=== PATIENT | female | born 1935 | race Caucasian/White ===

== ENCOUNTER 2020-06-26 04:25 | Inpatient (IN) | payer MEDICARE, SELFPAY ==
[2020-06-26] VITALS (30 sets, daily range): BP systolic 122–206; BP diastolic 59–100; PULSE 60–85; RESP 14–20; TEMP 36.6–36.8; O2SAT 90–98; BMI 28.3; BMI 31.7
--- NOTE | 2020-06-26 | IR_ITS ---
APPROVED REPORT Patient Location[facility] Librarian: ROSALIE Alfonso RT (R) PROCEDURES Left heart catheterization Left ventriculogram Selective coronary angiogram Drug-eluting stent deployment to the ostial proximal and mid LAD in a noncontiguous manner using 2 drug-eluting stents INDICATION Acute ST elevation anterior myocardial infarction, Coronary artery disease Informed consent was obtained prior to the procedure. COMPLICATIONS None TECHNIQUE One percent lidocaine used to anesthetize the right anterior aspect of the wrist. The right radial artery was accessed via the Seldinger technique. A 6 Arabic sheath was placed in the right radial artery. 2.5 mg of verapamil, 800 mcg of nitroglycerin, 1mg Lidocaine were given through the arterial sheath. An ACT was measured greater than 190 therefore an additional 4000 units of heparin was administered intravenously. A Papa catheter was used to intubate the left main artery and a Choice PT wire was placed through the LAD stenosis into the distal LAD. A 3 mm x 12 mm resolute pieter stent was deployed at 16 mickey reducing the critical stenosis to 0%. An additional 2.75 x 15 mm resolute pieter stent was then deployed in the mid LAD at 16 mickey reducing the severe stenosis to 0%. DEWEY II flow was present before the procedure with DEWEY-3 flow being present at the end of the procedure. At the end of the procedure the apparatus was removed the sheath was removed good hemostasis was achieved using TR banding patient was transferred to the postop holding her in stable condition. ANGIOGRAPHIC RESULTS The left main artery Has mid vessel and distal 30% tandem stenoses The left anterior descending artery Is an ostial and proximal critical focal 90% stenosis followed by an additional mid vessel 80% concentric stenosis. There is additional 20% diffuse eccentric stenoses throughout the LAD The circumflex artery Is nondominant yet still a large caliber vessel with a mid vessel 40% stenosis The right coronary artery Is a large dominant vessel and has multiple proximal to mid vessel 30% stenoses. The posterior descending artery has proximal and mid vessel 30% stenoses The COLE ventriculogram reveals Reduced at 35 to 40% with anterior wall hypokinesis The left ventricular end-diastolic pressure 20 mmHg IMPRESSION Critical proximal and mid LAD disease as described above with successful stenting of the ostial proximal LAD and mid LAD in a noncontiguous manner using 2 drug-eluting stents Persistent mild to moderate atheromatous plaque as described above Reduced ejection fraction with a likely stunned anterior wall which should recover over time Elevated LVEDP consistent with stunned myocardium PLAN 1. Brilinta 90 twice daily plus aspirin 81 mg daily for 1 year 2. LDL goal of 55 to be achieved with high intensity statin 3. HARPER inhibitor and beta-zeeshan once hemodynamically stable 4. Medical management for the remaining disease 5. Echocardiogram to better evaluate ejection fraction. If ejection fraction remains 35% or less prior to discharge patient should go home with a LifeVest 6. Cardiac rehabilitation 7. Supportive care 8. Avoidance of all tobacco products Electronically signed by : Odilon Kapoor, 06/26/2020 06:16:52
--- NOTE | 2020-06-26 04:25 | ECG_ITS ---
APPROVED REPORT Exam: Resting ECG HR:86 bpm ECG Measurements Heart Rate 86 AXES NE 150 P 61 QRSd 86 QRS 46 QT 352 T 7 QTc 421 <Conclusion> Sinus rhythm with premature atrial complexes Possible Old [place] Marked ST abnormality, inferior/lateral subendocardial ischemia/injury Abnormal ECG Electronically signed by : Lukas Owen, 06/28/2020 16:11:55
--- NOTE | 2020-06-26 04:28 | PC.NURSE ---
STEMI CALLED AT THIS TIME
--- NOTE | 2020-06-26 04:29 | PC.NURSE ---
QUIN NOTIFIED AND RETURNED CALL. DISCUSSES CASE WITH DR MARSH AND IT IS DECIDED TO CONTINUE WITH CALLING THE TEAM IN AT THIS TIME. REIMBURSEMENT LIAISON NOTIFIED. DR TSAI FURTHER STATES HE MAY CANCEL THE ALERT IF THE PAIN THE PATIENT IS EXPERIENCING GETS UNDER CONTROL AND TAKE HER TO THE ER TECH LATER THIS MORNING.
--- NOTE | 2020-06-26 04:33 | XR_ITS ---
PROCEDURE: XR CHEST PORTABLE CLINICAL HISTORY: back pain/STEMI alert Pain COMPARISON: CR CXR1 CHEST-PORTABLE from 08/25/[address] CHEST W/O CONTRAST from 09/05/2015 FINDINGS: The cardiomediastinal silhouette and pulmonary vascularity are within normal limits. No lobar consolidation or collapse. There is some hyperinflation with attenuation of the peripheral pulmonary vessels suggesting small airway disease/COPD. Left lung base is obscured by overlying monitoring device. No acute bony abnormalities. IMPRESSION: No acute findings. Dictated b Dong Ge MD 06/26/2020 07:45 Dong Ge MD in [facility] 06/26/2020 07:45
--- NOTE | 2020-06-26 04:39 | HMH.EDGENADL ---
ED Disposition Clinical Impression: ST elevation NV (STEMI) Qualifiers: Involved coronary artery: unspecified coronary artery Qualified Code(s): I21.3 - ST elevation (STEMI) myocardial infarction of unspecified site Disposition: Admitted As Inpatient Condition on Discharge: Serious - Critical Care Critical Care Time: Yes Attestation: On , the high probability of a clinically significant, sudden or life threatening deterioration of the following system(s) required my full and direct attention, intervention and personal management. The time I documented below is in addition to time spent performing reported procedures but includes the following listed in this critical care notation. Total Critical Care Time: 35 Vital system(s) involved:: Circulatory Failure My critical care processes included: Assessment & monitoring of V/S, Initial and Re-exams, Data Review/Interpretation, Coordinating Care, Medication Orders and management, Documentation Medical Decision Making - Miles Inquiry Pt receiving controlled substance: No Vital Signs: 06/26/20 04:30 06/26/20 04:48 06/26/20 04:55 Pulse Rate [Right Brachial] 80 85 79 Respiratory Rate 20 17 Blood Pressure [Right Arm] 206/100 H 133/85 153/83 H Blood Pressure Mean [Right Arm] 135 101 106 Blood Pressure Source [Right Arm] Automatic Cuff Automatic Cuff Automatic Cuff Blood Pressure Position [Right Arm] Sitting Sitting Sitting 02 Sat by Pulse Oximetry 94 L 92 L 91 L Oxygen Delivery Method Room Air Room Air Room Air Oxygen Flow Rate (LPM) 06/26/20 04:57 06/26/20 05:02 06/26/20 05:07 Pulse Rate [Right Brachial] 74 73 68 Respiratory Rate 17 15 16 Blood Pressure [Right Arm] 144/86 H 154/78 H 167/78 H Blood Pressure Mean [Right Arm] 105 103 107 Blood Pressure Source [Right Arm] Automatic Cuff Automatic Cuff Blood Pressure Position [Right Arm] Sitting Sitting 02 Sat by Pulse Oximetry 94 L 93 L 92 L Oxygen Delivery Method Nasal Cannula Nasal Cannula Nasal Cannula Oxygen Flow Rate (LPM) 2 2 2 06/26/20 05:13 06/26/20 05:17 Pulse Rate [Right Brachial] 68 68 Respiratory Rate 14 16 Blood Pressure [Right Arm] 157/75 H 164/80 H Blood Pressure Mean [Right Arm] 102 108 Blood Pressure Source [Right Arm] Automatic Cuff Automatic Cuff Blood Pressure Position [Right Arm] Sitting Sitting 02 Sat by Pulse Oximetry 94 L 94 L Oxygen Delivery Method Nasal Cannula Nasal Cannula Oxygen Flow Rate (LPM) 2 2 - Lab Data Lab Results 06/26/20 04:42: WBC 7.8, RBC 5.34, Hgb 15.6, Hct 46.1, MCV 86.3, MCH 29.2, MCHC 33.8, RDW 13.8, Plt Count 217, MPV 7.3 L, Neut % (Auto) 63.8, Lymph % (Auto) 27.1, Floyd % (Auto) 6.3, Eos % (Auto) 2.2, Baso % (Auto) 0.6, Neut # (Auto) 5.0, Lymph # (Auto) 2.1, Floyd # (Auto) 0.5, Eos # (Auto) 0.2, Baso # (Auto) 0.1 06/26/20 04:42: Sodium 142, Potassium 4.4, Chloride 106, Carbon Dioxide 25, Anion Gap 15.4 H, BUN 23 H, Creatinine 1.00, Estimated Creat Clear 49, Estimated GFR 53 L, Est GFR ( Amer) 64, Glucose 135 H, Calcium 10.1, Troponin I 1.90 H Result diagrams: 06/26/20 04:42 06/26/20 04:42 Orders (Tests/Meds): ED MEDICATIONS Generic Name Dose Route Start Last Admin Trade Name Freq PRN Reason Stop Dose Admin Diphenhydramine HCl 50 mg 06/26/20 05:19 Benadryl 50mg/1ml Vial IV 06/26/20 05:20 ONCE ONE Fentanyl Citrate 25 mcg 06/26/20 05:30 Fentanyl 100mcg/2ml Vial IV 06/27/20 05:20 Q3MINP PRN Moderate to Severe Pain Fentanyl Citrate 50 mcg 06/26/20 05:30 Fentanyl 100mcg/2ml Vial IV 06/27/20 05:20 Q3MINP PRN Moderate to Severe Pain Fentanyl Citrate 25 mcg 06/26/20 05:30 Fentanyl 250mcg/5ml Vial IV 06/27/20 05:19 Q3MINP PRN Moderate to Severe Pain Fentanyl Citrate 50 mcg 06/26/20 05:30 Fentanyl 250mcg/5ml Vial IV 06/27/20 05:19 Q3MINP PRN Moderate to Severe Pain Flumazenil 0.2 mg 06/26/20 05:30 Romazicon 0.1mg/Ml 5ml Vial IV 06/26/20 23:00 NEEDED PRN Sedat
[2020-06-26 04:49] LABS: Basophils # 0.1 K/mm3 (0-0.2); Basophils % 0.6 % (0.1-2.0); Eosinophils # 0.2 K/mm3 (0.0-0.4); Eosinophils % 2.2 % (0.1-12.0); Hematocrit 46.1 % (37.0-47.0); Hemoglobin 15.6 g/dL (12.2-16.2); Lymphocytes # 2.1 K/mm3 (0.7-4.5); Lymphocytes % 27.1 % (10-50); Mean Corpuscular HGB Conc 33.8 g/dL (31.8-35.4); Mean Corpuscular Hemoglobin 29.2 pg (27.0-31.2); Mean Corpuscular Volume 86.3 fl (81-99); Mean Platelet Volume 7.3 fl (7.4-10.4); Monocytes # 0.5 K/mm3 (0.1-1.0); Monocytes % 6.3 % (1.7-9.3); Neutrophils % 63.8 % (37.0-80.0); Platelet Count 217 K/mm3 (142-424); Red Blood Count 5.34 M/mm3 (4.20-5.40); Red Cell Distribution Width 13.8 % (11.5-17.5); White Blood Count 7.8 K/mm3 (4.8-10.8)
--- NOTE | 2020-06-26 04:49 | PC.NURSE ---
0438 instructed fabric separator operator to get warehouse general laborer team. YAJAIRA BLANCA,PIERO RESENDIZ,NOREEN JARRELL NOTIFIED
--- NOTE | 2020-06-26 04:50 | ECG_ITS ---
APPROVED REPORT Exam: Resting ECG HR:67 bpm ECG Measurements Heart Rate [address] 138 P 36 QRSd 86 QRS 45 QT 388 T 70 QTc 409 <Conclusion> Normal sinus rhythm with sinus arrhythmia Inferolateral Ischemia Possible old [place] Abnormal ECG Electronically signed by : Lukas Owen, 06/28/2020 16:07:35
--- NOTE | 2020-06-26 04:50 | PC.NURSE ---
Nitro drip stopped at this time
[2020-06-26 04:54] LABS: Chloride 106 mmol/L (98-107); Potassium 4.4 mmoL/L (3.5-5.1); Sodium 142 mmol/L (136-145)
--- NOTE | 2020-06-26 04:56 | PC.NURSE ---
Stemi alert canceled at this time
[2020-06-26 04:57] LABS: Blood Urea Nitrogen 23 mg/dl (7-17); Creatinine Clearance Estimated 49 mL/min (50-200); Estimated Glomerular Filt Rate 53 ml/min (>60); GFR (African American) 64 ML/MIN (>60)
[2020-06-26 04:58] LABS: Anion Gap 15.4 mEq/L (5-15); Calcium 10.1 mg/dl (8.4-10.2); Carbon Dioxide 25 mmol/L (22.0-30.0); Glucose 135 mg/dl (74-100)
--- NOTE | 2020-06-26 04:59 | PC.NURSE ---
Nitro drip started back at this time - 5mcg
--- NOTE | 2020-06-26 05:03 | PC.NURSE ---
0456 STEMI CANCELED .STAPLING MACHINE OPERATOR NOTIFIED TO GET THE LOAN DOCUMENTATION SPECIALIST TEAM. 0458 YAJAIRA WORKS RETURNED CALL AND WAS NOTIFIED. 0503 PIERO RESENDIZ NOTIFIED 0507 NOREEN JARRELL NOTIFIED
--- NOTE | 2020-06-26 05:10 | PC.NURSE ---
CRITICAL TROP TO .
--- NOTE | 2020-06-26 05:12 | PC.NURSE ---
ORDER RECEIVED TO CALL TREATING ENGINEER AND RE-ACTIVATE DUE TO PAIN/PRESSURE COMING BACK. ADDITIONAL NITRO GIVEN SL. NITRO IV UPPED TO 10 MCG/HOUR
--- NOTE | 2020-06-26 05:15 | PC.NURSE ---
9956 WAS NOTIFIED TO GET DIESEL LOCOMOTIVE CRANE OPERATOR TEAM .DID CALL DIESEL LOCOMOTIVE CRANE OPERATOR WHERE NOREEN AND YAJAIRA WERE ALREADY HERE AND YAJAIRA WAS GOING TO LET PIERO KNOW SHE WAS ON PHONE WITH HIM
--- NOTE | 2020-06-26 05:20 | PC.NURSE ---
CALLED [facility] FOR [facility] FOR COVID PER REQUEST OF YOLIE GATES WITH MANAGING DIRECTOR ATLAS. ENVIRONMENTAL HEALTH PHYSICIAN WITH PATIENT. TRANSPORTED VIA 2 RN'S AND CONCRETE BUCKET LOADER. PT ON ZOLL MONITOR
--- NOTE | 2020-06-26 05:24 | PC.NURSE ---
CALLED [employer] FOR PATIENT REPORT, THEY STATED THEY JUST WANTED TO CONFIRM PREVIOUS CABG HISTORY AND ALLERGIES. NOTIFIED THEM THAT THERE HASN'T BEEN A CABG PRIOR TO THIS DATE, AND SHE TOLD US ONLY ZITHROMAX BUT SULFA IS ALSO LISTED IN CHART.
[2020-06-26 05:28] LABS: Adenovirus,PCR Not Detected (NotDetected); Bordetella Pertussis Not Detected (NotDetected); Chlamydophila Pneumoniae, PCR Not Detected (NotDetected); Coronavirus 19, PCR Not Detected (NotDetected); Coronavirus 229E Not Detected (NotDetected); Coronavirus NL63 Not Detected (NotDetected); Coronavirus OC43 Not Detected (NotDetected); Coronovirus HKU1,PCR Not Detected (NotDetected); Human Metapneumovirus Not Detected (NotDetected); Influenza A, PCR Not Detected (NotDetected); Influenza AH1, 2009 Not Detected (NotDetected); Influenza AH1, PCR Not Detected (NotDetected); Influenza AH3,PCR Not Detected (NotDetected); Influenza B, PCR Not Detected (NotDetected); Mycoplasma Pneumoniae, PCR Not Detected (NotDetected); Parainfluenza 1, PCR Not Detected (NotDetected); Parainfluenza 2, PCR Not Detected (NotDetected); Parainfluenza 3, PCR Not Detected (NotDetected); Parainfluenza 4, PCR Not Detected (NotDetected); Respiratory Syncytial Virus Not Detected (NotDetected); Rhinovirus/Enterovirus Not Detected (NotDetected)
--- NOTE | 2020-06-26 07:34 | P.CONPHA_ITS ---
[facility] Pharmacy VTE Monitoring - Patient Demographics Admission date: 06/26/20 Report Date: 06/26/20 Time: 07:34 Allergies/Adverse Reactions: Patient Allergies From ZITHROMAX Allergy (Intermediate, Uncoded 11/09/17 15:00) I-ITCHING SULFA (SULFONAMIDE) Allergy (Unknown, Uncoded 11/09/17 15:00) QIVER INSIDE Height: 1.6 m Weight: 81.221 kg Patient Problems: Current Active Problems ST elevation UT (STEMI) (Acute) - VTE Risk Labs: VTE Related Lab Results Hgb 15.6 g/dL (12.2-16.2) 06/26/20 04:42 Hct 46.1 % (37.0-47.0) 06/26/20 04:42 Plt Count 217 K/mm3 (142-424) 06/26/20 04:42 BUN 23 mg/dl (7-17) H 06/26/20 04:42 Creatinine 1.00 mg/dl (0.52-1.04) 06/26/20 04:42 Estimated Creat Clear 49 mL/min (50-200) 06/26/20 04:42 - Prophylaxis VTE Prophylaxis Ordered?: Yes Types of VTE Prophylaxis: TEDS Knee High, Pharmacological Location of Applied Device: Bilateral Lower Extremeties Pharmacologic Type: Other (BRILINTA) - VTE Diagnosis Confirmed Treatment or plan recommended: Continue Current Treatment
[2020-06-26 07:49] LABS: CATHL Activated Clotting Time 294 SEC (74-125)
[2020-06-26 07:50] LABS: CATHL Activated Clotting Time 191 SEC (74-125)
[2020-06-26 07:51] LABS: CATHL Activated Clotting Time 157 SEC (74-125)
--- NOTE | 2020-06-26 08:08 | PC.NURSE ---
per alex jackson in laborer drying department, stated the heparin drip and nitro drip are to be d/c'd.
--- NOTE | 2020-06-26 08:13 | HMH.HP ---
*Admission Date: 06/26/20 *Chief complaint: Pain between shoulder blades *History of present illness: 84-year-old female presented to the emergency department early this morning with a near 3-day history of discomfort and tightness in between her shoulder blades that was worse when supine. Work-up revealed a STEMI and cardiology was consulted. Patient was started on a heparin drip and nitroglycerin drip with improvement in discomfort but not resolution. She was taken to the Registered Nurse Nursery early this morning. Patient was found to have a proximal LAD lesion that was treated with 2 drug-eluting stents. Patient is now admitted to the room and chest pain-free. [facility] History I have reviewed the patient's past medical history: Yes Medical History: Reports:: Hyperlipidemia, Hypertension *Have you ever received a pneumonia vaccine?: No *Have you received a flu vaccine this season?: Yes Other Medical History: Reports: Arthritis - *Social History Alcohol Intake: never *Occupational Status:: retired *Travel in the last 8 weeks: None Family Hx:: Unable to obtain Review of Systems - Review of Systems Review of systems:: pertinent systems reviewed and negative unless documented below Meds Home Medications Medication Instructions Recorded Confirmed Type Amlodipine Besylate [Amlodipine 5 mg PO DAILY 06/26/20 06/26/20 History 5mg tab] Metoprolol Succinate [Metoprolol 50 mg PO BID 06/26/20 06/26/20 History Succinate 50mg Tablet*] Naproxen [Naproxen 500mg tab] 500 mg PO BID 06/26/20 06/26/20 History Omeprazole 20 mg PO DAILY 06/26/20 06/26/20 History Pravastatin Sodium [Pravachol 20mg 20 mg PO DAILY 06/26/20 06/26/20 History Tablet] Allergies Allergy/AdvReac Type Severity Reaction Status Date / Time azithromycin Allergy Intermediate Hives Verified 06/26/20 08:35 Sulfa (Sulfonamide Allergy Unknown Shakiness Verified 06/26/20 08:35 Antibiotics) Exam Vital signs and Labs for Last 24 Hours: Temp Pulse Resp BP Pulse Ox 97.8 F 71 16 142/66 H 95 06/26/20 07:00 06/26/20 06:45 06/26/20 06:45 06/26/20 07:00 06/26/20 07:00 Laboratory Results - last 24 hr 06/26/20 04:42: WBC 7.8, RBC 5.34, Hgb 15.6, Hct 46.1, MCV 86.3, MCH 29.2, MCHC 33.8, RDW 13.8, Plt Count 217, MPV 7.3 L, Neut % (Auto) 63.8, Lymph % (Auto) 27.1, Barron % (Auto) 6.3, Eos % (Auto) 2.2, Baso % (Auto) 0.6, Neut # (Auto) 5.0, Lymph # (Auto) 2.1, Barron # (Auto) 0.5, Eos # (Auto) 0.2, Baso # (Auto) 0.1 06/26/20 04:42: Sodium 142, Potassium 4.4, Chloride 106, Carbon Dioxide 25, Anion Gap 15.4 H, BUN 23 H, Creatinine 1.00, Estimated Creat Clear 49, Estimated GFR 53 L, Est GFR ( Amer) 64, Glucose 135 H, Calcium 10.1, Troponin I 1.90 H 06/26/20 04:42: Activated Clotting Time 157 H* 06/26/20 04:55: Activated Clotting Time 191 H* D 06/26/20 05:05: Activated Clotting Time 294 H* D 06/26/20 05:27: Chlamy pneumoniae PCR Not detected, Adenovirus (PCR) Not detected, B. pertussis DNA (PCR) Not detected, Coronavirus OC43 (PCR) Not detected, Coronavirus HKU1 (PCR) Not detected, Coronavirus 229E (PCR) Not detected, COVID-19 PCR Not detected, Coronavirus NL63 (PCR) Not detected, Human Metapneumovir PCR Not detected, Influenza A (H1) PCR Not detected, Influ A (H1N1/09) PCR Not detected, Influenza A (H3) PCR Not detected, Influenza Type A (PCR) Not detected, Influenza Type B (PCR) Not detected, M. pneumoniae (PCR) Not detected, Parainfluenza 1 (PCR) Not detected, Parainfluenza 2 (PCR) Not detected, Parainfluenza 3 (PCR) Not detected, Parainfluenza 4 (PCR) Not detected, RSV (PCR) Not detected, Entero/Rhino (PCR) Not detected I & O for Last 24 hours: Intake & Output 06/23/20 06/24/20 06/25/20 06/26/20 11:59 11:59 11:59 11:59 Output Total 600 / 600 Balance -600 / -600 Weight 179 lb 1 oz - *Routine HEENT Exam Head: Present: normocephalic Eye: Present: EOMI, PERRL ENT: Present: mucous membranes moist - *Routine Neck Exam Present: supple. Abs
[2020-06-26 08:35] LABS: Chol/HDL Ratio 3.2 (1-3.5); Cholesterol 165 mg/dl (140-200); HDL Cholesterol 51 mg/dl (40-60); Triglycerides 125 mg/dl (30-150); VLDL Cholesterol 25 mg/dL (0-40)
[2020-06-26 08:46] LABS: Direct LDL Cholesterol 97.84 mg/dL (100-129)
--- NOTE | 2020-06-26 10:56 | HMH.CNCARD ---
History of Present Illness Consult date: 06/26/20 Requesting physician: Jair aWlters Chief complaint: pain between shoulder blades Additional Medical History:: 1. htn 2. hld 3. arthritis History of present illness: This is an 84-year-old white female who presented to the emergency department this morning with a 3-day history of pain between her shoulder blades. She states that it felt like someone was stabbing her with a knife between her shoulder blades when she would lie down at night. She states that when she would get up in the morning the pain would go away. She states that last night the pain between her shoulder blades was more severe and since this has been going on for 3 days she decided to come to the emergency department. She denies any radiation of this pain between her shoulder blades. She states that she did get short of breath when it was severe and she had a little bit of nausea. She denies any diaphoresis. The patient states that she never had any pain in her chest it was all between her shoulder blades. She denies any fever, chills, vomiting, diarrhea, PND or orthopnea. The patient was found to have an ST elevation myocardial infarction was taken directly to the cardiac forestry farm laborer. [facility] History I have reviewed the patient's past medical history: Yes Medical History: Reports:: Hyperlipidemia, Hypertension Denies:: Cancer, Diabetes Mellitus Type 1, Diabetes Mellitus Type 2, MRSA *Have you ever received a pneumonia vaccine?: Yes *Have you received a flu vaccine this season?: Yes Other Medical History: Reports: Arthritis, Cataracts Other Surgeries: Yes: Appendectomy, Tubal Ligation Amputation: No - *Social History Alcohol Intake: never *Occupational Status:: retired Housing: house *Travel in the last 8 weeks: None Family Hx:: Coronary Artery Disease, Heart Attack Meds Home Medications Medication Instructions Recorded Confirmed Type Amlodipine Besylate [Amlodipine 5 mg PO DAILY 06/26/20 06/26/20 History 5mg tab] Metoprolol Succinate [Metoprolol 50 mg PO BID 06/26/20 06/26/20 History Succinate 50mg Tablet*] Naproxen [Naproxen 500mg tab] 500 mg PO BID 06/26/20 06/26/20 History Omeprazole 20 mg PO DAILY 06/26/20 06/26/20 History Pravastatin Sodium [Pravachol 20mg 20 mg PO DAILY 06/26/20 06/26/20 History Tablet] Allergies Allergy/AdvReac Type Severity Reaction Status Date / Time azithromycin Allergy Intermediate Hives Verified 06/26/20 08:35 Sulfa (Sulfonamide Allergy Unknown Shakiness Verified 06/26/20 08:35 Antibiotics) Review of Systems - Review of Systems Review of systems:: pertinent systems reviewed and negative unless documented below - *Respiratory Reports shortness of breath, Reports shortness of breath with activity - *Gastrointestinal Reports nausea - *Musculoskeletal Reports back pain (Pain between the shoulder blades) Exam Vital signs and Labs for Last 24 Hours: Temp Pulse Resp BP Pulse Ox 97.8 F 61 17 154/89 H 95 06/26/20 07:00 06/26/20 09:30 06/26/20 09:30 06/26/20 09:30 06/26/20 09:30 Laboratory Results - last 24 hr 06/26/20 04:42: WBC 7.8, RBC 5.34, Hgb 15.6, Hct 46.1, MCV 86.3, MCH 29.2, MCHC 33.8, RDW 13.8, Plt Count 217, MPV 7.3 L, Neut % (Auto) 63.8, Lymph % (Auto) 27.1, Stearns % (Auto) 6.3, Eos % (Auto) 2.2, Baso % (Auto) 0.6, Neut # (Auto) 5.0, Lymph # (Auto) 2.1, Stearns # (Auto) 0.5, Eos # (Auto) 0.2, Baso # (Auto) 0.1 06/26/20 04:42: Sodium 142, Potassium 4.4, Chloride 106, Carbon Dioxide 25, Anion Gap 15.4 H, BUN 23 H, Creatinine 1.00, Estimated Creat Clear 49, Estimated GFR 53 L, Est GFR ( Amer) 64, Glucose 135 H, Calcium 10.1, Troponin I 1.90 H 06/26/20 04:42: Activated Clotting Time 157 H* 06/26/20 04:42: Triglycerides 125, Cholesterol 165, LDL Cholesterol Direct 97.84 L, VLDL Cholesterol 25, HDL Cholesterol 51, Cholesterol/HDL Ratio 3.2 06/26/20 04:55: Activated Clotting Time 191 H* D 06/26/20 05:05: Activated Clottin
--- NOTE | 2020-06-26 11:05 | CA_ITS ---
APPROVED REPORT EXAM: Comprehensive 2D, Doppler, and color-flow Echocardiogram Residential Builder: Violeta Soto RDCS Ht: 5 ft 3 in Wt: 179lbs BSA: 1.84 BP: 154/89 mmHg Indications: STEMI,CAD,HTN,HLP 2D Dimensions LVOT 1.63 cm (M/F) 1.5-2.5 M-Mode Dimensions RVDd 3.05 cm (0.9-2.6) LVDd 4.96 cm (3.5-5.7) LVDs 3.77 cm (3.5-5.7) IVSd 1.31 cm (0.6-1.1) PWd 0.89 cm (0.6-1.1) EF (Teich) 47.60% FS 24.00% EDV (Teich) 116.10 mL ESV (Teich) 60.80 mL Left Ventricle Left atrium is mildly enlarged, left ventricle is normal size, mild concentric left ventricular hypertrophy, visually estimated ejection fraction 40%, there is moderate hypokinesis involving mid to distal septum, anterior, anterior apical and apical wall. Grade 1 diastolic dysfunction seen without tissue Doppler evidence of raise left atrial pressure. Right Ventricle Right atrium and right ventricle are normal size and contractility. Aortic Valve Aortic valve is thickened and calcified leaflet chordae display good mobility, there is no aortic stenosis, there is mild aortic insufficiency. Mitral Valve Mitral valve leaflets are minimally thickened, there is no mitral stenosis, there is mild mitral regurgitation. Tricuspid Valve Tricuspid valve grossly normal, there is mild tricuspid regurgitation. Pulmonic Valve Pulmonic valve is poorly visualized. Great Vessels Aortic root is normal size. Pericardium No significant pericardial effusion noted Conclusion 1. Mildly enlarged left atrium, normal left ventricular size, mild concentric left ventricular hypertrophy, visually estimated ejection fraction 40% with multiple segmental wall motion abnormality described above, grade 1 diastolic dysfunction seen without tissue Doppler evidence of raise left atrial pressure. 2. Thickened and calcified aortic valve without aortic stenosis, there is mild aortic insufficiency. 3. Mild mitral and tricuspid regurgitation. 4. No significant pericardial effusion noted. Electronically signed by : Talib Solorzano, 06/26/2020 16:36:26
--- NOTE | 2020-06-26 11:14 | HMH.PHAINT ---
MEDICATION RECONCILIATION COMPLETED ON PATIENT USING EXTERNAL FILL HISTORY FROM PHARMACY AND LIST FROM MD OFFICE. -WILBERT DOBBSD
--- NOTE | 2020-06-26 11:54 | PC.NURSE ---
RELEASING AIR FROM [facility] HAS HAD TO BE DELAYED BECAUSE OF PT BLEEDING EASILY WHEN AIR IS RELEASED.
--- NOTE | 2020-06-26 12:27 | PC.NURSE ---
TRACELET OFF AT 1215 W/O ISSUES.
--- NOTE | 2020-06-26 14:18 | SW/DCPLANNER ---
PATIENT PRESENTED INTO THE ED EARLY THIS AM AFTER HAVING BACK AND SHOULDER DISCOMFORT THAT WORSENED OVER THE NIGHT...SHE WENT TO SENIOR COMMUNICATIONS SPECIALIST AND HAD 2 STENTS PLACED.. SHE WAS BROUGHT TO THE FLOOR STABLE AND FAMILY IS AT BEDSIDE.. PRIOR TO THIS EPISODE SHE LIVES ALONE AND MANGES ALL ASPECTS OF HER CARE. HAS A DAUGHTER THAT IS VERY SUPPORTIVE AND WILL PROVIDE CARE FOR HER MOTHER POST STAY..
--- NOTE | 2020-06-26 14:55 | PC.NURSE ---
at 1433 per md gomes pt may come out of step down. pt moved to 201
[2020-06-27] VITALS (8 sets, daily range): BP systolic 119–178; BP diastolic 56–74; PULSE 60–80; RESP 16–18; TEMP 36.6–37.1; O2SAT 94–98; BMI 30.7
--- NOTE | 2020-06-27 07:06 | HMH.ACPN2 ---
Internal Medicine - PN: Subj *Date: 06/27/20 *Time: 07:06 Interval history: Patient feels well this morning. She denies chest or back pain. She denies shortness of breath. She has been ambulating without difficulty. Exam Vital signs and Labs for Last 24 Hours: Temp Pulse Resp BP Pulse Ox 98 F 68 18 119/59 L 95 06/27/20 04:00 06/27/20 04:00 06/27/20 04:00 06/27/20 04:00 06/27/20 04:00 Laboratory Results - last 24 hr 06/26/20 04:42: Activated Clotting Time 157 H* 06/26/20 04:42: Triglycerides 125, Cholesterol 165, LDL Cholesterol Direct 97.84 L, VLDL Cholesterol 25, HDL Cholesterol 51, Cholesterol/HDL Ratio 3.2 06/26/20 04:55: Activated Clotting Time 191 H* D 06/26/20 05:05: Activated Clotting Time 294 H* D I & O for Last 24 hours: Intake & Output 06/24/20 06/25/20 06/26/20 06/27/20 11:59 11:59 11:59 11:59 Intake Total 600 / 600 Output Total 1200 / 1200 Balance -1200 / -1200 600 / 600 Weight 179 lb 1 oz 173 lb Narrative: Patient looks well. She is in good spirits. Lungs are clear to auscultation. Heart has a regular rate and rhythm. Echocardiogram revealed ejection fraction of 40% with grade 1 diastolic dysfunction without raise left atrial pressure Assessment and Plan (1) ST elevation [place] (STEMI) Current visit: Yes Status: Acute Qualifiers: Involved coronary artery: unspecified coronary artery Qualified Code(s): I21.3 - ST elevation (STEMI) myocardial infarction of unspecified site Category: Medical Code(s): I21.3 - ST elevation (STEMI) myocardial infarction of unspecified site (2) ASHD (arteriosclerotic heart disease) Current visit: Yes Status: Acute Category: Medical Code(s): I25.10 - Atherosclerotic heart disease of [place] coronary artery without angina pectoris (3) Hypertension Current visit: Yes Status: Acute Category: Medical Code(s): I10 - Essential (primary) hypertension (4) Hyperlipidemia Current visit: Yes Status: Acute Category: Medical Code(s): E78.5 - Hyperlipidemia, unspecified - Assessment and plan all Dx Assessment and Plan for all problems:: Await cardiology evaluation this morning. It is possible the patient could be discharged home today
--- NOTE | 2020-06-27 09:04 | HMH.PNCARD ---
Subjective Date: 06/27/20 Time: 08:45 Principal diagnosis: STEMI Interval history: The patient feels well today. She denies any chest pain or pressure. She denies any shortness of breath or edema. She denies any fever, chills, nausea, vomiting, diarrhea, PND or orthopnea. She has had two stents placed to the proximal LAD. She will be on Brilinta and aspirin for dual antiplatelet therapy. She is doing well. She is ambulating well on her own. Exam Vital signs and Labs for Last 24 Hours: Temp Pulse Resp BP Pulse Ox 98.2 F 66 17 178/63 H 94 L 06/27/20 08:00 06/27/20 08:00 06/27/20 08:00 06/27/20 08:00 06/27/20 08:00 I & O for Last 24 hours: Intake & Output 06/24/20 06/25/20 06/26/20 06/27/20 23:59 23:59 23:59 23:59 Intake Total 600 / 600 240 / 240 Output Total 1200 / 1200 Balance -600 / -600 240 / 240 Weight 179 lb 1 oz 173 lb Narrative: Telemetry strip is sinus rhythm with a rate of 66. [facility] 06/26/2020 shows: Critical proximal and mid LAD disease as described above with successful stenting of the ostial proximal LAD and mid LAD in a noncontiguous manner using 2 drug-eluting stents Persistent mild to moderate atheromatous plaque as described above Reduced ejection fraction with a likely stunned anterior wall which should recover over time Elevated LVEDP consistent with stunned myocardium PLAN 1. Brilinta 90 twice daily plus aspirin 81 mg daily for 1 year 2. LDL goal of 55 to be achieved with high intensity statin 3. HARPER inhibitor and beta-zeeshan once hemodynamically stable 4. Medical management for the remaining disease 5. Echocardiogram to better evaluate ejection fraction. If ejection fraction remains 35% or less prior to discharge patient should go home with a LifeVest 6. Cardiac rehabilitation 7. Supportive care 8. Avoidance of all tobacco products Echo 06/26/2020 shows: 1. Mildly enlarged left atrium, normal left ventricular size, mild concentric left ventricular hypertrophy, visually estimated ejection fraction 40% with multiple segmental wall motion abnormality described above, grade 1 diastolic dysfunction seen without tissue Doppler evidence of raise left atrial pressure. 2. Thickened and calcified aortic valve without aortic stenosis, there is mild aortic insufficiency. 3. Mild mitral and tricuspid regurgitation. 4. No significant pericardial effusion noted. - Constitutional no acute distress, obese - *Routine HEENT Exam Head: Present: normocephalic, atraumatic Eye: Present: EOMI, PERRL ENT: Present: mucous membranes moist - *Routine Neck Exam Present: supple, full ROM, normal carotid upstroke. Absent: JVD, carotid bruit, lymphadenopathy - *Routine Respiratory Exam Present: CTA bilaterally - *Routine Cardiovascular Exam Present: RRR, Normal S1, Normal S2. Absent: murmur - *Routine Abdominal Exam Present: soft, normoactive bowel sounds. Absent: tenderness, distended - *Routine Extremities Exam Present: full ROM, pulses intact, normal capillary refill. Absent: cyanosis, clubbing, edema - *Routine Skin Exam Present: intact, warm. Absent: erythema, rash - *Routine Neurological Exam Present: alert, oriented X3, CN II-XII intact. Absent: sensory deficit, motor deficit Progress Note: A&P (1) ST elevation [place] (STEMI) Status: Acute Current Visit: Yes (2) Hypertension Status: Acute Current Visit: Yes (3) Hyperlipidemia Status: Acute Current Visit: Yes (4) S/P coronary artery stent placement Status: Acute Current Visit: Yes (5) CAD (coronary artery disease) Status: Chronic Current Visit: Yes (6) Ischemic cardiomyopathy Status: Acute Current Visit: Yes Assessment and Plan for All Diagnoses:: Plan: 1. The patient was admitted to the hospital for an ST elevation myocardial infarction. She went to the [facility] and had 2 stents placed to her proximal LAD which was the infarct vessel. She is doing well and
--- NOTE | 2020-06-27 20:26 | PC.NURSE ---
PATIENT A&OX4, LUNGS CLEAR, PULSES EQUAL. PATIENT UP TO CHAIR FOR THIS RN SHIFT. THIS RN ASSESSESED RIGHT RADIAL DRESSING, NO DRAINAGE NOTED, CLEAR, DRY AND INTACT. AMBULATED WELL TO RESTROOM. ANXIOUS TO BE DISCHARGED. NO CONCERNS OR NEEDS AT THIS TIME.
[2020-06-28] VITALS: PULSE 70
[2020-06-28 03:50] VITALS: BP 148/61; PULSE 71; RESP 16; TEMP 36.9; O2SAT 95
[2020-06-28 04:00] VITALS: PULSE 70
--- NOTE | 2020-06-28 04:01 | PC.NURSE ---
PT. HAS NOT C/O N/V/D, SOA, PAIN OR DIZZINESS THIS SHIFT. NSR PER PSYCHOLOGICAL ANTHROPOLOGIST.
[2020-06-28 05:21] VITALS: BMI 30.1
[2020-06-28 06:59] LABS: Chloride 109 mmol/L (98-107)
[2020-06-28 07:00] LABS: Sodium 142 mmol/L (136-145)
[2020-06-28 07:02] LABS: Blood Urea Nitrogen 19 mg/dl (7-17); Creatinine Clearance Estimated 52 mL/min (50-200); Estimated Glomerular Filt Rate 60 ml/min (>60); GFR (African American) 72 ML/MIN (>60)
[2020-06-28 07:03] LABS: Calcium 9.4 mg/dl (8.4-10.2); Carbon Dioxide 27 mmol/L (22.0-30.0); Glucose 99 mg/dl (74-100)
--- NOTE | 2020-06-28 07:14 | HMH.DCSUM ---
General - General Admission date:: 06/26/20 Discharge date: 06/28/20 HPI HPI: 84-year-old female presented to the emergency department early this morning with a near 3-day history of discomfort and tightness in between her shoulder blades that was worse when supine. Work-up revealed a STEMI and cardiology was consulted. Patient was started on a heparin drip and nitroglycerin drip with improvement in discomfort but not resolution. She was taken to the [facility] early this morning. Patient was found to have a proximal LAD lesion that was treated with 2 drug-eluting stents. Patient is now admitted to the room and chest pain-free. Hospital Course Hospital Course: Upon decision to admit patient was taken immediately to the [facility] with findings as follows: ANGIOGRAPHIC RESULTS The left main artery Has mid vessel and distal 30% tandem stenoses The left anterior descending artery Is an ostial and proximal critical focal 90% stenosis followed by an additional mid vessel 80% concentric stenosis. There is additional 20% diffuse eccentric stenoses throughout the LAD The circumflex artery Is nondominant yet still a large caliber vessel with a mid vessel 40% stenosis The right coronary artery Is a large dominant vessel and has multiple proximal to mid vessel 30% stenoses. The posterior descending artery has proximal and mid vessel 30% stenoses The COLE ventriculogram reveals Reduced at 35 to 40% with anterior wall hypokinesis The left ventricular end-diastolic pressure 20 mmHg IMPRESSION Critical proximal and mid LAD disease as described above with successful stenting of the ostial proximal LAD and mid LAD in a noncontiguous manner using 2 drug-eluting stents Persistent mild to moderate atheromatous plaque as described above Reduced ejection fraction with a likely stunned anterior wall which should recover over time Elevated LVEDP consistent with stunned myocardium PLAN 1. Brilinta 90 twice daily plus aspirin 81 mg daily for 1 year 2. LDL goal of 55 to be achieved with high intensity statin 3. HARPER inhibitor and beta-zeeshan once hemodynamically stable 4. Medical management for the remaining disease 5. Echocardiogram to better evaluate ejection fraction. If ejection fraction remains 35% or less prior to discharge patient should go home with a LifeVest 6. Cardiac rehabilitation 7. Supportive care 8. Avoidance of all tobacco products Stenting relieved patient's angina. Patient was observed for 48 hours post procedurally. She had no recurrence of back pain or new onset of chest pain. She denies shortness of breath. Blood pressures remained appropriate. Medication adjustments were made consistent with standard of care for [place]. Patient was discharged home on the morning of June 28. She will follow-up with both cardiology service and myself in 1 week Objective Vital signs: Temp Pulse Resp BP Pulse Ox 98.5 F 70 16 148/61 H 95 06/28/20 03:50 06/28/20 04:00 06/28/20 03:50 06/28/20 03:50 06/28/20 03:50 no acute distress - *Routine Respiratory Exam Present: CTA bilaterally - *Routine Cardiovascular Exam Present: RRR - *Routine Abdominal Exam Present: soft, normoactive bowel sounds. Absent: tenderness Results Labs on day of discharge: Labs from last 24 hours 06/28/20 06:35 Sodium 142 Potassium 4.0 Chloride 109 H Carbon Dioxide 27 Anion Gap 10.0 BUN 19 H Creatinine 0.90 Estimated Creat Clear 52 Estimated GFR 60 Est GFR ( Amer) 72 Glucose 99 Calcium 9.4 DS: Diagnosis - Discharge Diagnosis (1) ST elevation [place] (STEMI) Status: Acute (2) Hypertension Status: Acute (3) Hyperlipidemia Status: Chronic (4) S/P coronary artery stent placement Status: Acute (5) CAD (coronary artery disease) Status: Chronic (6) Ischemic cardiomyopathy Status: Acute (7) Essential hypertension Status: Acute Discharge Plan -
[2020-06-28 07:30] LABS: Basophils % 0.2 % (0.1-2.0); Eosinophils # 0.2 K/mm3 (0.0-0.4); Eosinophils % 4.1 % (0.1-12.0); Hematocrit 41.5 % (37.0-47.0); Hemoglobin 13.8 g/dL (12.2-16.2); Lymphocytes # 1.5 K/mm3 (0.7-4.5); Lymphocytes % 25.8 % (10-50); Mean Corpuscular HGB Conc 33.2 g/dL (31.8-35.4); Mean Corpuscular Hemoglobin 28.7 pg (27.0-31.2); Mean Corpuscular Volume 86.3 fl (81-99); Mean Platelet Volume 7.4 fl (7.4-10.4); Monocytes # 0.5 K/mm3 (0.1-1.0); Monocytes % 8.9 % (1.7-9.3); Neutrophils # 3.5 K/mm3 (1.8-7.8); Platelet Count 204 K/mm3 (142-424); Red Cell Distribution Width 14.1 % (11.5-17.5); White Blood Count 5.7 K/mm3 (4.8-10.8)
--- NOTE | 2020-06-28 07:45 | HMH.PNCARD ---
Subjective Date: 06/28/20 Time: 07:46 Principal diagnosis: STEMI Interval history: 84-year-old white female ambulating in room in no acute distress. Denies any chest neck or back discomfort since her coronary stents were placed. Telemetry shows no arrhythmias overnight. Exam Vital signs and Labs for Last 24 Hours: Temp Pulse Resp BP Pulse Ox 98.5 F 70 16 148/61 H 95 06/28/20 03:50 06/28/20 04:00 06/28/20 03:50 06/28/20 03:50 06/28/20 03:50 Laboratory Results - last 24 hr 06/28/20 06:35: WBC 5.7 D, RBC 4.80, Hgb 13.8, Hct 41.5, MCV 86.3, MCH 28.7, MCHC 33.2, RDW 14.1, Plt Count 204, MPV 7.4, Neut % (Auto) 61.0, Lymph % (Auto) 25.8, [place] % (Auto) 8.9, Eos % (Auto) 4.1, Baso % (Auto) 0.2, Neut # (Auto) 3.5, Lymph # (Auto) 1.5, [place] # (Auto) 0.5, Eos # (Auto) 0.2, Baso # (Auto) 0.0 06/28/20 06:35: Sodium 142, Potassium 4.0, Chloride 109 H, Carbon Dioxide 27, Anion Gap 10.0, BUN 19 H, Creatinine 0.90, Estimated Creat Clear 52, Estimated GFR 60, Est GFR ( Amer) 72, Glucose 99, Calcium 9.4 I & O for Last 24 hours: Intake & Output 06/25/20 06/26/20 06/27/20 06/28/20 11:59 11:59 11:59 11:59 Intake Total 840 / 840 360 / 360 Output Total 1200 / 1200 Balance -1200 / -1200 840 / 840 360 / 360 Weight 179 lb 1 oz 173 lb 170 lb 2 oz - *Routine HEENT Exam Head: Present: normocephalic Eye: Present: EOMI, PERRL ENT: Present: mucous membranes moist - *Routine Respiratory Exam Present: CTA bilaterally. Absent: accessory muscle use, rales, rhonchi, wheezes - *Routine Cardiovascular Exam Present: RRR. Absent: murmur, gallop, rubs - *Routine Abdominal Exam Present: soft. Absent: tenderness, distended, guarding - *Routine Neurological Exam Present: alert, oriented X3, moving all extremities Progress Note: A&P (1) ST elevation [place] (STEMI) Status: Acute Current Visit: Yes (2) Hypertension Status: Acute Current Visit: Yes (3) Hyperlipidemia Status: Chronic Current Visit: Yes (4) S/P coronary artery stent placement Status: Acute Current Visit: Yes (5) CAD (coronary artery disease) Status: Chronic Current Visit: Yes (6) Ischemic cardiomyopathy Status: Acute Current Visit: Yes (7) Essential hypertension Status: Acute Current Visit: Yes Assessment and Plan for All Diagnoses:: 1. Acute ST elevation [place] status post 2 CELSO to LAD. Continue aspirin and Brilinta. 2. Cardiomyopathy with ejection fraction of 40%. Patient is on metoprolol and HARPER inhibitor. Will discontinue Norvasc in light of the patient's cardiomyopathy and increase her HARPER inhibitor if needed for further blood pressure control. 3. Hyperlipidemia, on atorvastatin therapy. Patient okay from cardiology standpoint for discharge home. Follow-up in our office in 1 week.
[2020-06-28 07:55] VITALS: BP 140/62; PULSE 81; RESP 16; TEMP 36.7; O2SAT 97
--- NOTE | 2020-06-28 08:32 | HMH.PHACLD ---
Cande Evangelista has received discharge medication counseling on the following medications: PATIENT IS ALREADY TAKING METOPROLOL SUCCINATE 50 MG BID. MD CHANGING PATIENT'S STATIN FROM PRAVASTATIN 20 MG HS TO ATORVASTATIN 40 MG HS. MD ADDING ASPIRIN 81 MG DAILY, LISINOPRIL 20 MG DAILY, AND BRILINTA 90 MG BID.
== END 2020-06-28 09:00 | disposition home or self-care (01) | DRG 247 ==
LOC: ER 05:09 → CATHLAB 05:30 → 2ND 07:08
PROVIDERS: Internal Medicine; Nurse Practitioner Family; Admitting Provider Family Medicine; Emergency Provider Emergency Medicine; PCP Family Medicine; Visit Provider Family Medicine
PROC: 027035Z Dilation of Coronary Artery, One Artery with Two Drug-eluting Intraluminal Devices, Percutaneous Approach (ICD-10-PCS; principal; 2020-06-26 05:30)
DX: I21.3 ST elevation (STEMI) myocardial infarction of unspecified site (principal); I25.10 Atherosclerotic heart disease of native coronary artery without angina pectoris; I10 Essential (primary) hypertension; E78.5 Hyperlipidemia, unspecified; Z79.899 Other long term (current) drug therapy; Z88.2 Allergy status to sulfonamides; Z88.1 Allergy status to other antibiotic agents; I25.5 Ischemic cardiomyopathy; I25.83 Coronary atherosclerosis due to lipid rich plaque
CPT/HCPCS: 36415; 71045; 80048; 80061; 84484; 85025; 85347; 87581; 87633; 87798; 92928; 93005; 93306; 93458; 96365; 96375; 99152; 99284; C1725; C1769; C1876; C9600; J1644; Q9967

== ENCOUNTER → 2020-07-07 14:29 | Outpatient (CLI) | payer MEDICARE, SELFPAY ==
[2020-07-07 15:04] LABS: Blood Urea Nitrogen 23 mg/dl (7-17); Estimated Glomerular Filt Rate 43 ml/min (>60); GFR (African American) 52 ML/MIN (>60)
== END ==
PROVIDERS: PCP Family Medicine; Visit Provider Internal Medicine
DX: I25.10 Atherosclerotic heart disease of native coronary artery without angina pectoris (principal)
CPT/HCPCS: 36415; 82565; 84520

== ENCOUNTER 2020-07-12 10:00 | Outpatient (RCR) | payer MEDICARE, SELFPAY | END 2020-11-12 15:21 | disposition home or self-care (01) | LOC: PT 10:00 | PROVIDERS: Visit Provider Internal Medicine | DX: I25.10 Atherosclerotic heart disease of native coronary artery without angina pectoris (principal); Z95.5 Presence of coronary angioplasty implant and graft | CPT/HCPCS: 93798 ==

== ENCOUNTER 2020-08-11 02:27 | Emergency (ER) | payer MEDICARE, SELFPAY ==
[2020-08-11] VITALS (8 sets, daily range): BP systolic 137–240; BP diastolic 51–100; PULSE 60–82; RESP 15–17; TEMP 36.7–36.8; O2SAT 95–100; BMI 29.2
--- NOTE | 2020-08-11 02:20 | ECG_ITS ---
APPROVED REPORT Exam: Resting ECG HR:82 bpm ECG Measurements Heart Rate 82 AXES AR 152 P 77 QRSd 90 QRS 1 QT 354 T 117 QTc 413 <Conclusion> Normal sinus rhythm ST & T wave abnormality, consider anterolateral ischemia Abnormal ECG Electronically signed by : Lukas Owen, 08/12/2020 08:53:09
--- NOTE | 2020-08-11 02:35 | XR_ITS ---
PROCEDURE: XR CHEST 2V Referring Doctor: Abrahan Kinsey Patient Age:84Y CLINICAL HISTORY: high blood pressure/heart racing Patient recently had 2 cardiac stents placed COMPARISON: CR CXR1 CHEST-PORTABLE from 08/25/[address] CHEST W/O CONTRAST from 09/05/2015 CR XR CHEST PORTABLE from 06/26/2020 FINDINGS: Today's PA and lateral CXR study is compared to the most recent 06/26/2020 pCXR. Nothing definitely acute. No focal pneumonia. No pneumothorax, no pleural effusion.. Mild coarsening markings reflecting mild chronic changes bilaterally. Heart is normal in size. [place] and mediastinal structures stable and satisfactory. Mild degenerative changes T-spine again noted with mild levoscoliosis and mild senile ankylosis features again noted. Chest wall unremarkable. . IMPRESSION: Stable chest with nothing definitely acute. Mild chronic changes. Heart upper normal size Dictated by: Julio Hughes MD 08/11/2020 12:43 Julio Hughes MD in [place] 08/11/2020 12:43
--- NOTE | 2020-08-11 03:03 | PC.NURSE ---
Lab at bedside drawing blood
--- NOTE | 2020-08-11 03:06 | HMH.EDARPALP ---
ED Disposition Clinical Impression: Palpitations, Hypertensive emergency Disposition: Home, Self-Care Condition on Discharge: Good Instructions: DI for Palpitations Additional Instructions: use meds and call pcp wednesday Referrals: PCP,No [Non-Staff] - - Critical Care Critical Care Time: No Attestation: On 08/11/20, the high probability of a clinically significant, sudden or life threatening deterioration of the following system(s) required my full and direct attention, intervention and personal management. The time I documented below is in addition to time spent performing reported procedures but includes the following listed in this critical care notation. Medical Decision Making - Medical Records Medical records reviewed: Yes: I reviewed the patient's medical records. - Miles Inquiry Pt receiving controlled substance: No Vital Signs: 08/11/20 02:27 08/11/20 02:57 08/11/20 03:31 Temperature 98.1 F Temperature Source Oral Pulse Rate [Left Radial] 82 67 64 Respiratory Rate 16 17 16 Blood Pressure [Right Arm] 240/100 H 211/80 H 212/92 H Blood Pressure Mean [Right Arm] 146 123 132 Blood Pressure Source [Right Arm] Manual Cuff/ Auscultation Automatic Cuff Blood Pressure Position [Right Arm] Sitting Sitting Sitting 02 Sat by Pulse Oximetry 100 98 97 Oxygen Delivery Method Room Air 08/11/20 04:00 08/11/20 04:30 08/11/20 05:30 Temperature Temperature Source Pulse Rate [Left Radial] 69 63 60 Respiratory Rate 17 17 15 Blood Pressure [Right Arm] 176/86 H 149/54 H 137/51 L Blood Pressure Mean [Right Arm] 116 85 79 Blood Pressure Source [Right Arm] Automatic Cuff Automatic Cuff Blood Pressure Position [Right Arm] Sitting Sitting 02 Sat by Pulse Oximetry 97 95 98 Oxygen Delivery Method Room Air Room Air 08/11/20 06:00 Temperature Temperature Source Pulse Rate [Left Radial] 62 Respiratory Rate 17 Blood Pressure [Right Arm] 144/57 H Blood Pressure Mean [Right Arm] 86 Blood Pressure Source [Right Arm] Automatic Cuff Blood Pressure Position [Right Arm] Supine 02 Sat by Pulse Oximetry 98 Oxygen Delivery Method Room Air - Lab Data Lab results reviewed: Yes: I reviewed the patient's lab results. Lab Results 08/11/20 03:00: WBC 5.8, RBC 5.04, Hgb 15.3, Hct 43.6, MCV 86.5, MCH 30.4, MCHC 35.1, RDW 14.0, Plt Count 251, MPV 7.3 L, Neut % (Auto) 52.9, Lymph % (Auto) 34.3, [place] % (Auto) 7.5, Eos % (Auto) 4.3, Baso % (Auto) 1.0, Neut # (Auto) 3.1, Lymph # (Auto) 2.0, [place] # (Auto) 0.4, Eos # (Auto) 0.3, Baso # (Auto) 0.1 08/11/20 03:00: Sodium 142, Potassium 3.9, Chloride 108 H, Carbon Dioxide 29, Anion Gap 8.9, BUN 19 H, Creatinine 0.90, Estimated Creat Clear 50, Estimated GFR 60, Est GFR ( Amer) 72, Glucose 136 H, Calcium 10.3 H, Troponin I 0.02 08/11/20 05:45: Troponin I 0.02 Result diagrams: 08/11/20 03:00 08/11/20 03:00 Orders (Tests/Meds): ED MEDICATIONS Discontinued Medications Generic Name Dose Route Start Last Admin Trade Name Freq PRN Reason Stop Dose Admin Clonidine HCl 0.1 mg 08/11/20 03:09 08/11/20 03:11 Clonidine 0.1mg Tablet PO 08/11/20 03:10 0.1 mg ONCE ONE Administration ORDERS Category Date Time Status Chest XR 2 view (NOT portable) [XR chest 2V] Stat Exams 08/11/20 02:35 Taken Troponin I Q3H Lab 08/11/20 08:45 Ordered - ECG Data Tracing #1 Normal Sinus Rhythm: Yes Ischemic changes: non-specific ST-T wave changes Arrhythmia/Palpitations HPI - General Chief Complaint: Arrhythmia/Palpitations Stated Complaint: palpitations Time Seen by Provider: 08/11/20 02:45 Mode of Arrival: Ambulatory Source of Information: Patient, Relative, Medical Record Limitations: No Limitations - History of Present Illness HPI narrative: elevated bp with feeling of palpitation and no chest pain and no focal neuro sx MD complaint: palpitations Onset (ago): hour(s) Duration: now resolved Severity: moderate Context: awoke with symp
[2020-08-11 03:11] LABS: Basophils # 0.1 K/mm3 (0-0.2); Eosinophils # 0.3 K/mm3 (0.0-0.4); Eosinophils % 4.3 % (0.1-12.0); Hematocrit 43.6 % (37.0-47.0); Hemoglobin 15.3 g/dL (12.2-16.2); Lymphocytes % 34.3 % (10-50); Mean Corpuscular HGB Conc 35.1 g/dL (31.8-35.4); Mean Corpuscular Hemoglobin 30.4 pg (27.0-31.2); Mean Corpuscular Volume 86.5 fl (81-99); Mean Platelet Volume 7.3 fl (7.4-10.4); Monocytes # 0.4 K/mm3 (0.1-1.0); Monocytes % 7.5 % (1.7-9.3); Neutrophils # 3.1 K/mm3 (1.8-7.8); Neutrophils % 52.9 % (37.0-80.0); Platelet Count 251 K/mm3 (142-424); Red Blood Count 5.04 M/mm3 (4.20-5.40); White Blood Count 5.8 K/mm3 (4.8-10.8)
[2020-08-11 03:18] LABS: Anion Gap 8.9 mEq/L (5-15); Blood Urea Nitrogen 19 mg/dl (7-17); Calcium 10.3 mg/dl (8.4-10.2); Carbon Dioxide 29 mmol/L (22.0-30.0); Chloride 108 mmol/L (98-107); Creatinine Clearance Estimated 50 mL/min (50-200); Estimated Glomerular Filt Rate 60 ml/min (>60); GFR (African American) 72 ML/MIN (>60); Glucose 136 mg/dl (74-100); Potassium 3.9 mmoL/L (3.5-5.1); Sodium 142 mmol/L (136-145)
[2020-08-11 03:30] LABS: Troponin I 0.02 ng/ml (0.00-0.034)
[2020-08-11 06:27] LABS: Troponin I 0.02 ng/ml (0.00-0.034)
--- NOTE | 2020-08-11 06:43 | PC.NURSE ---
called lab for trop. result update
== END 2020-08-11 07:13 | disposition home or self-care (01) ==
PROVIDERS: Emergency Provider Emergency Medicine; PCP Family Medicine
DX: I16.0 Hypertensive urgency (principal); I25.10 Atherosclerotic heart disease of native coronary artery without angina pectoris; I25.2 Old myocardial infarction; E78.5 Hyperlipidemia, unspecified; Z95.5 Presence of coronary angioplasty implant and graft; K21.9 Gastro-esophageal reflux disease without esophagitis; Z88.2 Allergy status to sulfonamides; Z79.899 Other long term (current) drug therapy
CPT/HCPCS: 36415; 71046; 80048; 84484; 85025; 93005; 99284

== ENCOUNTER → 2020-08-12 09:30 | Outpatient (CLI) | payer MEDICARE, SELFPAY ==
[2020-08-12 10:01] LABS: Chloride 105 mmol/L (98-107)
[2020-08-12 10:02] LABS: Potassium 4.6 mmoL/L (3.5-5.1); Sodium 142 mmol/L (136-145)
[2020-08-12 10:05] LABS: Anion Gap 12.6 mEq/L (5-15); Blood Urea Nitrogen 20 mg/dl (7-17); Calcium 10.1 mg/dl (8.4-10.2); Carbon Dioxide 29 mmol/L (22.0-30.0); Estimated Glomerular Filt Rate 53 ml/min (>60); GFR (African American) 64 ML/MIN (>60); Glucose 119 mg/dl (74-100)
== END ==
PROVIDERS: Visit Provider Urology
DX: E78.5 Hyperlipidemia, unspecified (principal); I10 Essential (primary) hypertension; I25.10 Atherosclerotic heart disease of native coronary artery without angina pectoris; I25.5 Ischemic cardiomyopathy; Z95.5 Presence of coronary angioplasty implant and graft
CPT/HCPCS: 36415; 80048

== ENCOUNTER → 2020-08-15 08:59 | Outpatient (CLI) | payer MEDICARE, SELFPAY ==
--- NOTE | 2020-08-15 09:01 | CA_ITS ---
APPROVED REPORT Chicken Sexer: Olena Andrews RVT Study Quality: Adequate Indications: HTN Risk Factors Hypertension Hyperlipidemia Renal Artery Doppler Mid (R) 109.4/ cm/sec Distal (R) 126.7/ cm/sec Renal Aorta Ratio (R) 0.92 Segmental A. (R) 71.4/17.4 cm/sec RI: 0.75 Segmental A. Sup (R) 51.5/19.1 cm/sec Segmental A. Mid (R) 71.4/17.4 cm/sec Segmental A. Inf (R) 48.6/14.1 cm/sec Origin (L) 88.3/ cm/sec Proximal (L) 97.2/ cm/sec Mid (L) 80.6/ cm/sec Distal (L) 84.6/ cm/sec Renal Aorta Ratio (L) 0.71 Segmental A. (L) 54.4/12.8 cm/sec RI: 0.76 Segmental A. Sup (L) 34.2/9.0 cm/sec Segmental A. Mid (L) 24.8/6.3 cm/sec Segmental A. Inf (L) 54.4/12.8 cm/sec Renal Measurements Kidney Size (R) 9.3x6.2 cm Cortical Thickness (R) 1.2 cm Kidney Size (L) 11.2x6.0 cm Cortical Thickness (L) 1.3 cm Findings Study suggests no evidence of stenosis in the bilateral renal arteries. Right proximal renal artery non-visualized. 3.3 cm cyst seen mid left kidney. Conclusion Study suggests no evidence of stenosis in the bilateral renal arteries. Right proximal renal artery non-visualized. 3.3 cm cyst seen mid left kidney. Electronically signed by : Dong Ge MD 08/15/2020 10:24:46
== END ==
PROVIDERS: PCP Family Medicine; Visit Provider Physician Assistant
DX: E78.5 Hyperlipidemia, unspecified (principal); I10 Essential (primary) hypertension; I21.3 ST elevation (STEMI) myocardial infarction of unspecified site; I25.10 Atherosclerotic heart disease of native coronary artery without angina pectoris; I25.5 Ischemic cardiomyopathy; Z95.5 Presence of coronary angioplasty implant and graft
CPT/HCPCS: 93976

== ENCOUNTER → 2020-08-22 10:12 | Outpatient (CLI) | payer MEDICARE, SELFPAY ==
[2020-08-22 11:59] LABS: Chloride 102 mmol/L (98-107); Sodium 140 mmol/L (136-145)
[2020-08-22 12:00] LABS: Potassium 5.2 mmoL/L (3.5-5.1)
[2020-08-22 12:03] LABS: Anion Gap 16.2 mEq/L (5-15); Blood Urea Nitrogen 35 mg/dl (7-17); Calcium 10.8 mg/dl (8.4-10.2); Carbon Dioxide 27 mmol/L (22.0-30.0); Estimated Glomerular Filt Rate 36 ml/min (>60); GFR (African American) 43 ML/MIN (>60); Glucose 115 mg/dl (74-100)
[2020-08-22 12:11] LABS: NT Pro Brain Natriuretic Pep. 1360 pg/mL (0-450)
== END ==
PROVIDERS: Visit Provider Internal Medicine Cardiovascular Disease
DX: E78.5 Hyperlipidemia, unspecified (principal); I10 Essential (primary) hypertension; I25.10 Atherosclerotic heart disease of native coronary artery without angina pectoris; I25.5 Ischemic cardiomyopathy; R00.2 Palpitations; Z95.5 Presence of coronary angioplasty implant and graft; I21.3 ST elevation (STEMI) myocardial infarction of unspecified site
CPT/HCPCS: 36415; 80048; 83880

== ENCOUNTER → 2020-08-29 09:26 | Outpatient (CLI) | payer MEDICARE, SELFPAY ==
[2020-08-29 10:00] LABS: Chloride 105 mmol/L (98-107); Sodium 141 mmol/L (136-145)
[2020-08-29 10:01] LABS: Potassium 4.7 mmoL/L (3.5-5.1)
[2020-08-29 10:03] LABS: Blood Urea Nitrogen 27 mg/dl (7-17); Estimated Glomerular Filt Rate 39 ml/min (>60); GFR (African American) 47 ML/MIN (>60)
[2020-08-29 10:04] LABS: Anion Gap 11.7 mEq/L (5-15); Calcium 10.6 mg/dl (8.4-10.2); Carbon Dioxide 29 mmol/L (22.0-30.0); Glucose 124 mg/dl (74-100)
== END ==
PROVIDERS: Visit Provider Internal Medicine Cardiovascular Disease
DX: E78.5 Hyperlipidemia, unspecified (principal); G47.9 Sleep disorder, unspecified; I10 Essential (primary) hypertension; I25.10 Atherosclerotic heart disease of native coronary artery without angina pectoris; I25.5 Ischemic cardiomyopathy; R00.2 Palpitations; R40.0 Somnolence; Z95.5 Presence of coronary angioplasty implant and graft
CPT/HCPCS: 36415; 80048

== ENCOUNTER → 2020-09-04 10:04 | Outpatient (CLI) | payer MEDICARE, SELFPAY ==
--- NOTE | 2020-09-04 10:05 | CA_ITS ---
APPROVED REPORT EXAM: Comprehensive 2D, Doppler, and color-flow Echocardiogram Skin Care Therapist: Esperanza De Leon CRT Ht: 5 ft 3 in Wt: 164lbs BSA: 1.78 BP: 160/80 mmHg Indications: Hypertension , HLD, HTN, CM, CAD, [place], Stent M-Mode Dimensions RVDd 2.36 cm (0.9-2.6) LVDd 4.72 cm (3.5-5.7) LVDs 2.63 cm (3.5-5.7) IVSd 2.02 cm (0.6-1.1) PWd 0.71 cm (0.6-1.1) EF (Teich) 75.50% FS 44.30% EDV (Teich) 103.40 mL ESV (Teich) 25.30 mL Left Ventricle Left atrium is moderately enlarged, left ventricle is normal size, mild concentric left ventricular hypertrophy, visually estimated ejection fraction 55% with no regional wall motion abnormality, diastolic parameters are inconclusive. Right Ventricle Right atrium and right ventricle are normal size and contractility. Aortic Valve Aortic valve is minimally thickened and fibrosed, there is no aortic stenosis aortic insufficiency. Mitral Valve Mitral valve has mitral calcification, there is no mitral stenosis, there is mild mitral regurgitation. Tricuspid Valve Tricuspid valve grossly normal, there is mild tricuspid regurgitation, tricuspid regurgitation jet versus inadequate for calculation of the right ventricular systolic pressure. Pulmonic Valve Pulmonic valve is poorly visualized. Great Vessels Aortic root is normal size. Pericardium No significant pericardial effusion noted. Conclusion 1. Moderately enlarged left atrium, normal left ventricular size, mild concentric left ventricular hypertrophy, visually estimated ejection fraction 55% with no regional wall motion abnormality, diastolic parameters are inconclusive. 2. Mild mitral and tricuspid regurgitation. 3. No significant pericardial effusion noted. Electronically signed by : Talib Solorzano, 09/05/2020 14:01:18
== END ==
PROVIDERS: PCP Family Medicine; Visit Provider Internal Medicine Cardiovascular Disease
DX: I25.10 Atherosclerotic heart disease of native coronary artery without angina pectoris (principal); I25.5 Ischemic cardiomyopathy; I10 Essential (primary) hypertension; E78.5 Hyperlipidemia, unspecified; Z95.5 Presence of coronary angioplasty implant and graft
CPT/HCPCS: 93308

== ENCOUNTER → 2021-02-27 11:54 | Outpatient (CLI) | payer MEDICARE, SELFPAY ==
--- NOTE | 2021-02-27 12:01 | XR_ITS ---
PROCEDURE: XR HIP RT 2-3V W/PELVIS CLINICAL INDICATION: RT HIP PAIN COMPARISON: No exams were available for comparison FINDINGS: There are mild osteoarthritic changes involving both hips as seen on the AP view of the pelvis. No acute fracture or dislocation. No lytic or blastic change. IMPRESSION: Mild osteoarthritis of the hips Dictated by: Dong Ge MD 02/27/2021 15:50 Dong Ge MD in [place] 02/27/2021 15:50
== END ==
PROVIDERS: PCP Nurse Practitioner Family; Visit Provider Nurse Practitioner Family
DX: M25.551 Pain in right hip (principal)
CPT/HCPCS: 73502

== ENCOUNTER 2021-03-23 18:34 | Observation (INO) | payer MEDICARE, SELFPAY ==
[2021-03-23 18:43] VITALS: BP 199/82; PULSE 91; RESP 18; TEMP 37.3; O2SAT 99; BMI 29.2
--- NOTE | 2021-03-23 18:45 | ECG_ITS ---
APPROVED REPORT Exam: Resting ECG HR:69 bpm ECG Measurements Heart Rate 69 AXES DC 158 P 57 QRSd 86 QRS 17 QT 364 T 72 QTc 390 Conclusion Normal sinus rhythm Septal infarct, old changes Abnormal ECG Electronically signed by : Salvador Alejandre, 03/25/2021 08:50:42
--- NOTE | 2021-03-23 18:54 | CT_ITS ---
PROCEDURE INFORMATION: Exam: CT Head Without Contrast Exam date and time: 03/23/21 06:54 PM Age: 85 years old Clinical indication: Injury or trauma; Blunt trauma (contusions or hematomas); With loss of consciousness; Not specified; Patient HX: Fall. Loc TECHNIQUE: Imaging protocol: Computed tomography of the head without contrast. Radiation optimization: All CT scans at this facility use at least one of these dose optimization techniques: automated exposure control; mA and/or kV adjustment per patient size (includes targeted exams where dose is matched to clinical indication); or iterative reconstruction. COMPARISON: No relevant prior studies available. FINDINGS: Brain: Normal. No hemorrhage. Unremarkable white matter. No mass effect. Cerebral ventricles: No ventriculomegaly. Bones/joints: Unremarkable. No acute fracture. Paranasal sinuses: Opacification of the left maxillary sinus. No fluid levels. Mastoid air cells: Visualized mastoid air cells are well aerated. Soft tissues: Unremarkable. IMPRESSION: 1. No acute intracranial abnormality. 2. Opacification of the left maxillary sinus with high dense material, possibly blood. Correlate clinically.
--- NOTE | 2021-03-23 18:54 | XR_ITS ---
PROCEDURE INFORMATION: Exam: XR Chest Exam date and time: 03/23/21 06:54 PM Age: 85 years old Clinical indication: Injury or trauma; Blunt trauma (contusions or hematomas); Patient HX: Fall. Loc; Additional info: Cough TECHNIQUE: Imaging protocol: XR of the chest. Views: 1 view. COMPARISON: CR XR CHEST 2V 08/11/20 02:32 AM FINDINGS: Lungs: Unremarkable. No consolidation. Pleural spaces: Unremarkable. No pleural effusion. No pneumothorax. Heart/Mediastinum: Unremarkable. No cardiomegaly. Bones/joints: Unremarkable. IMPRESSION: No acute findings.
--- NOTE | 2021-03-23 19:00 | HMH.EDSYNC ---
ED Disposition Clinical Impression: Atypical syncope, NSTEMI (non-ST elevated myocardial infarction) Hypertension Qualifiers: Hypertension type: essential hypertension Qualified Code(s): I10 - Essential (primary) hypertension Disposition: Admitted As Inpatient Condition on Discharge: Fair - Critical Care Critical Care Time: No Attestation: On 03/23/21, the high probability of a clinically significant, sudden or life threatening deterioration of the following system(s) required my full and direct attention, intervention and personal management. The time I documented below is in addition to time spent performing reported procedures but includes the following listed in this critical care notation. Medical Decision Making - Medical Records Medical records reviewed: Yes: I reviewed the patient's medical records. - Miles Inquiry Pt receiving controlled substance: No Vital Signs: 03/23/21 18:43 Temperature 99.1 F Temperature Source Oral Pulse Rate [Left Radial] 91 H Respiratory Rate 18 Blood Pressure [Right Arm] 199/82 H Blood Pressure Mean [Right Arm] 121 Blood Pressure Source [Right Arm] Automatic Cuff Blood Pressure Position [Right Arm] Sitting 02 Sat by Pulse Oximetry 99 Oxygen Delivery Method Room Air - Lab Data Lab Results 03/23/21 19:00: WBC 6.2, RBC 4.61, Hgb 13.2, Hct 40.2, MCV 87.2, MCH 28.7, MCHC 32.9, RDW 13.1, Plt Count 218, MPV 7.4, Neut % (Auto) 56.6, Lymph % (Auto) 33.1, Dewitt % (Auto) 8.2, Eos % (Auto) 1.5, Baso % (Auto) 0.6, Neut # (Auto) 3.5, Lymph # (Auto) 2.0, Dewitt # (Auto) 0.5, Eos # (Auto) 0.1, Baso # (Auto) 0.0 03/23/21 19:00: PT 11.3, INR 0.95, APTT 25.8 03/23/21 19:00: Sodium 141, Potassium 4.5, Chloride 106, Carbon Dioxide 28, Anion Gap 11.5, BUN 32 H, Creatinine 1.50 H, Estimated Creat Clear 33, Estimated GFR 33 L, Est GFR ( Amer) 40 L, Glucose 131 H, Calcium 10.1, Total Bilirubin 0.3, AST 34, ALT 20, Alkaline Phosphatase 79, Troponin I 0.72 H, Total Protein 7.5, Albumin 4.5, Globulin 3.0, Albumin/Globulin Ratio 1.5 Result diagrams: 03/23/21 19:00 03/23/21 19:00 Orders (Tests/Meds): ED MEDICATIONS Discontinued Medications Generic Name Dose Route Start Last Admin Trade Name Issacq PRN Reason Stop Dose Admin Aspirin 325 mg 03/23/21 19:38 Aspirin 325mg Tablet PO 03/23/21 19:39 ONCE ONE ORDERS Category Date Time Status CT head/brain wo con Stat Cat Scan 03/23/21 18:54 Taken XR chest portable Stat Exams 03/23/21 18:54 Taken Comprehensive Metabolic Panel Stat Lab 03/23/21 19:00 Results Full Resp Panel w/COVID ([facility]) Routine Lab 03/23/21 19:40 Received TSH [Thyroid Stimulating Hormone] Stat Lab 03/23/21 19:00 Results Trop I [Troponin I] Stat Lab 03/23/21 19:00 Results Troponin I Q3H Lab 03/23/21 22:00 Ordered Troponin I Q3H Lab 03/24/21 01:00 Ordered Urinalysis and Microscopic Stat Lab 03/23/21 18:54 Ordered - Radiology Data #1 Image(s): Chest Image Reviewed: Yes I reviewed the patient's radiology results, Yes I discussed the image results w/the radiologist - CT Data CT Scan: Head Time Received: 19:[address] Reviewed: Yes: I have reviewed the patient's CT results Findings Narrative: chronic changes - ECG Data Tracing #1 Normal ventricular rate of 69 bpm, normal DE interval, normal QTC. Sinus rhythm with nonspecific ST changes. ECG initial impression date: 03/23/21 ECG initial impression time: 18:47 - Reevaluation(s) Time: 19:56 Reevaluation #1: On reevaluation, patient appears to be at her baseline. She does have slightly elevated troponin. Does have a history of this in the past. Patient was administered aspirin. Patient will be admitted to the hospital for further evaluation and treatment. Medical Decision Narrative: 85-year-old female presented to the emergency department after syncopal episode. Patient does not meet imaging criteria for the head. She is slightly hypertensive at this time. Wo
[2021-03-23 19:10] LABS: Basophils % 0.6 % (0.1-2.0); Eosinophils # 0.1 K/mm3 (0.0-0.4); Eosinophils % 1.5 % (0.1-12.0); Hematocrit 40.2 % (37.0-47.0); Hemoglobin 13.2 g/dL (12.2-16.2); Lymphocytes % 33.1 % (10-50); Mean Corpuscular HGB Conc 32.9 g/dL (31.8-35.4); Mean Corpuscular Hemoglobin 28.7 pg (27.0-31.2); Mean Corpuscular Volume 87.2 fl (81-99); Mean Platelet Volume 7.4 fl (7.4-10.4); Monocytes # 0.5 K/mm3 (0.1-1.0); Monocytes % 8.2 % (1.7-9.3); Neutrophils # 3.5 K/mm3 (1.8-7.8); Neutrophils % 56.6 % (37.0-80.0); Platelet Count 218 K/mm3 (142-424); Red Blood Count 4.61 M/mm3 (4.20-5.40); Red Cell Distribution Width 13.1 % (11.5-17.5); White Blood Count 6.2 K/mm3 (4.8-10.8)
[2021-03-23 19:22] LABS: Alanine Aminotransferase 20 U/L (12-78); Albumin Level 4.5 g/dl (3.5-5.0); Albumin/Globulin Ratio 1.5 (1.1-1.8); Alkaline Phosphatase 79 U/L (38-126); Anion Gap 11.5 mEq/L (5-15); Aspartate Amino Transferase 34 U/L (14-36); Bilirubin,Total 0.3 mg/dl (0.2-1.3); Blood Urea Nitrogen 32 mg/dl (7-17); Calcium 10.1 mg/dl (8.4-10.2); Carbon Dioxide 28 mmol/L (22.0-30.0); Chloride 106 mmol/L (98-107); Creatinine Clearance Estimated 33 mL/min (50-200); Estimated Glomerular Filt Rate 33 ml/min (>60); GFR (African American) 40 ML/MIN (>60); Glucose 131 mg/dl (74-100); Potassium 4.5 mmoL/L (3.5-5.1); Sodium 141 mmol/L (136-145); Total Protein,Serum 7.5 g/dl (6.3-8.2)
[2021-03-23 19:26] LABS: Activated Partial Thrombo Time 25.8 seconds (22.8-30.6); INR 0.95 (0.9-1.1); Prothrombin Time 11.3 seconds (10.1-12.5)
[2021-03-23 19:37] LABS: Troponin I 0.72 ng/ml (0.00-0.034)
--- NOTE | 2021-03-23 19:37 | PC.NURSE ---
Critical Troponin called from lab and resulted to Dr Mercedes
--- NOTE | 2021-03-23 19:44 | PC.NURSE ---
call out to dr. zarate which is decontamination worker for dr. gomes. speaking to dr. zarate at this time.
[2021-03-23 19:47] LABS: Adenovirus,PCR Not Detected (NotDetected); Bordetella Pertussis Not Detected (NotDetected); Chlamydophila Pneumoniae, PCR Not Detected (NotDetected); Coronavirus 19, PCR Not Detected (NotDetected); Coronavirus 229E Not Detected (NotDetected); Coronavirus NL63 Not Detected (NotDetected); Coronavirus OC43 Not Detected (NotDetected); Coronovirus HKU1,PCR Not Detected (NotDetected); Human Metapneumovirus Not Detected (NotDetected); Influenza A, PCR Not Detected (NotDetected); Influenza AH1, 2009 Not Detected (NotDetected); Influenza AH1, PCR Not Detected (NotDetected); Influenza AH3,PCR Not Detected (NotDetected); Influenza B, PCR Not Detected (NotDetected); Mycoplasma Pneumoniae, PCR Not Detected (NotDetected); Parainfluenza 1, PCR Not Detected (NotDetected); Parainfluenza 2, PCR Not Detected (NotDetected); Parainfluenza 3, PCR Not Detected (NotDetected); Parainfluenza 4, PCR Not Detected (NotDetected); Respiratory Syncytial Virus Not Detected (NotDetected); Rhinovirus/Enterovirus Not Detected (NotDetected)
[2021-03-23 19:53] LABS: Thyroid Stimulating Hormone 3.26 uIU/mL (0.465-4.68)
[2021-03-23 21:16] VITALS: BP 161/61; PULSE 60; RESP 16; TEMP 37.3; O2SAT 93
--- NOTE | 2021-03-23 21:30 | PC.NURSE ---
patient up to floor via wheelchair.
[2021-03-23 22:00] VITALS: BP 155/84; PULSE 65; RESP 16; TEMP 36.9; O2SAT 95; BMI 29.2
[2021-03-23 22:07] VITALS: PULSE 65
[2021-03-23 23:52] VITALS: BP 156/68; PULSE 59; RESP 16; TEMP 36.4; O2SAT 96
[2021-03-24] VITALS (24 sets, daily range): BP systolic 120–166; BP diastolic 49–78; PULSE 47–72; RESP 13–20; TEMP 36.2–36.9; O2SAT 94–99; BMI 29.3; BMI 29.2
--- NOTE | 2021-03-24 | IR_ITS ---
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 COMPLICATIONS NONE Estimated Blood Loss: LESS THAN 10 ML TECHNIQUE One percent lidocaine was used to anesthetize the right groin. The right femoral artery was accessed via the Seldinger technique. A 4-Australian sheath was placed in the right femoral artery. The JL-4 and JR-4 catheter was also used to perform left heart catheterization left ventriculogram and selective coronary angiogram. At the end of the diagnostic heart cath a JR4 catheter was used to cannulate and perform selective angiography of each renal artery. At the end of this therapeutic heparin was administered and the 4 Australian sheath was exchanged for a 7 Australian sheath. A short PULIDO catheter was used to cannulate the left renal artery and a Choice PT extra-support wire was placed distally in the left renal artery. A 6 mm x 15 mm Herculink stent was deployed at 20 mickey reducing the severe stenosis to 0%. Following this the catheter was placed back into the right renal artery and the same wire was placed distally in the right renal artery. A 6 mm x 12 mm Herculink bare-metal stent was deployed at 14 mickey in the ostial proximal segment of the right renal artery. Stenosis was identified distally therefore a 6 mm x 18 mm Herculink stent was placed distal to the first stent yet still overlapping it and deployed at 14 mickey. Excellent angiographic results were obtained. After the achieving excellent angiographic results the apparatus was removed the groin was reprepped gloves were changed sheath was removed and hemostasis was achieved using Perclose device patient was transferred to the postop holding her stable condition ANGIOGRAPHIC RESULTS The left main artery Is a distal calcified eccentric 20 to 30% stenosis. The left anterior descending artery Has a stent originating off the ostial segment which extends through the mid segment which is widely patent with mild in-stent restenosis. The remaining LAD has mild nonflow limiting disease. A large first diagonal artery is widely patent with no angiographic evidence of significant jailing The circumflex artery Is a dominant vessel and has mild proximal 10% luminal irregularities The right coronary artery Is a codominant vessel and has proximal 30 to 40% stenoses which extend into the mid segment. Distally the posterior lateral branch has 20 to 30% proximal and mid vessel stenosis The COLE ventriculogram reveals Hyperdynamic at 80% The left ventricular end-diastolic pressure 10 mmHg The left renal artery singular and has an ostial proximal 70% stenosis Right renal artery singular and has an ostial proximal 70% stenosis which extends throughout the mid segment. 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
[2021-03-24 00:05] LABS: Troponin I 0.54 ng/ml (0.00-0.034)
--- NOTE | 2021-03-24 01:06 | PC.NURSE ---
Pt is resting in bed. Has had shower. Denies any pain at this time. MD Hunt was consulted earlier after pt's arrival to floor for clarification of orders. New orders received. Consult Cardiology. Notify Antwon about pt for any additional orders. Metoprolol succinate 100 mg PO once instead of 50 mg. Give aspirin 325 mg. Give Heparin 5,000 units SQ. Hold Clonidine. MD was also notified of Troponins. Antwon consulted for additional orders. Give Brilinta 180 mg in addition to Heparin and aspirin. aware of VS.
[2021-03-24 01:36] LABS: Troponin I 0.56 ng/ml (0.00-0.034)
--- NOTE | 2021-03-24 07:01 | CA_ITS ---
APPROVED REPORT EXAM: Comprehensive 2D, Doppler, and color-flow Echocardiogram Objective C Developer: Olena Andrews RVT Ht: 5 ft 2 in Wt: 165lbs BSA: 1.76 BP: 199/82 mmHg Indications: ELEVATED TROP,HLD,HTN,GETD,CAD,SYNCOPE,HX CM,CHF,LV DYSFUNCTION 2D Dimensions LVOT 2.00 cm (M/F) 1.5-2.5 LA Volume 50.00 mL LA Volume Index 28.40 mL/m2 (M/F) 16-34 M-Mode Dimensions RVDd 1.90 cm (0.9-2.6) LA Diam 5.10 cm (1.9-4.0) LVDd 5.40 cm (3.5-5.7) Ao Diam 2.80 cm (2.0-3.7) LVDs 3.60 cm (3.5-5.7) AV Cusp 1.80 cm (1.5-2.6) IVSd 1.60 cm (0.6-1.1) PWd 1.00 cm (0.6-1.1) EF (Teich) 61.40% FS 33.30% EDV (Teich) 141.00 mL ESV (Teich) 54.40 mL LV Diastology E/A Ratio 1.20 MED E' 4.55 (< 7 cm/sec) E'/MED E' Ratio 23.30 (>14) LAT E' 6.95 (<10 cm/sec) E/LAT E' Ratio 15.30 (>14) Aortic Valve AoV Peak Gian. 106.00 (50-130 cm/s) AO Peak GR. 4.00 mmHg Mitral Valve MV E Max Gian. 106.00 (40-130 cm/s) MV A Velocity 89.80 (40-130 cm/s) E/A Ratio 1.20 Pulmonary Valve PV Peak Velocity 90.90 (50-150 cm/s) Tricuspid Valve TR P. Velocity 176.00 cm/s RAP Estimate 10.00 mmHg RVSP 22.00 mmHg Left Ventricle Left atrium is moderately enlarged, left ventricle is normal size, mild concentric left ventricular hypertrophy, visually estimated ejection fraction 55% with no regional wall motion abnormality, diastolic parameters are inconclusive in the study. Right Ventricle Right atrium and right ventricle are normal size and contractility. Aortic Valve Aortic valve is thickened and calcified without Doppler evidence of aortic stenosis or aortic insufficiency. Mitral Valve Mitral valve has mitral calcification, leaflets are minimally thickened, there is no mitral stenosis. There is moderate mitral regurgitation. Tricuspid Valve Tricuspid grossly normal, there is mild tricuspid regurgitation, tricuspid regurgitation jet velocity is inadequate for calculation of the right ventricular systolic pressure. Pulmonic Valve Pulmonic valve is poorly visualized. Great Vessels Aortic root is normal size. Pericardium No significant pericardial effusion noted. Conclusion 1. Moderately enlarged left atrium, normal left ventricular size, mild concentric left ventricular hypertrophy, visually estimated ejection fraction 55% with no regional wall motion abnormality, diastolic parameters are inconclusive in the study. 2. Moderate mitral and mild tricuspid regurgitation. 3. No significant pericardial effusion noted. Electronically signed by : Talib Solorzano, 03/24/2021 13:09:08
--- NOTE | 2021-03-24 07:21 | P.CONPHA_ITS ---
[facility] Pharmacy VTE Monitoring - Patient Demographics Admission date: 03/23/21 Report Date: 03/24/21 Time: 07:21 Allergies/Adverse Reactions: Patient Allergies azithromycin Allergy (Intermediate, Verified 03/06/21 14:01) Hives Sulfa (Sulfonamide Antibiotics) Allergy (Unknown, Verified 03/06/21 14:01) Shakiness Height: 1.6 m Weight: 75.07 kg Patient Problems: Current Active Problems Atypical syncope (Acute) NSTEMI (non-ST elevated myocardial infarction) (Acute) Hypertension (Chronic) - VTE Risk Labs: VTE Related Lab Results Hgb 13.2 g/dL (12.2-16.2) 03/23/21 19:00 Hct 40.2 % (37.0-47.0) 03/23/21 19:00 Plt Count 218 K/mm3 (142-424) 03/23/21 19:00 PT 11.3 seconds (10.1-12.5) 03/23/21 19:00 INR 0.95 (0.9-1.1) 03/23/21 19:00 APTT 25.8 seconds (22.8-30.6) 03/23/21 19:00 BUN 32 mg/dl (7-17) H 03/23/21 19:00 Creatinine 1.50 mg/dl (0.52-1.04) H 03/23/21 19:00 Estimated Creat Clear 33 mL/min (50-200) 03/23/21 19:00 Was VTE Risk Assessment Performed: Yes VTE Score: 4 VTE Risk Level: Low Risk Clinical Trial Participant: No - Prophylaxis VTE Prophylaxis Ordered?: Yes Types of VTE Prophylaxis: Pharmacological Location of Applied Device: Not Applicable Pharmacologic Type: Other (BRILINTA, PLAVIX AND ASPIIRIN)
--- NOTE | 2021-03-24 07:26 | HMH.PHAINT ---
home medication list verified using list from [facility]
--- NOTE | 2021-03-24 07:34 | HMH.HP ---
*Admission Date: 03/23/21 *Chief complaint: Racing heart *History of present illness: 85-year-old female with history of coronary artery disease and hospitalization in June 2020 that resulted in multiple coronary stents presented to the ER after family encouraged her to seek treatment. Patient states she awoke around 6 AM yesterday morning and felt like her heart was racing. This is not a new symptom as this has been occurring repeatedly over the last many months. Approximately 4 hours after her episodes of palpitations had come and gone patient was standing at her kitchen sink and she passed out. Patient denies her syncope being preceded by chest pain, shortness of breath, diaphoresis, nausea, lightheadedness. She believes she was unconscious for only a few seconds. She did strike her head when she fell. Family found out about this later in the afternoon and ultimately encouraged her to come to the emergency department. Patient admits she felt fine when she came to the emergency department. On her work-up in the ER patient was found to have an elevated troponin. Decision was made to admit the patient for cardiac monitoring, serial troponins and cardiology evaluation. This morning patient continues to deny chest pain. She did believe she had an episode of palpitations overnight but telemetry monitoring did not reveal any arrhythmia [facility] History I have reviewed the patient's past medical history: Yes Medical History: Reports:: Congestive Heart Failure, Coronary Artery Disease, Gastroesophageal Reflux Disease(GERD), Hyperlipidemia, Hypertension, Myocardial Infarction Denies:: Cancer, Diabetes Mellitus Type 1, Diabetes Mellitus Type 2, MRSA *Have you ever received a pneumonia vaccine?: No *Have you received a flu vaccine this season?: Yes Other Medical History: Reports: Arthritis, Cataracts Other Surgeries: Yes: Appendectomy, Cardiac Catheterization, Coronary Stent, Tubal Ligation Amputation: No - *Social History Smoking Status: Never smoker Alcohol Intake: never Substance Use Type: denies use *Occupational Status:: retired Housing: house *Travel in the last 8 weeks: None Family Hx:: Coronary Artery Disease, Heart Attack, Hyperlipidemia, Hypertension Review of Systems - Constitutional Denies anorexia - Eyes Denies blind spots - ENT Denies abnormal hearing - *Cardiovascular Denies chest pain - *Respiratory Denies change in phlegm color - *Gastrointestinal Denies abdominal pain - *Genitourinary Denies painful urination - *Musculoskeletal Reports joint pain, Denies abnormal walking - Integumentary/Breasts Denies hair loss - *Neurologic Reports fainting, Denies abnormal walking - Psychiatric Denies abnormal sleep pattern Meds Home Medications Medication Instructions Recorded Confirmed Type Omeprazole 20 mg PO DAILY 06/26/20 03/23/21 History Acetaminophen [Tylenol Arthritis] 650 mg PO TIDP PRN #100 tablet.er 06/27/20 03/23/21 Rx Aspirin [Aspirin 81mg chewable 81 mg PO DAILY 08/11/20 03/23/21 History tab] metoprolol succinate 100 mg 50 mg PO BID tab 03/06/21 03/23/21 History tablet,extended release 24 hr Amlodipine Besylate [Amlodipine 5 mg PO DAILY 03/23/21 03/23/21 History 5mg tab] Clopidogrel Bisulfate [Plavix] 75 mg PO DAILY 03/23/21 03/23/21 History cloNIDine HCL [cloNIDine 0.1mg 0.1 mg PO TID 03/23/21 03/24/21 History Tablet] hydroCHLOROthiazide [HCTZ 25mg 25 mg PO DAILY 03/23/21 03/24/21 History tab] lisinopriL [Prinivil 20mg Tablet] 10 mg PO DAILY 03/23/21 03/23/21 History Atorvastatin Calcium [Lipitor 40mg 40 mg PO HS 03/24/21 03/24/21 History Tab] Allergies Allergy/AdvReac Type Severity Reaction Status Date / Time azithromycin Allergy Intermediate Hives Verified 03/06/21 14:01 Sulfa (Sulfonamide Allergy Unknown Shakiness Verified 03/06/21 14:01 Antibiotics) Exam Vital signs and Labs for Last 24 Hours: Temp Pulse Resp BP Pulse Ox
[2021-03-24 07:49] LABS: Basophils % 0.6 % (0.1-2.0); Eosinophils # 0.2 K/mm3 (0.0-0.4); Eosinophils % 3.1 % (0.1-12.0); Hematocrit 40.9 % (37.0-47.0); Hemoglobin 13.6 g/dL (12.2-16.2); Lymphocytes # 1.4 K/mm3 (0.7-4.5); Lymphocytes % 27.6 % (10-50); Mean Corpuscular HGB Conc 33.3 g/dL (31.8-35.4); Mean Corpuscular Hemoglobin 28.5 pg (27.0-31.2); Mean Corpuscular Volume 85.6 fl (81-99); Mean Platelet Volume 7.3 fl (7.4-10.4); Monocytes # 0.4 K/mm3 (0.1-1.0); Monocytes % 8.8 % (1.7-9.3); Neutrophils % 59.9 % (37.0-80.0); Platelet Count 205 K/mm3 (142-424); Red Blood Count 4.78 M/mm3 (4.20-5.40)
[2021-03-24 07:54] LABS: Alanine Aminotransferase 21 U/L (12-78); Albumin Level 4.3 g/dl (3.5-5.0); Albumin/Globulin Ratio 1.6 (1.1-1.8); Alkaline Phosphatase 78 U/L (38-126); Anion Gap 11.1 mEq/L (5-15); Aspartate Amino Transferase 32 U/L (14-36); Bilirubin,Total 0.7 mg/dl (0.2-1.3); Blood Urea Nitrogen 25 mg/dl (7-17); Calcium 9.8 mg/dl (8.4-10.2); Carbon Dioxide 26 mmol/L (22.0-30.0); Chloride 109 mmol/L (98-107); Creatinine Clearance Estimated 41 mL/min (50-200); Estimated Glomerular Filt Rate 43 ml/min (>60); GFR (African American) 52 ML/MIN (>60); Globulin 2.7 g/dL (1.3-3.2); Glucose 97 mg/dl (74-100); Potassium 4.1 mmoL/L (3.5-5.1); Sodium 142 mmol/L (136-145)
--- NOTE | 2021-03-24 08:03 | HMH.CNCARD ---
History of Present Illness Consult date: 03/24/21 Requesting physician: Salvador De Leon Chief complaint: syncope, NSTEMI Additional Medical History:: 1. Hypertension, recently labile A. Renal artery duplex, 2019, no significant renal artery stenosis however the origin of the right renal artery was not well visualized. 2. Coronary artery disease A. ST elevation NV, 06/2020, 2 drug-eluting stents placed to the proximal and mid LAD with remaining mild to moderate disease of the circumflex and RCA recommended to be treated medically 3. Ischemic cardiomyopathy, 06/2020, improved to greater than 55% on medical therapy by repeat echocardiogram 08/2020 4. Hyperlipidemia, LDL, 97, 06/2020 5. GERD History of present illness: 85-year-old female with history of coronary artery disease and hospitalization in June 2020 that resulted in multiple coronary stents presented to the ER after family encouraged her to seek treatment. Patient states she awoke around 6 AM yesterday morning and felt like her heart was racing. This is not a new symptom as this has been occurring repeatedly over the last many months. Approximately 4 hours after her episodes of palpitations had come and gone patient was standing at her kitchen sink and she passed out. Patient denies her syncope being preceded by chest pain, shortness of breath, diaphoresis, nausea, lightheadedness. She believes she was unconscious for only a few seconds. She did strike her head when she fell. Family found out about this later in the afternoon and ultimately encouraged her to come to the emergency department. Patient admits she felt fine when she came to the emergency department. On her work-up in the ER patient was found to have an elevated troponin. Decision was made to admit the patient for cardiac monitoring, serial troponins and cardiology evaluation. This morning patient continues to deny chest pain. She did believe she had an episode of palpitations overnight but telemetry monitoring did not reveal any arrhythmia. The above per Dr. De Leon Patient confirms events as noted above. She was recently seen by Dr. CHUN in the office last week due to elevated blood pressure at which time clonidine was prescribed up to 3 times per day the patient has only been taking it maybe 2 times per day. Due to some right hip pain her statin therapy was temporarily held to see if this would improve her symptoms. Right hip pain apparently has resolved. Echocardiogram is in progress at this time with preliminary ejection fraction appears to be preserved. Discussed recommendation for proceeding with cardiac catheterization and if coronary arteries are normal then would also consider a renal angiogram to evaluate the patient's recent labile hypertension. [facility] History Medical History: Reports:: Congestive Heart Failure, Coronary Artery Disease, Gastroesophageal Reflux Disease(GERD), Hyperlipidemia, Hypertension, Myocardial Infarction Denies:: Cancer, Diabetes Mellitus Type 1, Diabetes Mellitus Type 2, MRSA *Have you ever received a pneumonia vaccine?: No *Have you received a flu vaccine this season?: Yes Other Medical History: Reports: Arthritis, Cataracts Other Surgeries: Yes: Appendectomy, Cardiac Catheterization, Coronary Stent, Tubal Ligation Amputation: No - *Social History Smoking Status: Never smoker Alcohol Intake: never Substance Use Type: denies use *Occupational Status:: retired Housing: house *Travel in the last 8 weeks: None Family Hx:: Coronary Artery Disease, Heart Attack, Hyperlipidemia, Hypertension Meds Home Medications Medication Instructions Recorded Confirmed Type Omeprazole 20 mg PO DAILY 06/26/20 03/23/21 History Acetaminophen [Tylenol Arthritis] 650 mg PO TIDP PRN #100 tablet.er 06/27/20 03/23/21 Rx Aspirin [Aspirin 81mg chewable 81 mg PO DAILY 08/11/20 03/23/21 History tab] metoprolol succinate 100 mg 50 mg PO BID tab 03/06/21 03/23/21 History tablet,extended release 24 hr
[2021-03-24 14:18] LABS: Microscopic, Urine URINE MICROSCOPIC (MICROSCOPIC)
[2021-03-24 14:19] LABS: Appearance,Urine CLEAR (Clear); Bilirubin,Urine Negative (Negative); Blood, Urine TRACE-I (Negative); Color,Urine YELLOW (Yellow); Glucose,Urine (UA) Negative (Negative); Ketones,Urine Negative (Negative); Leukocyte Esterase,Urine Negative (Negative); Nitrate,Urine Negative (Negative); Protein,Urine Negative (Negative); Specific Gravity, Urine 1.015 (1.005-1.030); Urobilinogen,Urine 0.2 EU/dl (0.2)
[2021-03-24 14:36] LABS: Bacteria,Urine 1+ /lpf
[2021-03-24 15:02] LABS: CATHL Activated Clotting Time 311 SEC (74-125)
--- NOTE | 2021-03-24 16:16 | PC.NURSE ---
Addendum entered by Dunia Farr RN 03/24/21 17:36: Pt has been NSR, sinus junie on tele this shift Original Note: Pt has rested well this shift since coming back to the floor. VSS. Pt continues to tolerate RA appropriately. Rt groin cath site dressing remains CDI w/ no hematomas noted. Pt has ambulated independently w/ steady gait and balance. No other acute changes or complaints at this time. Will continue to monitor.
[2021-03-25] VITALS: PULSE 50
[2021-03-25 03:59] VITALS: BP 141/68; PULSE 60; RESP 16; TEMP 36.8; O2SAT 94
[2021-03-25 04:00] VITALS: PULSE 60
[2021-03-25 05:48] VITALS: BMI 29.1
--- NOTE | 2021-03-25 05:57 | PC.NURSE ---
Pt has rested well this shift. No complaints stated. (R) femoral cath site with DSG C/D/I. No hematoma noted. VSS. Lungs CTA. BSx4. Call light within reach. No concerns at this time. Will continue to monitor.
--- NOTE | 2021-03-25 07:27 | HMH.PNCARD ---
Subjective Date: 03/25/21 Time: 07:27 Principal diagnosis: Type II non-ST elevation MD, renal artery stenosis Interval history: 85-year-old white female in bedside chair no acute distress. States she feels better with no complaint of chest pain or palpitations. A.m. labs are pending. Exam Vital signs and Labs for Last 24 Hours: Temp Pulse Resp BP Pulse Ox 98.3 F 60 16 141/68 H 94 L 03/25/21 03:59 03/25/21 04:00 03/25/21 03:59 03/25/21 03:59 03/25/21 03:59 Laboratory Results - last 24 hr 03/24/21 07:30: WBC 5.0, RBC 4.78, Hgb 13.6, Hct 40.9, MCV 85.6, MCH 28.5, MCHC 33.3, RDW 13.0, Plt Count 205, MPV 7.3 L, Neut % (Auto) 59.9, Lymph % (Auto) 27.6, [place] % (Auto) 8.8, Eos % (Auto) 3.1, Baso % (Auto) 0.6, Neut # (Auto) 3.0, Lymph # (Auto) 1.4, [place] # (Auto) 0.4, Eos # (Auto) 0.2, Baso # (Auto) 0.0 03/24/21 07:30: Sodium 142, Potassium 4.1, Chloride 109 H, Carbon Dioxide 26, Anion Gap 11.1, BUN 25 H, Creatinine 1.20 H, Estimated Creat Clear 41, Estimated GFR 43 L, Est GFR ( Amer) 52 L D, Glucose 97 D, Calcium 9.8, Total Bilirubin 0.7, AST 32, ALT 21, Alkaline Phosphatase 78, Total Protein 7.0, Albumin 4.3, Globulin 2.7, Albumin/Globulin Ratio 1.6 03/24/21 11:33: Activated Clotting Time 311 H* 03/24/21 14:07: Urine Color Yellow, Urine Appearance Clear, Urine pH 8.0, Ur Specific [place] 1.015, Urine Protein Negative, Urine Glucose (UA) Negative, Urine Ketones Negative, Urine Blood Trace-i, Urine Nitrate Negative, Urine Bilirubin Negative, Urine Urobilinogen 0.2, Ur Leukocyte Esterase Negative, Urine RBC 5-10, Urine WBC 5-10, Ur Squamous Epith Cells 3-5, Urine Bacteria 1+ I & O for Last 24 hours: Intake & Output 03/22/21 03/23/21 03/24/21 03/25/21 11:59 11:59 11:59 11:59 Intake Total 600 / 600 Balance 600 / 600 Weight 165 lb 8 oz 164 lb 9 oz - Constitutional no acute distress - *Routine HEENT Exam Head: Present: normocephalic Eye: Present: EOMI, PERRL ENT: Present: mucous membranes moist - *Routine Neck Exam Present: supple. Absent: lymphadenopathy - *Routine Respiratory Exam Present: CTA bilaterally - *Routine Cardiovascular Exam Present: RRR - *Routine Abdominal Exam Present: soft, normoactive bowel sounds. Absent: tenderness - *Routine Extremities Exam Absent: cyanosis, clubbing, edema - *Routine Skin Exam Present: warm. Absent: rash - *Routine Neurological Exam Present: alert, oriented X3 Progress Note: A&P (1) NSTEMI (non-ST elevated myocardial infarction) Status: Acute Assessment and plan: Type II non-ST elevation MD related to hypertensive heart disease and diastolic dysfunction. (2) Left ventricular systolic dysfunction, chronic Status: Acute (3) ASHD (arteriosclerotic heart disease) Status: Acute (4) Hypertension Status: Chronic (5) Hyperlipidemia Status: Chronic (6) S/P coronary artery stent placement Status: Chronic (7) Renal artery stenosis, [place], bilateral Status: Acute Assessment and Plan for All Diagnoses:: 1. Okay from cardiology standpoint for discharge home 2. Home medication recommendations: Aspirin 81 mg daily and Plavix 75 mg daily for 1 month after that the Plavix could be discontinued with aspirin continued indefinitely thereafter. Norvasc 5 mg daily Lisinopril 10 mg daily Metoprolol succinate XL 50 mg BID or metoprolol succinate XL 100 mg daily. HCTZ 25 mg daily Resume atorvastatin 40 mg daily as previously taken at home. 3. Patient states she has an appointment in our office next week which she will keep.
[2021-03-25 07:43] VITALS: BP 145/67; PULSE 67; RESP 20; TEMP 36.6; O2SAT 99
[2021-03-25 08:00] VITALS: PULSE 60; O2SAT 99
[2021-03-25 08:13] LABS: Chloride 106 mmol/L (98-107); Sodium 140 mmol/L (136-145)
[2021-03-25 08:14] LABS: Potassium 4.5 mmoL/L (3.5-5.1)
[2021-03-25 08:16] LABS: Blood Urea Nitrogen 21 mg/dl (7-17); Creatinine Clearance Estimated 41 mL/min (50-200); Estimated Glomerular Filt Rate 43 ml/min (>60); GFR (African American) 52 ML/MIN (>60)
[2021-03-25 08:17] LABS: Anion Gap 11.5 mEq/L (5-15); Calcium 9.9 mg/dl (8.4-10.2); Carbon Dioxide 27 mmol/L (22.0-30.0); Glucose 130 mg/dl (74-100)
[2021-03-25 08:21] LABS: Basophils % 0.6 % (0.1-2.0); Eosinophils # 0.2 K/mm3 (0.0-0.4); Eosinophils % 2.8 % (0.1-12.0); Hemoglobin 13.4 g/dL (12.2-16.2); Lymphocytes # 1.7 K/mm3 (0.7-4.5); Lymphocytes % 28.3 % (10-50); Mean Corpuscular HGB Conc 32.7 g/dL (31.8-35.4); Mean Corpuscular Hemoglobin 28.6 pg (27.0-31.2); Mean Corpuscular Volume 87.5 fl (81-99); Mean Platelet Volume 7.3 fl (7.4-10.4); Monocytes # 0.4 K/mm3 (0.1-1.0); Monocytes % 6.4 % (1.7-9.3); Neutrophils # 3.7 K/mm3 (1.8-7.8); Neutrophils % 61.8 % (37.0-80.0); Platelet Count 215 K/mm3 (142-424); Red Blood Count 4.69 M/mm3 (4.20-5.40); Red Cell Distribution Width 13.2 % (11.5-17.5); White Blood Count 5.9 K/mm3 (4.8-10.8)
--- NOTE | 2021-03-25 10:09 | HMH.PHACLD ---
Cande Evangelista has received discharge medication counseling on the following medications: PATIENT ALREADY TAKING ATORVASTATIN 40 MG HS, LISINOPRIL 10 MG DAILY, METOPROLOL SUCCINATE 50 MG BID, ASPIRIN 81 MG DAILY, AND PLAVIX 75 MG DAILY.
--- NOTE | 2021-04-02 07:29 | HMH.DCSUM ---
General - General Admission date:: 03/23/21 Discharge date: 03/25/21 HPI HPI: 85-year-old female with history of coronary artery disease and hospitalization in June 2020 that resulted in multiple coronary stents presented to the ER after family encouraged her to seek treatment. Patient states she awoke around 6 AM yesterday morning and felt like her heart was racing. This is not a new symptom as this has been occurring repeatedly over the last many months. Approximately 4 hours after her episodes of palpitations had come and gone patient was standing at her kitchen sink and she passed out. Patient denies her syncope being preceded by chest pain, shortness of breath, diaphoresis, nausea, lightheadedness. She believes she was unconscious for only a few seconds. She did strike her head when she fell. Family found out about this later in the afternoon and ultimately encouraged her to come to the emergency department. Patient admits she felt fine when she came to the emergency department. On her work-up in the ER patient was found to have an elevated troponin. Decision was made to admit the patient for cardiac monitoring, serial troponins and cardiology evaluation. This morning patient continues to deny chest pain. She did believe she had an episode of palpitations overnight but telemetry monitoring did not reveal any arrhythmia Hospital Course Hospital Course: Patient was admitted and ruled out for AL. Plan was to proceed with left heart catheterization as well as angiographic evaluation of the renal arteries due to patient's labile hypertension. Results were as follows: ANGIOGRAPHIC RESULTS The left main artery Is a distal calcified eccentric 20 to 30% stenosis. The left anterior descending artery Has a stent originating off the ostial segment which extends through the mid segment which is widely patent with mild in-stent restenosis. The remaining LAD has mild nonflow limiting disease. A large first diagonal artery is widely patent with no angiographic evidence of significant jailing The circumflex artery Is a dominant vessel and has mild proximal 10% luminal irregularities The right coronary artery Is a codominant vessel and has proximal 30 to 40% stenoses which extend into the mid segment. Distally the posterior lateral branch has 20 to 30% proximal and mid vessel stenosis The COLE ventriculogram reveals Hyperdynamic at 80% The left ventricular end-diastolic pressure 10 mmHg The left renal artery singular and has an ostial proximal 70% stenosis Right renal artery singular and has an ostial proximal 70% stenosis which extends throughout the mid segment. 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 Continue dual antiplatelet therapy for the renal stents for 1 month 2. Treatment of severe diastolic dysfunction 3. IV fluids with supportive care overnight After patient's catheterization with placement of renal artery stents bilaterally patient was observed for additional 24 hours with administration of low flow IV fluids. The following morning patient's renal function remained stable. She was discharged home. Patient will follow up with both myself and cardiology within the next week Objective Vital signs: Temp Pulse Resp BP Pulse Ox 97.8 F 60 20 145/67 H 99 03/25/21 07:43 03/25/21 08:00 03/25/21 07:43 03/25/21 07:43 03/25/21 08:00 no acute distress - *Routine HEENT Exam Head: Prese
== END 2021-03-25 10:18 | disposition home or self-care (01) ==
LOC: ER 18:40 → 2ND 19:51
PROVIDERS: Internal Medicine; Admitting Provider Family Medicine; Emergency Provider Emergency Medicine; PCP Nurse Practitioner Family; Visit Provider Family Medicine
DX: I21.4 Non-ST elevation (NSTEMI) myocardial infarction (principal); I15.0 Renovascular hypertension; I25.5 Ischemic cardiomyopathy; Z95.5 Presence of coronary angioplasty implant and graft; N18.2 Chronic kidney disease, stage 2 (mild); I77.1 Stricture of artery; I12.9 Hypertensive chronic kidney disease with stage 1 through stage 4 chronic kidney disease, or unspecified chronic kidney disease
CPT/HCPCS: 36415; 37236; 37237; 70450; 71045; 80048; 80053; 81001; 84443; 84484; 85025; 85347; 85610; 85730; 87581; 87633; 87798; 93005; 93306; 93458; 96365; 99152; 99153; 99284; C1725; C1760; C1769; C1876; C1894; G0378; J1644; Q9967

== ENCOUNTER → 2021-04-03 10:39 | Outpatient (CLI) | payer MEDICARE, SELFPAY ==
[2021-04-03 11:22] LABS: Hematocrit 40.9 % (37.0-47.0); Hemoglobin 13.6 g/dL (12.2-16.2)
[2021-04-03 11:30] LABS: Blood Urea Nitrogen 39 mg/dl (7-17); Estimated Glomerular Filt Rate 43 ml/min (>60); GFR (African American) 52 ML/MIN (>60)
== END ==
PROVIDERS: Visit Provider Family Medicine
DX: R55 Syncope and collapse (principal)
CPT/HCPCS: 36415; 82565; 84520; 85014; 85018

== ENCOUNTER → 2021-04-10 10:18 | Outpatient (CLI) | payer MEDICARE, SELFPAY ==
[2021-04-10 12:10] LABS: Chloride 104 mmol/L (98-107); Potassium 4.9 mmoL/L (3.5-5.1); Sodium 141 mmol/L (136-145)
[2021-04-10 12:13] LABS: Anion Gap 11.9 mEq/L (5-15); Blood Urea Nitrogen 33 mg/dl (7-17); Carbon Dioxide 30 mmol/L (22.0-30.0); Estimated Glomerular Filt Rate 43 ml/min (>60); GFR (African American) 52 ML/MIN (>60)
[2021-04-10 12:14] LABS: Calcium 10.5 mg/dl (8.4-10.2); Glucose 100 mg/dl (74-100)
[2021-04-10 12:21] LABS: NT Pro Brain Natriuretic Pep. 946 pg/mL (0-450)
== END ==
PROVIDERS: Visit Provider Nurse Practitioner Family
DX: I21.4 Non-ST elevation (NSTEMI) myocardial infarction (principal); I25.10 Atherosclerotic heart disease of native coronary artery without angina pectoris
CPT/HCPCS: 36415; 80048; 83880

== ENCOUNTER 2021-05-07 11:00 | Outpatient (RCR) | payer MEDICARE, SELFPAY ==
--- NOTE | 2021-04-08 10:41 | HMH.PTOPEV ---
PT Outpatient Evaluation Rehab PT Outpatient Evaluation Start: 04/08/21 09:48 Freq: Status: Active Protocol: Document 04/08/21 10:21 MARIANO (Rec: 04/08/21 10:41 PHORSEBASTIAN [id number]) Electronically Signed By Campos Ivan, PT 04/08/21 10:21 Outpatient Therapy Subjective History Subjective History Pt is 85 yowf who presents with c/o lateral R hip pain x ~ 1-2 mos with insidious onset of symptoms. She reports she had an episode of blacking out at her home which resulted in a fall, but this pain was present well before that incident. She reports pain is much better after a steroid injection and that it is only present now with walking. She has PMH of [place], HTN, HL, CAD with stents, CHF. Chief Complaint Pain Symptom Type Ache Symptoms Relieved By Rest/Positioning Symptoms Aggravated By Walking Prior Functional Limitations None Current Functional Limitations Walking Symptom Description Activity Dependent Level of pain today (0-10) 0 Pain scale - at its worst (0-10) 8 Hip/Knee Eval Gait Observation General Gait Pattern Observation Antalgic Gait Palpation Tenderness right Knee Palpation Finding Tenderness Hip Palpation Findings Tenderness MMT Hip Flexion Strength Grade 4 Good Hip Abduction Strength Grade 4 Good Hip Adduction Strength Grade 4 Good Hip Extension Strength Grade 4 Good Knee Extension Strength Grade 5 Normal Knee Flexion Strength Grade 5 Normal Special Tests Hip Bowstring (Cram) Test Negative Left,Negative Right Hip Piriformis Test Negative Left,Negative Right Hip Scouring (Quadrant) Test Negative Left,Negative Right Outpatient Therapy Assessment Impairments Problems/Impairmments Palpation Tenderness,Impaired Strength,Impaired Walking, Impaired Recreational Activities,Subjective C/O Pain ,Impaired Self Care/Self Management Prognosis Rehab Potential Good Clinical Impression Consistent with Diagnosis Yes Short Term Goals Number of Weeks 4 Decreased Palpation Tenderness Yes: 1/ Increase Strength Yes: R LE 4+/5 throughout Improve Gait Pattern without Assistive Yes Device Decrease Subjective C/O Pain Y
== END 2021-05-07 11:05 | disposition home or self-care (01) ==
LOC: PT 11:00
PROVIDERS: PCP Family Medicine; Visit Provider Orthopaedic Surgery
DX: M70.71 Other bursitis of hip, right hip (principal)
CPT/HCPCS: 97014; 97033; 97035; 97110; 97163; G0283

== ENCOUNTER 2022-03-28 09:53 | Emergency (ER) | payer MEDICARE, SELFPAY ==
[2022-03-28 10:08] VITALS: BP 157/69; PULSE 72; RESP 18; TEMP 36.9; O2SAT 97; BMI 29.2
--- NOTE | 2022-03-28 10:09 | HMH.EDUTC ---
[facility] [place] Disposition Clinical Impression: Tick bite Qualifiers: Encounter type: initial encounter Site of tick bite: lower leg Laterality: left Qualified Code(s): S80.862A - Insect bite (nonvenomous), left lower leg, initial encounter Disposition: Home, Self-Care Condition on Discharge: Good Instructions: DI for Erythema Multiforme, Protect Yourself from Tickborne Illnesses Additional Instructions: Keep the affected area clean and dry. Follow up with your regular doctor. Take the antibiotics as directed and apply the topical antibiotics as directed. Apply warm wet compresses to the affected area three or four times per day. GO TO THE ER FOR ANY WORSENING SYMPTOMS Prescriptions: Mupirocin [Bactroban 2% Ointment 22gm tube] 1 applicatio TP TID 7 Days #1 gm Transmission Status: Received by [facility] Doxycycline Monohydrate [Doxycycline [place] 100mg Tab] 100 mg PO Q12 10 Days #20 tab Transmission Status: Received by [facility] Referrals: Provider,Referral, [Primary Care Provider] - Time of Disposition: 10:33 Medical Decision Making - Medical Records Medical records reviewed: No: I reviewed the patient's medical records. - Miles Inquiry Pt receiving controlled substance: No Vital Signs: 03/28/22 10:08 03/28/22 10:34 Temperature 98.5 F 98.5 F Temperature Source Oral Pulse Rate 72 Pulse Rate [Left] 72 Respiratory Rate 18 18 Blood Pressure 157/69 H Blood Pressure [Right Arm] 157/69 H Blood Pressure Mean [Right Arm] 98 02 Sat by Pulse Oximetry 97 Orders (Tests/Meds): ED MEDICATIONS Discontinued Medications Generic Name Dose Route Start Last Admin Trade Name Freq PRN Reason Stop Dose Admin Ceftriaxone Sodium 1 gm 03/28/22 10:20 03/28/22 10:29 Ceftriaxone 1gm Vial IM 03/28/22 10:21 1 gm ONCE ONE Administration Lidocaine HCl 0 ml 03/28/22 10:20 03/28/22 10:29 Lidocaine 1% 5ml Pf Vial IM 03/28/22 10:21 2 ml ONCE ONE Administration [facility] HPI - General Stated complaint: possible inf rt leg Time Seen by Provider: 03/28/22 10:09 - History of Present Illness Provider Complaint: She states that 2 days ago she found a tick embedded on her right lower leg. She removed it, but since then she has redness at the site that seems to be getting larger in size. She denies any pain, but the site has been itching her also. She denies any fever or worsening joint pain or other rash. - Related Data Home Medications Medication Instructions Recorded Confirmed Omeprazole 20 mg PO DAILY 06/26/20 03/06/22 Aspirin [Aspirin 81mg chewable 81 mg PO DAILY 08/11/20 03/06/22 tab] metoprolol succinate 100 mg 50 mg PO BID tab 03/06/21 03/06/22 tablet,extended release 24 hr Clopidogrel Bisulfate [Plavix] 75 mg PO DAILY 03/23/21 03/06/22 Previous Rx's Medication Instructions Recorded Acetaminophen [Tylenol Arthritis] 650 mg PO TIDP PRN #100 tablet.er 06/27/20 lisinopril 20 mg tablet 20 mg PO DAILY #60 tab 04/03/21 amlodipine 5 mg tablet 5 mg PO DAILY #90 tab 07/31/21 atorvastatin 40 mg tablet 40 mg PO HS #90 tab 07/31/21 hydrochlorothiazide 25 mg tablet 25 mg PO DAILY #90 tab 07/31/21 Doxycycline Monohydrate 100 mg PO Q12 10 Days #20 tab 03/28/22 [Doxycycline [place] 100mg Tab] Mupirocin [Bactroban 2% Ointment 1 applicatio TP TID 7 Days #1 gm 03/28/22 22gm tube] Allergies Allergy/AdvReac Type Severity Reaction Status Date / Time azithromycin Allergy Intermediate Hives Verified 03/28/22 10:12 Sulfa (Sulfonamide Allergy Unknown Shakiness Verified 03/28/22 10:12 Antibiotics) [facility] History - Hepatitis A Screen Attestation statement:: This patient has been screened for Hepatitis A risk factors. I have reviewed the patient's past medical history: Yes Medical History: Reports:: Congestive Heart Failure, Coronary Artery Disease, Gastroesophageal Reflux Disease(GERD), Hyperlipidemia, Hypertension, Myocardial Inf
[2022-03-28 10:34] VITALS: BP 157/69; PULSE 72; RESP 18; TEMP 36.9
== END 2022-03-28 10:48 | disposition home or self-care (01) ==
PROVIDERS: Emergency Provider Nurse Practitioner Family
DX: S80.862A Insect bite (nonvenomous), left lower leg, initial encounter (principal)
CPT/HCPCS: 96372; 99212; G0463; J0696

== ENCOUNTER 2022-06-22 07:59 | Inpatient (IN) | payer MEDICARE, SELFPAY ==
[2022-06-22] VITALS (15 sets, daily range): BP systolic 120–168; BP diastolic 52–88; PULSE 50–174; RESP 16–18; TEMP 36.6–36.8; O2SAT 96–99; BMI 29.2; BMI 28.1
--- NOTE | 2022-06-22 07:59 | ECG_ITS ---
APPROVED REPORT Exam: Resting ECG HR:142 bpm ECG Measurements Heart Rate 142 AXES QRSd 93 QRS 43 QT 220 T 89 QTc 302 Conclusion ATRIAL FIBRILLATION WITH RAPID VENTRICULAR RESPONSE NONSPECIFIC ST & T-WAVE ABNORMALITY ABNORMAL RHYTHM ECG UNCONFIRMED REPORT Electronically signed by : Salvador Alejandre MD 06/22/2022 20:36:13
--- NOTE | 2022-06-22 08:08 | PC.NURSE ---
MD at bedside assessing pt. Pt family at bedside as well.
--- NOTE | 2022-06-22 08:09 | XR_ITS ---
FINAL REPORT CLINICAL HISTORY: Elevated HR COMPARISON: 03/23/2021 FINDINGS: A single portable view of the chest was obtained. The heart size and pulmonary vascularity are within normal limits. The mediastinum is within normal limits. There is mild bibasilar atelectasis or scarring. The bony thorax is intact. IMPRESSION: Mild bibasilar atelectasis or scarring. Reviewed, Interpreted and Dictated by Jose Manuel Fields III, MD Transcribed by Alondra Verma Authenticated and [facility]
--- NOTE | 2022-06-22 08:14 | PC.NURSE ---
dr mccullough speaking with Dr Kapoor
--- NOTE | 2022-06-22 08:19 | HMH.EDGENADL ---
ED Disposition Clinical Impression: New onset atrial fibrillation, Atrial fibrillation with rapid ventricular response Disposition: Admitted as Observation Condition on Discharge: Fair Instructions: DI for Atrial Fibrillation Additional Instructions: Stop taking amlodipine. Start taking Cardizem CD 180 mg daily. First dose tomorrow. Start taking Xarelto 20 mg daily. First dose tomorrow. See Dr. Kapoor in the office this week, call to make appointment. Return to the emergency department if symptoms return. Referrals: Provider,Referral, [Primary Care Provider] - - Critical Care Critical Care Time: No Attestation: On 06/22/22, the high probability of a clinically significant, sudden or life threatening deterioration of the following system(s) required my full and direct attention, intervention and personal management. The time I documented below is in addition to time spent performing reported procedures but includes the following listed in this critical care notation. Medical Decision Making - Medical Records Medical records reviewed: Yes: I reviewed the patient's medical records. MR Comment: Reviewed prior cardiac cath results in June 2020 and March 2021. Reviewed echocardiogram result March 2021. - Miles Inquiry Pt receiving controlled substance: No Vital Signs: 06/22/22 08:04 06/22/22 08:30 06/22/22 09:00 Temperature 98.2 F Temperature Source Oral Pulse Rate 132 H 133 H Pulse Rate [Right Radial] 174 H Respiratory Rate 18 18 18 Blood Pressure 130/84 121/78 Blood Pressure [Right Arm] 168/88 H Blood Pressure Mean 97 89 Blood Pressure Mean [Right Arm] 114 Blood Pressure Source [Right Arm] Automatic Cuff Blood Pressure Position [Right Arm] Sitting 02 Sat by Pulse Oximetry 97 96 97 Oxygen Delivery Method Room Air 06/22/22 09:24 06/22/22 10:00 06/22/22 10:30 Temperature Temperature Source Pulse Rate 132 H 134 H 63 Pulse Rate [Right Radial] Respiratory Rate 18 18 18 Blood Pressure 147/88 H 120/76 145/63 H Blood Pressure [Right Arm] Blood Pressure Mean 102 85 90 Blood Pressure Mean [Right Arm] Blood Pressure Source [Right Arm] Blood Pressure Position [Right Arm] 02 Sat by Pulse Oximetry 96 96 97 Oxygen Delivery Method 06/22/22 11:00 06/22/22 11:30 06/22/22 12:00 Temperature Temperature Source Pulse Rate 57 L 52 L 54 L Pulse Rate [Right Radial] Respiratory Rate 18 18 18 Blood Pressure 148/66 H 150/58 H 159/65 H Blood Pressure [Right Arm] Blood Pressure Mean 93 88 79 Blood Pressure Mean [Right Arm] Blood Pressure Source [Right Arm] Blood Pressure Position [Right Arm] 02 Sat by Pulse Oximetry 98 98 98 Oxygen Delivery Method - Lab Data Lab Results 06/22/22 08:05: WBC 4.8, RBC 4.47, Hgb 13.2, Hct 41.8, MCV 93.5, MCH 29.5, MCHC 31.6 L, RDW 13.0, Plt Count 241, MPV 7.7, Neut % (Auto) 37.9, Lymph % (Auto) 47.7, [place] % (Auto) 8.3, Eos % (Auto) 5.2, Baso % (Auto) 0.9, Neut # (Auto) 1.8, Lymph # (Auto) 2.3, [place] # (Auto) 0.4, Eos # (Auto) 0.3, Baso # (Auto) 0.0 06/22/22 08:05: Sodium 144, Potassium 4.1, Chloride 107, Carbon Dioxide 29, Anion Gap 12.1, BUN 28 H, Creatinine 1.20 H, Estimated Creat Clear 40, Estimated GFR 43 L, Est GFR ( Amer) 52 L, Glucose 135 H, Calcium 10.1, Total Bilirubin 0.2, AST 36, ALT 27, Alkaline Phosphatase 89, Troponin I < 0.01, Total Protein 7.7, Albumin 4.7, Globulin 3.0, Albumin/Globulin Ratio 1.6 06/22/22 08:05: TSH 2.23, Free T4 Index 2.2 L, Thyroxine (T4) 6.6, T3 Uptake 33 06/22/22 08:05: Magnesium 1.7 06/22/22 11:15: Troponin I 0.04 H 06/22/22 12:10: SARS-CoV-2 (PCR) Not detected, Influenza A Untype (PCR) Not detected, Influenza Type B (PCR) Not detected Result diagrams: 06/22/22 08:05 06/22/22 08:05 Orders (Tests/Meds): ED MEDICATIONS Generic Name Dose Route Start Last Admin Trade Name Freq PRN Reason Stop Dose Admin Rivaroxaban 20 mg 06/22/22 08:33 06/22/22 09:02
--- NOTE | 2022-06-22 08:21 | PC.NURSE ---
rad at BS
--- NOTE | 2022-06-22 08:21 | PC.NURSE ---
xray at bedside
[2022-06-22 08:23] LABS: Basophils % 0.9 % (0.1-2.0); Eosinophils # 0.3 K/mm3 (0.0-0.4); Eosinophils % 5.2 % (0.1-12.0); Hematocrit 41.8 % (37.0-47.0); Hemoglobin 13.2 g/dL (12.2-16.2); Lymphocytes # 2.3 K/mm3 (0.7-4.5); Lymphocytes % 47.7 % (10-50); Mean Corpuscular HGB Conc 31.6 g/dL (31.8-35.4); Mean Corpuscular Hemoglobin 29.5 pg (27.0-31.2); Mean Corpuscular Volume 93.5 fl (81-99); Mean Platelet Volume 7.7 fl (7.4-10.4); Monocytes # 0.4 K/mm3 (0.1-1.0); Monocytes % 8.3 % (1.7-9.3); Neutrophils # 1.8 K/mm3 (1.8-7.8); Neutrophils % 37.9 % (37.0-80.0); Platelet Count 241 K/mm3 (142-424); Red Blood Count 4.47 M/mm3 (4.20-5.40); White Blood Count 4.8 K/mm3 (4.8-10.8)
[2022-06-22 08:24] LABS: Chloride 107 mmol/L (98-107); Potassium 4.1 mmoL/L (3.5-5.1); Sodium 144 mmol/L (136-145)
[2022-06-22 08:27] LABS: Alanine Aminotransferase 27 U/L (12-78); Albumin Level 4.7 g/dl (3.5-5.0); Albumin/Globulin Ratio 1.6 (1.1-1.8); Alkaline Phosphatase 89 U/L (38-126); Anion Gap 12.1 mEq/L (5-15); Aspartate Amino Transferase 36 U/L (14-36); Bilirubin,Total 0.2 mg/dl (0.2-1.3); Blood Urea Nitrogen 28 mg/dl (7-17); Calcium 10.1 mg/dl (8.4-10.2); Carbon Dioxide 29 mmol/L (22.0-30.0); Creatinine Clearance Estimated 40 mL/min (50-200); Estimated Glomerular Filt Rate 43 ml/min (>60); GFR (African American) 52 ML/MIN (>60); Glucose 135 mg/dl (74-100); Total Protein,Serum 7.7 g/dl (6.3-8.2)
--- NOTE | 2022-06-22 08:34 | PC.NURSE ---
Pt ambulating to bathroom at this time.
[2022-06-22 08:36] LABS: Magnesium 1.7 mg/dl (1.6-2.3)
--- NOTE | 2022-06-22 08:37 | PC.NURSE ---
Pt returned to room. Placed back on cardiac rn. Family at bedside.
[2022-06-22 08:40] LABS: Troponin I < 0.01 ng/ml (0.00-0.034)
--- NOTE | 2022-06-22 08:57 | PC.NURSE ---
Pharmacy is sending down [facility]
--- NOTE | 2022-06-22 09:20 | PC.NURSE ---
pt ambulated to restroom at this time, standby assist given, no difficulties noted. Pt family member stated she would remain in restroom with pt. Emergency call light shown to pt.
--- NOTE | 2022-06-22 09:28 | PC.NURSE ---
pt return to room, ambulated with no assistance, pt tolerated well. Pt states no needs at this time will continue to monitor
[2022-06-22 09:29] LABS: Free Thyroxine Index 2.2 ug/dL (5.93-13.13); T4 (Thyroxine) 6.6 ug/dl (5.53-11.0); Triiodothryronine (T3) Uptake 33 % (23.5-40.5)
[2022-06-22 09:43] LABS: Thyroid Stimulating Hormone 2.23 uIU/mL (0.465-4.68)
--- NOTE | 2022-06-22 10:23 | PC.NURSE ---
approx 1023 pt monitor beeping, staff alerted to monitor, at that time pt daughter who was at BS began trying to arouse her mother, staff to BS. Heart rate on monitor irregular, slowly climbing back up. ER MD to BS to assess pt. Pt became alert, pt states she feels okay, states she had began to feel dizzy was trying to tell her daughter that and states she thinks she blacked out . Pt was previous in rapid afib, pt now in sinus rhythm, rate of 60-70. Will obtain ekg to confirm.
--- NOTE | 2022-06-22 10:25 | ECG_ITS ---
APPROVED REPORT Exam: Resting ECG HR:67 bpm ECG Measurements Heart Rate 67 AXES MS 178 P 79 QRSd 90 QRS 24 QT 358 T 55 QTc 373 Conclusion SINUS RHYTHM NORMAL ECG UNCONFIRMED REPORT Electronically signed by : Salvador Alejandre MD 06/22/2022 20:35:36
--- NOTE | 2022-06-22 10:50 | PC.NURSE ---
PT AMBULATED BACK FROM BATHROOM , DR MARSH AT REQUESTING DR TSAI . DR MARSH ON PHONE WITH DR TSAI
--- NOTE | 2022-06-22 10:55 | CA_ITS ---
APPROVED REPORT EXAM: Comprehensive 2D, Doppler, and color-flow Echocardiogram It Operations Specialist: Amalia Felipe RT(R) Ht: 5 ft 3 in Wt: 165lbs BSA: 1.78 BP: 120/76 mmHg Indications: CAD, GERD, CHF, HTN, hyperlipidemia, AFIB 2D Dimensions LVOT 1.88 cm (M/F) 1.5-2.5 LA Volume 77.00 mL LA Volume Index 43.25 mL/m2 (M/F) 16-34 M-Mode Dimensions RVDd 2.96 cm (0.9-2.6) LA Diam 4.72 cm (1.9-4.0) LVDd 5.17 cm (3.5-5.7) Ao Diam 2.50 cm (2.0-3.7) LVDs 4.00 cm (3.5-5.7) IVSd 1.12 cm (0.6-1.1) PWd 0.76 cm (0.6-1.1) EF (Teich) 45.20% FS 22.60% EDV (Teich) 127.80 mL ESV (Teich) 70.00 mL LV Diastology E Decel Time 210.00 (160-240 msec) E/A Ratio 1.8 MED E' 7.50 (< 7 cm/sec) E'/MED E' Ratio 12.89 (>14) LAT E' 9.70 (<10 cm/sec) E/LAT E' Ratio 9.97 (>14) Mitral Valve MV E Max Gian. 97.00 (40-130 cm/s) MV A Velocity 54.00 (40-130 cm/s) E/A Ratio 1.78 MV Decel. Time 210.00 (160-240 ms) MV PHT 62.00 ms Left Ventricle Left atrium is mildly enlarged, left ventricle is normal size mild concentric left ventricular hypertrophy, estimated ejection fraction 55% with no regional wall motion abnormality, grade 2 diastolic dysfunction seen without tissue Doppler evidence of raise left atrial pressure. Right Ventricle Right atrium and right ventricle are mildly enlarged with normal contractility. Aortic Valve Aortic valve is thickened and calcified without aortic stenosis aortic insufficiency. Mitral Valve Mitral valve has mitral calcification, leaflets are minimally thickened, there is mild mitral regurgitation. Tricuspid Valve Tricuspid valve grossly normal, there is mild tricuspid regurgitation, tricuspid regurgitation jet velocity is inadequate for calculation of the right ventricular systolic pressure. Pulmonic Valve Pulmonic valve is poorly visualized. Great Vessels Aortic root is normal size. Inferior vena cava is poorly visualized. Pericardium No significant pericardial effusion noted. Conclusion 1. Biatrial enlargement, normal left ventricular size, mild concentric left ventricular hypertrophy, estimated ejection fraction 55% with no regional wall motion abnormality, grade 2 diastolic dysfunction seen without tissue Doppler evidence of raise left atrial pressure. 2. Mildly enlarged right ventricle with normal contractility. 3. Mild mitral and tricuspid regurgitation. 4. No significant pericardial effusion 5. Inferior vena cava is poorly visualized. Electronically signed by : Talib Solorzano MD 06/22/2022 19:10:11
--- NOTE | 2022-06-22 10:56 | PC.NURSE ---
ECHO LAB AWARE OF NEW ORDERS
--- NOTE | 2022-06-22 10:58 | PC.NURSE ---
AFTER DR MARSH SPOKE WITH DR TSAI NEW ORDERS PLACED
--- NOTE | 2022-06-22 11:11 | PC.NURSE ---
LAB COMING TO DRAW 2ND TROP
--- NOTE | 2022-06-22 11:13 | PC.NURSE ---
LAB HERE DRAWING 2ND TROP
--- NOTE | 2022-06-22 11:34 | PC.NURSE ---
ECHO LAB HERE DOING ECHO
[2022-06-22 11:45] LABS: Troponin I 0.04 ng/ml (0.00-0.034)
--- NOTE | 2022-06-22 12:07 | PC.NURSE ---
Dr Walters speaking with Dr Kapoor at this time.
--- NOTE | 2022-06-22 12:08 | PC.NURSE ---
DR TSAI WANTS TO ADMIT PT ,
--- NOTE | 2022-06-22 12:09 | PC.NURSE ---
Calling Dr Hunt at this time.
--- NOTE | 2022-06-22 12:14 | PC.NURSE ---
COVID SWAB SENT TO LAB
--- NOTE | 2022-06-22 12:24 | PC.NURSE ---
updated pt and family on POC at this time, (admission, possible pacemaker insertion tomorrow per ER MD), pt daughter requesting pt have lunch, ER MD states okay for pt to eat contacted dietary for lunch tray for pt.
[2022-06-22 12:26] LABS: Coronavirus 19, PCR Not Detected (NotDetected); Influenza A, PCR Not Detected (NotDetected); Influenza B, PCR Not Detected (NotDetected)
--- NOTE | 2022-06-22 12:30 | PC.NURSE ---
updated pt and pt daughter we are waiting on dr. zarate to call back for service admission.
--- NOTE | 2022-06-22 13:00 | PC.NURSE ---
2ND MESSAGE LEFT FOR DR OLSEN
--- NOTE | 2022-06-22 13:06 | PC.NURSE ---
DR MARSH SPEAKING TO DR OLSEN ABOUT ADMITTING PT , HE HAS AGREED TO ADMIT PT
--- NOTE | 2022-06-22 13:15 | PC.NURSE ---
Spoke with Ana in Care Management for admission.
--- NOTE | 2022-06-22 13:52 | PC.NURSE ---
Gave report to Josette.
--- NOTE | 2022-06-22 13:58 | HMH.PHAVTE ---
[facility] Pharmacy VTE Monitoring - Patient Demographics Admission date: 06/22/22 Report Date: 06/22/22 Time: 13:58 Allergies/Adverse Reactions: Patient Allergies azithromycin Allergy (Intermediate, Verified 03/28/22 10:12) Hives Sulfa (Sulfonamide Antibiotics) Allergy (Unknown, Verified 03/28/22 10:12) Shakiness Height: 1.6 m Weight: 74.843 kg Patient Problems: Current Active Problems New onset atrial fibrillation (Acute) Atrial fibrillation with rapid ventricular response (Acute) - VTE Risk Labs: VTE Related Lab Results Hgb 13.2 g/dL (12.2-16.2) 06/22/22 08:05 Hct 41.8 % (37.0-47.0) 06/22/22 08:05 Plt Count 241 K/mm3 (142-424) 06/22/22 08:05 BUN 28 mg/dl (7-17) H 06/22/22 08:05 Creatinine 1.20 mg/dl (0.52-1.04) H 06/22/22 08:05 Estimated Creat Clear 40 mL/min (50-200) 06/22/22 08:05 Clinical Trial Participant: No - Prophylaxis VTE Prophylaxis Ordered?: Yes Types of VTE Prophylaxis: TEDS Knee High, Pharmacological Pharmacologic Type: Other (XARELTO)
--- NOTE | 2022-06-22 14:02 | PC.NURSE ---
CLYDE VIDAL speaking with lev calle at this time
--- NOTE | 2022-06-22 14:03 | HMH.PHAINT ---
VERIFIED HOME LIST USING LIST FROM OUTPATIENT PHARMACY
--- NOTE | 2022-06-22 15:04 | HMH.CNCARD ---
History of Present Illness Consult date: 06/22/22 Requesting physician: Jair Walters Consult reason: atrial fibrillation Chief complaint: racing of the heart History of present illness: This is an 86-year-old white female who presented to the emergency department with complaints of racing of the heart. The patient states that she woke up at 630 this morning and felt her heart beating funny. She states that it felt like her heart was beating really fast and sometimes this happens but does not last long. She states this morning it just would not stop. She denies any chest pain or pressure. She denies any shortness of breath or edema. She denies any fever, chills, nausea, vomiting, diarrhea, PND or orthopnea. When the patient got to the emergency department she was found to be in atrial fibrillation with RVR. Dr. Kapoor was contacted via phone and instructed the emergency department to give the patient metoprolol tartrate 75 mg p.o. x1 dose. Her other EKG changes were felt to be from her prior STEMI. The patient did convert to normal sinus rhythm with the metoprolol but she did have 10 seconds plus of asystole when she converted from atrial fibrillation to sinus rhythm. The patient did pass out when she had the 10-second pause. She did come to on her own. SHe had a few normal beats and then had another approximately 3-second pause. The patient then had episodes of sinus bradycardia with a heart rate in the low 30s. The patient felt very dizzy and as if she were going to pass out again but she did not pass out with a heart rate in the 30s. She did not feel well during this episode. The patient then went back to sinus rhythm with a heart rate in the 60s. The patient was recommended for admission to the hospital secondary to her asystole and symptomatic bradycardia. The patient has paroxysmal atrial fibrillation with RVR and in order to treat her atrial fibrillation she needs more rate control medicines which caused her to go into asystole and sinus bradycardia. She is having tacky bradycardia syndrome. The patient will be admitted to the hospital and remain on her home dose of metoprolol. We will hold the diltiazem and Xarelto for now in preparation for permanent pacemaker placement secondary to tachybradycardia syndrome. [facility] History I have reviewed the patient's past medical history: Yes Medical History: Reports:: Atrial Fibrillation, Congestive Heart Failure, Coronary Artery Disease, Gastroesophageal Reflux Disease(GERD), Hyperlipidemia, Hypertension, Myocardial Infarction Denies:: Cancer, Diabetes Mellitus Type 1, Diabetes Mellitus Type 2, MRSA *Have you ever received a pneumonia vaccine?: Yes *Have you received a flu vaccine this season?: Yes Other Medical History: Reports: Arthritis, Cataracts Other Surgeries: Yes: Appendectomy, Cardiac Catheterization, Coronary Stent, Tubal Ligation Amputation: No - *Social History Smoking Status: Never smoker Alcohol Intake: never Substance Use Type: denies use *Occupational Status:: retired Housing: house Household Members: none *Travel in the last 8 weeks: None Family Hx:: Coronary Artery Disease, Heart Attack, Hyperlipidemia, Hypertension Meds Home Medications Medication Instructions Recorded Confirmed Type Omeprazole 20 mg PO DAILY 06/26/20 06/22/22 History Aspirin [Aspirin 81mg chewable 81 mg PO DAILY 08/11/20 06/22/22 History tab] metoprolol succinate 100 mg 50 mg PO BID tab 03/06/21 06/22/22 History tablet,extended release 24 hr atorvastatin 40 mg tablet 40 mg PO HS #90 tab 07/31/21 06/22/22 Rx hydrochlorothiazide 25 mg tablet 25 mg PO DAILY #90 tab 07/31/21 06/22/22 Rx Amlodipine Besylate 5 mg PO DAILY 06/22/22 06/22/22 History lisinopriL [Lisinopril] 10 mg PO BID 06/22/22 06/22/22 History Allergies Allergy/AdvReac Type Severity Reaction Status Date / Time azithromycin Allergy Intermediate Hives Verified 03/28/22 10:12 Sulfa (Sulfonamide Allergy Unknown Raman
--- NOTE | 2022-06-22 18:44 | PC.NURSE ---
Password set as otoniel per pt
[2022-06-23] VITALS (22 sets, daily range): BP systolic 87–163; BP diastolic 43–86; PULSE 56–76; RESP 14–20; TEMP 36.1–36.8; O2SAT 93–100; BMI 27.9
--- NOTE | 2022-06-23 05:02 | PC.NURSE ---
Pt is alert and oriented x4, pt has been resting through the night. Pt has had no complaints of pain this shift. Pt lung sounds are diminished but clear bilaterally. Pt HR 60-70s. Tele has shown NSR. Call nieves in reach and working.
[2022-06-23 07:02] LABS: Basophils # 0.1 K/mm3 (0-0.2); Basophils % 1.2 % (0.1-2.0); Eosinophils # 0.2 K/mm3 (0.0-0.4); Eosinophils % 4.1 % (0.1-12.0); Hematocrit 38.7 % (37.0-47.0); Hemoglobin 12.3 g/dL (12.2-16.2); Lymphocytes # 1.9 K/mm3 (0.7-4.5); Lymphocytes % 38.5 % (10-50); Mean Corpuscular HGB Conc 31.7 g/dL (31.8-35.4); Mean Corpuscular Hemoglobin 29.3 pg (27.0-31.2); Mean Corpuscular Volume 92.5 fl (81-99); Mean Platelet Volume 7.5 fl (7.4-10.4); Monocytes # 0.4 K/mm3 (0.1-1.0); Neutrophils # 2.4 K/mm3 (1.8-7.8); Neutrophils % 48.3 % (37.0-80.0); Platelet Count 232 K/mm3 (142-424); Red Blood Count 4.18 M/mm3 (4.20-5.40); Red Cell Distribution Width 13.1 % (11.5-17.5); White Blood Count 4.9 K/mm3 (4.8-10.8)
[2022-06-23 07:09] LABS: Chloride 107 mmol/L (98-107)
[2022-06-23 07:10] LABS: Potassium 4.6 mmoL/L (3.5-5.1); Sodium 143 mmol/L (136-145)
[2022-06-23 07:12] LABS: Alanine Aminotransferase 24 U/L (12-78); Alkaline Phosphatase 70 U/L (38-126); Anion Gap 10.6 mEq/L (5-15); Aspartate Amino Transferase 36 U/L (14-36); Bilirubin,Direct 0.1 mg/dl (0.0-0.4); Bilirubin,Indirect 0.3 mg/dL (0.0-0.9); Bilirubin,Total 0.4 mg/dl (0.2-1.3); Bilirubin,Unconjugated 0.3 mg/dL (0.0-1.1); Blood Urea Nitrogen 26 mg/dl (7-17); Carbon Dioxide 30 mmol/L (22.0-30.0); Creatinine Clearance Estimated 42 mL/min (50-200); Estimated Glomerular Filt Rate 47 ml/min (>60); GFR (African American) 57 ML/MIN (>60); Triglycerides 141 mg/dl (30-150)
[2022-06-23 07:13] LABS: Albumin Level 4.2 g/dl (3.5-5.0); Calcium 9.9 mg/dl (8.4-10.2); Chol/HDL Ratio 3.4 (1-3.5); Cholesterol 119 mg/dl (140-200); Glucose 106 mg/dl (74-100); HDL Cholesterol 35 mg/dl (40-60); VLDL Cholesterol 28 mg/dL (0-40)
[2022-06-23 07:24] LABS: Direct LDL Cholesterol 54.89 mg/dL (100-129)
--- NOTE | 2022-06-23 08:10 | HMH.HP ---
*Admission Date: 06/22/22 *Chief complaint: Racing heartbeat *History of present illness: 86-year-old female patient presented to the [facility] emergency department complaining of heart racing, she reports she has had this several times in the past at night but never lasting this long. She denies any chest pain or shortness of breath she denies any syncopal episodes or nausea/vomiting. She does report ST elevated PA in June 2020 and a non-ST elevated PA in March 2021. She did receive [address] elevated PA in 2019 with that she reported pain between her shoulder blades which she has not experienced with these new episodes. She did have a cardiac catheterization in March 2021 which showed patent coronary arteries. Cardiology has seen and plans for pacemaker insertion today. [facility] History I have reviewed the patient's past medical history: Yes Medical History: Reports:: Atrial Fibrillation, Congestive Heart Failure, Coronary Artery Disease, Gastroesophageal Reflux Disease(GERD), Hyperlipidemia, Hypertension, Myocardial Infarction Denies:: Cancer, Diabetes Mellitus Type 1, Diabetes Mellitus Type 2, MRSA, Seizures *Have you ever received a pneumonia vaccine?: Yes *Have you received a flu vaccine this season?: Yes Other Medical History: Reports: Arthritis, Cataracts Anesthesia experience/problems:: None Other Surgeries: Yes: Appendectomy, Cardiac Catheterization, Coronary Stent, Tubal Ligation Amputation: No - *Social History Smoking Status: Never smoker Alcohol Intake: never Substance Use Type: denies use *Occupational Status:: retired Housing: house Household Members: none *Travel in the last 8 weeks: None Family Hx:: Coronary Artery Disease, Heart Attack, Hyperlipidemia, Hypertension Review of Systems - Review of Systems Review of systems:: pertinent systems reviewed and negative unless documented below - Constitutional Reports fatigue, Reports lack of energy - Eyes Denies blurry vision, Denies double vision - ENT Denies poor balance, Denies nasal discharge - *Cardiovascular Reports rapid, pounding, or irregular heartbeat, Denies chest pain, Denies chest pain at rest, Denies shortness of breath - *Respiratory Denies change in phlegm color, Denies chest congestion, Denies cough, Denies shortness of breath - *Gastrointestinal Denies abdominal pain, Denies coffee ground vomit, Denies loose stools - *Musculoskeletal Denies back pain, Denies limited joint movement, Denies muscle weakness - Integumentary/Breasts Denies change in skin color, Denies changing lesions - *Neurologic Reports fainting, Denies behavioral changes, Denies burning sensations - Psychiatric Denies abnormal sleep pattern, Denies lack of enjoyment, Denies anxiety - Endocrine Denies cold intolerance, Denies flushing - Hematologic/Lymphatic Denies easy bleeding, Denies easy bruising - Allergic/Immunologic Denies GI upset with certain foods, Denies tongue swelling Meds Home Medications Medication Instructions Recorded Confirmed Type Omeprazole 20 mg PO DAILY 06/26/20 06/22/22 History Aspirin [Aspirin 81mg chewable 81 mg PO DAILY 08/11/20 06/22/22 History tab] metoprolol succinate 100 mg 50 mg PO BID tab 03/06/21 06/22/22 History tablet,extended release 24 hr atorvastatin 40 mg tablet 40 mg PO HS #90 tab 07/31/21 06/22/22 Rx hydrochlorothiazide 25 mg tablet 25 mg PO DAILY #90 tab 07/31/21 06/22/22 Rx Amlodipine Besylate 5 mg PO DAILY 06/22/22 06/22/22 History lisinopriL [Lisinopril] 10 mg PO BID 06/22/22 06/22/22 History Allergies Allergy/AdvReac Type Severity Reaction Status Date / Time azithromycin Allergy Intermediate Hives Verified 03/28/22 10:12 Sulfa (Sulfonamide Allergy Unknown Shakiness Verified 03/28/22 10:12 Antibiotics) Exam Vital signs and Labs for Last 24 Hours: Temp Pulse Resp BP Pulse Ox 97 F L 60 18 123/75 97 06/23/22 14:57 06/23/22 15:45
--- NOTE | 2022-06-23 08:43 | HMH.ANESCL ---
[facility] Anesthesia Checklist - Patient Identification Patient Identification: Arm Band - Structural Data Admitted From: Inpatient Planned Operative Procedure/s: Pacemaker Consent for Planned Operative Procedure(s) Verified: Yes - NPO Status Verified Time NPO: 07:00 - Airway Assessment C-Spine Mobility Assessed: Yes TMJ Mobility Assessed: Yes - Neurological Assessment Level of Consciousness: Awake Hx Seizures: No Numbness or tingling in extremities: No - Anesthesia Plan Anesthesia Risk discussed: Yes Anesthesia Plan: Verified ASA Class: III Anesthesia Type: MAC [facility] History I have reviewed the patient's past medical history: Yes Medical History: Reports:: Atrial Fibrillation, Congestive Heart Failure, Coronary Artery Disease, Gastroesophageal Reflux Disease(GERD), Hyperlipidemia, Hypertension, Myocardial Infarction Denies:: Cancer, Diabetes Mellitus Type 1, Diabetes Mellitus Type 2, MRSA *Have you ever received a pneumonia vaccine?: Yes *Have you received a flu vaccine this season?: Yes Other Medical History: Reports: Arthritis, Cataracts Anesthesia experience/problems:: None Other Surgeries: Yes: Appendectomy, Cardiac Catheterization, Coronary Stent, Tubal Ligation Amputation: No - *Social History Smoking Status: Never smoker Alcohol Intake: never Substance Use Type: denies use *Occupational Status:: retired Housing: house Household Members: none *Travel in the last 8 weeks: None Family Hx:: Coronary Artery Disease, Heart Attack, Hyperlipidemia, Hypertension
--- NOTE | 2022-06-23 09:47 | HMH.PNCARD ---
Subjective Date: 06/23/22 Time: 09:00 Principal diagnosis: PAF, tachy-junie syndrome, asystole, sss Interval history: This is an 86-year-old white female who presented to the emergency department with her heart racing. The patient was found to be in atrial fibrillation with RVR, heart rate in the 140s. The patient was treated with an oral dose of metoprolol. After being given the oral dose of metoprolol the patient did convert back to sinus rhythm but she had 10 seconds of asystole when she converted to sinus rhythm. The patient had a few normal beats and then approximately a 3-second pause. The patient went into sinus bradycardia with a heart rate in the 30s. The patient did have a syncopal episode when she had the 10-second pause and came back to on her own. When she was bradycardic in the 30s she was dizzy and felt as if she were going to pass out but did not have another episode of syncope. The patient was admitted to the hospital after having the episodes of asystole and symptomatic bradycardia. The patient has tachybradycardia syndrome and sick sinus syndrome. The patient is scheduled to undergo permanent pacemaker placement today. She has remained on her beta-zeeshan at this time and following permanent pacemaker placement we will plan to add oral diltiazem as well as Xarelto secondary to her paroxysmal atrial fibrillation. This morning she denies any chest pain or pressure. She denies any shortness of breath or edema. She denies any fever, chills, nausea, vomiting, diarrhea, PND or orthopnea. She denies any racing of the heart or palpitations. Exam Vital signs and Labs for Last 24 Hours: Temp Pulse Resp BP Pulse Ox 97.6 F 66 16 140/70 98 06/23/22 08:00 06/23/22 08:00 06/23/22 08:00 06/23/22 08:00 06/23/22 08:00 Laboratory Results - last 24 hr 06/22/22 11:15: Troponin I 0.04 H 06/22/22 12:10: SARS-CoV-2 (PCR) Not detected, Influenza A Untype (PCR) Not detected, Influenza Type B (PCR) Not detected 06/22/22 14:06: Troponin I 0.10 H 06/23/22 06:37: WBC 4.9, RBC 4.18 L, Hgb 12.3, Hct 38.7, MCV 92.5, MCH 29.3, MCHC 31.7 L, RDW 13.1, Plt Count 232, MPV 7.5, Neut % (Auto) 48.3, Lymph % (Auto) 38.5, [place] % (Auto) 8.0, Eos % (Auto) 4.1, Baso % (Auto) 1.2, Neut # (Auto) 2.4, Lymph # (Auto) 1.9, [place] # (Auto) 0.4, Eos # (Auto) 0.2, Baso # (Auto) 0.1 06/23/22 06:37: Sodium 143, Potassium 4.6, Chloride 107, Carbon Dioxide 30, Anion Gap 10.6, BUN 26 H, Creatinine 1.10 H, Estimated Creat Clear 42, Estimated GFR 47 L, Est GFR ( Amer) 57 L, Glucose 106 H D, Calcium 9.9, Total Bilirubin 0.4, Direct Bilirubin 0.1, Conjugated Bilirubin 0.0, Indirect Bilirubin 0.3, Unconjugated Bilirubin 0.3, AST 36, ALT 24, Alkaline Phosphatase 70, Total Protein 7.0, Albumin 4.2 D, Triglycerides 141, Cholesterol 119 L, LDL Cholesterol Direct 54.89 L, VLDL Cholesterol 28, HDL Cholesterol 35 L, Cholesterol/HDL Ratio 3.4 I & O for Last 24 hours: Intake & Output 06/20/22 06/21/22 06/22/22 06/23/22 23:59 23:59 23:59 23:59 Intake Total 240 / 480 480 / 480 Output Total 250 / 250 Balance - 480 / 480 Weight 159 lb 2 oz 157 lb 12.8 oz Narrative: Telemetry strip shows sinus rhythm with a rate of 60. Echocardiogram shows: 1. Biatrial enlargement, normal left ventricular size, mild concentric left ventricular hypertrophy, estimated ejection fraction 55% with no regional wall motion abnormality, grade 2 diastolic dysfunction seen without tissue Doppler evidence of raise left atrial pressure. 2. Mildly enlarged right ventricle with normal contractility. 3. Mild mitral and tricuspid regurgitation. 4. No significant pericardial effusion 5. Inferior vena cava is poorly visualized. - Constitutional no acute distress, average body habitus - *Routine HEENT Exam Head: Present: normocephalic, atraumatic Eye: Present: EOMI, PERRL ENT: Present: mucous membranes moist - *Routine Neck Exam Present: supple, full ROM, tejal
--- NOTE | 2022-06-23 13:09 | HMH.ACPN2 ---
Internal Medicine - PN: Subj *Date: 06/23/22 *Time: 13:09 Exam Vital signs and Labs for Last 24 Hours: Temp Pulse Resp BP Pulse Ox 97.7 F 62 17 163/66 H 97 06/23/22 12:00 06/23/22 12:00 06/23/22 12:00 06/23/22 12:00 06/23/22 12:00 Laboratory Results - last 24 hr 06/22/22 14:06: Troponin I 0.10 H 06/23/22 06:37: WBC 4.9, RBC 4.18 L, Hgb 12.3, Hct 38.7, MCV 92.5, MCH 29.3, MCHC 31.7 L, RDW 13.1, Plt Count 232, MPV 7.5, Neut % (Auto) 48.3, Lymph % (Auto) 38.5, [place] % (Auto) 8.0, Eos % (Auto) 4.1, Baso % (Auto) 1.2, Neut # (Auto) 2.4, Lymph # (Auto) 1.9, [place] # (Auto) 0.4, Eos # (Auto) 0.2, Baso # (Auto) 0.1 06/23/22 06:37: Sodium 143, Potassium 4.6, Chloride 107, Carbon Dioxide 30, Anion Gap 10.6, BUN 26 H, Creatinine 1.10 H, Estimated Creat Clear 42, Estimated GFR 47 L, Est GFR ( Amer) 57 L, Glucose 106 H D, Calcium 9.9, Total Bilirubin 0.4, Direct Bilirubin 0.1, Conjugated Bilirubin 0.0, Indirect Bilirubin 0.3, Unconjugated Bilirubin 0.3, AST 36, ALT 24, Alkaline Phosphatase 70, Total Protein 7.0, Albumin 4.2 D, Triglycerides 141, Cholesterol 119 L, LDL Cholesterol Direct 54.89 L, VLDL Cholesterol 28, HDL Cholesterol 35 L, Cholesterol/HDL Ratio 3.4 I & O for Last 24 hours: Intake & Output 06/20/22 06/21/22 06/22/22 06/23/22 23:59 23:59 23:59 23:59 Intake Total 240 / 480 480 / 480 Output Total 250 / 250 Balance - 480 / 480 Weight 159 lb 2 oz 157 lb 12.8 oz Assessment and Plan (1) Asystole Status: Acute Category: Medical Code(s): I46.9 - Cardiac arrest, cause unspecified (2) Tachy-junie syndrome Status: Acute Category: Medical Code(s): I49.5 - Sick sinus syndrome (3) Symptomatic bradycardia Status: Acute Category: Medical Code(s): R00.1 - Bradycardia, unspecified (4) Elevated troponin Status: Acute Category: Medical Code(s): R77.8 - Other specified abnormalities of plasma proteins (5) Paroxysmal atrial fibrillation Status: Acute Category: Medical Code(s): I48.0 - Paroxysmal atrial fibrillation (6) Hyperlipidemia Status: Chronic Qualifiers: Hyperlipidemia type: mixed hyperlipidemia Qualified Code(s): E78.2 - Mixed hyperlipidemia Category: Medical Code(s): E78.5 - Hyperlipidemia, unspecified (7) CAD (coronary artery disease) Status: Chronic Qualifiers: Coronary Disease-Associated Artery/Lesion type: [place] artery [place] vs. transplanted heart: [place] heart Associated angina: without angina Qualified Code(s): I25.10 - Atherosclerotic heart disease of [place] coronary artery without angina pectoris Category: Medical Code(s): I25.10 - Atherosclerotic heart disease of [place] coronary artery without angina pectoris (8) Hypertension Status: Chronic Qualifiers: Hypertension type: essential hypertension Qualified Code(s): I10 - Essential (primary) hypertension Category: Medical Code(s): I10 - Essential (primary) hypertension (9) S/P coronary artery stent placement Status: Chronic Category: Surgical Code(s): Z95.5 - Presence of coronary angioplasty implant and graft
--- NOTE | 2022-06-23 13:41 | HMH.ANESCL ---
[facility] Anesthesia Checklist - Patient Identification Patient Identification: Arm Band - Structural Data Admitted From: Inpatient Planned Operative Procedure/s: Dual Chamber Pacemaker Consent for Planned Operative Procedure(s) Verified: Yes Verified Documents: Surgical Consent, History and Physical - NPO Status Verified Time NPO: 07:00 - Additional verifications Anesthesia Reactions: No - Airway Assessment C-Spine Mobility Assessed: Yes (mp2) TMJ Mobility Assessed: Yes Dentition: Edentulous - Neurological Assessment Level of Consciousness: Awake, Alert - Anesthesia Plan Anesthesia Risk discussed: Yes Anesthesia Plan: Verified Anesthesia Type: MAC [facility] History I have reviewed the patient's past medical history: Yes Medical History: Reports:: Atrial Fibrillation, Congestive Heart Failure, Coronary Artery Disease, Gastroesophageal Reflux Disease(GERD), Hyperlipidemia, Hypertension, Myocardial Infarction Denies:: Cancer, Diabetes Mellitus Type 1, Diabetes Mellitus Type 2, MRSA, Seizures *Have you ever received a pneumonia vaccine?: Yes *Have you received a flu vaccine this season?: Yes Other Medical History: Reports: Arthritis, Cataracts Anesthesia experience/problems:: None Other Surgeries: Yes: Appendectomy, Cardiac Catheterization, Coronary Stent, Tubal Ligation Amputation: No - *Social History Smoking Status: Never smoker Alcohol Intake: never Substance Use Type: denies use *Occupational Status:: retired Housing: house Household Members: none *Travel in the last 8 weeks: None Family Hx:: Coronary Artery Disease, Heart Attack, Hyperlipidemia, Hypertension
--- NOTE | 2022-06-23 14:00 | IR_ITS ---
APPROVED REPORT Patient Location: Inpatient Non Linear Editor: ROSALIE Harper RT (R) PROCEDURES 1. Pocket formation for Permanent Pacemaker Placement. 2. Placement of an atrial sensing and pacing coil into the right atrial appendage. 3. Placement of a ventricular sensing and pacing coil in the right ventricular apex. 4. Permanent Pacemaker Placement. INDICATION Symptomatic Bradycardia Informed consent was obtained prior to the procedure. COMPLICATIONS None Estimated Blood Loss: Less than 10 mls TECHNIQUE 1% Lidocaine with epinephrine used to anesthetized the left anterior aspect of the chest. Scalpel was used to make the initial cutaneous incision while electrocautery was used to dissect down tinto the fascia. The fascia was lifted off the pectoralis muscle and digitally manipulated creating a pocket for the pacemaker. The patient was then placed in Trendelenburg position and the subclavian vein was accessed twice via the Selinger technique, there are two wires in the vein. A 6 Brazilian sheath was placed under fluoroscopic guidance into the subclavian vein over one of the wires while keeping the other wire in place within the subclavian vein. The dilator was removed from the sheath. Using fluoroscopic guidance, the ventricular lead was placed into the right ventricular apex, screwed and secured into place. Electronic interrogation proved acceptable thresholds and voltage within the lead. Using 3-0 silk, the ventricular lead was then secured into place. Lead was secured to the facia using the 3-0 silk. Following this, the sheath was pealed away. An additional 6 Brazilian fresh sheath and dilator was placed over the existing wire. Using fluoroscopic guidance, the atrial lead was the placed into the right atrial appendage and screwed and secured in place. Electrical interrogation demonstrated acceptable thresholds and voltage number. The atrial lead was then secured into place using 3-0 silk. 1 gram of Ancef was used to flush the pocket. Following the pacemaker generator being secured to the fascia and in place, Monocryl was used to close the subcutaneous layers while quincy were used to close the cutaneous layer. A pressure dressing was placed and the patient was transferred to the postop holding area in stable condition for postoperative care. INTERROGATION Generator Model number: [employer] [address], L311 Generator Serial number: [id number] Atrial lead model number: INGEVITY+ 45CM, 7840 Atrial lead serial number: [id number] P-wave: 6.0mV Impedence: 536 ohms Threshold: 0.9V@0.4ms Current: 1.7mA Right Ventricular lead model number: INGEVITY+ 52CM, 7841 Right Ventricular lead serial number: [id number] R-wave: 22.0mV Impedence: 1012 ohms Threshold: 0.4V@0.4ms Current: 0.4mA Pacing Parameters: Mode: DDDR Base/Max Track:60 ppm / 130 ppm No diaphragmatic stimulation at 10 volts. IMPRESSION 1. Successful pocket formation for Permanent Pacemaker Placement. 2. Successful placement of an atrial sensing and pacing coil into the right atrial appendage. 3. Successful placement of a ventricular sensing and pacing coil in the right ventricular apex. 4. Successful permanent Pacemaker Placement. PLAN 1. Post op wound care, follow up office visit Electronically signed by : Sudarshan Gautam MD 06/23/2022 15:07:59
--- NOTE | 2022-06-23 14:45 | XR_ITS ---
FINAL REPORT CLINICAL HISTORY: Confirm pacemaker/AID placement COMPARISON: 06/22/2022 FINDINGS: A single portable view of the chest was obtained. A new left subclavian pacemaker is present. The heart size and pulmonary vascularity are within normal limits. The mediastinum is within normal limits. There is mild atelectasis in the left lung base. No pneumothorax is identified. The bony thorax is intact. IMPRESSION: New left subclavian pacemaker is present. No pneumothorax. Mild left lung base atelectasis. Reviewed, Interpreted and Dictated by Jose Manuel Fields III, MD Transcribed by Elizabeth Terry Authenticated and [facility]
--- NOTE | 2022-06-23 16:54 | PC.NURSE ---
PT IS RESTING IN BED WITH FAMILY AT BEDSIDE. ALERT AND ORIENTED X4. DRESSING TO THE LEFT ANTERIOR CHEST C/D/I. VSS. LUNG SOUNDS CLEAR. ABDOMEN SOFT/NON TENDER WITH ACTIVE BOWEL SOUNDS. NO SWELLING NOTED TO BLE. PT AMBULATES TO THE BATHROOM. WILL CONTINUE TO MONITOR.
[2022-06-24] VITALS: PULSE 60
[2022-06-24 03:53] VITALS: BP 151/70; PULSE 72; RESP 18; O2SAT 96
[2022-06-24 04:00] VITALS: PULSE 60
--- NOTE | 2022-06-24 05:38 | PC.NURSE ---
Patient rested well throughout shift. Patient is A&Ox4. New pacemaker site to lt anterior chest is free of hematoma dressing is CDI. Tele shows patient is paced around 60 bpm. Patient ambulates to the restroom. No complaints voiced at this time.
[2022-06-24 05:43] VITALS: BMI 28.2
[2022-06-24 06:38] LABS: Basophils # 0.2 K/mm3 (0-0.2); Basophils % 1.6 % (0.1-2.0); Eosinophils # 0.3 K/mm3 (0.0-0.4); Eosinophils % 3.4 % (0.1-12.0); Hematocrit 43.4 % (37.0-47.0); Lymphocytes # 2.6 K/mm3 (0.7-4.5); Lymphocytes % 26.9 % (10-50); Mean Corpuscular HGB Conc 31.9 g/dL (31.8-35.4); Mean Corpuscular Hemoglobin 29.4 pg (27.0-31.2); Mean Platelet Volume 7.6 fl (7.4-10.4); Monocytes # 0.7 K/mm3 (0.1-1.0); Monocytes % 7.2 % (1.7-9.3); Neutrophils # 5.8 K/mm3 (1.8-7.8); Neutrophils % 60.8 % (37.0-80.0); Platelet Count 276 K/mm3 (142-424); Red Blood Count 4.72 M/mm3 (4.20-5.40); Red Cell Distribution Width 13.1 % (11.5-17.5); White Blood Count 9.6 K/mm3 (4.8-10.8)
[2022-06-24 06:43] LABS: Chloride 105 mmol/L (98-107); Sodium 141 mmol/L (136-145)
[2022-06-24 06:44] LABS: Potassium 4.4 mmoL/L (3.5-5.1)
[2022-06-24 06:47] LABS: Anion Gap 11.4 mEq/L (5-15); Blood Urea Nitrogen 28 mg/dl (7-17); Calcium 10.2 mg/dl (8.4-10.2); Carbon Dioxide 29 mmol/L (22.0-30.0); Creatinine Clearance Estimated 43 mL/min (50-200); Estimated Glomerular Filt Rate 47 ml/min (>60); GFR (African American) 57 ML/MIN (>60); Glucose 104 mg/dl (74-100)
[2022-06-24 06:53] LABS: Hemoglobin 13.9 g/dL (12.2-16.2)
[2022-06-24 08:00] VITALS: PULSE 70
--- NOTE | 2022-06-24 08:20 | XR_ITS ---
FINAL REPORT CLINICAL HISTORY: ppm COMPARISON: June 23, 2022 FINDINGS: A left subclavian pacemaker is again noted. The heart size is normal. The mediastinum is normal. There is improved aeration of the left lung base. There is no focal infiltrate or edema. There are no pleural effusions. There is no pneumothorax. There is no osseous abnormality. IMPRESSION: No acute cardiopulmonary process Reviewed, Interpreted and Dictated by Jose Manuel Fields III, MD Transcribed by Yuri Brito Authenticated and [facility]
[2022-06-24 08:35] VITALS: BP 161/73; PULSE 70; RESP 18; TEMP 36.9; O2SAT 98
--- NOTE | 2022-06-24 09:19 | HMH.PNCARD ---
Subjective Date: 06/24/22 Time: 08:30 Principal diagnosis: PAF, tachy-junie syndrome, asystole, sss Interval history: This is an 86-year-old white female who presented to the emergency department with complaints of racing of the heart. The patient was in new onset atrial fibrillation with RVR and a heart rate in the 140s. The patient was given an oral dose of metoprolol. She did convert back to normal sinus rhythm but had 10 seconds of asystole when she converted. The patient had a syncopal episode and did come back on her own. The patient had another episode of approximately 3 seconds of a pause and then was bradycardic in the 30s. The patient felt like she was going to pass out at that time but had no recurrence of the syncope. The patient was admitted to the hospital for the episodes of asystole and symptomatic bradycardia and tachybradycardia syndrome. The patient underwent permanent pacemaker placement yesterday. She tolerated the procedure well. This morning she states the pain at the pacemaker site has resolved but she has a little bit of soreness that is tolerable. She denies any chest pain or pressure. She denies any shortness of breath or edema. She denies any fever, chills, nausea, vomiting, diarrhea, PND or orthopnea. She denies any more racing of the heart or palpitations. Exam Vital signs and Labs for Last 24 Hours: Temp Pulse Resp BP Pulse Ox 98.4 F 70 18 161/73 H 98 06/24/22 08:35 06/24/22 08:35 06/24/22 08:35 06/24/22 08:35 06/24/22 08:35 Laboratory Results - last 24 hr 06/24/22 06:07: WBC 9.6 D, RBC 4.72, Hgb 13.9 D, Hct 43.4, MCV 92.0, MCH 29.4, MCHC 31.9, RDW 13.1, Plt Count 276, MPV 7.6, Neut % (Auto) 60.8, Lymph % (Auto) 26.9, [place] % (Auto) 7.2, Eos % (Auto) 3.4, Baso % (Auto) 1.6, Neut # (Auto) 5.8, Lymph # (Auto) 2.6, [place] # (Auto) 0.7, Eos # (Auto) 0.3, Baso # (Auto) 0.2 06/24/22 06:07: Sodium 141, Potassium 4.4, Chloride 105, Carbon Dioxide 29, Anion Gap 11.4, BUN 28 H, Creatinine 1.10 H, Estimated Creat Clear 43, Estimated GFR 47 L, Est GFR ( Amer) 57 L, Glucose 104 H, Calcium 10.2 I & O for Last 24 hours: Intake & Output 06/21/22 06/22/22 06/23/22 06/24/22 23:59 23:59 23:59 23:59 Intake Total 240 / 480 840 / 840 Output Total 250 / 250 200 / 200 Balance - 640 / 640 Weight 159 lb 2 oz 157 lb 12.8 oz 159 lb 4 oz Narrative: Telemetry strip is sinus rhythm with a rate of 70. - Constitutional no acute distress, average body habitus - *Routine HEENT Exam Head: Present: normocephalic, atraumatic Eye: Present: EOMI, PERRL ENT: Present: mucous membranes moist - *Routine Neck Exam Present: supple, full ROM, normal carotid upstroke. Absent: JVD, carotid bruit, lymphadenopathy - *Routine Respiratory Exam Present: CTA bilaterally - *Routine Cardiovascular Exam Present: RRR, Normal S1, Normal S2. Absent: murmur - *Routine Abdominal Exam Present: soft, normoactive bowel sounds. Absent: tenderness, distended - *Routine Extremities Exam Present: full ROM, pulses intact, normal capillary refill. Absent: cyanosis, clubbing, edema - *Routine Skin Exam Present: intact, warm. Absent: erythema, rash - *Routine Neurological Exam Present: alert, oriented X3, CN II-XII intact. Absent: sensory deficit, motor deficit Progress Note: A&P (1) Asystole Status: Acute (2) Tachy-junie syndrome Status: Acute (3) Symptomatic bradycardia Status: Acute (4) Elevated troponin Status: Acute (5) Paroxysmal atrial fibrillation Status: Acute (6) Hyperlipidemia Status: Chronic (7) CAD (coronary artery disease) Status: Chronic (8) Hypertension Status: Chronic (9) S/P coronary artery stent placement Status: Chronic Assessment and Plan for All Diagnoses:: Plan: 1. The patient was admitted to the hospital with asystole, tachybradycardia syndrome and symptomatic bradycardia after having asystole and sinus bradycardia after be
[2022-06-24 09:45] VITALS: BMI 28.2
--- NOTE | 2022-06-24 10:27 | HMH.DCSUM ---
General - General Admission date:: 06/22/22 Discharge date: 06/24/22 HPI HPI: 86-year-old female patient presented to the [facility] emergency department complaining of heart racing, she reports she has had this several times in the past at night but never lasting this long. She denies any chest pain or shortness of breath she denies any syncopal episodes or nausea/vomiting. She does report ST elevated ND in June 2020 and a non-ST elevated ND in March 2021. She did receive [address] elevated ND in 2019 with that she reported pain between her shoulder blades which she has not experienced with these new episodes. She did have a cardiac catheterization in March 2021 which showed patent coronary arteries. Cardiology has seen and plans for pacemaker insertion today. Hospital Course Hospital Course: 86-year-old female patient presented to the [facility] emergency department complaining of heart racing, she reports she has had this several times in the past at night but never lasting this long. She denies any chest pain or shortness of breath she denies any syncopal episodes or nausea/vomiting. 06/23/22 ECHO: Conclusion 1. Biatrial enlargement, normal left ventricular size, mild concentric left ventricular hypertrophy, estimated ejection fraction 55% with no regional wall motion abnormality, grade 2 diastolic dysfunction seen without tissue Doppler evidence of raise left atrial pressure. 2. Mildly enlarged right ventricle with normal contractility. 3. Mild mitral and tricuspid regurgitation. 4. No significant pericardial effusion 5. Inferior vena cava is poorly visualized. Electronically signed by : Talib Solorzano MD 06/23/22 PPM Placement: IMPRESSION 1. Successful pocket formation for Permanent Pacemaker Placement. 2. Successful placement of an atrial sensing and pacing coil into the right atrial appendage. 3. Successful placement of a ventricular sensing and pacing coil in the right ventricular apex. 4. Successful permanent Pacemaker Placement. PLAN 1. Post op wound care, follow up office visit Electronically signed by : Sudarshan Gautam MD Cardiology has seen and recommends: Plan: 1. The patient was admitted to the hospital with asystole, tachybradycardia syndrome and symptomatic bradycardia after having asystole and sinus bradycardia after being treated for paroxysmal atrial fibrillation with RVR. The patient has remained in sinus rhythm since that time. However, she did undergo permanent pacemaker placement for the tachybradycardia syndrome and symptomatic bradycardia as well as asystole. The patient tolerated the procedure well. 2. The pacemaker site has no signs of bleeding or hematoma. The surgical dressing is intact. No signs of infection. 3. I have reviewed the restrictions following permanent pacemaker placement with the patient. She is to do no lifting with the left upper extremity x1 month. No showers until the quincy are removed from the site. The patient and her family have verbalized understanding. 4. Coronary artery disease is present. She denies any chest pain or pressure. The patient did have an elevated troponin which Dr. Kapoor attributes to demand ischemia from a type II ND from the atrial fibrillation with RVR. No plans for invasive cardiac testing at this time but she would benefit from an outpatient ischemic evaluation once she has recovered from the pacemaker placement. 5. Her blood pressure is slightly elevated this morning. We are adding diltiazem ER 180 mg daily for her paroxysmal atrial fibrillation so this will improve her blood pressure as well. 6. Her LDL goal is less than 55. Her LDL is currently 54. On Lipitor. 7. The patient does have paroxysmal atrial fibrillation. Continue current dose of metoprolol. We will start her on diltiazem ER 180 mg p.o. daily for suppression of the atrial fibrillation. 8. T
--- NOTE | 2022-06-24 11:30 | HMH.PHAINT ---
DISCHARGE MEDICATION COUNSELING PROVIDED. DISCUSSED THE FOLLOWING CHANGES: -STOP TAKING THE AMLODIPINE. -START DILTIAZEM (FOR BP/HR, DAILY, DIZZINESS, PERIPHERAL EDEMA, LIGHTHEADEDNESS, HEADACHE POSSIBLE) -START XARELTO (BLOOD THINNER, DAILY, TAKE WITH EVENING MEAL, BLEED/BRUISE RISK AND APPEARANCE, BUMP HEAD = GO TO ER) PATIENT ASKED IF THE XARELTO WAS EXPENSIVE, WAS ADVISED IT CAN BE BUT DEPENDS ON INSURANCE. PATIENT ADVISED TO DISCUSS WITH [facility] REGARDING COPAYS. PATIENT VERBALIZED NO FURTHER QUESTIONS.
--- NOTE | 2022-06-25 15:00 | CARE MANAGER ---
Contacted patient related to hospital discharge. She states that she picked up her medications yesterday before she left. She is aware of when her appointments are and denies any other questions or concerns. YOLIE Lynn
== END 2022-06-24 12:00 | disposition home or self-care (01) | DRG 244 ==
LOC: ER 12:14 → 2ND 15:37
PROVIDERS: Internal Medicine Cardiovascular Disease; Nurse Practitioner Family; Admitting Provider Family Medicine; Emergency Provider Emergency Medicine; Visit Provider Family Medicine
DX: I49.5 Sick sinus syndrome; I50.9 Heart failure, unspecified; I25.10 Atherosclerotic heart disease of native coronary artery without angina pectoris; K21.9 Gastro-esophageal reflux disease without esophagitis; E78.5 Hyperlipidemia, unspecified; I11.0 Hypertensive heart disease with heart failure; I25.2 Old myocardial infarction; M19.90 Unspecified osteoarthritis, unspecified site; Z95.5 Presence of coronary angioplasty implant and graft; I48.0 Paroxysmal atrial fibrillation
CPT/HCPCS: 33208; 36415; 71045; 80048; 80053; 80061; 80076; 83735; 84436; 84443; 84479; 84484; 85025; 93005; 93306; 99285; C1785; C1898; C9803; J2704; U0003; U0005

== ENCOUNTER 2022-06-27 09:44 | Emergency (ER) | payer MEDICARE, SELFPAY ==
[2022-06-27 09:45] VITALS: BP 161/58; PULSE 66; RESP 16; TEMP 36.8; O2SAT 98; BMI 29.2
--- NOTE | 2022-06-27 10:00 | PC.NURSE ---
dressing removed lt side chest area with quincy noted no redness or drainage noted at site.
--- NOTE | 2022-06-27 10:24 | HMH.EDGENADL ---
ED Disposition Clinical Impression: Hematoma of pacemaker pocket Qualifiers: Encounter type: initial encounter Qualified Code(s): T82.837A - Hemorrhage due to cardiac prosthetic devices, implants and grafts, initial encounter Disposition: Home, Self-Care Condition on Discharge: Good Additional Instructions: Call Dr. Kapoor's office Wednesday to see if they want to see you sooner than your scheduled appointment on Wednesday. Return to the emergency department if any severe pain, any fever, any severe swelling. Referrals: Matilde Barkley APRN [Primary Care Provider] - - Critical Care Critical Care Time: No Attestation: On 06/27/22, the high probability of a clinically significant, sudden or life threatening deterioration of the following system(s) required my full and direct attention, intervention and personal management. The time I documented below is in addition to time spent performing reported procedures but includes the following listed in this critical care notation. Medical Decision Making - Miles Inquiry Pt receiving controlled substance: No Vital Signs: 06/27/22 09:45 06/27/22 10:30 Temperature 98.2 F Temperature Source Oral Pulse Rate 60 Pulse Rate [Radial] 66 Respiratory Rate 16 16 Blood Pressure 120/52 L Blood Pressure [Right Arm] 161/58 H Blood Pressure Mean 84 Blood Pressure Mean [Right Arm] 92 Blood Pressure Position [Right Arm] Sitting 02 Sat by Pulse Oximetry 98 97 Oxygen Delivery Method Room Air Room Air - Radiology Data #1 Image(s): Chest (Preliminary interpretation by me: Pacemaker present, no acute process) Image Reviewed: Yes I reviewed the patient's radiology image, Yes I have reviewed radiologist's interpretation PROCEDURE INFORMATION: Exam: XR Chest Exam date and time: 06/27/2022 10:39 AM Age: 86 years old Clinical indication: Prior surgery; Surgery date: 3-7 days post-operative; Surgery type: Had pacemaker placed 06/23/22Wednesday -- has swelling over pacemaker cite TECHNIQUE: Imaging protocol: Radiologic exam of the chest. Views: 2 views. COMPARISON: CR XR CHEST PORTABLE 06/24/2022 8:34 AM FINDINGS: Tubes, catheters and devices: Cardiac rhythm maintenance device is in similar position. Lungs: Unremarkable. No consolidation. Pleural spaces: Unremarkable. No pleural effusion. No pneumothorax. Heart/Mediastinum: Unremarkable. No cardiomegaly. Bones/joints: Unremarkable. IMPRESSION: No acute cardiopulmonary abnormality. - Physician Consults Physician Consulted: Lotus Time: 11:15 Reason -: Cardiology Eval/Care Comment/Response: Likely hematoma. Discharge for outpatient follow-up, call cardiology office Wednesday. Medical Decision Narrative: No physical findings to suggest infection. Fluid collection is likely hematoma or seroma. Discussed with Dr. Gautam. He concurs, likely hematoma. He recommends that patient call Dr. Kapoor's office Wednesday to see if they want to see her sooner than her scheduled appointment on Wednesday. General Adult HPI - General Chief complaint: Wound/Laceration Stated complaint: red hot place on chest from pace maker Time Seen by Provider: 06/27/22 10:24 Mode of Arrival: Ambulatory Limitations: No Limitations Description of Symptoms (Recalled from ER Triage Doc. by RN): to ed per pvt car pt states had pacemaker placed last wednesday started with swelling lastnight. pt states she increased her activity yesterday went shopping and was pushing a cart around. pt denies any redness, fever, increased pain or drainage from site. states follow up appt this wednesday - History of Present Illness HPI narrative: Patient had a pacemaker inserted on 06/23/2022. States that her pacemaker site began swelling last night. Denies pain. Denies fever. She was concerned that it might be infected because it is never swollen before. She is anticoagulated with
[2022-06-27 10:30] VITALS: BP 120/52; PULSE 60; RESP 16; O2SAT 97
--- NOTE | 2022-06-27 10:34 | XR_ITS ---
PROCEDURE INFORMATION: Exam: XR Chest Exam date and time: 06/27/2022 10:39 AM Age: 86 years old Clinical indication: Prior surgery; Surgery date: 3-7 days post-operative; Surgery type: Had pacemaker placed 06/23/22Wednesday -- has swelling over pacemaker cite TECHNIQUE: Imaging protocol: Radiologic exam of the chest. Views: 2 views. COMPARISON: CR XR CHEST PORTABLE 06/24/2022 8:34 AM FINDINGS: Tubes, catheters and devices: Cardiac rhythm maintenance device is in similar position. Lungs: Unremarkable. No consolidation. Pleural spaces: Unremarkable. No pleural effusion. No pneumothorax. Heart/Mediastinum: Unremarkable. No cardiomegaly. Bones/joints: Unremarkable. IMPRESSION: No acute cardiopulmonary abnormality.
--- NOTE | 2022-06-27 11:19 | PC.NURSE ---
cardiolgy consulted about POC via phone. at the bedside speaking to pt as an update.
[2022-06-27 11:41] VITALS: BP 120/77; PULSE 74; RESP 18; TEMP 37; O2SAT 99
--- NOTE | 2022-06-27 11:43 | PC.NURSE ---
dsd reapplied to lt side chest.
[2022-06-27 11:45] VITALS: BP 132/74; PULSE 78; RESP 16; TEMP 36.8; O2SAT 98
== END 2022-06-27 11:46 | disposition home or self-care (01) ==
PROVIDERS: Emergency Provider Emergency Medicine; PCP Nurse Practitioner Family
DX: T82.837A Hemorrhage due to cardiac prosthetic devices, implants and grafts, initial encounter (principal); Z95.0 Presence of cardiac pacemaker; Y83.8 Other surgical procedures as the cause of abnormal reaction of the patient, or of later complication, without mention of misadventure at the time of the procedure; Y71.0 Diagnostic and monitoring cardiovascular devices associated with adverse incidents; I48.91 Unspecified atrial fibrillation; Z79.01 Long term (current) use of anticoagulants
CPT/HCPCS: 71046; 99283

== ENCOUNTER 2022-07-31 00:55 | Emergency (ER) | payer MEDICARE, SELFPAY ==
[2022-07-31 00:53] VITALS: BP 200/80; PULSE 77; RESP 18; TEMP 36.6; O2SAT 98; BMI 29.2
--- NOTE | 2022-07-31 01:02 | ECG_ITS ---
APPROVED REPORT Exam: Resting ECG HR:67 bpm ECG Measurements Heart Rate 67 AXES SD 172 P 77 QRSd 92 QRS 54 QT 368 T 64 QTc 383 Conclusion SINUS RHYTHM NONSPECIFIC ST & T-WAVE ABNORMALITY BORDERLINE ECG UNCONFIRMED REPORT Electronically signed by : Salvador Alejandre MD 08/02/2022 15:28:27
--- NOTE | 2022-07-31 01:08 | XR_ITS ---
PROCEDURE INFORMATION: Exam: XR Chest Exam date and time: 07/31/2022 1:16 AM Age: 86 years old Clinical indication: Pain; Other: Tightness; Prior surgery; Additional info: HTN w/ chest tightness TECHNIQUE: Imaging protocol: Radiologic exam of the chest. Views: 2 views. COMPARISON: CR XR CHEST 2V 06/27/2022 10:39 AM FINDINGS: Tubes, catheters and devices: Left subclavian pacemaker with distal wires overlying right atrium and right ventricle. Lungs: Unremarkable. No consolidation. Pleural spaces: Unremarkable. No pleural effusion. No pneumothorax. Heart/Mediastinum: Unremarkable. No cardiomegaly. Vasculature: Calcification within thoracic aorta. Bones/joints: Acromioclavicular arthropathy. Degenerative changes of the spine. IMPRESSION: No evidence of acute cardiopulmonary process.
--- NOTE | 2022-07-31 01:33 | HMH.EDRECH ---
Discharge Plan Disposition Patient Disposition: Home, Self-Care Chief Complaint: Recheck/Abnormal Lab/Rx Prescriptions Prescriptions: No Action metoprolol succinate 100 mg tablet extended release 24 hr 50 mg PO BID hydrochlorothiazide 25 mg tablet 25 mg PO DAILY Qty: 90 3RF atorvastatin 40 mg tablet 40 mg PO HS Qty: 90 3RF omeprazole 20 MG capsule,delayed release(DR/EC) 20 mg PO DAILY aspirin 81 MG tablet,chewable 81 mg PO DAILY lisinopril 20 MG tablet 10 mg PO BID Referrals Follow up/Referrals: Matilde Barkley APRN [Primary Care Provider] - See instructions Clinical Impressions Clinical Impression: Hypertensive emergency Discharge ED Provider: Abrahan Kinsey Recheck HPI General Chief Complaint: Recheck/Abnormal Lab/Rx Stated Complaint: HBP; Pacemaker 3 weeks ago Time Seen by Provider: 07/31/22 01:33 Mode of Arrival: Ambulatory Source of Information: Patient, Relative and Medical Record Limitations: No Limitations Description of Symptoms (Recalled from ER Triage Doc. by RN): pt reports a high BP reading at home of 210/91 at 11pm. Pt was seen by PCP this am and BK with cardiology suggested giving her an extra dose of her metoprol. Pt denies MEYERS, SOA, chest pain, blurred vision, or N/V. History of Present Illness HPI narrative: recent pacemaker and had elevated bp and felt nervous tonight complaint: other (elevated bp ) Initial visit (ago): hour(s) Returns today for: other (elevated bp ) Symptoms since prior visit: no new symptoms Associated symptoms: fever Related Data Home Medications Medication Instructions Recorded Confirmed omeprazole 20 mg capsule,delayed 20 mg PO DAILY acid reflux 06/26/20 07/10/22 release aspirin 81 mg chewable tablet 81 mg PO DAILY heart health 08/11/20 07/10/22 metoprolol succinate 100 mg 50 mg PO BID Hypertension 03/06/21 07/10/22 tablet,extended release 24 hr lisinopril 20 mg tablet 10 mg PO BID Hypertension 06/22/22 07/10/22 Previous Rx's Medication Instructions Recorded atorvastatin 40 mg tablet 40 mg PO HS Cholesterol #90 tabs 07/31/21 hydrochlorothiazide 25 mg tablet 25 mg PO DAILY Edema #90 tabs 07/31/21 Allergies Allergy/AdvReac Type Severity Reaction Status Date / Time azithromycin Allergy Intermediate Hives Verified 07/10/22 13:52 Sulfa (Sulfonamide Allergy Unknown Shakiness Verified 07/10/22 13:52 Antibiotics) [facility] Medical History (Updated 07/31/22 @ 03:36 by Abrahan Kinsey MD) Daytime somnolence Restless sleeper Social History Smoking Status: Never smoker alcohol intake: never substance use type: denies use current occupational status: retired Travel in the last 8 weeks: Inside the [place] household members: none housing: house caffeine: No ROS Obtained: Yes All systems reviewed & no additional complaints except as documented Physical Exam General General appearance: alert Head Head exam: normocephalic Eye Eye exam: Present PERRL and EOMI; Absent scleral icterus ENT ENT exam: Present mucous membranes moist Neck Neck exam: Present trachea midline Respiratory Respiratory exam: Present normal lung sounds bilaterally; Absent respiratory distress Cardiovascular Cardiovascular exam: Present regular rate and systolic murmur Abdominal Exam Abdominal exam: Present soft Extremities Exam Extremities exam: Absent calf tenderness Neurological Exam Neurological exam: Present alert, oriented X3 and CN II-XII intact Psychiatric Psychiatric exam: Present normal affect Skin Skin exam: Absent rash Medical Decision Making Medical Records Medical records reviewed: Yes I reviewed the patient's medical records. Miles Inquiry Pt receiving controlled substance: No Vital Signs: 07/31/22 00:53 07/31/22 02:00 07/31/22 02:30 Temperature 97.8 F Temperature Source Oral Pulse Rate 64 63 Pulse Rate [Apical] 77 Respiratory Rate 18 Blood Pressure 1
[2022-07-31 01:39] LABS: Basophils # 0.1 K/mm3 (0-0.2); Basophils % 2.1 % (0.1-2.0); Eosinophils # 0.3 K/mm3 (0.0-0.4); Eosinophils % 5.5 % (0.1-12.0); Hematocrit 37.1 % (37.0-47.0); Hemoglobin 12.2 g/dL (12.2-16.2); Lymphocytes # 1.6 K/mm3 (0.7-4.5); Lymphocytes % 29.4 % (10-50); Mean Corpuscular HGB Conc 32.9 g/dL (31.8-35.4); Mean Corpuscular Volume 91.4 fl (81-99); Mean Platelet Volume 7.8 fl (7.4-10.4); Monocytes # 0.4 K/mm3 (0.1-1.0); Neutrophils # 3.1 K/mm3 (1.8-7.8); Platelet Count 262 K/mm3 (142-424); Red Blood Count 4.06 M/mm3 (4.20-5.40); Red Cell Distribution Width 13.1 % (11.5-17.5); White Blood Count 5.5 K/mm3 (4.8-10.8)
[2022-07-31 01:45] LABS: Alanine Aminotransferase 20 U/L (12-78); Albumin Level 4.3 g/dl (3.5-5.0); Alkaline Phosphatase 94 U/L (38-126); Anion Gap 13.1 mEq/L (5-15); Aspartate Amino Transferase 35 U/L (14-36); Bilirubin,Direct 0.1 mg/dl (0.0-0.4); Bilirubin,Indirect 0.1 mg/dL (0.0-0.9); Bilirubin,Total 0.2 mg/dl (0.2-1.3); Bilirubin,Unconjugated 0.1 mg/dL (0.0-1.1); Blood Urea Nitrogen 29 mg/dl (7-17); Calcium 9.6 mg/dl (8.4-10.2); Carbon Dioxide 29 mmol/L (22.0-30.0); Chloride 105 mmol/L (98-107); Creatinine Clearance Estimated 40 mL/min (50-200); Estimated Glomerular Filt Rate 43 ml/min (>60); GFR (African American) 52 ML/MIN (>60); Glucose 93 mg/dl (74-100); Potassium 4.1 mmoL/L (3.5-5.1); Sodium 143 mmol/L (136-145); Total Protein,Serum 7.4 g/dl (6.3-8.2)
[2022-07-31 02:00] VITALS: BP 165/73; PULSE 64; O2SAT 94
[2022-07-31 02:03] LABS: Troponin I < 0.01 ng/ml (0.00-0.034)
[2022-07-31 02:30] VITALS: BP 143/63; PULSE 63; O2SAT 96
[2022-07-31 03:00] VITALS: BP 147/67; PULSE 64; O2SAT 96
[2022-07-31 03:46] VITALS: BP 140/59; PULSE 70; RESP 16; TEMP 36.6; O2SAT 97
== END 2022-07-31 03:48 | disposition home or self-care (01) ==
PROVIDERS: Emergency Provider Emergency Medicine; PCP Nurse Practitioner Family
DX: I16.1 Hypertensive emergency (principal); R03.0 Elevated blood-pressure reading, without diagnosis of hypertension; Z79.01 Long term (current) use of anticoagulants; Z79.82 Long term (current) use of aspirin; Z79.899 Other long term (current) drug therapy; Z88.1 Allergy status to other antibiotic agents; Z88.2 Allergy status to sulfonamides; Z88.3 Allergy status to other anti-infective agents; Z95.0 Presence of cardiac pacemaker
CPT/HCPCS: 71046; 80048; 80076; 84484; 85025; 93005; 99284

== ENCOUNTER 2022-08-05 09:49 | Emergency (ER) | payer MEDICARE, SELFPAY ==
--- NOTE | 2022-08-05 10:09 | EXP.UTC ---
Discharge Plan Disposition Patient Disposition: Home, Self-Care Condition: Good Prescriptions Prescriptions: New benzonatate [benzonatate] 100 mg capsule 100 mg PO TIDP PRN (Reason: Cough) Qty: 30 0RF ondansetron 4 mg Tablet,Disintegrating 4 mg PO Q8H PRN (Reason: Nausea) Qty: 20 0RF No Action metoprolol succinate 100 mg tablet extended release 24 hr 50 mg PO BID hydrochlorothiazide 25 mg tablet 25 mg PO DAILY Qty: 90 3RF atorvastatin 40 mg tablet 40 mg PO HS Qty: 90 3RF amlodipine [Norvasc] 5 mg tablet 5 mg PO DAILY Qty: 30 2RF Xarelto 20 mg tablet 20 mg PO DAILY Qty: 30 2RF Rx Instructions: must administer with evening meal omeprazole 20 MG capsule,delayed release(DR/EC) 20 mg PO DAILY aspirin 81 MG tablet,chewable 81 mg PO DAILY lisinopril 20 MG tablet 10 mg PO BID Referrals Follow up/Referrals: Matilde Barkley APRN [Primary Care Provider] - See instructions Activity Restrictions/Add. Instructions Additional Instructions/Restrictions: Drink plenty of fluids. Take tylenol for pain or fever. Return if you begin to have difficulty breathing. Follow up with your regular doctor. GO TO THE ER FOR ANY WORSENING SYMPTOMS Quarantine until you know the results of your covid-19 test. Notify your school or workplace of your results and follow their instructions regarding return to work/school. Clinical Impressions Clinical Impression: Acute viral syndrome Instructions Patient Instructions: Coronavirus Disease 2019, Preventing the Spread of Coronavirus Discharge Instructions Discharge ED Provider: Rajendra Adams [facility] General Stated complaint: sore throat, fever, runny nose Time Seen by Provider: 08/05/22 10:09 History of Present Illness Provider Complaint: She states that for the past 2 days she has had sore throat, chills, body aches and low grade fever. She has been exposed to covid-19 in her house. Related Data Home Medications Medication Instructions Recorded Confirmed omeprazole 20 mg capsule,delayed 20 mg PO DAILY acid reflux 06/26/20 07/31/22 release aspirin 81 mg chewable tablet 81 mg PO DAILY heart health 08/11/20 07/31/22 metoprolol succinate 100 mg 50 mg PO BID Hypertension 03/06/21 07/31/22 tablet,extended release 24 hr lisinopril 20 mg tablet 10 mg PO BID Hypertension 06/22/22 07/31/22 Previous Rx's Medication Instructions Recorded atorvastatin 40 mg tablet 40 mg PO HS Cholesterol #90 tabs 07/31/21 hydrochlorothiazide 25 mg tablet 25 mg PO DAILY Edema #90 tabs 07/31/21 amlodipine 5 mg tablet (Norvasc) 5 mg PO DAILY #30 tabs 07/31/22 rivaroxaban 20 mg tablet (Xarelto) 20 mg PO DAILY #30 tabs 07/31/22 benzonatate 100 mg capsule 100 mg PO TIDP PRN Cough #30 caps 08/05/22 ondansetron 4 mg disintegrating 4 mg PO Q8H PRN Nausea #20 tabs 08/05/22 tablet Allergies Allergy/AdvReac Type Severity Reaction Status Date / Time azithromycin Allergy Intermediate Hives Verified 08/05/22 10:32 Sulfa (Sulfonamide Allergy Unknown Shakiness Verified 08/05/22 10:32 Antibiotics) [facility] Medical History Daytime somnolence Restless sleeper Social History Smoking Status: Never smoker alcohol intake: never substance use type: denies use current occupational status: retired Travel in the last 8 weeks: Inside the [place] household members: none housing: house caffeine: No ROS Obtained: Yes All systems reviewed & no additional complaints except as documented Constitutional Constitutional: Reports system reviewed and no additional complaints, except as documented, Denies chills and Denies fever(s) Eyes Eyes: Denies eye discharge ENT Ears, Nose, Mouth, and Throat: Denies dysphagia, Denies sore throat and Denies throat swelling Cardiovascular Cardiovascular: Denies chest pain
[2022-08-05 10:22] LABS: UTC Strep Screen (Rapid) Negative (Negative)
[2022-08-05 10:29] VITALS: BP 143/67; PULSE 82; RESP 17; TEMP 37.4; O2SAT 95; BMI 28.8
[2022-08-05 10:30] LABS: Bordetella Pertussis Not Detected (NotDetected); Chlamydophila Pneumoniae, PCR Not Detected (NotDetected); Coronavirus 229E Not Detected (NotDetected); Coronavirus NL63 Not Detected (NotDetected); Coronavirus OC43 Not Detected (NotDetected); Coronovirus HKU1,PCR Not Detected (NotDetected); Human Metapneumovirus Not Detected (NotDetected); Influenza A, PCR Not Detected (NotDetected); Influenza AH1, 2009 Not Detected (NotDetected); Influenza AH1, PCR Not Detected (NotDetected); Influenza AH3,PCR Not Detected (NotDetected); Influenza B, PCR Not Detected (NotDetected); Mycoplasma Pneumoniae, PCR Not Detected (NotDetected); Parainfluenza 1, PCR Not Detected (NotDetected); Parainfluenza 2, PCR Not Detected (NotDetected); Parainfluenza 3, PCR Not Detected (NotDetected); Parainfluenza 4, PCR Not Detected (NotDetected); Respiratory Syncytial Virus Not Detected (NotDetected); Rhinovirus/Enterovirus Not Detected (NotDetected)
[2022-08-05 10:31] LABS: Adenovirus,PCR Not Detected (NotDetected)
[2022-08-05 11:08] VITALS: BP 143/67; PULSE 82; RESP 17; TEMP 37.4
[2022-08-05 12:14] LABS: Coronavirus 19, PCR Detected (NotDetected)
== END 2022-08-05 11:11 | disposition home or self-care (01) ==
PROVIDERS: Emergency Provider Nurse Practitioner Family; PCP Nurse Practitioner Family
DX: U07.1 COVID-19 (principal)
CPT/HCPCS: 87581; 87632; 87798; 87880; 99212; C9803; G0463; U0003; U0005

== ENCOUNTER → 2022-08-17 07:40 | Outpatient (CLI) | payer MEDICARE, SELFPAY ==
--- NOTE | 2022-08-17 07:41 | CA_ITS ---
FINAL REPORT TECHNIQUE: Grayscale, color Doppler and duplex Doppler ultrasound of the kidneys, aorta and renal arteries was performed. Multiple velocities were measured. CLINICAL HISTORY: CLAUDE,BILATERAL RENAL STENTS,HTN,HLD FINDINGS: Aorta velocity: 144.5 cm/sec Right kidney: 9.0 cm. Right intrarenal RI: 0.73 Right renal artery velocity: 137 cm/sec. Right RAR (Renal artery-Aortic Ratio): 0.95 Left Kidney: 10.4 cm. Left intrarenal RI: 0.79 Left renal artery velocity: 165 cm/sec. Left RAR (Renal Artery-Aortic Ratio): 1.14 IMPRESSION: No evidence of significant renal artery stenosis. Renal size is normal and symmetric. CT angiogram or postcontrast MR angiogram would be more sensitive for evaluation of possible renal artery stenosis. Reviewed, Interpreted and Dictated by Magdaleno Ruff MD Transcribed by Elizabeth Terry Authenticated and [facility]
== END ==
PROVIDERS: PCP Nurse Practitioner Family; Visit Provider Internal Medicine Cardiovascular Disease
DX: I70.1 Atherosclerosis of renal artery (principal)
CPT/HCPCS: 93976

== ENCOUNTER 2023-03-19 09:57 | Emergency (ER) | payer MEDICARE, SELFPAY ==
--- NOTE | 2023-03-19 10:02 | XR_ITS ---
FINAL REPORT CLINICAL HISTORY: Left hip pain FINDINGS: LEFT HIP: Two views of the left hip demonstrate no acute fracture or dislocation. Mild degenerative changes are seen.. The visualized bony structures are well aligned. No soft tissue abnormality is seen. IMPRESSION: No acute bony abnormality. Reviewed, Interpreted and Dictated by Jose Manuel Fields III, MD Transcribed by Alondra Verma Authenticated and [facility]
[2023-03-19 10:10] VITALS: BP 131/86; PULSE 68; RESP 18; TEMP 36.9; O2SAT 100; BMI 31.8
--- NOTE | 2023-03-19 10:38 | EXP.UTC ---
Discharge Plan Disposition Patient Disposition: Home, Self-Care Condition: Good Prescriptions Prescriptions: No Action metoprolol succinate 100 mg tablet extended release 24 hr 50 mg PO BID hydrochlorothiazide 25 mg tablet 25 mg PO DAILY Qty: 90 3RF atorvastatin 40 mg tablet 40 mg PO HS Qty: 90 3RF omeprazole 20 MG capsule,delayed release(DR/EC) 20 mg PO DAILY aspirin 81 MG tablet,chewable 81 mg PO DAILY lisinopril 20 mg tablet 20 mg PO DAILY amlodipine [Norvasc] 5 mg tablet 5 mg PO DAILY Xarelto 20 mg tablet 20 mg PO DAILY Rx Instructions: must administer with evening meal Referrals Follow up/Referrals: Ayaka Walter APRN [Staff Physician] - See instructions (Call office for appointment due to hx of bursititis) Reese Ayala JR, MD [Physician] - See instructions Matilde Barkley APRN [Primary Care Provider] - See instructions Activity Restrictions/Add. Instructions Additional Instructions/Restrictions: Ice to area may help with pain and Tylenol if you can take it Follow up with your Family Doctor if no improvement or any worsening of symptoms on Wednesday Follow up with Pain Management for further evaluation and treatment if needed Straight to ER if any life threatening symptoms Clinical Impressions Clinical Impression: Hip pain Qualifiers: Laterality: left Qualified Code(s): M25.552 - Pain in left hip Instructions Patient Instructions: Help for Hip Pain, DI for Hip Pain Discharge ED Provider: Blanka Bustillo [facility] General Stated complaint: Lt side of hip pain, no accident Mode of Arrival: Ambulatory Source of Information: Patient Limitations: No Limitations Time Seen by Provider: 03/19/23 10:40 Description of Symptoms (Recalled from Triage Doc. by RN): was walking and fell and hurt left hip HEENT Symptoms (Recalled from RN notes): Yes Resp Symptoms (Recalled from RN notes): No Skin Symptoms (Recalled from RN notes): No MS Symptoms (Recalled from RN notes): No Functional Status (Recalled from RN notes): n/a History of Present Illness Provider Complaint: Patient states that yesterday she was walking and started having pain in her left hip States that she didnt fall or anything but felt like she may fall if she kept walking it was hurting so bad Denies known injury States that she bursitis in her right hip a few years back and feels something like that did Related Data Home Medications Medication Instructions Recorded Confirmed omeprazole 20 mg capsule,delayed 20 mg PO DAILY acid reflux 06/26/20 03/19/23 release aspirin 81 mg chewable tablet 81 mg PO DAILY heart health 08/11/20 03/19/23 metoprolol succinate 100 mg 50 mg PO BID Hypertension 03/06/21 03/19/23 tablet,extended release 24 hr lisinopril 20 mg tablet 20 mg PO DAILY Hypertension 02/12/23 03/19/23 amlodipine 5 mg tablet (Norvasc) 5 mg PO DAILY . 03/19/23 03/19/23 rivaroxaban 20 mg tablet (Xarelto) 20 mg PO DAILY Blood thinner 03/19/23 03/19/23 Previous Rx's Medication Instructions Recorded atorvastatin 40 mg tablet 40 mg PO HS Cholesterol #90 tabs 07/31/21 hydrochlorothiazide 25 mg tablet 25 mg PO DAILY Edema #90 tabs 07/31/21 Allergies Allergy/AdvReac Type Severity Reaction Status Date / Time azithromycin Allergy Intermediate Hives Verified 03/19/23 10:41 Sulfa (Sulfonamide Allergy Unknown Shakiness Verified 03/19/23 10:41 Antibiotics) Worker's Comp Is this a Worker's Comp case?: No [facility] Disclaimer: The information contained in this section may have been updated after the patient was seen, as this information can be updated by other users. Medical History Daytime somnolence Restless sleeper Social History Smoking Status: Never smoker alcohol intake: never substance use type: denies use current occupational status: retired Travel in the last 8
[2023-03-19 12:14] VITALS: BP 131/86; PULSE 68; RESP 18; TEMP 36.9; O2SAT 100
== END 2023-03-19 12:14 | disposition home or self-care (01) ==
PROVIDERS: Emergency Provider Nurse Practitioner; PCP Nurse Practitioner Family
DX: M25.552 Pain in left hip (principal); K21.9 Gastro-esophageal reflux disease without esophagitis; I10 Essential (primary) hypertension
CPT/HCPCS: 73502; 96372; 99212; 99214; G0463

== ENCOUNTER 2023-05-18 08:33 | Observation (INO) | payer MEDICARE, SELFPAY ==
[2023-05-18] VITALS (23 sets, daily range): BP systolic 100–199; BP diastolic 52–87; PULSE 74–135; RESP 14–20; TEMP 36.6–36.8; O2SAT 95–98; BMI 29.2; BMI 27.3
--- NOTE | 2023-05-18 08:41 | ECG_ITS ---
APPROVED REPORT Exam: Resting ECG HR:141 bpm ECG Measurements Heart Rate 141 AXES QRSd 83 QRS 58 QT 288 T 75 QTc 370 Conclusion ATRIAL FIBRILLATION WITH RAPID VENTRICULAR RESPONSE ST DEPRESSION, CONSIDER SUBENDOCARDIAL INJURY [0.1+ mV ST DEPRESSION] ABNORMAL ECG UNCONFIRMED REPORT Electronically signed by : Salvador Alejandre MD 05/18/2023 21:35:35
--- NOTE | 2023-05-18 09:06 | HMH.EDARPALP ---
Discharge Plan Disposition Patient Disposition: Admitted Condition: Fair Discharge ED Provider: Baldemar Roman Arrhythmia/Palpitations HPI General Chief Complaint: Arrhythmia/Palpitations Stated Complaint: Irregular heartbeat, pacemaker Time Seen by Provider: 05/18/23 09:06 Mode of Arrival: Ambulatory Source of Information: Patient Limitations: No Limitations History of Present Illness complaint: irregular heart beat Time: 05:00 Duration: constant Severity: moderate Context: awoke with symptoms Arrhythmia history: atrial fibrillation Associated symptoms: denies other symptoms Related Data Home Medications Medication Instructions Recorded Confirmed omeprazole 20 mg capsule,delayed 20 mg PO DAILY acid reflux 06/26/20 05/18/23 release aspirin 81 mg chewable tablet 81 mg PO DAILY heart health 08/11/20 05/18/23 metoprolol succinate 100 mg 50 mg PO BID Hypertension 03/06/21 05/18/23 tablet,extended release 24 hr lisinopril 20 mg tablet 20 mg PO DAILY Hypertension 02/12/23 05/18/23 amlodipine 5 mg tablet (Norvasc) 5 mg PO DAILY . 03/19/23 05/18/23 rivaroxaban 20 mg tablet (Xarelto) 20 mg PO DAILY Blood thinner 03/19/23 05/18/23 Previous Rx's Medication Instructions Recorded atorvastatin 40 mg tablet 40 mg PO HS Cholesterol #90 tabs 07/31/21 hydrochlorothiazide 25 mg tablet 25 mg PO DAILY Edema #90 tabs 07/31/21 Allergies Allergy/AdvReac Type Severity Reaction Status Date / Time azithromycin Allergy Intermediate Hives Verified 04/08/23 14:00 Sulfa (Sulfonamide Allergy Unknown Shakiness Verified 04/08/23 14:00 Antibiotics) [facility] Disclaimer: The information contained in this section may have been updated after the patient was seen, as this information can be updated by other users. Medical History Atrial fibrillation Daytime somnolence History of pacemaker Restless sleeper Surgical History History of appendectomy History of hysterectomy Family History Other No significant family history Social History Smoking Status: Never smoker alcohol intake: never substance use type: denies use current occupational status: retired Travel in the last 8 weeks: [place] the [place] household members: none housing: house caffeine: No ROS Obtained: Yes Systems reviewed as appropriate & no additional complaints except as documented Cardiovascular Cardiovascular: Denies chest pain and Reports irregular heart rhythm Respiratory Respiratory: Denies shortness of breath Physical Exam General General appearance: alert and in no apparent distress Head Head exam: atraumatic Eye Eye exam: Present normal appearance and EOMI ENT ENT exam: Present normal exam Neck Neck exam: Present normal inspection Chest Chest inspection: Present normal inspection Respiratory Respiratory exam: Present normal lung sounds bilaterally Cardiovascular Cardiovascular exam: Present irregular rhythm Abdominal Exam Abdominal exam: Present soft Extremities Exam Extremities exam: Present normal inspection Neurological Exam Neurological exam: Present alert and CN II-XII intact Psychiatric Psychiatric exam: Present normal affect and normal mood Skin Skin exam: Present warm and dry Medical Decision Making Medical Records Medical records reviewed: Yes I reviewed the patient's medical records. [place] Inquiry Pt receiving controlled substance: No Vital Signs: 05/18/23 08:34 05/18/23 09:00 05/18/23 09:30 Temperature 98.2 F Temperature Source Oral Pulse Rate 135 H 134 H Pulse Rate [Left Radial] 74 Respiratory Rate 16 17 Blood Pressure 160/87 H 140/83 Blood Pressure [Right Arm] 199/86 H Blood Pressure Mean 110 102 Blood Pressure Mean [Right Arm] 123 Blood Pressure Source [Right Arm] Aut
--- NOTE | 2023-05-18 09:13 | XR_ITS ---
FINAL REPORT CLINICAL HISTORY: palpitations, A-FIB COMPARISON: July 2022 FINDINGS: The heart size is normal. There is a left subclavian pacemaker. The mediastinum is within normal limits. There is no acute cardiopulmonary process. There is no pleural effusion. There is no pneumothorax. The bony thorax is intact. IMPRESSION: No acute cardiopulmonary process. Reviewed, Interpreted and Dictated by Jose Manuel Fields III, MD Transcribed by Yuri Brito Authenticated and [facility]
[2023-05-18 09:24] LABS: Basophils % 0.5 % (0.1-2.0); Chloride 104 mmol/L (98-107); Eosinophils # 0.2 K/mm3 (0.0-0.4); Eosinophils % 2.5 % (0.1-12.0); Hematocrit 42.6 % (37.0-47.0); Hemoglobin 13.3 g/dL (12.2-16.2); Lymphocytes # 1.6 K/mm3 (0.7-4.5); Lymphocytes % 23.6 % (10-50); Mean Corpuscular HGB Conc 31.3 g/dL (31.8-35.4); Mean Corpuscular Hemoglobin 27.9 pg (27.0-31.2); Mean Corpuscular Volume 89.3 fl (81-99); Monocytes # 0.5 K/mm3 (0.1-1.0); Monocytes % 7.5 % (1.7-9.3); Neutrophils # 4.5 K/mm3 (1.8-7.8); Platelet Count 235 K/mm3 (142-424); Potassium 4.6 mmoL/L (3.5-5.1); Red Blood Count 4.77 M/mm3 (4.20-5.40); Red Cell Distribution Width 13.4 % (11.5-17.5); Sodium 142 mmol/L (136-145); White Blood Count 6.8 K/mm3 (4.8-10.8)
[2023-05-18 09:27] LABS: Anion Gap 16.6 mEq/L (5-15); Blood Urea Nitrogen 28 mg/dl (7-17); Calcium 9.9 mg/dl (8.4-10.2); Carbon Dioxide 26 mmol/L (22.0-30.0); Creatinine Clearance Estimated 40 mL/min (50-200); Estimated Glomerular Filt Rate 43 ml/min (>60); GFR (African American) 52 ML/MIN (>60); Glucose 113 mg/dl (74-100)
[2023-05-18 10:03] LABS: Troponin I < 0.01 ng/ml (0.00-0.034)
[2023-05-18 10:07] LABS: Coronavirus 19, PCR Not Detected (NotDetected); Influenza A, PCR Not Detected (NotDetected); Influenza B, PCR Not Detected (NotDetected)
--- NOTE | 2023-05-18 10:21 | PC.NURSE ---
CONTACTED RADIOLOGY FOR XR RESULTS
--- NOTE | 2023-05-18 10:49 | ECG_ITS ---
APPROVED REPORT Exam: Resting ECG HR:105 bpm ECG Measurements Heart Rate 105 AXES QRSd 85 QRS 28 QT 389 T 64 QTc 450 Conclusion ATRIAL FIBRILLATION PVC noted ABNORMAL RHYTHM ECG UNCONFIRMED REPORT Electronically signed by : Salvador Alejandre MD 05/18/2023 21:34:25
--- NOTE | 2023-05-18 11:48 | PC.NURSE ---
CARDIOLOGY NOTIFIED AT THIS TIME
--- NOTE | 2023-05-18 12:07 | PC.NURSE ---
ROUNDED ON PATIENT, PATIENT HOOKED BACK UP TO DATA SCOPE, NO NEEDS AT THIS TIME
--- NOTE | 2023-05-18 12:23 | PC.NURSE ---
Spoke with Lalitha in case management regarding patient admission.
--- NOTE | 2023-05-18 12:29 | PC.NURSE ---
lunch tray ordered
--- NOTE | 2023-05-18 12:53 | EXP.CARD.CON ---
History of Present Illness History of Present Illness Consult date: 05/18/23 Consult reason: atrial fibrillation Chief complaint: A-fib RVR History of present illness: 87-year-old white female with past medical history of coronary artery disease with CELSO 2019 and medical management 2020, hypertension, hyperlipidemia, peripheral artery disease, PAF on Xarelto, PPM presented to emergency department this morning with complaints of palpitations and fast heart rate. Patient reports she was in her usual state of health last night, awoke this morning with symptoms. Denies chest pain or shortness of breath. Has a history of paroxysmal atrial fib in which she takes metoprolol succinate 50 mg twice daily and Xarelto 20 mg daily. Patient reports episodes of palpitations and fast heart rate are common for her but never last this long. On presentation to ER EKG showed A-fib with a rate of [address] depression in V3 through 6. Troponin negative. Other labs as follow: WBC 6.8, hemoglobin 13.3 and creatinine 1.2. Chest x-ray was negative for acute cardiopulmonary process. Patient was given a total of 2 mg of ibutilide without conversion to normal sinus rhythm. Patient was given an additional 5 mg of diltiazem with mild reduction in right. Cardiology gave an additional 15 mg diltiazem bolus which did slow her rate to a low 100s. Patient was started on dilt drip and admitted for further evaluation. Echo from 2021 shows an estimated EF of 55%. [facility] Disclaimer: The information contained in this section may have been updated after the patient was seen, as this information can be updated by other users. Medical History Daytime somnolence Restless sleeper Social History Smoking Status: Never smoker alcohol intake: never substance use type: denies use current occupational status: retired Travel in the last 8 weeks: [place] the [place] household members: none housing: house caffeine: No Review of Systems Review of Systems Review of systems:: pertinent systems reviewed and negative unless documented below *Cardiovascular Cardiovascular: Denies chest pain, Denies dyspnea, Reports palpitations and Reports rapid heart rate *Respiratory Respiratory: Denies dyspnea Endocrine Endocrine: Reports palpitations Exam Data for Last 24 hours Vital signs and Labs for Last 24 Hours: Temp Pulse Resp BP Pulse Ox 98.2 F 121 H 14 125/72 96 05/18/23 08:34 05/18/23 12:30 05/18/23 11:38 05/18/23 12:30 05/18/23 12:30 Laboratory Results - last 24 hr 05/18/23 08:49: WBC 6.8, RBC 4.77, Hgb 13.3, Hct 42.6, MCV 89.3, MCH 27.9, MCHC 31.3 L, RDW 13.4, Plt Count 235, MPV 8.0, Neut % (Auto) 66.0, Lymph % (Auto) 23.6, [place] % (Auto) 7.5, Eos % (Auto) 2.5, Baso % (Auto) 0.5, Neut # (Auto) 4.5, Lymph # (Auto) 1.6, [place] # (Auto) 0.5, Eos # (Auto) 0.2, Baso # (Auto) 0.0 05/18/23 08:49: Sodium 142, Potassium 4.6, Chloride 104, Carbon Dioxide 26, Anion Gap 16.6 H, BUN 28 H, Creatinine 1.20 H, Estimated Creat Clear 40, Estimated GFR 43 L, Est GFR ( Amer) 52 L, Glucose 113 H, Calcium 9.9 05/18/23 08:49: Troponin I < 0.01 05/18/23 10:00: SARS-CoV-2 (PCR) Not detected, Influenza A Untype (PCR) Not detected, Influenza Type B (PCR) Not detected I & O for Last 24 hours: Intake & Output 05/15/23 05/16/23 05/17/23 05/18/23 23:59 23:59 23:59 23:59 Weight 165 lb Constitutional Constitutional: no acute distress *Routine Respiratory Exam Respiratory: Present CTA bilaterally and symmetric chest movement *Routine Cardiovascular Exam Cardiovascular: Present Normal S1, Normal S2, irregular rhythm and irregularly irregular Comments: A-fib noted rate low 100s *Routine Abdominal Exam Abdominal: Present soft and normoactive bowel sounds; Absent tenderness *Routine Extremities Exam Extremities: Present full ROM and normal capillary refill; Absen
--- NOTE | 2023-05-18 13:53 | PC.NURSE ---
pt going up for admission
--- NOTE | 2023-05-18 13:56 | PC.NURSE ---
arrived by stretcher from ED
--- NOTE | 2023-05-18 16:07 | EXP.HP ---
History of Present Illness *Admission Date: 05/18/23 *Reason for visit:: weakness, shortness of breath *History of present illness: Benito is an 87-year-old female with history of CAD and A-fib status post pacemaker a year ago. Presented to the ER today for weakness and shortness of breath. States that this morning she had onset of weakness and shortness of breath causing her to come to the ER. She was found to be in A-fib with RVR. She reports that she has had occasional episodes that last just a few seconds where she feels short of breath or feels her heart race but they resolved. This episode however did not get better. Denies griselda chest pain, nausea or vomiting, confusion, headache. Does complain of some dizziness and weakness at onset of her symptoms. Symptoms are feeling somewhat better at this time since starting diltiazem drip in the ER. ER initiated on diltiazem drip and requested admission for further management. Cardiology consulted in the ER to assist with A-fib with RVR. After arriving to the floor, patient's rate is better controlled in the 70s and 80s. Stable on room air. Daughter at bedside. [facility] Disclaimer: The information contained in this section may have been updated after the patient was seen, as this information can be updated by other users. Medical History Atrial fibrillation Daytime somnolence History of pacemaker Restless sleeper Surgical History History of appendectomy History of hysterectomy Family History No significant family history Social History Smoking Status: Never smoker alcohol intake: never substance use type: denies use current occupational status: retired Travel in the last 8 weeks: [place] the [place] household members: none housing: house caffeine: No Review of Systems Review of Systems Review of systems (narrative): 14 point review of systems performed, pertinent positives and negatives as per HPI Meds Home Medications and Allergies Home Medications Medication Instructions Recorded Confirmed Type omeprazole 20 mg capsule,delayed 20 mg PO DAILY acid reflux 06/26/20 05/18/23 History release aspirin 81 mg chewable tablet 81 mg PO DAILY heart health 08/11/20 05/18/23 History metoprolol succinate 100 mg 50 mg PO BID Hypertension 03/06/21 05/18/23 History tablet,extended release 24 hr atorvastatin 40 mg tablet 40 mg PO HS Cholesterol #90 tabs 07/31/21 05/18/23 Rx hydrochlorothiazide 25 mg tablet 25 mg PO DAILY Edema #90 tabs 07/31/21 05/18/23 Rx lisinopril 20 mg tablet 20 mg PO DAILY Hypertension 02/12/23 05/18/23 History amlodipine 5 mg tablet (Norvasc) 5 mg PO DAILY . 03/19/23 05/18/23 History rivaroxaban 20 mg tablet (Xarelto) 20 mg PO DAILY Blood thinner 03/19/23 05/18/23 History New Prescriptions to Start Prescriptions: Allergies Allergy/AdvReac Type Severity Reaction Status Date / Time azithromycin Allergy Intermediate Hives Verified 04/08/23 14:00 Sulfa (Sulfonamide Allergy Unknown Shakiness Verified 04/08/23 14:00 Antibiotics) Exam Data for Last 24 hours Vital signs and Labs for Last 24 Hours: Temp Pulse Resp BP Pulse Ox 98.0 F 81 16 108/62 L 97 05/18/23 14:15 05/18/23 15:42 05/18/23 14:15 05/18/23 14:15 05/18/23 15:42 Laboratory Results - last 24 hr 05/18/23 08:49: WBC 6.8, RBC 4.77, Hgb 13.3, Hct 42.6, MCV 89.3, MCH 27.9, MCHC 31.3 L, RDW 13.4, Plt Count 235, MPV 8.0, Neut % (Auto) 66.0, Lymph % (Auto) 23.6, [place] % (Auto) 7.5, Eos % (Auto) 2.5, Baso % (Auto) 0.5, Neut # (Auto) 4.5, Lymph # (Auto) 1.6, [place] # (Auto) 0.5, Eos # (Auto) 0.2, Baso # (Auto) 0.0 05/18/23 08:49: Sodium 142, Potassium 4.6, Chloride 104, Carbon Dioxide 26, Anion Gap 16.6 H, BUN 28 H, Creatinine 1.20 H, Estimated Creat Cl
--- NOTE | 2023-05-18 18:00 | PC.NURSE ---
cardizem gtt stopped at this time per Dr. Dillard
[2023-05-19] VITALS: PULSE 120
[2023-05-19 04:00] VITALS: BP 132/81; PULSE 103; PULSE 90; RESP 18; TEMP 36.8; O2SAT 96; BMI 27.3
[2023-05-19 05:42] LABS: Basophils # 0.1 K/mm3 (0-0.2); Basophils % 0.8 % (0.1-2.0); Eosinophils # 0.2 K/mm3 (0.0-0.4); Eosinophils % 3.5 % (0.1-12.0); Hematocrit 39.5 % (37.0-47.0); Hemoglobin 12.7 g/dL (12.2-16.2); Lymphocytes # 2.2 K/mm3 (0.7-4.5); Lymphocytes % 36.6 % (10-50); Mean Corpuscular Hemoglobin 28.2 pg (27.0-31.2); Mean Platelet Volume 8.1 fl (7.4-10.4); Monocytes # 0.5 K/mm3 (0.1-1.0); Monocytes % 8.7 % (1.7-9.3); Neutrophils % 50.3 % (37.0-80.0); Platelet Count 248 K/mm3 (142-424); Red Cell Distribution Width 13.6 % (11.5-17.5); White Blood Count 5.9 K/mm3 (4.8-10.8)
[2023-05-19 05:46] LABS: Chloride 104 mmol/L (98-107); Potassium 4.3 mmoL/L (3.5-5.1); Sodium 139 mmol/L (136-145)
[2023-05-19 05:48] LABS: Alanine Aminotransferase 22 U/L (12-78); Aspartate Amino Transferase 29 U/L (14-36); Blood Urea Nitrogen 33 mg/dl (7-17); Creatinine Clearance Estimated 37 mL/min (50-200); Estimated Glomerular Filt Rate 43 ml/min (>60); GFR (African American) 52 ML/MIN (>60)
[2023-05-19 05:49] LABS: Albumin Level 3.9 g/dl (3.5-5.0); Albumin/Globulin Ratio 1.3 (1.1-1.8); Alkaline Phosphatase 75 U/L (38-126); Anion Gap 14.3 mEq/L (5-15); Bilirubin,Total 0.3 mg/dl (0.2-1.3); Calcium 9.3 mg/dl (8.4-10.2); Carbon Dioxide 25 mmol/L (22.0-30.0); Globulin 2.9 g/dL (1.3-3.2); Glucose 105 mg/dl (74-100); Magnesium 1.6 mg/dl (1.6-2.3); Total Protein,Serum 6.8 g/dl (6.3-8.2)
--- NOTE | 2023-05-19 06:56 | PC.NURSE ---
Pt has rested well t/o shift. HR 90-125 t/o night. Ambulating to BR with standby assist. Call light within reach.
--- NOTE | 2023-05-19 07:42 | HMH.PHAINT1 ---
Pharmacy Intervention Comments: PATIENT HOME MEDICATIONS VERIFIED WITH PATIENT AND EXTERNAL PHARMACY. -ALTHEA CHAUDHARY, PHARM STUDENT
[2023-05-19 07:50] VITALS: BP 115/69; PULSE 130; RESP 18; TEMP 36.6; O2SAT 96
[2023-05-19 08:00] VITALS: PULSE 120; O2SAT 96
--- NOTE | 2023-05-19 09:02 | EXP.DC.SUM ---
General Admission date:: 05/18/23 Discharge date: 05/19/23 HPI HPI HPI: Benito is an 87-year-old female with history of CAD and A-fib status post pacemaker a year ago. Presented to the ER today for weakness and shortness of breath. States that this morning she had onset of weakness and shortness of breath causing her to come to the ER. She was found to be in A-fib with RVR. She reports that she has had occasional episodes that last just a few seconds where she feels short of breath or feels her heart race but they resolved. This episode however did not get better. Denies griselda chest pain, nausea or vomiting, confusion, headache. Does complain of some dizziness and weakness at onset of her symptoms. Symptoms are feeling somewhat better at this time since starting diltiazem drip in the ER. ER initiated on diltiazem drip and requested admission for further management. Cardiology consulted in the ER to assist with A-fib with RVR. After arriving to the floor, patient's rate is better controlled in the 70s and 80s. Stable on room air. Daughter at bedside. Hospital Course Hospital Course Hospital Course: Ms. Evangelista is an 87-year-old female with history of tachybradycardia syndrome, CAD, chronic HFpEF.? Presented with A-fib with RVR.? ER consulted medicine for admission as patient was initiated on diltiazem drip.? Medicine agreed to admit for further management.? Cardiology also consulted.? Patient's rate improved. Able to transition off the drip to oral rate controlling regimen. Stable for discharge home. Problems addressed during hospitalization as follows: A-fib with RVR Tachybradycardia syndrome CAD Hyperlipidemia -EKG showed A-fib with a rate in the 140s.? Personally reviewed on admission. Was initiated on diltiazem drip with improvement in rate control. Able to transition off over the afternoon of first day to oral diltiazem. Continued home metoprolol twice daily. Rate increased the morning of discharge, diltiazem was increased with improved control. Cardiology was consulted. Recommend continuing with diltiazem 240 mg extended release once a day and metoprolol oral 50 mg twice daily. Initiated on Xarelto for her A-fib. Echocardiogram obtained showing preserved EF. Findings of grade 2 diastolic dysfunction. Continue home aspirin 81 mg daily, Lipitor 40 mg daily, holding amlodipine in the setting of normotension and initiation of diltiazem (beta-zeeshan). Resume home lisinopril. Continue home hydrochlorothiazide. CKD - creatinine at baseline, monitor daily. Stable for discharge home on modified regimen for rate control. Follow-up closely with cardiology. Spent 40 minutes in discharge counseling and direct care with patient. Exam Data for Last 24 hours Vital signs and Labs for Last 24 Hours: Temp Pulse Resp BP Pulse Ox 97.9 F 130 H 18 115/69 96 05/19/23 07:50 05/19/23 07:50 05/19/23 07:50 05/19/23 07:50 05/19/23 07:50 Laboratory Results - last 24 hr 05/18/23 08:49: WBC 6.8, RBC 4.77, Hgb 13.3, Hct 42.6, MCV 89.3, MCH 27.9, MCHC 31.3 L, RDW 13.4, Plt Count 235, MPV 8.0, Neut % (Auto) 66.0, Lymph % (Auto) 23.6, [place] % (Auto) 7.5, Eos % (Auto) 2.5, Baso % (Auto) 0.5, Neut # (Auto) 4.5, Lymph # (Auto) 1.6, [place] # (Auto) 0.5, Eos # (Auto) 0.2, Baso # (Auto) 0.0 05/18/23 08:49: Sodium 142, Potassium 4.6, Chloride 104, Carbon Dioxide 26, Anion Gap 16.6 H, BUN 28 H, Creatinine 1.20 H, Estimated Creat Clear 40, Estimated GFR 43 L, Est GFR ( Amer) 52 L, Glucose 113 H, Calcium 9.9 05/18/23 08:49: Troponin I < 0.01 05/18/23 10:00: SARS-CoV-2 (PCR) Not detected, Influenza A Untype (PCR) Not detected, Influenza Type B (PCR) Not detected 05/19/23 05:15: WBC 5.9, RBC 4.50, Hgb 12.7, Hct 39.5, MCV 88.0, MCH 28.2, MCHC 32.0, RDW 13.6, Plt Count 248, MPV 8.1, Neut % (Auto) 50.3, Lymph % (Auto) 36.6, [place] % (Auto) 8.7, Eos % (Auto) 3.5, Baso % (Auto) 0.8, Neut # (Auto) 3.0, Lymph # (Auto) 2.2, [place] # (Auto) 0.5, Eos # (Auto) 0.2,
--- NOTE | 2023-05-19 09:22 | PC.ADMIT ---
[email or web address] [facility] Admission Note: The patient,Cande Evangelista,87 y/o, was given written information regarding hospital policies, unit procedures and contact persons. Patient's smoking status: Never smoker. Vital Signs - 8 hr 05/19/23 04:00 05/19/23 04:00 05/19/23 07:50 Temperature 98.3 F 97.9 F Pulse Rate 90 Pulse Rate [Left Radial] 103 H 130 H Respiratory Rate 18 18 Blood Pressure [Right Arm] 132/81 115/69 02 Sat by Pulse Oximetry 96 96 Current Medications Aspirin (Pat Own Med Aspirin 81mg Chewable Tablet) 81 mg PO DAILY [facility] Stop: 06/18/23 08:59 Last Admin: 05/19/23 08:19 Dose: 81 mg Atorvastatin Calcium (Pat Own Med Atorvastatin 40 Mg) 40 mg PO HS [facility] Stop: 06/17/23 20:59 Last Admin: 05/18/23 20:30 Dose: 40 mg Diltiazem HCl (Diltiazem Er 240mg Capsule) 240 mg PO ONCE ONE Stop: 05/19/23 09:31 Metoprolol Succinate (Metoprolol Succinate Xl 50mg Tablet) 50 mg PO BID [facility] Stop: 06/17/23 20:59 Last Admin: 05/19/23 08:19 Dose: 50 mg Pantoprazole Sodium (Pantoprazole 40mg Tablet) 40 mg PO HS [facility] Stop: 06/17/23 20:59 Last Admin: 05/18/23 20:30 Dose: 40 mg Rivaroxaban (Rivaroxaban 15mg Tablet) 15 mg PO QPMWITHMEAL WILFRID Stop: 06/17/23 17:29 Last Admin: 05/18/23 17:10 Dose: 15 mg
--- NOTE | 2023-05-19 09:49 | EXP.CARD.PN ---
Subjective Subjective Date: 05/19/23 Time: 08:00 Principal diagnosis: A-fib RVR Interval history: Patient reports doing well this morning. Denies chest pain or shortness of breath. Remains A-fib with rate in the low 100s. Morning labs reviewed. Preliminary echo findings shows an estimated EF of 55% with mild to moderate MR and mild TR, RVSP noted 35-40 Exam Data for Last 24 hours Vital signs and Labs for Last 24 Hours: Temp Pulse Resp BP Pulse Ox 97.9 F 120 H 18 115/69 96 05/19/23 07:50 05/19/23 08:00 05/19/23 07:50 05/19/23 07:50 05/19/23 07:50 Laboratory Results - last 24 hr 05/18/23 08:49: Troponin I < 0.01 05/18/23 10:00: SARS-CoV-2 (PCR) Not detected, Influenza A Untype (PCR) Not detected, Influenza Type B (PCR) Not detected 05/19/23 05:15: WBC 5.9, RBC 4.50, Hgb 12.7, Hct 39.5, MCV 88.0, MCH 28.2, MCHC 32.0, RDW 13.6, Plt Count 248, MPV 8.1, Neut % (Auto) 50.3, Lymph % (Auto) 36.6, [place] % (Auto) 8.7, Eos % (Auto) 3.5, Baso % (Auto) 0.8, Neut # (Auto) 3.0, Lymph # (Auto) 2.2, [place] # (Auto) 0.5, Eos # (Auto) 0.2, Baso # (Auto) 0.1 05/19/23 05:15: Sodium 139, Potassium 4.3, Chloride 104, Carbon Dioxide 25, Anion Gap 14.3, BUN 33 H, Creatinine 1.20 H, Estimated Creat Clear 37, Estimated GFR 43 L, Est GFR ( Amer) 52 L, Glucose 105 H, Calcium 9.3, Magnesium 1.6, Total Bilirubin 0.3, AST 29, ALT 22, Alkaline Phosphatase 75, Total Protein 6.8, Albumin 3.9, Globulin 2.9, Albumin/Globulin Ratio 1.3 I & O for Last 24 hours: Intake & Output 05/16/23 05/17/23 05/18/23 06/28/23 23:59 23:59 23:59 23:59 Intake Total 480 / 480 480 / 480 Output Total 200 / 200 0 / 0 Balance 280 / 280 480 / 480 Weight 154 lb 9 oz 154 lb 9.6 oz Constitutional Constitutional: no acute distress *Routine Respiratory Exam Respiratory: Present CTA bilaterally and symmetric chest movement *Routine Cardiovascular Exam Cardiovascular: Present irregular rhythm and irregularly irregular Comments: A-fib with rate in the low 100s *Routine Abdominal Exam Abdominal: Present soft and normoactive bowel sounds; Absent tenderness *Routine Extremities Exam Extremities: Present full ROM and normal capillary refill; Absent edema *Routine Skin Exam Skin: Present intact, dry and warm Detailed Neck Exam: Thyroids Thyroid: Absent bruit Progress Note: A&P Assessment and plan (1) Atrial fibrillation with rapid ventricular response: Status: Acute (2) Tachy-junie syndrome: Status: Acute (3) Essential hypertension: Status: Chronic (4) Heart failure with preserved ejection fraction: Status: Acute (5) Chronic renal insufficiency: Status: Acute Assessment and Plan Assessment and Plan for All Diagnoses:: Paroxysmal atrial fibrillation/Afib rvr [id number] 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 We will repeat 25 mg diltiazem bolus and start dilt drip for rate control -Patient was also given a total of 2 mg of ibutilide without conversion to normal sinus -Historical normal EF.? Echo 06/2022 showed an EF of 55 percent, no regional wall motion abnormality, grade 2 diastolic dysfunction -We will repeat echo once normal sinus rhythm or rate control is achieved. -Continue metoprolol succinate 50 mg twice daily and Xarelto 20 mg daily 05/11/2023: Patient remains A-fib with a rate in the low 100s. Dilt drip was discontinued yesterday. We will give additional Lopressor 5 mg IV and will increase oral diltiazem ER to 240 mg p.o. daily. Continue Xarelto 20 mg p.o. daily. Coronary artery disease ccs1 -History of CELSO 2019, medical management heart cath in 2020 -EKG shows mild ST depression in leads V3-6 in the setting of paroxysmal A-fib.? Patient denies chest pain or shortness of breath.? Troponin negative -Continue aspirin 81 mg daily, atorvastatin 40 mg daily, metoprolol succinate ER 50mg po BID Chronic HFpEF/Grade 2
[2023-05-19 11:42] VITALS: BP 105/75; PULSE 91; RESP 22; TEMP 36.8; O2SAT 97
[2023-05-19 12:00] VITALS: PULSE 104
--- NOTE | 2023-05-19 15:13 | HMH.PHAINT1 ---
Pharmacy Intervention Comments: PATIENT'S DISCHARGE MEDICATIONS REVIEWED WITH PATIENT AND PATIENTS CHILD: - DILTIAZEM (BLOOD PRESSURE MEDICATION, WATCH FOR LIGHTHEADEDNESS AND FATIGUE) -PANTOPRAZOLE (FOR NAUSEA AND VOMITTING) PATIENT HAD NOT FURTHER QUESTIONS. -ALTHEA CHAUDHARY, PHARM STUDENT
--- NOTE | 2023-05-20 12:33 | CARE MANAGER ---
Contacted patient related to hospital discharge. She states she doesn't feel the best, but ok. She picked up her medication and has been taking it. She states her blood pressure is running 100s/60s and heart rate is in the 110s. She states it doesn't feel like it's racing or anything. She is aware of her follow up appointments and denies any questions or concerns at this time. Encouraged her to keep track of HR and BP and notify PCP if continue to feel poorly. YOLIE Lynn
== END 2023-05-19 15:22 | disposition home or self-care (01) ==
LOC: ER 09:06 → 2ND 12:42
PROVIDERS: Admitting Provider Internal Medicine Adolescent Medicine; Emergency Provider Emergency Medicine; PCP Nurse Practitioner Family; Visit Provider Internal Medicine Adolescent Medicine
DX: I48.0 Paroxysmal atrial fibrillation (principal); I49.5 Sick sinus syndrome; I25.10 Atherosclerotic heart disease of native coronary artery without angina pectoris; I12.9 Hypertensive chronic kidney disease with stage 1 through stage 4 chronic kidney disease, or unspecified chronic kidney disease; N18.9 Chronic kidney disease, unspecified; I50.30 Unspecified diastolic (congestive) heart failure; I11.0 Hypertensive heart disease with heart failure; I50.32 Chronic diastolic (congestive) heart failure; I73.9 Peripheral vascular disease, unspecified
CPT/HCPCS: G0378; 36415; 71045; 80048; 80053; 83735; 84484; 85025; 87635; 87636; 93005; 93306; 99291; C9803; J1742; U0003; U0005

== ENCOUNTER 2023-05-24 15:07 | Emergency (ER) | payer MEDICARE, SELFPAY ==
[2023-05-24] VITALS (7 sets, daily range): BP systolic 104–130; BP diastolic 55–76; PULSE 72–116; RESP 16–18; TEMP 36.6; O2SAT 93–98; BMI 28.8
--- NOTE | 2023-05-24 15:11 | ECG_ITS ---
APPROVED REPORT Exam: Resting ECG HR:114 bpm ECG Measurements Heart Rate 114 AXES QRSd 83 QRS 29 QT 284 T 266 QTc 352 Conclusion Atrial fibrillation ELECTRONIC VENTRICULAR PACEMAKER ST DEVIATION AND MODERATE T-WAVE ABNORMALITY, CONSIDER ANTEROLATERAL ISCHEMIA [-0.1+ mV T-WAVE IN V3-V6] ST DEVIATION AND MODERATE T-WAVE ABNORMALITY, CONSIDER INFERIOR ISCHEMIA [-0.1+ mV T-WAVE IN II/aVF] CRITICAL TEST RESULT UNCONFIRMED REPORT Electronically signed by : Salvador Alejandre MD 05/24/2023 19:32:35
--- NOTE | 2023-05-24 15:15 | PC.NURSE ---
covid swab sent to lab
--- NOTE | 2023-05-24 15:16 | PC.NURSE ---
DR. GE IS AT BS
[2023-05-24 15:19] LABS: Coronavirus 19, PCR Not Detected (NotDetected); Influenza A, PCR Not Detected (NotDetected); Influenza B, PCR Not Detected (NotDetected)
--- NOTE | 2023-05-24 15:22 | PC.NURSE ---
Dr Linares speaking with Dr Kapoor
--- NOTE | 2023-05-24 15:29 | HMH.EDGENADL ---
Discharge Plan Disposition Patient Disposition: Home, Self-Care Prescriptions Prescriptions: No Action hydrochlorothiazide 25 mg tablet 25 mg PO DAILY Qty: 90 3RF atorvastatin 40 mg tablet 40 mg PO HS Qty: 90 3RF aspirin 81 MG tablet,chewable 81 mg PO DAILY lisinopril 20 mg tablet 20 mg PO DAILY Xarelto 20 mg tablet 20 mg PO DAILY Rx Instructions: must administer with evening meal metoprolol succinate 50 mg tablet extended release 24 hr 50 mg PO BID pantoprazole 40 mg Tablet,Delayed Release (Dr/Ec) 40 mg PO HS 30 Days Qty: 30 0RF diltiazem HCl 240 mg capsule,extended release 24hr 240 mg PO DAILY 30 Days Qty: 30 0RF Referrals Follow up/Referrals: Matilde Barkley APRN [Primary Care Provider] - See instructions Activity Restrictions/Add. Instructions Additional Instructions/Restrictions: Please take your diltiazem 240 mg tablet twice a day now instead of once a day. Continue your metoprolol twice daily and follow-up with Dr. Kapoor on Wednesday at 10 AM per his request. You may call his clinic and make sure that you have an appointment but he is expecting you at 10 AM on Wednesday. Return with any worsening symptoms. Clinical Impressions Clinical Impression: Atrial fibrillation with RVR Discharge ED Provider: Everett Linares General Adult HPI General Chief complaint: Arrhythmia/Palpitations Stated complaint: rapid heart rate Time Seen by Provider: 05/24/23 15:10 History of Present Illness HPI narrative: Patient is an 87-year-old female presenting today with A-fib RVR. She was recently admitted at the end of April was started on a diltiazem drip was sent home on 240 mg daily of diltiazem and 50 mg twice daily of metoprolol daily. She was started on Xarelto for anticoagulation. She states that she felt horrible this morning with her primary care doctor heart rate was in the 130s to 140s they called Dr. Kapoor who told her to take an additional dose of her medications. She took an additional dose of the diltiazem 240 as well as metoprolol 50. Therefore she has had 480 mg currently of diltiazem and 100 mg currently of metoprolol today. Her heart rate has not significant improved and she came to the emergency department. Related Data Home Medications Medication Instructions Recorded Confirmed aspirin 81 mg chewable tablet 81 mg PO DAILY heart health 08/11/20 05/18/23 lisinopril 20 mg tablet 20 mg PO DAILY Blood Pressure 02/12/23 05/18/23 rivaroxaban 20 mg tablet (Xarelto) 20 mg PO DAILY Blood thinner/ 03/19/23 05/18/23 Atrial Fib metoprolol succinate 50 mg 50 mg PO BID Blood Pressure 05/19/23 05/19/23 tablet,extended release 24 hr Previous Rx's Medication Instructions Recorded atorvastatin 40 mg tablet 40 mg PO HS Cholesterol #90 tabs 07/31/21 hydrochlorothiazide 25 mg tablet 25 mg PO DAILY Edema #90 tabs 07/31/21 diltiazem HCl 240 mg 240 mg PO DAILY 30 days #30 caps 05/19/23 capsule,extended release 24 hr pantoprazole 40 mg tablet,delayed 40 mg PO HS 30 days #30 tabs 05/19/23 release Allergies Allergy/AdvReac Type Severity Reaction Status Date / Time azithromycin Allergy Intermediate Hives Verified 05/24/23 15:30 Sulfa (Sulfonamide Allergy Unknown Shakiness Verified 05/24/23 15:30 Antibiotics) [facility] Disclaimer: The information contained in this section may have been updated after the patient was seen, as this information can be updated by other users. 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
[2023-05-24 15:34] LABS: Basophils # 0.1 K/mm3 (0-0.2); Basophils % 0.8 % (0.1-2.0); Eosinophils # 0.1 K/mm3 (0.0-0.4); Eosinophils % 2.2 % (0.1-12.0); Hematocrit 37.7 % (37.0-47.0); Hemoglobin 11.9 g/dL (12.2-16.2); Lymphocytes # 2.1 K/mm3 (0.7-4.5); Lymphocytes % 36.3 % (10-50); Mean Corpuscular HGB Conc 31.6 g/dL (31.8-35.4); Mean Corpuscular Hemoglobin 28.3 pg (27.0-31.2); Mean Corpuscular Volume 89.5 fl (81-99); Monocytes # 0.4 K/mm3 (0.1-1.0); Monocytes % 7.3 % (1.7-9.3); Neutrophils # 3.2 K/mm3 (1.8-7.8); Neutrophils % 53.5 % (37.0-80.0); Platelet Count 265 K/mm3 (142-424); Red Blood Count 4.21 M/mm3 (4.20-5.40); Red Cell Distribution Width 13.7 % (11.5-17.5); White Blood Count 5.9 K/mm3 (4.8-10.8)
[2023-05-24 15:36] LABS: Chloride 106 mmol/L (98-107); Potassium 4.7 mmoL/L (3.5-5.1); Sodium 143 mmol/L (136-145)
[2023-05-24 15:39] LABS: Alanine Aminotransferase 24 U/L (12-78); Albumin Level 4.5 g/dl (3.5-5.0); Albumin/Globulin Ratio 1.5 (1.1-1.8); Alkaline Phosphatase 71 U/L (38-126); Anion Gap 15.7 mEq/L (5-15); Aspartate Amino Transferase 26 U/L (14-36); Bilirubin,Total 0.4 mg/dl (0.2-1.3); Blood Urea Nitrogen 47 mg/dl (7-17); Calcium 9.6 mg/dl (8.4-10.2); Carbon Dioxide 26 mmol/L (22.0-30.0); Creatinine Clearance Estimated 25 mL/min (50-200); Estimated Glomerular Filt Rate 25 ml/min (>60); GFR (African American) 30 ML/MIN (>60); Globulin 3.1 g/dL (1.3-3.2); Glucose 126 mg/dl (74-100); Total Protein,Serum 7.6 g/dl (6.3-8.2)
== END 2023-05-24 16:55 | disposition home or self-care (01) ==
PROVIDERS: Emergency Provider Student in an Organized Health Care Education/Training Program; PCP Nurse Practitioner Family
DX: I48.91 Unspecified atrial fibrillation (principal); Z95.0 Presence of cardiac pacemaker
CPT/HCPCS: 80053; 83735; 85025; 87636; 93005; 96374; 99285

== ENCOUNTER → 2023-07-27 14:53 | Outpatient (CLI) | payer MEDICARE, SELFPAY ==
--- NOTE | 2023-07-27 | CA_ITS ---
FINAL REPORT TECHNIQUE: Color Doppler, duplex Doppler and compression sonography of the left lower extremity deep venous systems was performed. 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 The veins are patent and compressible. IMPRESSION: No evidence of deep venous thrombosis left lower extremity. Reviewed, Interpreted and Dictated by Jose Manuel Fields III, MD Transcribed by Anabel Reyes Authenticated and . [facility]
== END ==
PROVIDERS: PCP Nurse Practitioner Family; Visit Provider Nurse Practitioner Family
DX: M79.662 Pain in left lower leg (principal); S80.12XA Contusion of left lower leg, initial encounter
CPT/HCPCS: 93971

== ENCOUNTER → 2023-08-17 11:32 | Outpatient (CLI) | payer MEDICARE, SELFPAY ==
[2023-08-17 12:18] LABS: Basophils % 0.9 % (0.1-2.0); Eosinophils # 0.2 K/mm3 (0.0-0.4); Eosinophils % 3.2 % (0.1-12.0); Hematocrit 39.6 % (37.0-47.0); Hemoglobin 12.4 g/dL (12.2-16.2); Lymphocytes # 1.5 K/mm3 (0.7-4.5); Mean Corpuscular HGB Conc 31.3 g/dL (31.8-35.4); Mean Corpuscular Volume 89.3 fl (81-99); Mean Platelet Volume 7.7 fl (7.4-10.4); Monocytes # 0.4 K/mm3 (0.1-1.0); Monocytes % 9.1 % (1.7-9.3); Neutrophils # 2.7 K/mm3 (1.8-7.8); Neutrophils % 55.7 % (37.0-80.0); Platelet Count 228 K/mm3 (142-424); Red Blood Count 4.44 M/mm3 (4.20-5.40); Red Cell Distribution Width 14.3 % (11.5-17.5); White Blood Count 4.9 K/mm3 (4.8-10.8)
[2023-08-17 13:26] LABS: Alanine Aminotransferase 19 U/L (12-78); Albumin Level 4.4 g/dl (3.5-5.0); Alkaline Phosphatase 74 U/L (38-126); Anion Gap 14.8 mEq/L (5-15); Aspartate Amino Transferase 26 U/L (14-36); Bilirubin,Direct 0.1 mg/dl (0.0-0.4); Bilirubin,Indirect 0.4 mg/dL (0.0-0.9); Bilirubin,Total 0.5 mg/dl (0.2-1.3); Bilirubin,Unconjugated 0.4 mg/dL (0.0-1.1); Blood Urea Nitrogen 30 mg/dl (7-17); Calcium 9.9 mg/dl (8.4-10.2); Carbon Dioxide 26 mmol/L (22.0-30.0); Chloride 108 mmol/L (98-107); Cholesterol 119 mg/dl (140-200); Estimated Glomerular Filt Rate 39 ml/min (>60); GFR (African American) 47 ML/MIN (>60); Glucose 95 mg/dl (74-100); HDL Cholesterol 40 mg/dl (40-60); Magnesium 1.7 mg/dl (1.6-2.3); Potassium 4.8 mmoL/L (3.5-5.1); Sodium 144 mmol/L (136-145); Total Protein,Serum 7.6 g/dl (6.3-8.2); Triglycerides 137 mg/dl (30-150); VLDL Cholesterol 27 mg/dL (0-40)
[2023-08-17 13:38] LABS: Direct LDL Cholesterol 58.89 mg/dL (100-129)
[2023-08-17 13:44] LABS: Free T4 (Free Thyroxine) 0.86 ng/dl (0.78-2.19)
[2023-08-17 13:59] LABS: Thyroid Stimulating Hormone 1.57 uIU/mL (0.465-4.68)
== END ==
PROVIDERS: PCP Nurse Practitioner Family; Visit Provider Physician Assistant
DX: E78.5 Hyperlipidemia, unspecified (principal); I10 Essential (primary) hypertension; I25.10 Atherosclerotic heart disease of native coronary artery without angina pectoris; I48.91 Unspecified atrial fibrillation
CPT/HCPCS: 36415; 80048; 80061; 80076; 83735; 84439; 84443; 85025

== ENCOUNTER 2023-11-14 10:19 | Emergency (ER) | payer MEDICARE, SELFPAY ==
[2023-11-14 10:19] VITALS: BP 180/80; PULSE 71; RESP 20; TEMP 36.6; O2SAT 98; BMI 28.3
--- NOTE | 2023-11-14 10:31 | ECG_ITS ---
APPROVED REPORT Exam: Resting ECG HR:70 bpm ECG Measurements Heart Rate 70 AXES ND 235 P -87 QRSd 161 QRS -70 QT 433 T 109 QTc 453 Conclusion ELECTRONIC VENTRICULAR PACEMAKER ABNORMAL RHYTHM ECG UNCONFIRMED REPORT Electronically signed by : Salvador Alejandre MD 11/17/2023 09:06:11
--- NOTE | 2023-11-14 10:43 | CT_ITS ---
PROCEDURE INFORMATION: Exam: CTA Neck With Contrast Exam date and time: 11/14/2023 11:21 AM Age: 88 years old Clinical indication: Dizziness and giddiness; Additional info: 30 min episode of vertigo TECHNIQUE: Imaging protocol: Computed tomographic angiography of the neck with contrast. Exam focused on the cervical segments of the vasculature. 3D rendering (Not supervised by radiologist): MIP and/or 3D reconstructed images were created by the technologist. Radiation optimization: All CT scans at this facility use at least one of these dose optimization techniques: automated exposure control; mA and/or kV adjustment per patient size (includes targeted exams where dose is matched to clinical indication); or iterative reconstruction. Contrast material: ISOVUE; Contrast volume: 100 ml; Contrast route: INTRAVENOUS (IV); REPORTING DATA: Count of CT and Cardiac NM exams in prior 12 months: This patient has received [address] and 0 known cardiac nuclear medicine studies in the 12 months prior to the current study. COMPARISON: CT ANGIO HEAD 11/14/2023 11:21 AM FINDINGS: Right common carotid artery: No stenosis. No dissection or occlusion. Right internal carotid artery: No stenosis of the extracranial segment. No dissection or occlusion. Right external carotid artery: No occlusion or stenosis of the origin. Left common carotid artery: No stenosis. No dissection or occlusion. Left internal carotid artery: No stenosis of the extracranial segment. No dissection or occlusion. Left external carotid artery: No occlusion or stenosis of the origin. Right vertebral artery: No stenosis. No dissection or occlusion. Left vertebral artery: No stenosis. No dissection or occlusion. Soft tissues: Normal. No significant soft tissue swelling. Bones/joints: No acute fracture. IMPRESSION: No stenosis or occlusion. REFERENCES: NASCET CRITERIA. The degree of stenosis in the cervical segment of the internal carotid artery is based on NASCET criteria. Normal is no stenosis. Mild is less than 50% stenosis. Moderate is 50-69% stenosis. Severe is 70% to 99% stenosis. Total occlusion is no detectable patent lumen.
--- NOTE | 2023-11-14 10:43 | CT_ITS ---
PROCEDURE INFORMATION: Exam: CTA Head With Contrast, Arteriography Exam date and time: 11/14/2023 11:21 AM Age: 88 years old Clinical indication: Dizziness and giddiness; Additional info: 30 min episode of vertigo TECHNIQUE: Imaging protocol: Computed tomographic angiography of the head with contrast. Exam focused on the arteries. 3D rendering (Not supervised by radiologist): MIP and/or 3D reconstructed images were created by the technologist. Radiation optimization: All CT scans at this facility use at least one of these dose optimization techniques: automated exposure control; mA and/or kV adjustment per patient size (includes targeted exams where dose is matched to clinical indication); or iterative reconstruction. Contrast material: ISOVUE; Contrast volume: 100 ml; Contrast route: INTRAVENOUS (IV); REPORTING DATA: Count of CT and Cardiac NM exams in prior 12 months: This patient has received [address] and 0 known cardiac nuclear medicine studies in the 12 months prior to the current study. COMPARISON: CT HEAD/BRAIN WO CON 11/14/2023 11:18 AM FINDINGS: ANTERIOR CIRCULATION: Right internal carotid artery: Intracranial segment is patent with no significant stenosis. No aneurysm. Right middle cerebral artery: No occlusion or significant stenosis. No aneurysm. Right anterior cerebral artery: No occlusion or significant stenosis. No aneurysm. Left internal carotid artery: Intracranial segment is patent with no significant stenosis. No aneurysm. Left middle cerebral artery: No occlusion or significant stenosis. No aneurysm. Left anterior cerebral artery: No occlusion or significant stenosis. No aneurysm. POSTERIOR CIRCULATION: Right vertebral artery: No occlusion or significant stenosis. No aneurysm. Left vertebral artery: No occlusion or significant stenosis. No aneurysm. Basilar artery: No occlusion or significant stenosis. No aneurysm. Right posterior cerebral artery: No occlusion or significant stenosis. No aneurysm. Left posterior cerebral artery: No occlusion or significant stenosis. No aneurysm. Brain: No definite mass, mass effect, or midline shift. Cerebral ventricles: No ventriculomegaly. Bones/joints: Unremarkable. No acute fracture. Soft tissues: Unremarkable. IMPRESSION: No large vessel stenosis or occlusion.
--- NOTE | 2023-11-14 10:43 | CT_ITS ---
PROCEDURE INFORMATION: Exam: CT Head Without Contrast Exam date and time: 11/14/2023 11:18 AM Age: 88 years old Clinical indication: Dizziness; Additional info: 30 min episode of vertigo TECHNIQUE: Imaging protocol: Computed tomography of the head without contrast. Radiation optimization: All CT scans at this facility use at least one of these dose optimization techniques: automated exposure control; mA and/or kV adjustment per patient size (includes targeted exams where dose is matched to clinical indication); or iterative reconstruction. REPORTING DATA: Count of CT and Cardiac NM exams in prior 12 months: This patient has received [address] and 0 known cardiac nuclear medicine studies in the 12 months prior to the current study. COMPARISON: CT HEAD/BRAIN WO CON 03/23/2021 7:03 PM FINDINGS: Brain: Central and cortical brain atrophy evident, appropriate for patient age. There is nonspecific periventricular low attenuation, likely microangiopathic disease. No acute intracranial hemorrhage. 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 Cerebral ventricles: No ventriculomegaly. Paranasal sinuses: Stable complete opacification of the left maxillary sinus. Mastoid air cells: Stable partial opacification right mastoid air cells. Bones/joints: Unremarkable. No acute fracture. Soft tissues: Unremarkable. IMPRESSION: 1. No acute intracranial abnormality. 2. 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
--- NOTE | 2023-11-14 10:45 | HMH.EDGENADL ---
Discharge Plan Disposition Patient Disposition: Home, Self-Care Prescriptions Prescriptions: No Action hydrochlorothiazide 25 mg tablet 25 mg PO DAILY Qty: 90 3RF atorvastatin 40 mg tablet 40 mg PO HS Qty: 90 3RF aspirin 81 MG tablet,chewable 81 mg PO DAILY lisinopril 20 mg tablet 20 mg PO DAILY Xarelto 20 mg tablet 20 mg PO DAILY Rx Instructions: must administer with evening meal metoprolol succinate 50 mg tablet extended release 24 hr 50 mg PO BID Referrals Follow up/Referrals: Matilde Barkley APRN [Primary Care Provider] - See instructions Activity Restrictions/Add. 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 With any recurrent or persistent neurologic complaints. Clinical Impressions Clinical Impression: Vertigo, Asymptomatic hypertension Discharge ED Provider: Evertet Linares General Adult HPI General Chief complaint: Recheck/Abnormal Lab/Rx Stated complaint: elevated bp Time Seen by Provider: 11/14/23 10:34 Mode of Arrival: Ambulatory Source of Information: Patient Limitations: No Limitations Description of Symptoms (Recalled from ER Triage Doc. by RN): pt to ed c/o dizziness when she woke up this morning. pt states she hadn't taken her blood pressure medication yet and was hypertensive. History of Present Illness HPI narrative: Is an 88-year-old female presenting today after a 30-minute episode of vertigo. She has a history of positional vertigo but states this was not positional and it was constant for 30 minutes she did take meclizine and felt better within 15 minutes currently is asymptomatic other than stating that she took her blood pressure and it was significantly elevated and she states her head just does not feel right. She cannot articulate further what that means she has no headache no neurologic symptoms or ongoing including changes in coordination vision numbness weakness etc. Denies any chest pain shortness of breath changes in mental status changes in urine output etc. Related Data Home Medications Medication Instructions Recorded Confirmed aspirin 81 mg chewable tablet 81 mg PO DAILY heart health 08/11/20 08/17/23 lisinopril 20 mg tablet 20 mg PO DAILY Blood Pressure 02/12/23 08/17/23 rivaroxaban 20 mg tablet (Xarelto) 20 mg PO DAILY Blood thinner/ 03/19/23 08/17/23 Atrial Fib metoprolol succinate 50 mg 50 mg PO BID Blood Pressure 05/19/23 08/17/23 tablet,extended release 24 hr Previous Rx's Medication Instructions Recorded atorvastatin 40 mg tablet 40 mg PO HS Cholesterol #90 tabs 07/31/21 hydrochlorothiazide 25 mg tablet 25 mg PO DAILY Edema #90 tabs 07/31/21 Allergies Allergy/AdvReac Type Severity Reaction Status Date / Time azithromycin Allergy Intermediate Hives Verified 08/17/23 10:59 Sulfa (Sulfonamide Allergy Unknown Shakiness Verified 08/17/23 10:59 Antibiotics) [facility] Disclaimer: The information contained in this section may have been updated after the patient was seen, as this information can be updated by other users. Medical History Atrial fibrillation Daytime somnolence Hematoma of pacemaker pocket History of pacemaker Renal artery stenosis, [place], bilateral Restless sleeper Tachy-junie syndrome Surgical History History of appendectomy History of hysterectomy S/P coronary artery stent placement S/P placement of cardiac pacemaker Family History Other No significant family history Social History Smoking Status: Never smoker alcohol intake: never substance use type: denies use current occupat
[2023-11-14 10:50] LABS: Basophils % 0.9 % (0.1-2.0); Eosinophils # 0.2 K/mm3 (0.0-0.4); Eosinophils % 3.2 % (0.1-12.0); Hematocrit 43.4 % (37.0-47.0); Hemoglobin 14.4 g/dL (12.2-16.2); Lymphocytes # 1.3 K/mm3 (0.7-4.5); Mean Corpuscular HGB Conc 33.1 g/dL (31.8-35.4); Mean Corpuscular Hemoglobin 28.7 pg (27.0-31.2); Mean Corpuscular Volume 86.6 fl (81-99); Mean Platelet Volume 7.7 fl (7.4-10.4); Monocytes # 0.5 K/mm3 (0.1-1.0); Monocytes % 8.9 % (1.7-9.3); Neutrophils # 3.1 K/mm3 (1.8-7.8); Platelet Count 213 K/mm3 (142-424); Red Blood Count 5.01 M/mm3 (4.20-5.40); Red Cell Distribution Width 14.5 % (11.5-17.5); White Blood Count 5.1 K/mm3 (4.8-10.8)
[2023-11-14 10:54] LABS: Alanine Aminotransferase 25 U/L (12-78); Albumin Level 4.7 g/dl (3.5-5.0); Albumin/Globulin Ratio 1.3 (1.1-1.8); Alkaline Phosphatase 76 U/L (38-126); Anion Gap 9.8 mEq/L (5-15); Aspartate Amino Transferase 36 U/L (14-36); Bilirubin,Total 0.7 mg/dl (0.2-1.3); Blood Urea Nitrogen 27 mg/dl (7-17); Calcium 9.6 mg/dl (8.4-10.2); Carbon Dioxide 30 mmol/L (22.0-30.0); Chloride 102 mmol/L (98-107); Creatinine Clearance Estimated 35 mL/min (50-200); Estimated Glomerular Filt Rate 39 ml/min (>60); GFR (African American) 47 ML/MIN (>60); Globulin 3.6 g/dL (1.3-3.2); Glucose 117 mg/dl (74-100); Potassium 3.8 mmoL/L (3.5-5.1); Sodium 138 mmol/L (136-145); Total Protein,Serum 8.3 g/dl (6.3-8.2)
[2023-11-14 11:30] VITALS: BP 166/66; PULSE 71; O2SAT 97
--- NOTE | 2023-11-14 11:59 | PC.NURSE ---
Rounded on pt. No needs or complaints voiced. Call light within reach.
[2023-11-14 12:00] VITALS: BP 154/71; PULSE 70; O2SAT 97
--- NOTE | 2023-11-14 12:17 | PC.NURSE ---
Dr. Linares at BS to update pt on results and POC
[2023-11-14 12:36] VITALS: BP 160/77; PULSE 78; RESP 17; TEMP 36.6; O2SAT 98
== END 2023-11-14 12:37 | disposition home or self-care (01) ==
PROVIDERS: Emergency Provider Student in an Organized Health Care Education/Training Program; PCP Nurse Practitioner Family
DX: R42 Dizziness and giddiness (principal); I10 Essential (primary) hypertension; I48.91 Unspecified atrial fibrillation; I70.1 Atherosclerosis of renal artery; I49.5 Sick sinus syndrome; Z95.0 Presence of cardiac pacemaker
CPT/HCPCS: 70450; 70496; 70498; 80053; 85025; 93005; 99285; Q9967

== ENCOUNTER 2024-06-10 16:59 | Emergency (ER) | payer MEDICARE, SELFPAY ==
[2024-06-10] VITALS (7 sets, daily range): BP systolic 115–159; BP diastolic 58–75; PULSE 69–70; RESP 20; TEMP 36.6–36.8; O2SAT 95–98; BMI 27.6
--- NOTE | 2024-06-10 18:21 | XR_ITS ---
PROCEDURE INFORMATION: Exam: XR Left Knee Exam date and time: 06/10/2024 6:37 PM Age: 88 years old Clinical indication: Pain; Knee; Left; Additional info: Atraumatic pain TECHNIQUE: Imaging protocol: Radiologic exam of the left knee. Views: 3 views. COMPARISON: No relevant prior studies available. FINDINGS: Bones/joints: Mild-moderate degenerative osteoarthritis medial knee compartment. Soft tissues: Soft tissue swelling superficial to the medial knee compartment. Vasculature: Atherosclerotic vascular calcification IMPRESSION: 1. 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 2. No evidence of acute osseous injury.
--- NOTE | 2024-06-10 18:22 | HMH.EDGENADL ---
Discharge Plan Disposition Patient Disposition: Home, Self-Care Prescriptions Prescriptions: New indomethacin 25 mg capsule 25 mg PO BID Qty: 14 0RF Rx Instructions: administer with food or milk No Action hydrochlorothiazide 25 mg tablet 25 mg PO DAILY Qty: 90 3RF atorvastatin 40 mg tablet 40 mg PO HS Qty: 90 3RF pantoprazole 40 mg tablet,delayed release (DR/EC) PO hydralazine 25 mg tablet 25 mg PO BID PRN (Reason: High BP) Qty: 30 2RF meclizine 25 mg tablet 25 mg PO BID PRN (Reason: dizziness or vertigo) Qty: 30 1RF lisinopril 20 mg tablet 20 mg PO DAILY Xarelto 20 mg tablet 20 mg PO DAILY Rx Instructions: must administer with evening meal metoprolol succinate 50 mg tablet extended release 24 hr 50 mg PO BID Referrals Follow up/Referrals: Matilde Barkley APRN [Primary Care Provider] - See instructions Activity Restrictions/Add. Instructions Additional Instructions/Restrictions: At this time it was felt you are safe to be discharged home. If new or worsening symptoms please do not hesitate to return the emergency department. Please take Tylenol 1000 mg and medication as prescribed. Wednesday morning call and schedule appoint with Dr. Walter's office as soon as you are able. Clinical Impressions Clinical Impression: Acute knee pain, Osteoarthritis Discharge ED Provider: Benjamin Plummer General Adult [facility] General Chief complaint: Extremity Problem,Nontraumatic Stated complaint: left knee red and swollen Time Seen by Provider: 06/10/24 17:09 Mode of Arrival: Wheelchair Source of Information: Patient Limitations: No Limitations Description of Symptoms (Recalled from ER Triage Doc. by RN): pt c/o L knee pain that started around 1200 today. pt denies injury/fall. pt describes the pain as stabbing, aching, constant, 9/10, and worse with wt bearing. History of Present Illness HPI narrative: Patient is 88-year-old female past medical history of pacemaker placement, osteoarthritis who presents emergency department for evaluation of atraumatic left knee pain. Patient has had some difficulty ambulating with pain with her left knee upon ambulation however when she does not have significant weight load on it is not particularly painful. No redness. She has chronic osteoarthritis and swelling of both knees. She has never had a knee replacement. Otherwise has a history of coronary artery disease. No trauma reported. No other acute complaints at this time. Related Data Home Medications Medication Instructions Recorded Confirmed lisinopril 20 mg tablet 20 mg PO DAILY Blood Pressure 02/12/23 06/08/24 rivaroxaban 20 mg tablet (Xarelto) 20 mg PO DAILY Blood thinner/ 03/19/23 06/08/24 Atrial Fib metoprolol succinate 50 mg 50 mg PO BID Blood Pressure 05/19/23 06/08/24 tablet,extended release 24 hr pantoprazole 40 mg tablet,delayed mg PO 11/25/23 06/08/24 release Previous Rx's Medication Instructions Recorded atorvastatin 40 mg tablet 40 mg PO HS Cholesterol #90 tabs 07/31/21 hydrochlorothiazide 25 mg tablet 25 mg PO DAILY Edema #90 tabs 07/31/21 hydralazine 25 mg tablet 25 mg PO BID PRN High BP #30 tabs 11/25/23 meclizine 25 mg tablet 25 mg PO BID PRN dizziness or 11/25/23 vertigo #30 tabs indomethacin 25 mg capsule 25 mg PO BID osteoarthritis #14 06/10/24 caps Allergies Allergy/AdvReac Type Severity Reaction Status Date / Time azithromycin Allergy Intermediate Hives Verified 06/08/24 10:12 Sulfa (Sulfonamide Allergy Unknown Shakiness Verified 06/08/24 10:12 Antibiotics) [facility] Disclaimer: The information contained in this section may have been updated after the patient was seen, as this information can be updated by other users. Medical History (Updated 06/10/24 @ 19:46 by Benjamin Plummer MD) Atrial fibrillation History of pacemaker Hematoma of pacemaker pocket Tachy-junie syndrome Renal artery stenosis, [place], bilateral Restless sleeper Daytime somnolence Surgical History History of appendectomy History of hysterectomy S/P placement of cardiac pacemaker S/P coronary artery stent placement Family History Other No significant family history Social History Smoking Status: Never smoker alcohol intake: never substance use type: denies use current occupational status: retired Travel in the last 8 weeks: Inside the [place] household members: none housing: house caffeine: No ROS Obtained: Yes Systems reviewed as appropriate & no additional complaints except as documented Physical Exam General General appearance: alert and in no apparent distress Head Head exam: atraumatic and normocephalic Eye Eye exam: Present PERRL ENT ENT exam: Present mucous membranes moist Neck Neck exam: Present normal inspection Chest Chest inspection: Present normal inspection and symmetric chest wall rise Respiratory Respiratory exam: Absent respiratory distress Cardiovascular Cardiovascular exam: Present regular rate and normal rhythm Abdominal Exam Abdominal exam: Present soft Extremities Exam Extremities exam: Present other (Symmetrically swollen and bony deformity of the bilateral knees with slight swelling, no erythema, no warmth. Active and passive range of motion without significant pain except for extreme flexion of the knees.) Neurological Exam Neurological exam: Present alert Psychiatric Psychiatric exam: Present normal affect Skin Skin exam: Present warm and dry Medical Decision Making Miles Inquiry Pt receiving controlled substance: No Vital Signs: 06/10/24 17:07 06/10/24 17:12 06/10/24 17:30 Temperature 97.8 F Temperature Source Oral Pulse Rate 70 70 Pulse Rate [Left] 69 Respiratory Rate 20 Blood Pressure 153/75 H 126/59 L Blood Pressure [Right Arm] 159/75 H Blood Pressure Mean [Right Arm] 103 Blood Pressure Source [Right Arm] Automatic Cuff Blood Pressure Position [Right Arm] Sitting 02 Sat by Pulse Oximetry 98 98 95 Oxygen Delivery Method Room Air 06/10/24 18:00 06/10/24 18:30 Temperature Temperature Source Pulse Rate 70 70 Pulse Rate [Left] Respiratory Rate Blood Pressure 115/58 L 135/60 Blood Pressure [Right Arm] Blood Pressure Mean [Right Arm] Blood Pressure Source [Right Arm] Blood Pressure Position [Right Arm] 02 Sat by Pulse Oximetry 96 96 Oxygen Delivery Method Room Air Orders (Tests/Meds): ED MEDICATIONS Discontinued Medications Generic Name Dose Route Start Last Admin Trade Name Freq PRN Reason Stop Dose Admin Acetaminophen 1,000 mg 06/10/24 18:25 06/10/24 18:55 Acetaminophen 500mg Tab PO 06/10/24 18:26 1,000 mg ONCE ONE Administration Ibuprofen 600 mg 06/10/24 18:25 06/10/24 18:55 Ibuprofen 600 Mg Tablet PO 06/10/24 18:26 600 mg ONCE ONE Administration ORDERS Category Date Time Status Knee XR left 3 views [XR knee LT 3V] Stat Exams 06/10/24 18:21 Completed Medical Decision Narrative: In summary patient is a 71-year-old female past medical history described above presents emerged part for atraumatic knee pain. Patient is hemodynamically stable nontoxic-appearing upon arrival, afebrile. I suspect that patient has chronic osteoarthritis with worsening and resultant pain. I do not think that patient has septic arthritis given no warmth, that there is swelling however it is symmetric and at baseline and as well as the fact that she has passive range of motion that does not hurt except for extreme flexion. Given this workup with labs was considered but will be deferred. Limited workup be conducted with plain film of the left knee. Initial inventions include Tylenol and ibuprofen. Plain film informally interpreted by me, evidence of osteoarthritis without displaced fracture. Formal read shows moderate degenerative osteoarthritis of the medial knee compartment, no evidence of acute osseous injury. Given this upon repeat evaluation patient was able to ambulate at bedside. She is appropriate for outpatient management given have no concern for septic arthritis or seronegative spondylarthritis and will follow-up with Dr. Walter on outpatient basis. Critical Care Critical Care Time Critical Care Time: No
[2024-06-10] MEDS: ACETAMINOPHEN 500MG TAB 1000 MG PO (18:55)
[2024-06-10] MEDS: IBUPROFEN 600 MG TABLET PO (18:55)
--- NOTE | 2024-06-10 19:32 | PC.NURSE ---
Assisted pt to the bathroom. Pt complains of knee pain so I helped her into a wheelchair and into the bathroom. Pt did well transfering from [facility] bed to the wheelchair and to the toilet. Pt taken back to the room and put back into her bed with minimal assistance. Pt placed back on the monitor. CR
--- NOTE | 2024-06-10 19:48 | PC.NURSE ---
Rounded on pt, pt was being assisted to the bathroom at that time. no other needs were expressed to me.
== END 2024-06-10 20:02 | disposition home or self-care (01) ==
PROVIDERS: Emergency Provider Emergency Medicine; PCP Nurse Practitioner Family
DX: M25.562 Pain in left knee (principal); M17.12 Unilateral primary osteoarthritis, left knee
CPT/HCPCS: 73562; 99283

== ENCOUNTER 2024-06-16 09:29 | Outpatient (CLI) | payer MEDICARE, SELFPAY ==
--- NOTE | 2024-06-16 09:34 | CA_ITS ---
APPROVED REPORT EXAM: Comprehensive 2D, Doppler, and color-flow Echocardiogram Base Draw Operator: Amalia Felipe RT(R) Ht: 5 ft 3 in Wt: 156lbs BSA: 1.74 BP: 146/75 mmHg Indications: AFIB, pacemaker, CAD, stents, HTN, hyperlipidemia 2D Dimensions LA Volume 68.20 mL LA Volume Index 39.20 mL/m2 (M/F) 16-34 EF AP4 50.50 % GL Strain -8.9 % M-Mode Dimensions RVDd 3.23 cm (0.9-2.6) LA Diam 4.69 cm (1.9-4.0) LVDd 4.74 cm (3.5-5.7) LVDs 3.68 cm (3.5-5.7) IVSd 0.99 cm (0.6-1.1) PWd 0.84 cm (0.6-1.1) EF (Teich) 45.00% FS 22.40% EDV (Teich) 104.40 mL ESV (Teich) 57.40 mL LV Diastology E Decel Time 150 (160-240 msec) E/A Ratio 2.6 Mitral Valve MV E Max Gian. 109.0 (40-130 cm/s) MV A Velocity 42.0 (40-130 cm/s) E/A Ratio 2.61 MV PHT 44.0 ms Tricuspid Valve TR P. Velocity 272.00 cm/s RAP Estimate 15.00 mmHg RVSP 44.70 mmHg Left Ventricle The left ventricle is normal size. The left ventricular systolic function is normal. The left ventricular ejection fraction is within the normal range. There is increased LV wall thickness. The LV apical wall is hypokinetic. Grade 3 diastolic dysfunction is present. LVEF is 55%. Right Ventricle Right ventricle is mildly dilated. The right ventricular systolic function is normal. Atria Left atrium is moderately dilated. The right atrium is moderately dilated. There is no Doppler evidence of interatrial shunt. Aortic Valve Aortic valve is mildly thickened. There is no aortic valvular stenosis. Mild aortic regurgitation. Mitral Valve Moderate mitral annular calcification. The mitral valve leaflets are mildly thickened. No evidence of mitral valve stenosis. Moderate mitral regurgitation. Tricuspid Valve The tricuspid valve leaflets are thin and pliable. Moderate tricuspid regurgitation. RVSP is 30-35 mmHg. Pulmonic Valve The pulmonary valve is normal in structure. Mild pulmonic regurgitation. Great Vessels The aortic root is normal in size. The ascending aorta is not well-visualized. IVC is normal in size and collapses >50% with inspiration. Pericardium There is no pericardial effusion. Other Information Study Quality: Fair Conclusion Normal LV systolic function. The LV apex is hypokinetic. Mild RV dilation with normal RV function. Moderate biatrial dilation. Moderate MR, moderate TR. Mild AI, mild PI. RVSP 30-35 mmHg. Electronically signed by : Valentina Rebollar MD 06/18/2024 00:57:57
== END 2024-06-16 23:59 | disposition home or self-care (01) ==
LOC: RT 09:31
PROVIDERS: PCP Nurse Practitioner Family; Visit Provider Physician Assistant
DX: I25.10 Atherosclerotic heart disease of native coronary artery without angina pectoris; I48.0 Paroxysmal atrial fibrillation
CPT/HCPCS: 93306

== ENCOUNTER 2024-11-21 10:47 | Outpatient (CLI) | payer MEDICARE, SELFPAY ==
--- NOTE | 2024-11-21 10:51 | XR_ITS ---
FINAL REPORT CLINICAL HISTORY: right knee pain FINDINGS: AP, lateral and oblique views of the right knee were obtained. There is no prior exam for comparison. There is no acute fracture or dislocation. There is advanced tricompartmental degenerative joint disease, most pronounced in the lateral compartment. There is no acute soft tissue abnormality. Vascular calcifications are noted. IMPRESSION: Advanced degenerative joint disease. Reviewed, Interpreted and Dictated by Mercedes Luciano MD Transcribed by Daisy Michael Authenticated and [facility]
== END 2024-11-21 23:59 | disposition home or self-care (01) ==
LOC: RAD 10:49
PROVIDERS: PCP Nurse Practitioner Family; Visit Provider Physician Assistant
DX: M25.561 Pain in right knee (principal)
CPT/HCPCS: 73562

== ENCOUNTER 2024-12-27 09:26 | Outpatient (CLI) | payer MEDICARE, SELFPAY ==
[2024-12-27 09:52] LABS: Basophils % 0.5 % (0.1-2.0); Eosinophils # 0.1 K/mm3 (0.0-0.4); Hematocrit 44.1 % (37.0-47.0); Hemoglobin 14.3 g/dL (12.2-16.2); Lymphocytes # 1.9 K/mm3 (0.7-4.5); Lymphocytes % 32.7 % (10-50); Mean Corpuscular HGB Conc 32.4 g/dL (31.8-35.4); Mean Corpuscular Volume 92.6 fl (81-99); Mean Platelet Volume 8.9 fl (7.4-10.4); Monocytes # 0.6 K/mm3 (0.1-1.0); Monocytes % 10.5 % (1.7-9.3); Neutrophils # 3.2 K/mm3 (1.8-7.8); Neutrophils % 53.3 % (37.0-80.0); Platelet Count 219 K/mm3 (142-424); Red Blood Count 4.76 M/mm3 (4.20-5.40); Red Cell Distribution Width 12.7 % (11.5-17.5); White Blood Count 5.9 K/mm3 (4.8-10.8)
[2024-12-27 10:27] LABS: Alanine Aminotransferase 24 U/L (12-78); Albumin Level 5.1 g/dl (3.5-5.0); Alkaline Phosphatase 75 U/L (38-126); Anion Gap 14.6 mEq/L (5-15); Aspartate Amino Transferase 30 U/L (14-36); Bilirubin,Indirect 0.8 mg/dL (0.0-0.9); Bilirubin,Total 0.8 mg/dl (0.2-1.3); Bilirubin,Unconjugated 0.8 mg/dL (0.0-1.1); Blood Urea Nitrogen 27 mg/dl (7-17); Calcium 10.6 mg/dl (8.4-10.2); Carbon Dioxide 30 mmol/L (22.0-30.0); Chloride 104 mmol/L (98-107); Chol/HDL Ratio 3.1 (1-3.5); Cholesterol 138 mg/dl (140-200); Estimated Glomerular Filt Rate 42 ml/min (>60); GFR (African American) 51 ML/MIN (>60); Glucose 102 mg/dl (74-100); HDL Cholesterol 45 mg/dl (40-60); Magnesium 1.6 mg/dl (1.6-2.3); Potassium 4.6 mmoL/L (3.5-5.1); Sodium 144 mmol/L (136-145); Total Protein,Serum 7.2 g/dl (6.3-8.2); Triglycerides 186 mg/dl (30-150); VLDL Cholesterol 37 mg/dL (0-40)
[2024-12-27 10:38] LABS: Direct LDL Cholesterol 52.37 mg/dL (100-129)
[2024-12-27 10:42] LABS: Free T4 (Free Thyroxine) 0.87 ng/dl (0.78-2.19)
[2024-12-27 10:56] LABS: Thyroid Stimulating Hormone 1.76 uIU/mL (0.465-4.68)
== END 2024-12-27 23:59 | disposition home or self-care (01) ==
LOC: LAB 09:27
PROVIDERS: PCP Nurse Practitioner Family; Visit Provider Physician Assistant
DX: I10 Essential (primary) hypertension (principal); E78.2 Mixed hyperlipidemia; I25.10 Atherosclerotic heart disease of native coronary artery without angina pectoris; I48.0 Paroxysmal atrial fibrillation
CPT/HCPCS: 36415; 80048; 80061; 80076; 83735; 84439; 84443; 85025

== ENCOUNTER 2025-05-22 10:19 | Outpatient (CLI) | payer MEDICARE, SELFPAY ==
--- NOTE | 2025-05-22 | CA_ITS ---
FINAL REPORT TECHNIQUE: extremity venous duplex was performed with augmentation and compression. CLINICAL HISTORY: RLE knee pain. Patient denies trauma. Currently on Xarelto for AFIB x several years. FINDINGS: There is visible thrombus in the distal superficial femoral vein and popliteal vein. IMPRESSION: DVT right distal SFV and popliteal vein. Reviewed, Interpreted and Dictated by Dino Clemente MD Transcribed by Radha Presley Authenticated and . [facility]
--- OUTSIDE RECORDS SUMMARY | 2025-05-22 10:21 | XMS_ITS | Clinical Summary ---
Author Organization 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 04/08/2023 Active atorvastatin (LIPITOR) 40 mg Oral Tablet Take 40 mg by mouth daily. Active lisinopriL (PRINIVIL;ZESTRI L) 20 mg Oral Tablet tablet Take 20 mg by mouth daily. Active rivaroxaban (XARELTO) 20 mg Oral Tablet Take 20 mg by mouth daily. Active hydroCHLOROthiaz felicitas (HYDRODIURIL) 25 mg Oral Tablet Take 25 mg by mouth every morning. 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 Ligia HERNÁNDEZ (sick sinus syndrome) 07/28/2023 Permanent atrial fibrillation 07/13/2023 Gastroesophageal reflux disease 07/13/2023 Hyperlipidemia 07/13/2023 Hypertensive disorder 07/13/2023 Pacemaker 07/13/2023 Overview (07/28/2023): [employer] D PPM implanted 06/23/[address] Gautam Permanent atrial fibrillatio n with rapid ventricular response 07/13/2023 Medical History Medical History Date Comments Atrial fibrillation with rap id ventricular response (HCC) Pacemaker [employer] PPM Atrial fibrillation, permanent (HCC) Social History Tobacco Use Types Packs/Day Years Used Date Smoking Tobacco: Never Smokeless Tobacco: Never Tobacco Cessation:Counseling Given: Not Answered Alcohol Use Standard Drinks/Week Comments Never 0 (1 standard drink = 0.6 oz pur e alcohol) Comments Unknown Sex and Gender Information Value Date Recorded Sex Assigned at Not on file Legal Sex Female 12:26 PM EDT Gender Identity Not on file Sexual Orientation Not on file Obstetrics History Last Filed Vital Signs Vital Sign Reading Time Taken Comments Blood Pressure 125/65 07/28/2023 1:00 PM EDT Pulse 70 07/28/2023 1:57 PM EDT Temperature 35.3 C (95.6 F) 07/28/2023 8:15 AM EDT Respiratory Rate 16 07/28/2023 1:57 PM EDT Oxygen Saturation 100% 07/28/2023 1:57 PM EDT Inhaled Oxygen Concentration - - Weight 72.8 kg (160 lb 9.6 oz) 07/28/2023 8:05 A M EDT Height 161.3 cm (5' 3.5 ) 07/28/2023 8:05 AM EDT Body Mass Index 28 07/28/2023 8:05 AM EDT Plan of Treatment Health Maintenance Due Date Last Done Comments Wellness Exam Medicare 1938 DTaP/TDaP/Td (1 - Tdap) 1955 Pneumococcal Vaccine 50+ (1 of 2 - PCV) 1955 Zoster (1 of 2) 1986 Bone Density Screening 2001 RSV or 60+ (1 - 1-dose 75+ series) 2011 COVID-19 Vaccine ( season) 2024 11/25/2022, 09/26/2021, 01/31/2021, Additional history exists Influenza Vaccine (#1) 2025 , 09/14/2022, 08/08/2021, Additional history exists Hepatitis B Vaccine Aged Out No longe r eligible based on patient's age to complete this topic Meningococcal B Vaccine Aged Out No l onger eligible based on patient's age to complete this topic Insurance
--- OUTSIDE RECORDS SUMMARY | 2025-05-22 10:21 | XMS_ITS | Data Portability ---
Author Organization [facility] Address [address] [place] [address] Care Team Providers Care Food Products Sales Representative Name Role Phone MELONIE BARKLEY Referring Provider Unavailable ISHA TSAI Referring Provider [phone] Assessment No assessment recorded. Plan of Treatment Reminders Order Date Submit Date Provider Last Modified By Organization Details Last Modified Time Details Appointments Establish ed Patient 20 2024 08:40A M Melonie Barkley APRN Not available Not available Not available Lab HbA1c (hemoglob in A1c), blood 2024 025 MELANIE [facility], [address], [place], [place], [address], 05/22/2025 09:08:37 lipid panel, serum 2024 025 MELANIE [facility], [address], [place], [place], [address], 05/22/2025 09:08:37 TSH + free T4, serum 2024 025 MELANIE [facility], [address], [place] [address], [place], [address], 05/22/2025 09:08:38 CBC w/ auto diff 2024 025 MELANIE [facility], [address], [place] [address], [place], [address], 05/22/2025 09:08:37 CMP, serum or plasma 2024 025 MELANIE [facility], [address], [place] [address], [place], [address], 05/22/2025 09:08:38 CBC w/ auto diff 2022 023 DRYDEN [facility], [address], [place] [address], [place], [address], 08/17/2023 14:04:06 Referral orthopedi c surgeon referral - [place] [facility] dr jacob barry 2024 025 [facility], [address], [address], [place], [address], 05/22/2025 09:56:16 Procedures None recorded. Surgeries None recorded. Imaging US, duplex, venous, lower extremity , unilatera l - right leg and foot [email or web address] (Scheduling), [address], [place], [address], 05/22/2025 09:37:35 US, duplex, venous, lower extremity 2022 023 [facility] (Scheduling), [address], [place], [address], 07/28/2023 07:57:30 Medication Orders metoprolo l succinate ER 50 mg tablet,ex tended release 24 hr 2024 025 [facility], [address] [place] [address], [facility], [place], [address], 05/22/2025 09:07:47 pantopraz ole 40 mg tablet,de layed release 2024 025 [facility], [address] [place] [address], [facility], [place], [address], 05/22/2025 09:07:45 atorvasta tin 40 mg tablet 2024 025 [facility], [address] [place] [address], [facility], [place], [address], 05/22/2025 09:07:42 Xarelto 20 mg tablet 2024 025 [facility], [address] [place], [address], 05/22/2025 09:07:31 hydrochlo rothiazid e 25 mg tablet 2024 025 [facility], [address] [place] [address], [address], [place], [address], 05/22/2025 09:07:44 lisinopri l 20 mg tablet 2024 025 [facility], [address] [place] [address], [facility], [place], [address], 05/22/2025 09:07:41 prednison e 10 mg tablet 2023 025 [facility], [address] [place] [address], [facility], [place], [address], 05/22/2025 08:57:33 Salonpas (lidocain e) 4 % topical patch 2023 024 [facility], [address] [place] [address], [facility], [place], [address], 05/22/2025 08:42:16 cephalexi n 500 mg capsule 2023 024 [facility], [address] [place] [address], [facility], [place], [address], 11/07/2024 09:52:12 prednison e 10 mg tablet 2023 024 [facility], [address] [place] [address], [facility], [place], [address], 05/22/2025 08:42:05 metoprolo l succinate ER 50 mg tablet,ex tended release 24 hr 2023 024 [facility], [address] [facility], [address], [place], [address], 03/13/2024 11:49:13 pantopraz ole 40 mg tablet,de layed release 2023 024 [facility], [address] [place] [address], [address], [place], [address], 03/13/2024 11:49:10 lisinopri l 20 mg tablet 2023 024 [facility], [address] [place] [address], [address], [place], [address], 03/13/2024 11:49:07 Protonix 40 mg tablet,de layed release 2022 023 [facility], [address] [place] [address], [address], [place], [address], 07/27/2023 13:51:08 Patient TargetsNo targets recorded. Patient InstructionsNo instructions recorded. Reason for Referral Orthopedic Surgeon Referral for Pain of right knee joint [facility] [place] dr jacob barry Referring Physician: Melonie Barkley, Family Medicine, Encounter Date: 05/22/2025 Results Created Date Observation Date Name Description Value Unit Range Abnormal Flag Note LastModifiedBy Organization Detail LastModifiedTime 07/28/2007/27/2023 US, chely x, sky s, lower extre mity No observ ation record ed. [facility] [address], [place], [address], 07/29/2023 09:30:19 11/14/20 23 11/14/2023 CT, angio gram, head, w/ contr ast No observ ation record ed. [facility] [address], [place], [address], 11/16/2023 10:11:57 11/14/20 23 11/14/2023 CT, angio gram, neck, w/ contr ast No observ ation record ed. [facility] [address], [place], [address], 11/16/2023 10:11:57 11/14/20 23 11/14/2023 CT, head + brain , w/o contr ast No observ ation record ed. [facility] [address], [place], [address], 11/16/2023 10:11:58 11/17/20 23 11/14/2023 elect melissaar diogr am No observ ation record ed. [facility] [address], [place], [address], 11/18/2023 09:00:44 06/10/20 24 06/10/2024 XR, knee, 1 or 2 view No observ ation record ed. [facility] [address], [place], [address], 06/12/2024 13:09:26 06/18/20 24 06/16/2024 US, doppl er echoc ardio gram No observ ation record ed. [facility] [address], [place], [address], 06/21/2024 22:16:20 11/21/20 24 11/21/2024 XR, knee, 3 view No observ ation record ed. [facility] [address], [place], [address], 11/23/2024 08:42:07 Result Notes None recorded. Problems Name Problem SNOMED Code Status Onset Date Resolution Date Notes Provider Name and Address Organization Details Recorded Time Hypertensi ve disorder 21844731 Active [facility] 11:10:47 Atrial fibrillati on 60287606 Active pace maker recently placed [facility] 11:11:08 Hyperlipid emia 95996434 Active [facility] [facility] 11:12:02 Gastroesop hageal reflux disease 283287886 Active [facility] 11:12:35 Problem Notes None recorded. Procedures Surgical History Date Name Laterality Status Provider Name and Address Organization Details Recorded Time 05/24/20 Medication Reconcilliation completed Loni Callahan [facility] 05/24/2023 11:18:58 Pacemaker Placement completed Loni [facility] 07/02/2022 11:11:27 procedure on heart completed Ck Callahan [facility] 07/02/2022 11:15:56 procedure on kidney completed Loni [facility] 07/02/2022 11:16:13 Imaging Results None recorded. Procedure Notes None recorded. Medical Equipment None Reported. Allergies Allergen ID Allergen Name Allergen Category Reaction Reaction Severity Criticality Documentation Date Start Date Code Code System Note Provider Name and Address Organization Details Recorded Time 032182 Zithromax medicatio n rash moderate high 07/02/2022 96808 4 RxNorm [facility] 10:04:38 376441 Substance with sulfonami de structure and antibacte rial mechanism of action (substanc e) medicatio n rash moderate high 07/02/2022 61838 8003 SNOMED [facility] [facility] 2 10:04:55 Medications Name Sig Start Date Stop Date Status Note LastModified by Organization Details LastModified Time atorvastatin 40 mg tablet TAKE 1 TABLET BY MOUTH ONCE DAILY 2024 active Not Available Not Available Not Avai lable prednisone 10 mg tablet Take 1 tablet twice a day by oral route for 5 days. 05/22 completed Not Available Not Available Not Available diltiazem CD 180 mg capsule,exte nded release 24 hr 07/30 completed Not Available Not Available Not Available metoprolol succinate ER 50 mg tablet,exten ded release 24 hr TAKE 1 TABLET BY MOUTH TWICE DAILY 2024 active Not Available Not Available Not Avai lable diltiazem CD 240 mg capsule,exte nded release 24 hr TAKE ONE CAPSULE BY MOUTH EVERY DAY 03/13 completed Not Available Not Available Not Available lisinopril 20 mg tablet TAKE 1 TABLET BY MOUTH ONCE DAILY 2024 active Not Available Not Available Not Avai lable metoprolol succinate ER 100 mg tablet,exten ded release 24 hr Take 1 tablet every day by oral route. 03/13 completed Not Available Not Available Not Available hydralazine 25 mg tablet 03/13 completed Not Available Not Available Not Available amlodipine 5 mg tablet TAKE 1 TABLET BY MOUTH ONCE DAILY 05/24 completed Not Available Not Available Not Available benzonatate 100 mg capsule 12/28 completed Not Available Not Available Not Available doxycycline monohydrate 100 mg capsule 07/02 completed Not Available Not Available Not Available cephalexin 500 mg capsule Take 1 capsule twice a day by oral route for 10 days. 11/07 completed Not Available Not Available Not Available pantoprazole 40 mg tablet,delay ed release TAKE 1 TABLET BY MOUTH ONCE DAILY 2024 active Not Available Not Available Not Avai lable indomethacin 25 mg capsule 11/07 completed Not Available Not Available Not Available omeprazole 20 mg capsule,prabhu yed release TAKE 1 CAPSULE BY MOUTH ONCE DAILY 05/24 completed Not Available Not Available Not Available aspirin 81 mg chewable tablet TAKE 1 TABLET BY MOUTH ONCE DAILY 03/13 completed Not Available Not Available Not Available hydrochlorot hiazide 25 mg tablet TAKE 1 TABLET BY MOUTH EVERY MORNING 2024 active Not Available Not Available Not Avai lable mupirocin 2 % topical ointment 07/02 completed Not Available Not Available Not Available ondansetron 4 mg disintegrati ng tablet 12/28 completed Not Available Not Available Not Available aspirin 81 mg daily 07/30 completed Not Available Not Available Not Available Xarelto 20 mg tablet TAKE ONE (1) TABLET EVERY DAY BY ORAL ROUTE. 2024 active Not Available Not Available Not Avai lable Salonpas (lidocaine) 4 % topical patch Apply 1 patch every 8 hours by topical route as needed. 05/22 completed Not Available Not Available Not Available Vitals Date Recorded Body height Body mass index (BMI) Body weight Body temperature Heart rate Oxygen saturation Oxygen saturation in Arterial blood by Pulse oximetry Respiratory rate Systolic And Diastolic Provider Name and Address Organization Details Last Updated DateTime 4 160.02 cm 28.4 kg/m2 46957.4 8 g 98.7 [degF] 67 /min 98 % 98 % 18 /min 130/78 mm[Hg] Loni Abdi [facility] 4 10:48:01 Date Recorded Body height Body mass index (BMI) Body weight Body temperature Heart rate Oxygen saturation Oxygen saturation in Arterial blood by Pulse oximetry Respiratory rate Systolic And Diastolic Provider Name and Address Organization Details Last Updated DateTime 4 160.02 cm 28.2 kg/m2 98465.2 9 g 98 [degF] 70 /min 97 % 97 % 18 /min 130/80 mm[Hg] Lonielliott Abdi [facility] 4 11:14:58 Date Recorded Body height Body mass index (BMI) Body weight Heart rate Oxygen saturation Oxygen saturation in Arterial blood by Pulse oximetry Respiratory rate Systolic And Diastolic Provider Name and Address Organization Details Last Updated DateTime 5 160.02 cm 28.9 kg/m2 09987.5 6 g 70 /min 97 % 97 % 20 /min 150/84 mm[Hg] Lonielliott Abdi [facility] 5 08:49:50 Date Recorded Body height Body mass index (BMI) Body weight Body temperature Heart rate Oxygen saturation Oxygen saturation in Arterial blood by Pulse oximetry Respiratory rate Systolic And Diastolic Provider Name and Address Organization Details Last Updated DateTime 3 160.02 cm 28.6 kg/m2 79155.1 7 g 98.3 [degF] 99 /min 97 % 97 % 18 /min 132/84 mm[Hg] Lonielliott Abdi [facility] 3 13:07:41 Date Recorded Body height Body mass index (BMI) Body weight Body temperature Heart rate Oxygen saturation Oxygen saturation in Arterial blood by Pulse oximetry Respiratory rate Systolic And Diastolic Provider Name and Address Organization Details Last Updated DateTime 4 160.02 cm 28.4 kg/m2 25923.4 8 g 98 [degF] 70 /min 96 % 96 % 18 /min 138/82 mm[Hg] Loni Abdi [place] - [facility] 09:32:19 Social History Question Answer Notes LastModified by Organizat ion Details LastModified Time Tobacco Smoking Status Never Smoker Loni [place], [place] - [facility] 07/02/2022 11:14:52 Are You Blind Or Do You Have Difficulty Seeing? No Information n ot available 03/13/2024 What Is Your Level Of Caffeine Consumption? None Information not available 07/02/2022 In The 14 Days Before Symptom Onset, Have You Had Close Contact With A Laboratory-confirm ed COVID-19 While That Case Was Ill? No Information n ot available 03/13/2024 In The 14 Days Before Symptom Onset, Have You Had Close Contact With A Person Who Is Under Investigation For COVID-19 While That Person Was Ill? No Information not available 03/13/2024 Have You Been To An Area Known To Be High Risk For COVID-19? No Information not available 03/13/2024 Are You Deaf Or Do You Have Serious Difficulty Hearing? No Information not available 03/13/2024 Have You Processed Blood Or Body Fluids From An Ebola Virus Disease Patient Without Appropriate PPE? No Information not available 03/13/2024 Do You Reside In Or Have You Traveled To An Area Where Ebola Virus Transmission Is Active? No Information not available 03/13/2024 Have You Recently Or Are You Planning To Travel To An Area With Zika Virus? No Information not available 03/13/2024 What Was The Date Of Your Most Recent Tobacco Screening? 05/22/2025 Information not available 05/22/2025 What Is Your Relationship Status? Information not available 07/02/2022 Are You Sexually Active? No Information not available 07/02/2022 Has Tobacco Cessation Counseling Been Provided? No Information not available 07/02/2022 Do You Have Difficulty Walking Or Climbing Stairs? No Information not available 03/13/2024 Sex: Female Functional Status Question Answer Note LastModified by Organizat ion Details LastModified Time Do you use any illicit or recreational drugs? No Information not available 07/02/2022 Do you or have you ever used any other forms of tobacco or nicotine? No Information not available 07/02/2022 What is your level of alcohol consumption? None Information not available 07/02/2022 Do you have difficulty doing errands alone? No Information not available 03/13/2024 Are you able to care for yourself? Yes Information not available 03/13/2024 Do you have difficulty dressing or bathing? No Information not available 03/13/2024 Mental Status Question Answer Note LastModified by Organization D etails LastModified Time Do you have difficulty concentrating, remembering or making decisions? No Information no t available 03/13/2024 Family History Relationship Description Onset Age of this Age Resolved Age Notes LastModified by Organization Details LastModified Time Mother Cerebrovascu lar accident cbuckler Not available 09/2022 11:14:19 Father Heart disease cbuckler Not available 2021 11:14:28 Medical History Condition Response Hyperlipidemia Y Kidney Disease Gynecological History Statement/Question Response Menses Monthly N If Post Menopausal, Age at Menopause 50 Date of Last Pap Smear Date of Last Colonoscopy Date of Last Mammogram Obstetrics History GPAL:G 2 P 2 0 1 2 Type Value Multiple Births 0 Full Term 2 Induced 0 Spontaneous 1 Premature 0 Living 2 Ectopics 0 Total 2 Immunizations Vaccine Type Date Status Note Provider Nam e and Address Organization Details Recorded Time Influenza, adjuvanted, trivalent, PF 08/18/2024 completed Loni Abdi null, [place] - [facility] 11/07/2024 09:26:17 Influenza, adjuvanted, quadrivalent, PF 08/08/2021 completed Loni Abdi null, [place] - [facility] 12/28/2022 08:37:00 Influenza, adjuvanted, quadrivalent, PF 09/14/2022 lisa Abdi null, [place] - [facility] 12/28/2022 08:37:00 COVID-19, mRNA, LNP-S, PF, 100 mcg/0.5mL dose or 50 mcg/0.25mL dose 01/03/2021 completed Loni Abdi null, [place] - [facility] 12/28/2022 08:37:00 COVID-19, mRNA, LNP-S, PF, 100 mcg/0.5mL dose or 50 mcg/0.25mL dose 01/31/2021 completed Loni Abdi null, [place] - [facility] 12/28/2022 08:37:00 COVID-19, mRNA, LNP-S, PF, 100 mcg/0.5mL dose or 50 mcg/0.25mL dose 09/26/2021 completed Loni Abdi null, [place] - [facility] 12/28/2022 08:37:00 COVID-19, mRNA, LNP-S, bivalent, PF, 50 mcg/0.5 mL or 25mcg/0.25 mL dose 11/25/2022 completed Loni Abdi null, [place] - [facility] 12/28/2022 08:37:00 Influenza, high-dose, trivalent, PF 10/02/2016 completed Loni Abdi null, [place] - [facility] 12/28/2022 08:37:00 Influenza, adjuvanted, quadrivalent, PF 08/17/2023 completed Loni Abdi null, [facility] 03/13/2024 10:48:19 Past Encounters Encounter ID Performer Location Encounter Start Date Encounter Closed Date Diagnosis/Indication Diagnosis SNOMED-CT Code Diagnosis ICD10 Code Diagnosis Note [id number] Melonie Barkley [address] [address] 07/02/2022 10:43:33 07/02/2022 12:09:02 Atrial fibrillation 20850170 I48.91 labs, talked with claudia he recommends follow up with him today and hold xarelto [id number] Melonie Barkley APRN [address] [address] 07/30/2022 09:54:58 07/30/2022 10:45:20 Hypertensive disorder 48319149 I10 spoke with javier billy informed him of htn and palpitatio ns he recommends a extra metoprolol 50 mg at lunch every day and keep track of bp call for any concerns. Atrial fibrillation 4943 6004 I48.91 continue xarelto, add metoprolol and keep log- follow up with cardiology [id number] Melonie Barkley APRN [address] [place] [address] 12/28/2022 08:23:03 12/28/2022 09:14:31 Hypertensive disorder 22082633 I10 Atrial fibrillation 4943 6004 I48.91 follow up with cardiology Hyperlipidemia 79744160 E78.5 Gastroesop hageal reflux disease 212993106 K21.9 [id number] Melonie Barkley APRN [address] [address] 03/23/2023 09:46:22 03/23/2023 11:31:37 Atrial fibrillation 57859172 I48.91 follow up with cardiology Pain of le ft hip joint 9231686638 48814 M25.552 looking for a spontaneou s fracture that was not detected on xray. hip is rotated Pain provo ked by walking 018293356 R52 Hip joint effusion 08029 9000 M25.936 [id number] Melonie Barkley APRN [address] [address] 05/24/2023 10:48:00 05/24/2023 14:21:45 Atrial fibrillation with rapid ventricular response 8142411247 88295 I48.91 spoke with beltran pt does not want to go straight to ed-he wants pt to take a extra cardizem and metoprolol and wait 2 hours if improved he will see pt weds at 11 am.if worsening or no improvemen t sent to [facility] ed for admit.pt waited and returned after 2 hours and had repeat ekg- rate 129 afib/flutt er pt still c/o of tightness and stabbing, I recommende d ed and she agreed, she is going over daughter is driving pov, report called to [facility]ett. [id number] Melonie Barkley APRN [address] [address] 07/27/2023 12:50:48 07/27/2023 13:50:32 Gastroesophageal reflux disease 610778643 K21.9 Hematoma of lower leg 44 1197522 S80.10XA spoke with claudia- he recommends venous dopplersen t for doppler at 787 [id number] Melonie Barkley[address] [address] 03/13/2024 10:36:02 03/13/2024 11:48:46 Essential hypertension 72255485 I10 Hypertensive disorder 38 722178 I10 Gastroesop hageal reflux disease 508857789 K21.9 Pain of le ft shoulder joint 3801631697 0999273 M25.512 rotate heat and icetylenol as needed for pain [id number] [facility] [address] 03/30/2024 10:54:34 03/30/2024 11:34:00 Cellulitis 116936635 L03.90 monitor for worsening of infectionr eturn if symptoms worsen or no improvemen t [id number] [address] [address] 11/07/2024 09:17:21 11/07/2024 10:02:24 Pain of right knee joint 8419723954 80227 M25.561 follow up with ortho- if worsen or no improvemen t return [id number] [facility] [address] 05/22/2025 08:36:49 05/22/2025 09:37:35 Hypertensive disorder 41110130 I10 Hyperlipidemia 16164337 E78.5 Essential hypertension 00937328 I10 Atrial fibrillation 4943 6004 I48.91 follow up with cardiology Gastroesop hageal reflux disease 642639540 K21.9 Edema of l ower extremity 237704318 R60.0 Glucose le jin above reference range 90315896 R73.09 Pain of ri ght knee joint 8706593120 25428 M25.561 follow up with ortho- if worsen or no improvemen t return Health Concerns Section Related Observation LastModified by Organization Detai ls LastModified Time None Recorded Concern Status LastModified by Organization Details LastModified Time None Recorded Advance Directives Directive None Recorded Payers Insurance Date Sequence Insurance Name Policy Number Policy Taylor Covered Member ID Taylor Member ID Guarantor Name 05/19/2025 1 [employer] (MEDICARE REPLACEMENT/A DVANTAGE - PPO) Cande Evangelista [id number] Cande Jean Carlos Notes Date Note Type Note Provider Name and Address Organization Details Recorded Time 07/27/2023 text/html 87 yr old female presents with bruising on the left leg from the knee down to her toes. She reports no trauma. She noticed it last Wednesday. pt states she was getting in the tub last and had a sharp pain in her left leg and since then the bruise has increased from her calf all the way to her toes. pt states she is off xarelto due to a ablation tomorrow at 8 am. Melonie Barkley APRN [address], [place], [address], [place] - [facility] 07/27/2023 13:49:36 03/13/2024 text/html 88 yr old female presents for bilateral arm pain x 2-3 weeks. left shoulder worse than rt. 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 Melonie Barkley APRN [address], [place], [address], [place] - [facility] 03/13/2024 11:49:59 03/30/2024 text/html 88 yr old female presents for left middle finger pain/redness/swell ing x 1 week. pt states the redness and swelling has increased the past couple days. Melonie Barkley APRN [address], [place], [address], [place] - [facility] 03/30/2024 13:41:16 11/07/2024 text/html 89 yr old female presents for right knee pain and swelling. has appointment 11/[address] dillon, pt states knee has always hurt but since sat her pain and swelling has increased Melonie Barkley APRN [address], [place], [address], [place] - [facility] 11/07/2024 10:04:08 05/22/2025 text/html 89 yr old female presents for a follow up on hypertension and med refills. She also has right knee pain and lower leg swelling since sat. Melonie Barkley APRN [address], [place], [address], [place] - [facility] 05/22/2025 09:40:08 OBGyn Episode No OBEpisode recorded.
--- OUTSIDE RECORDS SUMMARY | 2025-05-22 10:21 | XMS_ITS | Clinical Summary ---
Author Organization [facility] Address [address] [place] [address] Care Team Providers Care Government Documents Librarian Name Role Phone Unavailable Primary Care Provider Unavailabl e Social History Tobacco Use Types Packs/Day Years Used Date Smoking Tobacco: Never Assessed Comments Unknown Sex and Gender Information Value Date Recorded Sex Assigned at Not on file Legal Sex Female 8:19 PM EDT Gender Identity Not on file Sexual Orientation Not on file Last Filed Vital Signs Vital Sign Reading Time Taken Comments Blood Pressure 125/72 05/18/2023 5:21 PM EDT Pulse 121 05/18/2023 5:21 PM EDT Temperature - - Respiratory Rate - - Oxygen Saturation - - Inhaled Oxygen Concentration - - Weight 69.9 kg (154 lb) 05/18/2023 5:21 PM EDT Height 160 cm (5' 3 ) 05/18/2023 5:21 PM EDT Body Mass Index 27.28 05/18/2023 5:21 PM EDT Plan of Treatment Health Maintenance Due Date Last Done Comments [facility]-Bone Density Scan 1936 [facility]-Depression Screening 1936 [facility]-Medicare Annual Wellness (AWV) 1936 [facility]-/Child/Adol SDOH Screenings 1936 [facility]-Obesity Intervention 1942 [facility]- SDOH Screenings 1954 [facility]-Adult SDOH Screenings 1954 [facility]-DTaP,Tdap,and Td Vaccines (1 - Tdap) 1955 [facility]-Pneumococcal Vaccine: 50+ Years (1 of 1 - PCV) 1986 [facility]-Zoster Vaccines (1 of 2) 1986 [facility]-RSV Vaccine: 60+ Years or (1 - 1-dose 75+ series) 2011 [id number] Vaccine ( - 2024-25 season) 2024 11/25/2022, 09/26/2021, 01/31/2021, Additional history exists [facility]-Influenza Vaccine (Season Ended) 2025 09/14/2022, 08/08/2021, 10/02/2016 HPV Vaccines Aged Out No longer eligi ble based on patient's age to complete this topic [facility]-HIB Vaccines Aged Out No longer e ligible based on patient's age to complete this topic [facility]-Hepatitis A Vaccines Aged Out No longer eligible based on patient's age to complete this topic [facility]-IPV Vaccines Aged Out No longer e ligible based on patient's age to complete this topic [facility]-Rotavirus Vaccines Aged Out No lo nger eligible based on patient's age to complete this topic Insurance MEDICARE
--- OUTSIDE RECORDS SUMMARY | 2025-05-22 10:21 | XMS_ITS | Continuity of Care Document ---
Author Organization [facility] Address [address] [place] [address] Care Team Providers Care Workers' Compensation Magistrate Name Role Phone MELONIE BARKLEY Referring Provider Unavailable ISHA TSAI Referring Provider Assessment No assessment recorded. Plan of Treatment Reminders Order Date Submit Date Provider Last Modified By Organization Details Last Modified Time Details Appointments Establish ed Patient 20 2024 08:40A M Melonie Barkley APRN Not available Not available Not available Lab HbA1c (hemoglob in A1c), blood 2024 025 MELANIE [facility], [address], [address], [place], [address], 05/22/2025 09:08:37 lipid panel, serum 2024 025 MELANIE [facility], [address], [address], [place], [address], 05/22/2025 09:08:37 TSH + free T4, serum 2024 025 MELANIE [facility], [address], [address], [place], [address], 05/22/2025 09:08:38 CBC w/ auto diff 2024 025 MELANIE [facility], [address], [address], [place], [address], 05/22/2025 09:08:37 CMP, serum or plasma 2024 025 MELANIE [facility], [address], [address], [place], [address], 05/22/2025 09:08:38 Referral orthopedi c surgeon referral - [facility] jacob barry 2024 025 [facility], [address], [address], [place], [address], 05/22/2025 09:56:16 Procedures None recorded. Surgeries None recorded. Imaging US, duplex, venous, lower extremity , unilatera l - right leg and foot 2024 025 [email or web address] [facility] ([facility]), [address], [place], [address], 05/22/2025 09:37:35 Medication Orders metoprolo l succinate ER 50 mg tablet,ex tended release 24 hr 2024 025 [facility], [address] [place] [address], [address], [place], [address], 05/22/2025 09:07:47 pantopraz ole 40 mg tablet,de layed release 2024 025 [facility], [address] [place] [address], [address], [place], [address], 05/22/2025 09:07:45 atorvasta tin 40 mg tablet 2024 025 [facility], [address] [place] [address], [address], [place], [address], 05/22/2025 09:07:42 Xarelto 20 mg tablet 2024 025 [facility], [address] [place] [address], [place], [address], 05/22/2025 09:07:31 hydrochlo rothiazid e 25 mg tablet 2024 025 [facility], [facility] [address] [facility], [address], [place], [address], 05/22/2025 09:07:44 lisinopri l 20 mg tablet 2024 025 [facility], [address] [facility], [address], [place], [address], 05/22/2025 09:07:41 Patient TargetsNo targets recorded. Patient InstructionsNo instructions recorded. Reason for Referral Orthopedic Surgeon Referral for Pain of right knee joint [facility] [place] dr jacob barry Referring Physician: Melonie Barkley, Family Medicine, Encounter Date: 05/22/2025 Problems Name Problem SNOMED Code Status Onset Date Resolution Date Notes Provider Name and Address Organization Details Recorded Time Hypertensi ve disorder 33092358 Active Loni Abdi null, [place] - [facility] 11:10:47 Atrial fibrillati on 59013606 Active pace maker recently placed Loni Trinidad null, [place] - [facility] 11:11:08 Hyperlipid emia 36002429 Active Loni Abdi null, [place] - [facility] 11:12:02 Gastroesop hageal reflux disease 017878789 Active Loni Trinidad null, [place] - [facility] 11:12:35 Problem Notes None recorded. Procedures Surgical History Date Name Laterality Status Provider Name and Address Organization Details Recorded Time 05/24/20 Medication Reconcilliation completed Loni Abdi [place] - [facility] 05/24/2023 11:18:58 Pacemaker Placement completed Loni Abdi [place] - [facility] 07/02/2022 11:11:27 procedure on heart completed Ck Abdi [place] - [facility] 07/02/2022 11:15:56 procedure on kidney completed Loni Abdi [place] [facility] 07/02/2022 11:16:13 Imaging Results None recorded. Procedure Notes None recorded. Medical Equipment None Reported. Allergies Allergen ID Allergen Name Allergen Category Reaction Reaction Severity Criticality Documentation Date Start Date Code Code System Note Provider Name and Address Organization Details Recorded Time 670652 Zithromax medicatio n rash moderate high 07/02/202219637 4 RxNorm Loni lantigua, [place] - [facility] 2 10:04:38 582312 Substance with sulfonami de structure and antibacte rial mechanism of action (substanc e) medicatio n rash moderate high 07/02/2022 98362 8003 SNOMED Loni lantigua, [place] - [facility] 2 10:04:55 Medications Name Sig Start Date [...] Updated DateTime 5 160.02 cm 28.9 kg/m2 67612.5 6 g 70 /min 97 % 97 % 20 /min 150/84 mm[Hg] Loni Abdi [place] - [facility] 5 08:49:50 Social History Question Answer Notes LastModified by Organizat ion Details LastModified Time Tobacco Smoking Status Never Smoker Loni Abdi null, [place] - [facility] 07/02/2022 11:14:52 Are You Blind Or Do You Have Difficulty Seeing? No Information n ot available 03/13/2024 What Is Your Level Of Caffeine Consumption? None Information not available 07/02/2022 In The 14 Days Before Symptom Onset, Have You Had Close Contact With A Laboratory-confirm ed COVID-19 While That Case Was Ill? No [email or web address] Information n ot available 03/13/2024 In The [...] 08/18/2024 completed Loni Abdi null, [place] - [facility] 11/07/2024 09:26:17 Influenza, adjuvanted, quadrivalent, PF 08/08/2021 completed Loni Abdi null, [place] - [facility] 12/28/2022 08:37:00 Influenza, adjuvanted, quadrivalent, PF 09/14/2022 completed Loni Abdi null, [facility] 12/28/2022 08:37:00 COVID-19, mRNA, LNP-S, PF, 100 mcg/0.5mL dose or 50 mcg/0.25mL dose 01/03/2021 completed Loni Abdi null, [facility] 12/28/2022 08:37:00 COVID-19, mRNA, LNP-S, PF, 100 mcg/0.5mL dose or 50 mcg/0.25mL dose 01/31/2021 completed Loni Abdi null, [facility] 12/28/2022 08:37:00 COVID-19, mRNA, LNP-S, PF, 100 mcg/0.5mL dose or 50 mcg/0.25mL dose 09/26/2021 completed Loni Abdi null, [place] - [facility] 12/28/2022 08:37:00 COVID-19, mRNA, LNP-S, bivalent, PF, 50 mcg/0.5 mL or 25mcg/0.25 mL dose 11/25/2022 completed Loni Abdi null, - [facility] 12/28/2022 08:37:00 Influenza, high-dose, trivalent, PF 10/02/2016 completed Loni Abdi null, [place] - [facility] 12/28/2022 08:37:00 Influenza, adjuvanted, quadrivalent, PF 08/17/2023 completed [facility] - [facility] 03/13/2024 10:48:19 Past Encounters Encounter ID Performer Location Encounter Start Date Encounter Closed Date Diagnosis/Indication Diagnosis SNOMED-CT Code Diagnosis ICD10 Code Diagnosis Note [id number] Melonie Barkley APRN [address] [address] 05/22/2025 08:36:49 05/22/2025 09:37:35 Hypertensive disorder 64934872 I10 Hyperlipidemia 14426109 E78.5 Essential hypertension 65134150 I10 Atrial fibrillation 4943 6004 I48.91 follow up with cardiology Gastroesop hageal reflux disease 202107186 K21.9 Edema of l ower extremity 827759508 R60.0 Glucose le jin above reference range 08037113 R73.09 Pain of ri ght knee joint 8865161655 26401 M25.561 follow up with ortho- if worsen or no improvemen t return Health Concerns Section Related Observation LastModified by Organization Detai ls LastModified Time None Recorded Concern Status LastModified by Organization Details LastModified Time None Recorded Payers Encounter Date Sequence Insurance Name Policy Number Policy Taylor Covered Member ID Taylor Member ID Guarantor Name 05/22/2025 1 [employer] (MEDICARE REPLACEMENT/A DVANTAGE - PPO) Cande Evangelista [id number] Cande Evangelista Notes Date Note Type Note Provider Name and Address Organization Details Recorded Time 05/22/2025 text/html 89 yr old female presents for a follow up on hypertension and med refills. She also has right knee pain and lower leg swelling since sat. Melonie Barkley, [place] [address], [place], [address], [place] - [facility] 05/22/2025 09:40:08 OBGyn Episode No OBEpisode recorded.
== END 2025-05-22 23:59 | disposition home or self-care (01) ==
LOC: RT 10:19
PROVIDERS: PCP Nurse Practitioner Family; Visit Provider Nurse Practitioner Family
DX: I82.411 Acute embolism and thrombosis of right femoral vein (principal); I82.431 Acute embolism and thrombosis of right popliteal vein; I48.91 Unspecified atrial fibrillation
CPT/HCPCS: 93971

== ENCOUNTER 2025-05-22 12:11 | Observation (INO) | payer MEDICARE, SELFPAY ==
[2025-05-22] VITALS (14 sets, daily range): BP systolic 106–175; BP diastolic 52–92; PULSE 70; RESP 15–18; TEMP 36.4–36.6; O2SAT 94–100; BMI 29.9
--- NOTE | 2025-05-22 12:30 | HMH.PHAINT1 ---
Pharmacy Intervention Comments: HOME MEDICATION LIST VERIFIED USING LIST FROM OUTPATIENT PHARMACY
--- NOTE | 2025-05-22 13:54 | IR_ITS ---
APPROVED REPORT Patient Location: Inpatient Patient Scheduler: ROSALIE Johnston RT (R) PROCEDURES Left femoral venous access Catheter placement in the right peroneal vein Right peroneal vein venogram Catheter placement in the right posterior tibial vein Right posterior tibial venogram Catheter placement in the right popliteal vein Right popliteal venogram INDICATION Symptomatic DVT, Occlusive DVT despite anticoagulation Informed consent was obtained prior to the procedure. COMPLICATIONS NONE Estimated Blood Loss: LESS THAN 10 ML TECHNIQUE 1% lidocaine used anesthetize the left groin the left femoral vein was accessed via the Salinger technique and a 7 Lithuanian sheath is placed in left femoral vein. Therapeutic heparin was administered given a therapeutic ACT a rim catheter was advanced to the distal inferior vena cava and then used to cannulate the right iliac vein. Under fluoroscopic guidance an 035 advantage wire was advanced into the deep femoral vein. A trailblazer was advanced and used to selectively engage the right popliteal, right posterior tibial and right peroneal vein and perform venography. The thrombus was identified however with manipulation and agitation the thrombus disrupted and venous flow returned. The initially occlusive thrombus was nonocclusive at the end of the procedure with excellent flow. With additional manipulation and patient being on Xarelto with full dose therapeutic heparin the thrombus appeared to break apart and not amenable to thrombectomy. At the end of the procedure the apparatus was removed the sheath was removed and hemostasis was achieved using Z stitch patient was transferred to the postop putting in stable condition ANGIOGRAPHIC RESULTS Occlusive thrombus was identified in the right popliteal vein which resolved with agitation and manipulation IMPRESSION Occlusive right popliteal vein which dissolved with heparin and physical manipulation and agitation PLAN 1. Consider switching patient to Coumadin or possibly evaluating to see if there have been any drug interactions with Xarelto or any reason why patient would be subtherapeutic 2. Consider additional workup for hypercoagulable state Electronically signed by : Odilon Kapoor MD 05/22/2025 15:52:40
--- NOTE | 2025-05-22 14:01 | EXP.HP ---
History of Present Illness *Admission Date: 05/22/25 *Reason for visit:: Right leg pain *History of present illness: Ms. Fernandez is an 89-year-old female with history of A-fib, on chronic anticoagulation, CAD, pacemaker in place, drug-eluting stent placed in 2019. She presented due to worsening pain in her right lower extremity. Was sent by her PCP for venous Doppler. Found to have DVT in right femoral and popliteal veins. Patient reports she has had pain in her right leg for about a week along with bruising to right lower leg and mild swelling. Discussed case with cardiology, request admission for further management including thrombectomy. Patient was directly admitted to undergo thrombectomy for clot. Stable on room air with no respiratory denies chest pain, shortness of breath, nausea or vomiting. [facility] Disclaimer: The information contained in this section may have been updated after the patient was seen, as this information can be updated by other users. Medical History Atrial fibrillation History of pacemaker Hematoma of pacemaker pocket Tachy-junie syndrome Renal artery stenosis, [place], bilateral Restless sleeper Daytime somnolence Surgical History History of appendectomy History of hysterectomy S/P placement of cardiac pacemaker S/P coronary artery stent placement Family History Other No significant family history Social History Smoking Status: Never smoker alcohol intake: never substance use type: denies use current occupational status: retired Travel in the last 8 weeks?: Inside the [place] household members: none housing: house caffeine: No Have you lived/traveled outside US in past 30 days?: No Contact w/someone who lives/traveled outside US past 30 days?: No Exposure to someone with infectious disease in past 14 days?: No Do you have a fever (greater than 100.4 F or 38 C)?: No Have you tested positive for COVID-19?: No Exposed to someone with COVID-19 in past 14 days?: No Do you have a sore throat?: No Do you have a cough?: No Do you have any weakness?: No Do you have any diarrhea?: No Are you experiencing any unusual bleeding?: No Do you have any muscle aches/pain?: No Do you have any abdominal pain?: No Are you experiencing loss of taste or smell?: No Other Medical History Have you received the Flu Vaccine for this season: Yes Have you received the Pneumonia Vaccine: No Review of Systems Review of Systems Review of systems (narrative): 14 point review of systems performed, pertinent positives and negatives as per HPI Meds Home Medications and Allergies Home Medications ?Medication ?Instructions ?Recorded ?Confirmed ?Type lisinopril 20 mg tablet 20 mg PO DAILY 02/12/23 05/22/25 History rivaroxaban 20 mg tablet (Xarelto) 20 mg PO QPMWITHMEAL Blood 03/19/23 05/22/25 History thinner/ Atrial Fib metoprolol succinate 50 mg 50 mg PO BID 05/19/23 05/22/25 History tablet,extended release 24 hr pantoprazole 40 mg tablet,delayed 40 mg PO HS 11/25/23 05/22/25 History release atorvastatin 40 mg tablet 40 mg PO HS 05/22/25 05/22/25 History hydrochlorothiazide 25 mg tablet 25 mg PO DAILY 05/22/25 05/22/25 History New Prescriptions to Start Prescriptions: Allergies Allergy/AdvReac Type Severity Reaction Status Date / Time azithromycin Allergy Intermediate Hives Verified 12/25/24 10:10 Sulfa (Sulfonamide Allergy Unknown Shakiness Verified 12/25/24 10:10 Antibiotics) Exam Data for Last 24 hours Vital signs and Labs for Last 24 Hours: Temp Pulse Resp BP Pulse Ox O2 Del Method 97.8 F 70 18 146/74 H 98 Room Air 05/22/25 13:25 05/22/25 13:25 05/22/25 13:25 05/22/25 13:25 05/22/25 13:25 05/22/25 13:25 I & O for Last 24 hours: Intake & Output 05/19/25 05/20/25 05/21/25 05/22/25 23:59 23:59 23:59 23:59 Weight 76.793 kg Constitutional Constitutional: no acute distress, obese and cooperative *Routine HEENT Exam Head: Present normocephalic Eye: Present EOMI and PERRL ENT: Present mucous membranes moist *Routine Neck Exam Neck: Present supple; Absent lymphadenopathy Routine Chest/Breast/Axilla Exam Chest wall: Present pacemaker *Routine Respiratory Exam Respiratory: Present CTA bilaterally; Absent rhonchi, wheezes or crackles *Routine Cardiovascular Exam Cardiovascular: Present RRR Comments: Paced rhythm. *Routine Abdominal Exam Abdominal: Present soft and normoactive bowel sounds; Absent tenderness *Routine Rectal Exam Rectal:: deferred *Routine Genitalia Exam Genitalia:: deferred *Routine Extremities Exam Extremities: Present edema (1+ bilateral lower extremity edema) and calf tenderness (Right lower extremity); Absent cyanosis or clubbing Comments: Knees arthritic with hypertrophy *Routine Skin Exam Skin: Present intact, warm and ecchymosis (Around right ankle); Absent rash *Routine Neurological Exam Neurological: Present alert, oriented X3 and moving all extremities; Absent altered mental status Assessment and Plan *Assessment and plan (1) Acute DVT (deep venous thrombosis): Status: Acute Category: Medical Code(s): I82.409 - Acute embolism and thrombosis of unspecified deep veins of unspecified lower extremity (2) History of atrial fibrillation: Status: Acute Category: Medical Code(s): Z86.79 - Personal history of other diseases of the circulatory system (3) Osteoarthritis of right knee: Status: Chronic Category: Medical Code(s): M17.11 - Unilateral primary osteoarthritis, right knee (4) Osteoarthritis of left knee: Status: Acute Category: Medical Code(s): M17.12 - Unilateral primary osteoarthritis, left knee (5) History of pacemaker: Status: Chronic Category: Medical Code(s): Z95.0 - Presence of cardiac pacemaker (6) Hypertension: Status: Chronic Qualifiers: Hypertension type: unspecified Qualified Code(s): I10 - Essential (primary) hypertension Category: Medical Code(s): I10 - Essential (primary) hypertension (7) Hyperlipidemia: Status: Chronic Qualifiers: Hyperlipidemia type: mixed hyperlipidemia Qualified Code(s): E78.2 - Mixed hyperlipidemia Category: Medical Code(s): E78.5 - Hyperlipidemia, unspecified (8) Chronic anticoagulation: Status: Chronic Category: Medical Code(s): Z79.01 - shelter (current) use of anticoagulants Plan 89-year-old female with A-fib on Xarelto 20 mg daily. Presented to her PCP with worsening right lower extremity pain and bruising in her ankle. Concern for DVT. Was sent for lower extremity venous Doppler, found to have popliteal and femoral DVT. Due to pain from her clot and failure of DOAC, request was made for direct admit to perform thrombectomy. Discussed case with cardiology, request admission for management of pain, adjustment of anticoagulation, and definitive treatment of lower extremity DVT. I decided to admit for further management and monitoring. Taken for thrombectomy. Problems addressed as follows: Acute unprovoked DVT right leg History of A-fib Failed Xarelto therapy Retention -Ultrasound of right lower extremity performed, found to have DVT in right distal SFA and popliteal vein. Prior review of images, veins were noncompressible - Has been on Xarelto 20 mg daily for her A-fib since 2021. Denies missing any doses denies known history of previous clots or coagulopathy. - Initial labs obtained with normal white count of 5.3, hemoglobin 13.4. Kidney function at baseline BUN 25, creatinine 1.3. Repeat CBC, CMP, magnesium ordered for the morning. -Discussed case with cardiology, recommend transitioning to Eliquis treatment dose due to failure of Xarelto. Initiate Eliquis 10 mg twice daily for 7 days followed by 5 mg twice daily -And referral to hematology as an outpatient. Refer to Dr. Conway - Holding Lipitor and HCTZ. Resume lisinopril 20 mg daily, metoprolol succinate 50 mg twice daily - Rate appears controlled. Monitoring overnight due to femoral access. Osteoarthritis, needs further follow-up with orthopedics for discussion about injections due to severity of pain impacting her mobility. Continue pantoprazole 40 mg nightly for GERD Initiate Eliquis 10 mg twice daily Cardiac diet Full code
--- NOTE | 2025-05-22 14:15 | PC.NURSE ---
Patient is shaved and ready for Thrombectomy.
[2025-05-22 14:23] LABS: Anion Gap 14.2 mEq/L (5-15); Blood Urea Nitrogen 25 mg/dl (7-17); Calcium 10.8 mg/dl (8.4-10.2); Carbon Dioxide 30 mmol/L (22.0-30.0); Chloride 101 mmol/L (98-107); Creatinine Clearance Estimated 36 mL/min (50-200); Creatinine,Serum 1.30 mg/dl (0.52-1.04); Estimated Glomerular Filt Rate 39 ml/min (>60); GFR (African American) 47 ML/MIN (>60); Glucose 134 mg/dl (74-100); Potassium 4.2 mmoL/L (3.5-5.1); Sodium 141 mmol/L (136-145)
[2025-05-22 14:26] LABS: Hematocrit 40.9 % (37.0-47.0); Hemoglobin 13.4 g/dL (12.2-16.2); Immature Granulocytes % 0.6 %; Mean Corpuscular HGB Conc 32.8 g/dL (31.8-35.4); Mean Corpuscular Hemoglobin 29.9 pg (27.0-31.2); Mean Corpuscular Volume 91.3 fl (81-99); Nucleated Red Blood Cells % 0 %; Platelet Count 184 K/mm3 (142-424); Red Blood Count 4.48 M/mm3 (4.20-5.40); Red Cell Distribution Width-SD 42.2 fL; White Blood Count 5.3 K/mm3 (4.8-10.8)
--- NOTE | 2025-05-22 14:30 | EXP.CARD.CON ---
History of Present Illness History of Present Illness Consult date: 05/22/25 Chief complaint: Right leg pain History of present illness: Ms. Evangelista is an 89-year-old white female with a past medical history of coronary artery disease with a history of drug-eluting stents in 2019 and medical management heart cath in 2020, peripheral artery disease, renal artery stenosis, paroxysmal atrial fibrillation on Xarelto since 2021 and history of AV node ablation and PPM in place who was admitted from outpatient ultrasound after being diagnosed with a right superficial femoral and popliteal vein DVT. Patient reports she has had pain in her right leg for about a week along with bruising to right lower leg and mild swelling. PCP ordered an outpatient venous doppler study which showed the clot today. Patient was directly admitted to undergo thrombectomy for clot. At this time patient is resting comfortably and denies chest pain or shortness of breath. She denies missing any of her Xarelto- states she takes it daily as directed. [facility] Disclaimer: The information contained in this section may have been updated after the patient was seen, as this information can be updated by other users. Medical History Atrial fibrillation History of pacemaker Hematoma of pacemaker pocket Tachy-junie syndrome Renal artery stenosis, [place], bilateral Restless sleeper Daytime somnolence Surgical History History of appendectomy History of hysterectomy S/P placement of cardiac pacemaker S/P coronary artery stent placement Family History Other No significant family history Social History Smoking Status: Never smoker alcohol intake: never substance use type: denies use current occupational status: retired Travel in the last 8 weeks?: Inside the [place] household members: none housing: house caffeine: No Have you lived/traveled outside US in past 30 days?: No Contact w/someone who lives/traveled outside US past 30 days?: No Exposure to someone with infectious disease in past 14 days?: No Do you have a fever (greater than 100.4 F or 38 C)?: No Have you tested positive for COVID-19?: No Exposed to someone with COVID-19 in past 14 days?: No Do you have a sore throat?: No Do you have a cough?: No Do you have any weakness?: No Do you have any diarrhea?: No Are you experiencing any unusual bleeding?: No Do you have any muscle aches/pain?: No Do you have any abdominal pain?: No Are you experiencing loss of taste or smell?: No Review of Systems Review of Systems Review of systems:: pertinent systems reviewed and negative unless documented below *Musculoskeletal Comments: Right leg pain Exam Data for Last 24 hours Vital signs and Labs for Last 24 Hours: Temp Pulse Resp BP Pulse Ox O2 Del Method 97.8 F 70 18 146/74 H 98 Room Air 05/22/25 13:05/22/25 13:05/22/25 13:05/22/25 13:05/22/25 13:05/22/25 13:25 Laboratory Results - last 24 hr 05/22/25 : WBC 5.3, RBC 4.48, Hgb 13.4, Hct 40.9, MCV 91.3, MCH 29.9, MCHC 32.8, RDW 12.7, Plt Count 184, MPV 9.3, Neut % (Auto) 58.5, Lymph % (Auto) 32.4, [place] % (Auto) 6.6, Eos % (Auto) 1.3, Baso % (Auto) 0.6, Neut # (Auto) 3.1, Lymph # (Auto) 1.7, [place] # (Auto) 0.4, Eos # (Auto) 0.1, Baso # (Auto) 0.0 I & O for Last 24 hours: Intake & Output 05/19/25 05/20/25 05/21/25 05/22/25 23:59 23:59 23:59 23:59 Output Total 450 / 450 Balance -450 / -450 Weight 169 lb 4.8 oz Constitutional Constitutional: no acute distress *Routine Respiratory Exam Respiratory: Present CTA bilaterally and symmetric chest movement *Routine Cardiovascular Exam Cardiovascular: Present RRR, Normal S1 and Normal S2 *Routine Abdominal Exam Abdominal: Present soft and normoactive bowel sounds; Absent tenderness *Routine Extremities Exam Extremities: Present edema, full ROM and normal capillary refill Comments: Mild edema noted to calf muscle of right leg. Bruising is present. Leg is warm to touch and tender. *Routine Skin Exam Skin: Present intact, dry and warm Detailed Neck Exam: Thyroids Thyroid: Absent bruit Meds Home Medications and Allergies Home Medications ?Medication ?Instructions ?Recorded ?Confirmed ?Type lisinopril 20 mg tablet 20 mg PO DAILY 02/12/23 05/22/25 History rivaroxaban 20 mg tablet (Xarelto) 20 mg PO QPMWITHMEAL Blood 03/19/23 05/22/25 History thinner/ Atrial Fib metoprolol succinate 50 mg 50 mg PO BID 05/19/23 05/22/25 History tablet,extended release 24 hr pantoprazole 40 mg tablet,delayed 40 mg PO HS 11/25/23 05/22/25 History release atorvastatin 40 mg tablet 40 mg PO HS 05/22/25 05/22/25 History hydrochlorothiazide 25 mg tablet 25 mg PO DAILY 05/22/25 05/22/25 History New Prescriptions to Start Prescriptions: Allergies Allergy/AdvReac Type Severity Reaction Status Date / Time azithromycin Allergy Intermediate Hives Verified 12/25/24 10:10 Sulfa (Sulfonamide Allergy Unknown Shakiness Verified 12/25/24 10:10 Antibiotics) Assessment and Plan *Assessment and plan (1) Acute DVT (deep venous thrombosis): Status: Acute Category: Medical Code(s): I82.409 - Acute embolism and thrombosis of unspecified deep veins of unspecified lower extremity (2) History of atrial fibrillation: Status: Acute Category: Medical Code(s): Z86.79 - Personal history of other diseases of the circulatory system Plan Acute unprovoked DVT right leg History of A-fib Failed Xarelto therapy DVT right distal SFA and popliteal vein noted on venous Doppler today Patient has been on Xarelto 20 mg p.o. daily for her A-fib. Reports medication compliance. Discussed risk and benefits of thrombectomy with patient she and her daughter are agreeable to proceed After thrombectomy patient will be changed from Xarelto to Eliquis 10 mg twice daily for 7 days followed by 5 mg twice daily Patient will need to see Dr. Ivan on an outpatient basis CV summary 05/22/2025: Patient awaiting thrombectomy for right DVT.
[2025-05-22] MEDS: LIDOCAINE 1% 10ML MDV 10 ML IJ (14:53)
[2025-05-22] MEDS: 0.9 % SODIUM CHLORIDE 500 ML 25 ML IV (14:53)
[2025-05-22] MEDS: HEPARIN 1,000 UNITS/500ML NS (CATH LAB) 3000 UNIT IV (14:53)
[2025-05-22] MEDS: HEPARIN 1,000 UNITS/ML 10ML VIAL (CATH LAB) 5000 UNIT IV (15:28)
[2025-05-22] MEDS: FENTANYL 100MCG/2ML VIAL 25 MCG IV (15:42)
[2025-05-22] MEDS: MIDAZOLAM HCL 1MG/ML 5ML VIAL 1 MG IV (15:42)
[2025-05-22] MEDS: IOPAMIDOL-370 (76%);100ML BOTTLE 130 ML IV (16:02)
[2025-05-22 16:05] LABS: CATHL Activated Clotting Time > 400 SEC (74-125)
[2025-05-22] MEDS: PANTOPRAZOLE 40MG TABLET 40 MG PO (20:22)
[2025-05-22] MEDS: APIXABAN 5MG TABLET 10 MG PO (20:23)
[2025-05-22] MEDS: METOPROLOL SUCCINATE XL 50MG TABLET 50 MG PO (20:23)
[2025-05-22] MEDS: ACETAMINOPHEN 500MG TAB 500 MG PO (21:31)
[2025-05-23] VITALS: BP 133/69; PULSE 70; RESP 16; TEMP 36.3; O2SAT 96
[2025-05-23 04:00] VITALS: BP 130/66; PULSE 70; RESP 16; TEMP 36.6; O2SAT 95; BMI 28.5
[2025-05-23 04:59] LABS: Hematocrit 35.9 % (37.0-47.0); Immature Granulocytes % 0.3 %; Mean Corpuscular HGB Conc 32.6 g/dL (31.8-35.4); Mean Corpuscular Hemoglobin 29.5 pg (27.0-31.2); Mean Corpuscular Volume 90.4 fl (81-99); Nucleated Red Blood Cells % 0 %; Platelet Count 173 K/mm3 (142-424); Red Blood Count 3.97 M/mm3 (4.20-5.40); Red Cell Distribution Width-SD 42.0 fL; White Blood Count 5.8 K/mm3 (4.8-10.8)
[2025-05-23 05:04] LABS: Hemoglobin 11.6 g/dL (12.2-16.2)
[2025-05-23 05:08] LABS: Albumin Level 3.9 g/dl (3.5-5.0); Chloride 101 mmol/L (98-107); Potassium 4.2 mmoL/L (3.5-5.1); Sodium 138 mmol/L (136-145)
[2025-05-23 05:11] LABS: Alanine Aminotransferase 15 U/L (12-78); Albumin/Globulin Ratio 1.6 (1.1-1.8); Alkaline Phosphatase 67 U/L (38-126); Anion Gap 12.2 mEq/L (5-15); Aspartate Amino Transferase 25 U/L (14-36); Bilirubin,Total 0.9 mg/dl (0.2-1.3); Blood Urea Nitrogen 25 mg/dl (7-17); Calcium 9.0 mg/dl (8.4-10.2); Carbon Dioxide 29 mmol/L (22.0-30.0); Creatinine Clearance Estimated 37 mL/min (50-200); Creatinine,Serum 1.20 mg/dl (0.52-1.04); Estimated Glomerular Filt Rate 42 ml/min (>60); GFR (African American) 51 ML/MIN (>60); Globulin 2.5 g/dL (1.3-3.2); Glucose 78 mg/dl (74-100); Magnesium 1.6 mg/dl (1.6-2.3); Total Protein,Serum 6.4 g/dl (6.3-8.2)
[2025-05-23 08:00] VITALS: BP 154/78; PULSE 70; RESP 16; TEMP 36.6; O2SAT 99
[2025-05-23] MEDS: LISINOPRIL 20MG TABLET 20 MG PO (09:07)
[2025-05-23] MEDS: APIXABAN 5MG TABLET 10 MG PO (09:07)
[2025-05-23] MEDS: METOPROLOL SUCCINATE XL 50MG TABLET 50 MG PO (09:08)
--- NOTE | 2025-05-23 10:15 | EXP.CARD.PN ---
Subjective Subjective Date: 05/23/25 Time: 08:00 Principal diagnosis: Right lower extremity DVT Interval history: Patient is status post thrombectomy. Patient tolerated procedure well and is feeling good this morning. Morning labs reviewed. Exam Data for Last 24 hours Vital signs and Labs for Last 24 Hours: Temp Pulse Resp BP Pulse Ox O2 Del Method 97.9 F 70 16 154/78 H 99 Room Air 05/23/25 08:00 05/23/25 08:00 05/23/25 08:00 05/23/25 08:00 05/23/25 08:00 05/23/25 09:36 Laboratory Results - last 24 hr 05/22/25 15:05: Activated Clotting Time > 400 H* 05/22/25 : WBC 5.3, RBC 4.48, Hgb 13.4, Hct 40.9, MCV 91.3, MCH 29.9, MCHC 32.8, RDW 12.7, Plt Count 184, MPV 9.3, Neut % (Auto) 58.5, Lymph % (Auto) 32.4, [place] % (Auto) 6.6, Eos % (Auto) 1.3, Baso % (Auto) 0.6, Neut # (Auto) 3.1, Lymph # (Auto) 1.7, [place] # (Auto) 0.4, Eos # (Auto) 0.1, Baso # (Auto) 0.0, Sodium 141, Potassium 4.2, Chloride 101, Carbon Dioxide 30, Anion Gap 14.2, BUN 25 H, Creatinine 1.30 H, Estimated Creat Clear 36, Estimated GFR 39 L, Est GFR ( Amer) 47 L, Glucose 134 H, Calcium 10.8 H 05/23/25 04:31: WBC 5.8, RBC 3.97 L, Hgb 11.6 L D, Hct 35.9 L, MCV 90.4, MCH 29.5, MCHC 32.6, RDW 12.8, Plt Count 173, MPV 9.1, Neut % (Auto) 57.0, Lymph % (Auto) 29.4, [place] % (Auto) 10.1 H, Eos % (Auto) 2.9, Baso % (Auto) 0.3, Neut # (Auto) 3.3, Lymph # (Auto) 1.7, [place] # (Auto) 0.6, Eos # (Auto) 0.2, Baso # (Auto) 0.0, Sodium 138, Potassium 4.2, Chloride 101, Carbon Dioxide 29, Anion Gap 12.2, BUN 25 H, Creatinine 1.20 H, Estimated Creat Clear 37, Estimated GFR 42 L, Est GFR ( Amer) 51 L, Glucose 78 D, Calcium 9.0, Magnesium 1.6, Total Bilirubin 0.9, AST 25, ALT 15, Alkaline Phosphatase 67, Total Protein 6.4, Albumin 3.9, Globulin 2.5, Albumin/Globulin Ratio 1.6 I & O for Last 24 hours: Intake & Output 05/20/25 05/21/25 05/22/25 05/23/25 23:59 23:59 23:59 23:59 Intake Total 480 / 480 Output Total 750 / 750 950 / 950 Balance -750 / -270 -470 / -470 Weight 169 lb 4.8 oz 161 lb 2 oz Constitutional Constitutional: no acute distress *Routine Respiratory Exam Respiratory: Present CTA bilaterally and symmetric chest movement *Routine Cardiovascular Exam Cardiovascular: Present RRR, Normal S1 and Normal S2 *Routine Abdominal Exam Abdominal: Present soft and normoactive bowel sounds; Absent tenderness *Routine Extremities Exam Extremities: Present edema, full ROM and normal capillary refill Comments: Mild bruising and swelling noted to right lower extremity. Left groin site from thrombectomy-dressing is dry, minimal bruising and no swelling present. Strong bilateral DP and TP pulses present and noted. *Routine Skin Exam Skin: Present intact, dry and warm Detailed Neck Exam: Thyroids Thyroid: Absent bruit Progress Note: A&P Assessment and plan (1) Acute DVT (deep venous thrombosis): Status: Acute (2) History of atrial fibrillation: Status: Acute (3) Osteoarthritis of right knee: Status: Chronic (4) Osteoarthritis of left knee: Status: Acute (5) History of pacemaker: Status: Chronic (6) Hypertension: Status: Chronic (7) Hyperlipidemia: Status: Chronic (8) Chronic anticoagulation: Status: Chronic Assessment and Plan Assessment and Plan for All Diagnoses:: Acute unprovoked DVT right leg History of A-fib Failed Xarelto therapy DVT right distal SFA and popliteal vein noted on venous Doppler Patient has been on Xarelto 20 mg p.o. daily for her A-fib. Reports medication compliance. s/p thrombectomy 05/23/2025. Continue Eliquis 10 mg twice daily for 7 days followed by 5 mg twice daily Patient will need to see Dr. Conway on an outpatient basis CV summary 05/23/2025: Patient is CV stable for discharge home. Please send patient home on Eliquis 10 mg p.o. twice daily for 7 days followed by 5 mg p.o. twice daily. Patient needs outpatient follow-up with Dr. Conway in cardiology clinic follow-up in 1 week.
--- NOTE | 2025-05-23 11:35 | EXP.DC.SUM ---
General Admission date:: 05/22/25 Discharge date: 05/23/25 HPI HPI HPI: Ms. Evangelista is an 89-year-old female with history of A-fib, on chronic anticoagulation, CAD, pacemaker in place, drug-eluting stent placed in 2019. She presented due to worsening pain in her right lower extremity. Was sent by her PCP for venous Doppler. Found to have DVT in right femoral and popliteal veins. Patient reports she has had pain in her right leg for about a week along with bruising to right lower leg and mild swelling. Discussed case with cardiology, request admission for further management including thrombectomy. Patient was directly admitted to undergo thrombectomy for clot. Stable on room air with no respiratory denies chest pain, shortness of breath, nausea or vomiting. Hospital Course Hospital Course Hospital Course: 89-year-old female with A-fib on Xarelto 20 mg daily. Presented to her PCP with worsening right lower extremity pain and bruising in her ankle. Concern for DVT. Was sent for lower extremity venous Doppler, found to have popliteal and femoral DVT. Due to pain from her clot and failure of DOAC, request was made for direct admit to perform thrombectomy. Discussed case with cardiology, request admission for management of pain, adjustment of anticoagulation, and definitive treatment of lower extremity DVT. I decided to admit for further management and monitoring. Taken for thrombectomy. Thrombus disintegrated during procedure. Did well overnight. Recommend close follow-up after change of DOAC. Also will refer to orthopedics for evaluation of arthritis and consideration for injections. Problems addressed as follows: Acute unprovoked DVT right leg History of A-fib Failed Xarelto therapy -Ultrasound of right lower extremity performed, found to have DVT in right distal SFA and popliteal vein. Has been on Xarelto 20 mg daily for her A-fib since 2021. Denies missing any doses denies known history of previous clots or coagulopathy. Initial labs obtained with normal white count of 5.3, hemoglobin 13.4. Kidney function at baseline BUN 25, creatinine 1.3. Patient was taken for thrombectomy on 05/23. Clot disintegrated during procedure. Discussed case with cardiology on morning of discharge, recommend transitioning to Eliquis twice daily due to failure of Xarelto. Will treat with 10 mg twice daily for 7 days, de-escalate to 5 mg twice daily thereafter. Referred to hematology as an outpatient for discussed case with cardiology, recommend transitioning to Eliquis treatment dose due to failure of Xarelto. Initiate Eliquis 10 mg twice daily for 7 days followed by 5 mg twice daily. Referral to hematology as an outpatient for evaluation of hypercoagulable state. Request sent to case management for referal to Dr. Conway. Resumed home medications for A-fib and hypertension including lisinopril, metoprolol, HCTZ. Resume statin for hypercholesterolemia. -Rate controlled during admission. - Hemoglobin stable during admission. 11 on day of discharge. Osteoarthritis, needs further follow-up with orthopedics for discussion about injections due to severity of pain impacting her mobility. Continue pantoprazole 40 mg nightly for GERD Total time spent on discharge 32 minutes in counseling, documentation, chart review, and direct care with patient. Exam Data for Last 24 hours Vital signs and Labs for Last 24 Hours: Temp Pulse Resp BP Pulse Ox O2 Del Method 97.9 F 70 16 154/78 H 99 Room Air 05/23/25 08:00 05/23/25 08:00 05/23/25 08:00 05/23/25 08:00 05/23/25 08:00 05/23/25 09:36 Laboratory Results - last 24 hr 05/22/25 15:05: Activated Clotting Time > 400 H* 05/22/25 : WBC 5.3, RBC 4.48, Hgb 13.4, Hct 40.9, MCV 91.3, MCH 29.9, MCHC 32.8, RDW 12.7, Plt Count 184, MPV 9.3, Neut % (Auto) 58.5, Lymph % (Auto) 32.4, [place] % (Auto) 6.6, Eos % (Auto) 1.3, Baso % (Auto) 0.6, Neut # (Auto) 3.1, Lymph # (Auto) 1.7, [place] # (Auto) 0.4, Eos # (Auto) 0.1, Baso # (Auto) 0.0, Sodium 141, Potassium 4.2, Chloride 101, Carbon Dioxide 30, Anion Gap 14.2, BUN 25 H, Creatinine 1.30 H, Estimated Creat Clear 36, Estimated GFR 39 L, Est GFR ( Amer) 47 L, Glucose 134 H, Calcium 10.8 H 05/23/25 04:31: WBC 5.8, RBC 3.97 L, Hgb 11.6 L D, Hct 35.9 L, MCV 90.4, MCH 29.5, MCHC 32.6, RDW 12.8, Plt Count 173, MPV 9.1, Neut % (Auto) 57.0, Lymph % (Auto) 29.4, [place] % (Auto) 10.1 H, Eos % (Auto) 2.9, Baso % (Auto) 0.3, Neut # (Auto) 3.3, Lymph # (Auto) 1.7, [place] # (Auto) 0.6, Eos # (Auto) 0.2, Baso # (Auto) 0.0, Sodium 138, Potassium 4.2, Chloride 101, Carbon Dioxide 29, Anion Gap 12.2, BUN 25 H, Creatinine 1.20 H, Estimated Creat Clear 37, Estimated GFR 42 L, Est GFR ( Amer) 51 L, Glucose 78 D, Calcium 9.0, Magnesium 1.6, Total Bilirubin 0.9, AST 25, ALT 15, Alkaline Phosphatase 67, Total Protein 6.4, Albumin 3.9, Globulin 2.5, Albumin/Globulin Ratio 1.6 I & O for Last 24 hours: Intake & Output 05/20/25 05/21/25 05/22/25 05/23/25 23:59 23:59 23:59 23:59 Intake Total 740 / 740 Output Total 750 / 750 950 / 950 Balance -750 / -270 -210 / -210 Weight 76.793 kg 73.085 kg Constitutional Constitutional: no acute distress, average body habitus and cooperative *Routine HEENT Exam Head: Present normocephalic Eye: Present EOMI and PERRL ENT: Present mucous membranes moist *Routine Neck Exam Neck: Present supple; Absent lymphadenopathy *Routine Respiratory Exam Respiratory: Present CTA bilaterally, rhonchi, wheezes and crackles *Routine Cardiovascular Exam Cardiovascular: Present irregularly irregular *Routine Abdominal Exam Abdominal: Present soft and normoactive bowel sounds; Absent tenderness *Routine Rectal Exam Patient deferred: visual exam *Routine Exam Patient deferred: external exam *Routine Extremities Exam Extremities: Present edema (Trace bilateral lower extremity); Absent cyanosis or clubbing Comments: Prominent arthritic knees with mild deformity *Routine Skin Exam Skin: Present intact and warm; Absent rash *Routine Neurological Exam Neurological: Present alert, oriented X3 and moving all extremities; Absent altered mental status Results Data Completed and Pending Labs on day of discharge: Labs from last 24 hours 05/23/25 05/22/25 05/22/25 04:31 Unknown 15:05 WBC 5.8 5.3 RBC 3.97 L 4.48 Hgb 11.6 L D 13.4 Hct 35.9 L 40.9 MCV 90.4 91.3 MCH 29.5 29.9 MCHC 32.6 32.8 RDW 12.8 12.7 Plt Count 173 184 MPV 9.1 9.3 Neut % (Auto) 57.0 58.5 Lymph % (Auto) 29.4 32.4 [place] % (Auto) 10.1 H 6.6 Eos % (Auto) 2.9 1.3 Baso % (Auto) 0.3 0.6 Neut # (Auto) 3.3 3.1 Lymph # (Auto) 1.7 1.7 [place] # (Auto) 0.6 0.4 Eos # (Auto) 0.2 0.1 Baso # (Auto) 0.0 0.0 Activated Clotting Time > 400 H* Sodium 138 141 Potassium 4.2 4.2 Chloride 101 101 Carbon Dioxide 29 30 Anion Gap 12.2 14.2 BUN 25 H 25 H Creatinine 1.20 H 1.30 H Estimated Creat Clear 37 36 Estimated GFR 42 L 39 L Est GFR ( Amer) 51 L 47 L Glucose 78 D 134 H Calcium 9.0 10.8 H Magnesium 1.6 Total Bilirubin 0.9 AST 25 ALT 15 Alkaline Phosphatase 67 Total Protein 6.4 Albumin 3.9 Globulin 2.5 Albumin/Globulin Ratio 1.6 DS: Diagnosis Discharge Diagnosis (1) Acute DVT (deep venous thrombosis): Status: Acute Code(s): I82.409 - Acute embolism and thrombosis of unspecified deep veins of unspecified lower extremity (2) History of atrial fibrillation: Status: Acute Code(s): Z86.79 - Personal history of other diseases of the circulatory system (3) Osteoarthritis of right knee: Status: Chronic Code(s): M17.11 - Unilateral primary osteoarthritis, right knee (4) Osteoarthritis of left knee: Status: Acute Code(s): M17.12 - Unilateral primary osteoarthritis, left knee (5) History of pacemaker: Status: Chronic Code(s): Z95.0 - Presence of cardiac pacemaker (6) Hypertension: Status: Chronic Code(s): I10 - Essential (primary) hypertension Qualifiers: Hypertension type: unspecified Qualified Code(s): I10 - Essential (primary) hypertension (7) Hyperlipidemia: Status: Chronic Code(s): E78.5 - Hyperlipidemia, unspecified Qualifiers: Hyperlipidemia type: mixed hyperlipidemia Qualified Code(s): E78.2 - Mixed hyperlipidemia (8) Chronic anticoagulation: Status: Chronic Code(s): Z79.01 - licensed optical dispenser (current) use of anticoagulants Meds Home Medications and Allergies Home Medications ?Medication ?Instructions ?Recorded ?Confirmed ?Type lisinopril 20 mg tablet 20 mg PO DAILY 02/12/23 05/22/25 History metoprolol succinate 50 mg 50 mg PO BID 05/19/23 05/22/25 History tablet,extended release 24 hr pantoprazole 40 mg tablet,delayed 40 mg PO HS 11/25/23 05/22/25 History release atorvastatin 40 mg tablet 40 mg PO HS 05/22/25 05/22/25 History hydrochlorothiazide 25 mg tablet 25 mg PO DAILY 05/22/25 05/22/25 History apixaban 5 mg tablet (Eliquis) See Rx Instructions .Route 05/23/25 Rx .COMPLEX #72 tabs New Prescriptions to Start Prescriptions: apixaban [Eliquis] Rajendra Dillard Allergies Allergy/AdvReac Type Severity Reaction Status Date / Time azithromycin Allergy Intermediate Hives Verified 12/25/24 10:10 Sulfa (Sulfonamide Allergy Unknown Shakiness Verified 12/25/24 10:10 Antibiotics) Discharge Plan Disposition Patient Disposition: Home, Self-Care Condition: Fair Follow up Plan Follow up with: Jocelyn Robledo APRN [Nurse Practitioner, Cardiology] - 05/30/25 2:30 pm Matilde Barkley APRN [Primary Care Provider, Medical] - 06/04/25 1:00 pm Domingo Walter DO [Staff Physician, Orthopedics] - 05/28/25 1:45 pm Prescriptions/Medication Reconciliation: New Eliquis 5 mg Tablet See Rx Instructions .ROUTE .COMPLEX Qty: 72 0RF Rx Instructions: 10 mg (2 tablets) twice daily for 6 more days, through 05/29/2025. Decrease to 5 mg (1 tablet) twice daily thereafter. Continued pantoprazole 40 mg tablet,delayed release (DR/EC) 40 mg PO HS lisinopril 20 mg tablet 20 mg PO DAILY metoprolol succinate 50 mg tablet extended release 24 hr 50 mg PO BID atorvastatin 40 mg tablet 40 mg PO HS hydrochlorothiazide 25 mg tablet 25 mg PO DAILY Discontinued Xarelto 20 mg tablet 20 mg PO QPMWITHMEAL Rx Instructions: must administer with evening meal Problem Reconciliation Problems Reviewed?: Yes Patient Discharge Instructions ACTIVITY: Continue current activity DIET: continue same diet Patient Instructions: DI for Deep Vein Thrombosis, DI for Surgical Site Infection Print Language: Irish Providers Primary Care Provider: Matilde Barkley Admit Provider: Rajendra Dillard Attending Provider: Rajendra Dillard
--- NOTE | 2025-05-24 10:03 | SW/DCPLANNER ---
Spoke with patient on the phone. Patient stated that she is doing well. Patient stated that she is aware of her upcoming appointments. Patient stated that she has not gotten her new medicine picked up just yet. Patient stated that she has been taking her samples from what cardiology has given her. Patient stated that she has no concerns or questions at this time. Naida Shields
== END 2025-05-23 14:02 | disposition home or self-care (01) ==
PROVIDERS: Internal Medicine; Admitting Provider Internal Medicine Adolescent Medicine; PCP Nurse Practitioner Family; Visit Provider Internal Medicine Adolescent Medicine
PROC: (CPT 75820; principal; 2025-05-22 13:35)
DX: I82.431 Acute embolism and thrombosis of right popliteal vein (principal); I82.451 Acute embolism and thrombosis of right peroneal vein; I25.10 Atherosclerotic heart disease of native coronary artery without angina pectoris; M17.0 Bilateral primary osteoarthritis of knee; I48.91 Unspecified atrial fibrillation; E66.9 Obesity, unspecified; I10 Essential (primary) hypertension; E78.2 Mixed hyperlipidemia; K21.9 Gastro-esophageal reflux disease without esophagitis; I73.9 Peripheral vascular disease, unspecified; Z95.0 Presence of cardiac pacemaker; Z86.79 Personal history of other diseases of the circulatory system; Z88.1 Allergy status to other antibiotic agents; Z88.2 Allergy status to sulfonamides; Z95.5 Presence of coronary angioplasty implant and graft; Z68.28 Body mass index [BMI] 28.0-28.9, adult; Z79.899 Other long term (current) drug therapy
CPT/HCPCS: 36005; 36415; 80048; 80053; 83735; 85025; 85347; 96361; 96374; 96375; 96376; 99152; 99153; C1725; C1769; C1894; G0378; J1200; J1644; J2003; J2250; J3010; J7040; Q9967

== ENCOUNTER 2025-05-31 10:36 | Outpatient (CLI) | payer MEDICARE, SELFPAY ==
--- OUTSIDE RECORDS SUMMARY | 2025-05-31 10:39 | XMS_ITS | Clinical Summary ---
Author Organization [facility] Address [address] [place] [address] Phone Care Team Providers Care Satellite Instruction Facilitator Name Role Phone Unavailable Primary Care Provider [...] Hypertensive disorder 07/13/2023 Pacemaker 07/13/2023 Overview (07/28/2023): [employer] D PPM implanted 06/23/[address] Gautam Permanent atrial fibrillatio n with rapid ventricular response 07/13/2023 Medical History Medical History Date Comments Atrial fibrillation with rap id ventricular response (HCC) Pacemaker [employer] D PPM Atrial fibrillation, permanent [...]
--- OUTSIDE RECORDS SUMMARY | 2025-05-31 10:39 | XMS_ITS | Clinical Summary ---
Author Organization [facility] Address [address] [place] [address] Care Team Providers Care Industrial Relations Counselor Name Role Phone Unavailable Primary Care Provider [...] Screening 1936 [facility]-Medicare Annual Wellness (AWV) 1936 [facility]-Infant/Child/Adol SDOH Screenings 1936 [facility]-Obesity Intervention 1942 [facility]- SDOH Screenings 1954 [facility]-Adult SDOH Screenings 1954 [facility]-DTaP,Tdap,and Td Vaccines (1 - Tdap) 1955 [facility]-Pneumococcal Vaccine: 50+ Years (1 of 1 - PCV) 1986 [facility]-Zoster Vaccines (1 of 2) 1986 [facility]-RSV Vaccine: 60+ Years or (1 - 1-dose 75+ series) 2011 [id number] Vaccine ( - 2024-25 season) 2024 11/25/2022, 09/26/2021, 01/31/2021, Additional history exists [facility]-Influenza Vaccine (#1) 07/23/202509/14, 08/08/2021, 10/02/2016 HPV Vaccines Aged Out No [...]
[2025-05-31 11:17] LABS: Hematocrit 35.7 % (37.0-47.0); Hemoglobin 11.5 g/dL (12.2-16.2); Immature Granulocytes % 0.4 %; Mean Corpuscular HGB Conc 32.2 g/dL (31.8-35.4); Mean Corpuscular Hemoglobin 30.1 pg (27.0-31.2); Mean Corpuscular Volume 93.5 fl (81-99); Nucleated Red Blood Cells % 0 %; Platelet Count 231 K/mm3 (142-424); Red Blood Count 3.82 M/mm3 (4.20-5.40); Red Cell Distribution Width-SD 45.0 fL; White Blood Count 5.3 K/mm3 (4.8-10.8)
[2025-05-31 11:55] LABS: Alanine Aminotransferase 16 U/L (12-78); Albumin Level 4.7 g/dl (3.5-5.0); Albumin/Globulin Ratio 1.8 (1.1-1.8); Alkaline Phosphatase 71 U/L (38-126); Anion Gap 14.3 mEq/L (5-15); Aspartate Amino Transferase 25 U/L (14-36); Bilirubin,Total 1.1 mg/dl (0.2-1.3); Blood Urea Nitrogen 35 mg/dl (7-17); Calcium 10.2 mg/dl (8.4-10.2); Carbon Dioxide 28 mmol/L (22.0-30.0); Chloride 102 mmol/L (98-107); Creatinine,Serum 1.50 mg/dl (0.52-1.04); Estimated Glomerular Filt Rate 33 ml/min (>60); GFR (African American) 40 ML/MIN (>60); Globulin 2.6 g/dL (1.3-3.2); Glucose 92 mg/dl (74-100); Potassium 5.3 mmoL/L (3.5-5.1); Sodium 139 mmol/L (136-145); Total Protein,Serum 7.3 g/dl (6.3-8.2)
[2025-06-01 15:19] LABS: Beta-2 Glycoprotein I Ab, IgG <9 (0-20); Beta-2 Glycoprotein I Ab, IgM <9 (0-32)
[2025-06-01 16:12] LABS: Anti-Cardio Antibody IgM <9 MPL U/mL (0-12); Anti-Cardiolipin Antibody IgG <9 GPL U/mL (0-14)
== END 2025-05-31 23:59 | disposition home or self-care (01) ==
LOC: LAB 10:36
PROVIDERS: PCP Nurse Practitioner Family; Visit Provider Internal Medicine Medical Oncology
DX: I82.622 Acute embolism and thrombosis of deep veins of left upper extremity (principal); I82.409 Acute embolism and thrombosis of unspecified deep veins of unspecified lower extremity; Z79.01 Long term (current) use of anticoagulants
CPT/HCPCS: 36415; 80053; 81240; 81241; 85025; 85300; 85301; 85302; 85306; 86146; 86147

== ENCOUNTER 2025-06-08 10:20 | Outpatient (CLI) | payer MEDICARE, SELFPAY ==
--- OUTSIDE RECORDS SUMMARY | 2025-06-08 10:23 | XMS_ITS | Continuity of Care Document ---
Author Organization [place] [facility] Address [address] [place] [address] Care Team Providers Care Fashion Stylist Name Role Phone MELONIE BARKLEY Referring Provider Unavailable ISHA TSAI Referring Provider [phone] Assessment No assessment recorded. Plan of Treatment Reminders Order Date Submit Date Provider Last Modified By Organization Details Last Modified Time Details Appointments None recorded. Lab HbA1c (hemoglobin A1c), blood 2024 025 MELANIE [facility], [address], [place], [place], [address], 5 10:07:47 lipid panel, serum 2024 025 MELANIE [facility], [address], [address], [place], [address], 5 10:07:46 TSH + free T4, serum 2024 025 MELANIE [facility], [address], [address], [place], [address], 5 10:07:45 CBC w/ auto diff 2024 025 MELANIE [facility], [address], [address], [place], [address], 5 10:07:45 CMP, serum or plasma 2024 025 MELANIE [facility], [address], [place] [address], [place], [address], 10:07:46 Referral orthopedic surgeon referral - [facility] [place] dr jacob barry 2024 025 [facility], [address], [address], [place], [address], 16:38:47 Procedures None recorded. Surgeries None recorded. Imaging US, duplex, venous, lower extremity, unilateral - right leg and foot 2024 025 [facility] [address], [place], [address], 12:43:24 Medication Orders metoprolol succinate ER 50 mg tablet,exte nded release 24 hr 2024 025 [facility], [address], [address], [place], [address], 09:07:47 pantoprazol e 40 mg tablet,prabhu yed release 2024 025 [facility], [address], [address], [place], [address], 09:07:45 atorvastati n 40 mg tablet 2024 025 [facility], [address] [facility], [address], [place], [address], 5 09:07:42 Xarelto 20 mg tablet 2024 025 [facility], [address] [facility], [place], [address], 10:48:26 hydrochloro thiazide 25 mg tablet 2024 025 [facility], [address], [address], [place], [address], 5 09:07:44 lisinopril 20 mg tablet 2024 025 [facility], [address], [address], [place], [address], 09:07:41 Patient TargetsNo targets recorded. Patient InstructionsNo instructions recorded. Reason for Referral Orthopedic Surgeon Referral for Pain of right knee joint [facility] [place] dr jacob barry Referring Physician: Melonie Barkley, Family Medicine, Encounter Date: 05/22/2025 Results Created Date Observation Date Name Description Value Unit Range Abnormal Flag Note LastModifiedBy Organization Detail LastModifiedTime 05/22/2005/22/2025 US, duple x, venou s, lower extre mity, unila teral No observ ation record ed. [facility] [address], [place], [address], 05/22/2025 13:09:41 05/24/20 25 05/22/2025 CT, venog pedrito, lower extre mity, w/ contr ast No observ ation record ed. [facility] [address], [place], [address], 05/28/2025 08:27:42 Result Notes None recorded. Problems Name Problem SNOMED Code Status Onset Date Resolution Date Notes Provider Name and Address Organization Details Recorded Time Hypertensi ve disorder 26450102 Active Loni lantigua, [place] - [facility] 2 11:10:47 Atrial fibrillati on 69382519 Active pace maker recently placed Loni lantigua, [place] - [facility] 2 11:11:08 Hyperlipid emia 20314282 Active Loni lantigua, [place] - [facility] 2 11:12:02 Gastroesop hageal reflux disease 765361171 Active Loni lantigua, [place] - [facility] 2 11:12:35 Problem Notes None recorded. Procedures Surgical History Date Name Laterality Status Provider Name and Address Organization Details Recorded Time 06/04/20 Medication Reconcilliation completed Loni [place] - [facility] 06/04/2025 13:08:45 05/24/20 23 Medication Reconcilliation completed Loni [place] - [facility] 05/24/2023 11:18:58 Pacemaker Placement completed Loni [place] - [facility] 07/02/2022 11:11:27 procedure on heart completed Ck [place] - [facility] 07/02/2022 11:15:56 procedure on kidney completed Loni [place] - [facility] 07/02/2022 11:16:13 Imaging Results None recorded. Procedure Notes None recorded. Medical Equipment None Reported. Allergies Allergen ID Allergen Name Allergen Category Reaction Reaction Severity Criticality Documentation Date Start Date Code Code System Note Provider Name and Address Organization Details Recorded Time 13291124 Zithromax medicatio n rash moderate high 07/02/202219637 4 RxNorm [place] [facility] - [facility] 10:04:38 266244 Substance with sulfonami de structure and antibacte rial mechanism of action (substanc e) medicatio n rash moderate high 07/02/2022 30451 8003 SNOMED Loni lantigua, [place] - [facility] 10:04:55 Medications Name Sig Start Date Stop Date Status Note LastModified by Organization Details LastModified Time atorvasta tin 40 mg tablet TAKE 1 TABLET BY MOUTH ONCE DAILY 2024 active Not Available Not Available Not Avai lable prednison e 10 mg tablet Take 1 tablet twice a day by oral route for 5 days. 05/22 completed Not Available Not Available Not Available diltiazem CD 180 mg capsule,e xtended release 24 hr 07/30 completed Not Available Not Available Not Available metoprolo l succinate ER 50 mg tablet,ex tended release 24 hr TAKE 1 TABLET BY MOUTH TWICE DAILY 2024 active Not Available Not Available Not Avai lable diltiazem CD 240 mg capsule,e xtended release 24 hr TAKE ONE CAPSULE BY MOUTH EVERY DAY 03/13 completed Not Available Not Available Not Available lisinopri l 20 mg tablet TAKE 1 TABLET BY MOUTH ONCE DAILY 2024 active Not Available Not Available Not Avai lable metoprolo l succinate ER 100 mg tablet,ex tended release 24 hr Take 1 tablet every day by oral route. 03/13 completed Not Available Not Available Not Available hydralazi ne 25 mg tablet 03/13 completed Not Available Not Available Not Available amlodipin e 5 mg tablet TAKE 1 TABLET BY MOUTH ONCE DAILY 05/24 completed Not Available Not Available Not Available benzonata te 100 mg capsule 12/28 completed Not Available Not Available Not Available doxycycli ne monohydra te 100 mg capsule 07/02 completed Not Available Not Available Not Available cephalexi n 500 mg capsule Take 1 capsule twice a day by oral route for 10 days. 11/07 completed Not Available Not Available Not Available pantopraz ole 40 mg tablet,de layed release TAKE 1 TABLET BY MOUTH ONCE DAILY 2024 active Not Available Not Available Not Avai lable indometha narcisa 25 mg capsule 11/07 completed Not Available Not Available Not Available omeprazol e 20 mg capsule,d elayed release TAKE 1 CAPSULE BY MOUTH ONCE DAILY 05/24 completed Not Available Not Available Not Available aspirin 81 mg chewable tablet TAKE 1 TABLET BY MOUTH ONCE DAILY 03/13 completed Not Available Not Available Not Available hydrochlo rothiazid e 25 mg tablet TAKE 1 TABLET BY MOUTH EVERY MORNING 2024 active Not Available Not Available Not Avai lable mupirocin 2 % topical ointment 07/02 completed Not Available Not Available Not Available ondansetr on 4 mg disintegr ating tablet 12/28 completed Not Available Not Available Not Available aspirin 81 mg daily 07/30 completed Not Available Not Available Not Available Xarelto 20 mg tablet TAKE ONE (1) TABLET EVERY DAY BY ORAL ROUTE. 05/24 completed failed xalrelto - develope d dvt, started eliquis Not Available Not Available Not Available Eliquis 5 mg tablet Take 1 tablet twice a day by oral route for 23 days. active Not Available Not Available No t Available Salonpas (lidocain e) 4 % topical patch Apply 1 patch [...] Updated DateTime 5 160.02 cm 28.9 kg/m2 51471.5 6 g 70 /min 97 % 97 % 20 /min 150/84 mm[Hg] Loni Abdi [place] - [facility] 08:49:50 Social History Question Answer Notes LastModified [...] trivalent, PF 08/18/2024 completed Loni Abdi null, [place] - [facility] 11/07/2024 09:26:17 Influenza, adjuvanted, quadrivalent, PF 08/08/2021 completed Loni Abdi [place] - [facility] 12/28/2022 08:37:00 Influenza, adjuvanted, quadrivalent, PF 09/14/2022 completed Loni Abdi null, [place] - [facility] 12/28/2022 08:37:00 COVID-19, mRNA, LNP-S, PF, 100 mcg/0.5mL dose or 50 mcg/0.25mL dose 01/03/2021 completed Loni lantigua, [place] - [facility] 12/28/2022 08:37:00 COVID-19, mRNA, LNP-S, PF, 100 mcg/0.5mL dose or 50 mcg/0.25mL dose 01/31/2021 completed Loni lantigua, [place] - [facility] 12/28/2022 08:37:00 COVID-19, mRNA, LNP-S, PF, 100 mcg/0.5mL dose or 50 mcg/0.25mL dose 09/26/2021 completed Loni lantigua, [facility] 12/28/2022 08:37:00 COVID-19, mRNA, LNP-S, bivalent, PF, 50 mcg/0.5 mL or 25mcg/0.25 mL dose 11/25/2022 completed Loni lantigua, [facility] 12/28/2022 08:37:00 Influenza, high-dose, trivalent, PF 10/02/2016 completed Loni lantigua, [place] - [facility] 12/28/2022 08:37:00 Influenza, adjuvanted, quadrivalent, PF 08/17/2023 completed Loni lantigua, [facility] 10:48:19 Past Encounters Encounter ID Performer Location Encounter Start Date Encounter Closed Date Diagnosis/Indication Diagnosis SNOMED-CT Code Diagnosis ICD10 Code Diagnosis Note [id number] Melonie Barkley APRN [address] [address] 05/22/2025 08:36:49 05/22/2025 09:37:35 Hypertensive disorder 65798497 I10 Hyperlipidemia 17911306 E78.5 Essential hypertension 59440801 I10 Atrial fibrillation 4943 6004 I48.91 follow up with cardiology Gastroesop hageal reflux disease 351451903 K21.9 Edema of l ower extremity 962068832 R60.0 Glucose le jin above reference range 91327146 R73.09 Pain of ri ght knee joint 4975809502 00239 M25.561 follow up with ortho- if worsen [...] (MEDICARE REPLACEMENT/A DVANTAGE - PPO) Cande Evangelista [id number] Cande Evangelista Notes Date Note Type Note Provider Name and Address Organization Details Recorded Time 05/22/2025 text/html 89 yr old female presents for a follow up on hypertension and med refills. She also has right knee pain and lower leg swelling since sat. Melonie Barkley, SOLDERING MACHINE OPERATOR HELPER [address], [place], [address], [facility] - [facility] 05/22/2025 09:40:08 OBGyn Episode No OBEpisode recorded.
--- OUTSIDE RECORDS SUMMARY | 2025-06-08 10:23 | XMS_ITS | Clinical Summary ---
Author Organization [facility] Address [address] [place] [address] Phone Care Team Providers Care Picking Machine Operator Helper Name Role Phone Unavailable Primary Care Provider [...] Hypertensive disorder 07/13/2023 Pacemaker 07/13/2023 Overview (07/28/2023): [employer] D PPM implanted 06/23/[address] Gautam Permanent atrial fibrillatio n with rapid ventricular response 07/13/2023 Medical History Medical History Date Comments Atrial fibrillation with rap id ventricular response (HCC) Pacemaker [employer] PPM Atrial fibrillation, permanent [...]
--- OUTSIDE RECORDS SUMMARY | 2025-06-08 10:24 | XMS_ITS | Clinical Summary ---
Author Organization [facility] Address [address] [place] [address] Care Team Providers Care Chief Creative Officer Name Role Phone Unavailable Primary Care Provider [...] or (1 - 1-dose 75+ series) 2011 [id number] Vaccine ( - 2024-25 season) 2024 11/25/2022, [...]
--- OUTSIDE RECORDS SUMMARY | 2025-06-08 10:24 | XMS_ITS | Continuity of Care Document ---
Author Organization [place] [facility] Address [address] [place] [address] Care Team Providers Care Pastry Wrapper Name Role Phone MELONIE BARKLEY Referring Provider Unavailable ISHA TSAI Referring Provider Assessment Encounter Date Assessment Date Assessment LastModified by Organization Details LastModified Time 06/04/2025 06/04/2025 -Medications were reviewed and any necessary updates and renewals were made, patient instructed to complete as prescribed. -The potential side effects of medications were discussed. -Counseling was done on care goals and ways to prevent future hospitalizatio ns. -Further treatment per orders listed below. [email or web address] Not available 06/04/2025 13:08:45 Plan of Treatment Reminders Order Date Submit Date Provider Last Modified By Organization Details Last Modified Time Details Appointments None recorded. Lab None recorded. Referral coumadin clinic referral - paperwork sent- spoke with Stepan Velasquez 2024 025 [facility], [address], [place], [address], 10:31:00 Procedures None recorded. Surgeries None recorded. Imaging None recorded. Medication Orders None recorded. Patient TargetsNo targets recorded. Patient InstructionsNo instructions recorded. Reason for Referral paperwork sent- spoke with Everett Velasquez Referring Physician: Melonie Barkley, Family Medicine, Encounter Date: 06/04/2025 Results Created Date Observation Date Name Description Value Unit Range Abnormal Flag Note LastModifiedBy Organization Detail LastModifiedTime 05/22/2005/22/2025 US, chely x, venou s, lower extre mity, unila teral No observ ation record ed. [facility] [address], [place], [address], 05/22/2025 13:09:41 05/24/20 25 05/22/2025 CT, venog pedrito, lower extre mity, w/ contr ast No observ ation record ed. [facility] [address], [place], [address], 05/28/2025 08:27:42 Result Notes None recorded. Problems Name Problem SNOMED Code Status Onset Date Resolution Date Notes Provider Name and Address Organization Details Recorded Time Hypertensi ve disorder 53465078 Active Loni Trinidad grzegorz, [place] - [facility] 2 11:10:47 Atrial fibrillati on 98584736 Active pace maker recently placed Loni Abdi grezgorz, [place] - [facility] 2 11:11:08 Hyperlipid emia 58473495 Active Loni Trinidad grzegorz, [place] - [facility] 2 11:12:02 Gastroesop hageal reflux disease 605257284 Active Loni Trinidad grzegorz, [place] - [facility] 2 11:12:35 Problem Notes None recorded. Procedures Surgical History Date Name Laterality Status Provider Name and Address Organization Details Recorded Time 06/04/20 25 Medication Reconcilliation completed Loni Abdi [place] - [facility] 06/04/2025 13:08:45 05/24/20 23 Medication Reconcilliation completed Loni Abdi [place] - [facility] 05/24/2023 11:18:58 Pacemaker Placement completed Loni Abdi [place] - [facility] 07/02/2022 11:11:27 procedure on heart completed Ck elliott [place] - [facility] 07/02/2022 11:15:56 procedure on kidney completed Loni Abdi [place] - [facility] 07/02/2022 11:16:13 Imaging Results None recorded. Procedure Notes None recorded. Medical Equipment None Reported. Allergies Allergen ID Allergen Name Allergen Category Reaction Reaction Severity Criticality Documentation Date Start Date Code Code System Note Provider Name and Address Organization Details Recorded Time 724759 Zithromax medicatio n rash moderate high 07/02/2022 4 RxNorm Loni Abdi [place], [place] - [facility] 2 10:04:38 720092 Substance with sulfonami de structure and antibacte rial mechanism of action (substanc e) medicatio n rash moderate high 07/02/2022 82681 8003 SNOMED Loni Abdi [place], [place] - [facility] 2 10:04:55 Medications Name [...] Details Last Updated DateTime 5 160.02 cm 29.1 kg/m2 62188.8 5 g 97.6 [degF] 76 /min 99 % 99 % 20 /min 138/72 mm[Hg] Loni Abdi [place] - [facility] 5 13:16:31 Social History Question Answer Notes LastModified by [...] Influenza, adjuvanted, quadrivalent, PF 08/08/2021 completed Loni [place], [place] - [facility] 12/28/2022 08:37:00 Influenza, adjuvanted, quadrivalent, PF 09/14/2022 completed Loni [place], [place] - [facility] 12/28/2022 08:37:00 COVID-19, mRNA, LNP-S, PF, 100 mcg/0.5mL dose or 50 mcg/0.25mL dose 01/03/2021 completed Loni [place], [place] - [facility] 12/28/2022 08:37:00 COVID-19, mRNA, LNP-S, PF, 100 mcg/0.5mL dose or 50 mcg/0.25mL dose 01/31/2021 completed Loni Abdi [place] - [facility] 12/28/2022 08:37:00 COVID-19, mRNA, LNP-S, PF, 100 mcg/0.5mL dose or 50 mcg/0.25mL dose 09/26/2021 completed Loni Abdi [place], [place] - [facility] 12/28/2022 08:37:00 COVID-19, mRNA, LNP-S, bivalent, PF, 50 mcg/0.5 mL or 25mcg/0.25 mL dose 11/25/2022 completed Loni Abdi null, [place] - [facility] 12/28/2022 08:37:00 Influenza, high-dose, trivalent, PF 10/02/2016 completed Loni Abdi [place], [place] - [facility] 12/28/2022 08:37:00 Influenza, adjuvanted, quadrivalent, PF 08/17/2023 completed Loni Abdi null, [place] [facility] 03/13/2024 10:48:19 Past Encounters Encounter ID Performer Location Encounter Start Date Encounter Closed Date Diagnosis/Indication Diagnosis SNOMED-CT Code Diagnosis ICD10 Code Diagnosis Note [id number] Melonie Barkley APR[address] [address] 05/22/2025 08:36:49 05/22/2025 09:37:35 Hypertensive disorder 72709328 I10 Hyperlipidemia 86304818 E78.5 Essential hypertension 86046252 I10 Atrial fibrillation 4943 6004 I48.91 follow up with cardiology Gastroesop hageal reflux disease 966534681 K21.9 Edema of l ower extremity 340416966 R60.0 Glucose le jin above reference range 89708684 R73.09 Pain of ri ght knee joint 6116876478 08004 M25.561 follow up with ortho- if worsen or no improvemen t return [id number] Melonie Barkley APRN [address] [address] 06/04/2025 12:59:26 06/04/2025 14:06:02 Atrial fibrillation 60397039 I48.91 follow up with cardiology Health Concerns Section Related Observation LastModified by Organization Detai ls LastModified Time None Recorded Concern Status LastModified by Organization Details LastModified Time None Recorded Payers Encounter Date Sequence Insurance Name Policy Number Policy Taylor Covered Member ID Taylor Member ID Guarantor Name 06/04/2025 1 [employer] (MEDICARE REPLACEMENT/A DVANTAGE - PPO) Cande Evangelista [id number] Cande Evangelista Notes Date Note Type Note Provider Name and Address Organization Details Recorded Time 06/04/2025 text/html 89 yr old female presents to follow up after having a blood clot removal procedure to left leg on 05/22. wants to discuss Dr Conway recommendations Melonie Barkley, EVALUATION ANALYST [address], [place], [address], [place] - [facility] 06/04/2025 16:14:52 OBGyn Episode No OBEpisode recorded.
--- OUTSIDE RECORDS SUMMARY | 2025-06-08 10:24 | XMS_ITS | Data Portability ---
Author Organization [facility] Address [address] [place] [address] Care Team Providers Care Grounds And Nursery Specialist Name Role Phone MELONIE MAXWELL Referring Provider Unavailable ISHA TSAI Referring Provider [...] MELANIE [facility], [address], [address], [place], [address], 10:07:47 lipid panel, serum 2024 025 MELANIE [facility], [address], [address], [place], [address], 5 10:07:46 TSH + free T4, serum 2024 025 MELANIE [facility], [address], [address], [place], [address], 5 10:07:45 CBC w/ auto diff 2024 025 MELANIE [facility], [address], [address], [place], [address], 10:07:45 CMP, serum or plasma 2024 025 [place] [facility], [address], [address], [place], [address], 5 10:07:46 Referral coumadin clinic referral - paperwork sent- spoke with Stepan Velasquez 2024 025 [facility], [address], [place], [address], 10:31:00 orthopedic surgeon referral - [facility] [place] jacob barry 2024 025 [facility], [address], [address], [place], [address], 16:38:47 Procedures None recorded. Surgeries None recorded. Imaging US, duplex, venous, lower extremity, unilateral - right leg and foot 2024 025 [facility] (Scheduling), [address], [place], [address], 12:43:24 Medication Orders metoprolol succinate ER 50 mg tablet,exte nded release 24 hr [address] [facility], [address], [address], [place], [address], 5 09:07:47 pantoprazol e 40 mg tablet,prabhu yed release 2024 025 [facility], [address], [address], [place], [address], 5 09:07:45 atorvastati n 40 mg tablet 2024 025 [facility], [address] [place] [address], [address], [place], [address], 5 09:07:42 Xarelto 20 mg tablet 2024 025 [facility], [address] [place] [address], [place], [address], 5 10:48:26 hydrochloro thiazide 25 mg tablet 2024 025 [facility], [address] [place] [address], [address], [place], [address], 5 09:07:44 lisinopril 20 mg tablet 2024 025 [facility], [address] [place] [address], [facility], [place], [address], 5 09:07:41 prednisone 10 mg tablet 2023 025 [facility], [address] [place] [address], [address], [place], [address], 5 08:57:33 Salonpas (lidocaine) 4 % topical patch 2023 024 [facility], [address] [place] [address], [address], [place], [address], 5 08:42:16 cephalexin 500 mg capsule 2023 024 [facility], [address] [place] [address], [facility], [place], [address], 4 09:52:12 prednisone 10 mg tablet 2023 024 [facility], [address] [place] [address], [address], [place], [address], 5 08:42:05 metoprolol succinate ER 50 mg tablet,exte nded release 24 hr [address] [facility], [address] [place] [address], [address], [place], [address], 4 11:49:13 pantoprazol e 40 mg tablet,prabhu yed release 2023 024 [facility], [address] [place] [address], [address], [place], [address], 4 11:49:10 lisinopril 20 mg tablet 2023 024 [facility], [address] [place] [address], [address], [place], [address], 4 11:49:07 Patient TargetsNo targets recorded. Patient InstructionsNo instructions recorded. Reason for Referral Orthopedic Surgeon Referral for Pain of right knee joint [facility] [place] jacob barry Referring Physician: Melonie Maxwell, Family Medicine, Encounter Date: 05/22/2025 paperwork sent- spoke with Everett Velasquez Referring Physician: Melonie Maxwell, Family Medicine, Encounter Date: 06/04/2025 Results Created Date Observation Date Name Description Value Unit Range Abnormal Flag Note LastModifiedBy Organization Detail LastModifiedTime 05/22/2005/23/2025 TSH+F REE T4 TSH 2.170 uIU/m L 0.450- 4.500 normal Not Available [facility] ([facility]) [address] [place], [address], 05/23/2025 10:07:45 05/22/20 25 05/23/2025 TSH+F REE T4 T4,free(dire ct) 1.08 NG/dL 0.82-1 .77 normal Not Available [facility] ([facility]) [address] [place], [address], 05/23/2025 10:07:45 05/22/20 25 05/23/2025 CBC WITH DIFFE RENTI AL/PL ATELE T WBC 4.7 x10e3 /uL 3.4-10 .8 normal Not Available [facility] ([facility]) [address] [place], [address], 05/23/2025 10:07:45 05/22/20 25 05/23/2025 CBC WITH DIFFE RENTI AL/PL ATELE T RBC 4.34 x10e6 /uL 3.77-5 .28 normal Not Available [facility] ([facility]) [address] [place], [address], 05/23/2025 10:07:45 05/22/20 25 05/23/2025 CBC WITH DIFFE RENTI AL/PL ATELE T hemoglobin 12.9 g/dL 11.1-1 5.9 normal Not Available [facility] ([facility]) [address] [place], [address], 05/23/2025 10:07:45 05/22/20 25 05/23/2025 CBC WITH DIFFE RENTI AL/PL ATELE T hematocrit 40.6 % 34.0-4 6.6 normal Not Available [facility] ([facility]) [address] [place], [address], 05/23/2025 10:07:45 05/22/20 25 05/23/2025 CBC WITH DIFFE RENTI AL/PL ATELE T MCV 94 fL 79-97 normal Not Available [facility] ([facility]) [address] [place], [address], 05/23/2025 10:07:45 05/22/20 25 05/23/2025 CBC WITH DIFFE RENTI AL/PL ATELE T MCH 29.7 pg 26.6-3 3.0 normal Not Available [facility] ([facility]) [address] [place], [address], 05/23/2025 10:07:45 05/22/20 25 05/23/2025 CBC WITH DIFFE RENTI AL/PL ATELE T MCHC 31.8 g/dL 31.5-3 5.7 normal Not Available [facility] ([facility]) [address], [place], [address], 05/23/2025 10:07:45 05/22/20 25 05/23/2025 CBC WITH DIFFE RENTI AL/PL ATELE T RDW 12.3 % 11.7-1 5.4 Not Available [facility] ([facility]) [address], [place], [address], 05/23/2025 10:07:45 05/22/20 25 05/23/2025 CBC WITH DIFFE RENTI AL/PL ATELE T platelets 190 x10e3 /uL 150-45 0 normal Not Available [facility] ([facility]) [address], [place], [address], 05/23/2025 10:07:45 05/22/20 25 05/23/2025 CBC WITH DIFFE RENTI AL/PL ATELE T neutrophils 56 % not estab. normal Not Available [facility] ([facility]) [address], [place], [address], 05/23/2025 10:07:45 05/22/20 25 05/23/2025 CBC WITH DIFFE RENTI AL/PL ATELE T lymphs 30 % not estab. normal Not Available [facility] ([facility]) [address], [place], [address], 05/23/2025 10:07:45 05/22/20 25 05/23/2025 CBC WITH DIFFE RENTI AL/PL ATELE T monocytes 10 % not estab. normal Not Available [facility] ([facility]) [address], [place], [address], 05/23/2025 10:07:45 05/22/20 25 05/23/2025 CBC WITH DIFFE RENTI AL/PL ATELE T eos 3 % not estab. normal Not Available [facility] ([facility]) [address], [place], [address], 05/23/2025 10:07:45 05/22/20 25 05/23/2025 CBC WITH DIFFE RENTI AL/PL ATELE T basos 1 % not estab. normal Not Available [facility] ([facility]) [address], [place], [address], 05/23/2025 10:07:45 05/22/20 25 05/23/2025 CBC WITH DIFFE RENTI AL/PL ATELE T immature cells MAGAZINE FEEDER Not Available [facility] ([facility]) [address], [place], [address], 05/23/2025 10:07:45 05/22/20 25 05/23/2025 CBC WITH DIFFE RENTI AL/PL ATELE T neutrophils (absolute) 2.7 x10e3 /uL 1.4-7. 0 normal Not Available [facility] ([facility]) [address] [place], [address], 05/23/2025 10:07:45 05/22/20 25 05/23/2025 CBC WITH DIFFE RENTI AL/PL ATELE T lymphs (absolute) 1.4 x10e3 /uL 0.7-3. 1 normal Not Available [facility] ([facility]) [address] [place], [address], 05/23/2025 10:07:45 05/22/20 25 05/23/2025 CBC WITH DIFFE RENTI AL/PL ATELE T monocytes(ab solute) 0.5 x10e3 /uL 0.1-0. 9 normal Not Available [facility] ([facility]) [address] [place], [address], 05/23/2025 10:07:45 05/22/20 25 05/23/2025 CBC WITH DIFFE RENTI AL/PL ATELE T eos (absolute) 0.1 x10e3 /uL 0.0-0. 4 normal Not Available [facility] ([facility]) [address], [place], [address], 05/23/2025 10:07:45 05/22/20 25 05/23/2025 CBC WITH DIFFE RENTI AL/PL ATELE T baso (absolute) 0.0 x10e3 /uL 0.0-0. 2 normal Not Available [facility] ([facility]) [address], [place], [address], 05/23/2025 10:07:45 05/22/20 25 05/23/2025 CBC WITH DIFFE RENTI AL/PL ATELE T immature granulocytes 0 % not estab. Not Available [facility] ([facility]) [address], [place], [address], 05/23/2025 10:07:45 05/22/20 25 05/23/2025 CBC WITH DIFFE RENTI AL/PL ATELE T immature grans (abs) 0.0 x10e3 /uL 0.0-0. 1 Not Available [facility] ([facility]) [address], [place], [address], 05/23/2025 10:07:45 05/22/20 25 05/23/2025 CBC WITH DIFFE RENTI AL/PL ATELE T NRBC MAGAZINE FEEDER Not Available [facility] ([facility]) [address], [place], [address], 05/23/2025 10:07:45 05/22/20 25 05/23/2025 CBC WITH DIFFE RENTI AL/PL ATELE T hematology comments: MAGAZINE FEEDER Not Available [facility] ([facility]) [address], [place], [address], 05/23/2025 10:07:45 05/22/20 25 05/23/2025 COMP. METAB OLIC PANEL (14) glucose 97 mg/dL 70-99 normal Not Available [facility] ([facility]) [address] [place], [address], 05/23/2025 10:07:46 05/22/20 25 05/23/2025 COMP. METAB OLIC PANEL (14) BUN 25 mg/dL 8-27 normal Not Available [facility] ([facility]) [address] [place], [address], 05/23/2025 10:07:46 05/22/20 25 05/23/2025 COMP. METAB OLIC PANEL (14) creatinine 1.34 mg/dL 0.57-1 .00 above high normal Not Available [facility] ([facility]) [address] [place], [address], 05/23/2025 10:07:46 05/22/20 25 05/23/2025 COMP. METAB OLIC PANEL (14) eGFR 38 mL/mi n/1.7 3 >59 below low normal Not Available [facility] ([facility]) [address], [place], [address], 05/23/2025 10:07:46 05/22/20 25 05/23/2025 COMP. METAB OLIC PANEL (14) BUN/creatini ne ratio 19 12-28 normal Not Available [facility] ([facility]) [address] [place], [address], 05/23/2025 10:07:46 05/22/20 25 05/23/2025 COMP. METAB OLIC PANEL (14) sodium 143 mmol/ L 134-14 4 normal Not Available [facility] ([facility]) [address] [place], [address], 05/23/2025 10:07:46 05/22/20 25 05/23/2025 COMP. METAB OLIC PANEL (14) potassium 4.4 mmol/ L 3.5-5. 2 normal Not Available [facility] ([facility]) [address] [place], [address], 05/23/2025 10:07:46 05/22/20 25 05/23/2025 COMP. METAB OLIC PANEL (14) chloride 106 mmol/ L 96-106 normal Not Available [facility] ([facility]) [address] [place], [address], 05/23/2025 10:07:46 05/22/20 25 05/23/2025 COMP. METAB OLIC PANEL (14) carbon dioxide, total 22 mmol/ L 20-29 normal Not Available [facility] ([facility]) [address] [place], [address], 05/23/2025 10:07:46 05/22/20 25 05/23/2025 COMP. METAB OLIC PANEL (14) calcium 10.3 mg/dL 8.7-10 .3 normal Not Available [facility] ([facility]) [address] [place], [address], 05/23/2025 10:07:46 05/22/20 25 05/23/2025 COMP. METAB OLIC PANEL (14) protein, total 6.9 g/dL 6.0-8. 5 normal Not Available [facility] ([facility]) [address] [place], [address], 05/23/2025 10:07:46 05/22/20 25 05/23/2025 COMP. METAB OLIC PANEL (14) albumin 4.4 g/dL 3.7-4. 7 normal Not Available [facility] ([facility]) [address] [place], [address], 05/23/2025 10:07:46 05/22/20 25 05/23/2025 COMP. METAB OLIC PANEL (14) globulin, total 2.5 g/dL 1.5-4. 5 Not Available [facility] ([facility]) [address] [place], [address], 05/23/2025 10:07:46 05/22/20 25 05/23/2025 COMP. METAB OLIC PANEL (14) bilirubin, total 1.0 mg/dL 0.0-1. 2 normal Not Available [facility] ([facility]) [address] [place], [address], 05/23/2025 10:07:46 05/22/20 25 05/23/2025 COMP. METAB OLIC PANEL (14) alkaline phosphatase 77 IU/L 44-121 normal Not Available [facility] ([facility]) [address] [place], [address], 05/23/2025 10:07:46 05/22/20 25 05/23/2025 COMP. METAB OLIC PANEL (14) AST (SGOT) 17 IU/L 0-40 normal Not Available [facility] ([facility]) [address] [place], [address], 05/23/2025 10:07:46 05/22/20 25 05/23/2025 COMP. METAB OLIC PANEL (14) ALT (SGPT) 13 IU/L 0-32 normal Not Available [facility] ([facility]) [address] [place], [address], 05/23/2025 10:07:46 05/22/20 25 05/23/2025 LIPID PANEL cholesterol, total 112 mg/dL 100-19 9 normal Not Available [facility] ([facility]) [address] [place], [address], 05/23/2025 10:07:46 05/22/20 25 05/23/2025 LIPID PANEL triglyceride s 157 mg/dL 0-149 above high normal Not Available [facility] ([facility]) [address] [place], [address], 05/23/2025 10:07:46 05/22/20 25 05/23/2025 LIPID PANEL HDL cholesterol 43 mg/dL >39 normal Not Available [facility] ([facility]) [address], [place], [address], 05/23/2025 10:07:46 05/22/20 25 05/23/2025 LIPID PANEL VLDL cholesterol radha 26 mg/dL 5-40 Not Available [facility] ([facility]) [address], [place], [address], 05/23/2025 10:07:46 05/22/20 25 05/23/2025 LIPID PANEL LDL chol calc ([facility]) 43 mg/dL 0-99 Not Available [facility] ([facility]) [address], [place], [address], 05/23/2025 10:07:46 05/22/20 25 05/23/2025 LIPID PANEL LDL calc comment: MAGAZINE FEEDER Not Available [facility] ([facility]) [address], [place], [address], 05/23/2025 10:07:46 05/22/20 25 05/23/2025 HEMOG LOBIN A1C hemoglobin A1C 6.1 % 4.8-5. 6 above high normal Predi abete s: 5.7 - 6.4 Diabe fransisco: >6.4 Glyce erin contr ol for adult s with diabe fransisco: <7.0 Not Available [facility] ([facility]) [address], [place], [address], 05/23/2025 10:07:47 06/10/20 24 06/10/2024 XR, knee, 1 or 2 view [facility] [address], [place], [address], 06/12/2024 13:09:26 06/18/20 24 06/16/2024 US, doppl er echoc ardio gram No observ ation record ed. [facility] [address], [place], [address], 06/21/2024 22:16:20 11/21/20 24 11/21/2024 XR, knee, 3 view No observ ation record ed. [facility] [address], [place], [place], [address], 11/23/2024 08:42:07 05/22/20 25 05/22/2025 US, duple x, venou s, lower extre mity, unila teral No observ ation record ed. [facility] [address], [place], [address], 05/22/2025 13:09:41 05/24/20 25 05/22/2025 CT, venog pedrito, lower extre mity, w/ contr ast No observ ation [facility] ed. [facility] [address], [place], [place], [address], 05/28/2025 08:27:42 Result Notes None recorded. Problems Name Problem SNOMED Code Status Onset Date Resolution Date Notes Provider Name and Address Organization Details Recorded Time Hypertensi ve disorder 71785690 Active Loni Abdi null, [place] - [facility] 2 11:10:47 Atrial fibrillati on 52621779 Active pace maker recently placed Loni [place], [place] - [facility] 2 11:11:08 Hyperlipid emia 95715859 Active Loni Abdi null, [place] - [facility] 2 11:12:02 Gastroesop hageal reflux disease 998608882 Active Loni Abdi null, [place] - [facility] 2 11:12:35 Problem Notes None recorded. Procedures Surgical History Date Name Laterality Status Provider Name and Address Organization Details Recorded Time 06/04/20 25 Medication Reconcilliation completed Loni Abdi [place] - [facility] 06/04/2025 13:08:45 05/24/20 23 Medication Reconcilliation completed Loni Abdi [place] - [...] Name and Address Organization Details Recorded Time 106191 Zithromax medicatio n rash moderate high 07/02/202219637 4 RxNorm [place] [facility] - [facility] 2 10:04:38 380983 Substance with sulfonami de structure and antibacte rial mechanism of action (substanc e) medicatio n rash moderate high 07/02/2022 07679 8003 SNOMED [place] [facility] - [facility] 2 10:04:55 Medications Name Sig [...] and Address Organization Details Last Updated DateTime 160.02 cm 28.4 kg/m2 57289.4 8 g 98.7 [degF] 67 /min 98 % 98 % 18 /min 130/78 mm[Hg] Loni Abdi [place] - [facility] 4 10:48:01 Date Recorded Body height Body mass index (BMI) Body weight Body temperature Heart rate Oxygen saturation Oxygen saturation in Arterial blood by Pulse oximetry Respiratory rate Systolic And Diastolic Provider Name and Address Organization Details Last Updated DateTime 4 160.02 cm 28.2 kg/m2 92888.2 9 g 98 [degF] 70 /min 97 % 97 % 18 /min 130/80 mm[Hg] Loni Abdi [place] - [facility] 4 11:14:58 Date Recorded Body height Body mass index (BMI) Body weight Heart rate Oxygen saturation Oxygen saturation in Arterial blood by Pulse oximetry Respiratory rate Systolic And Diastolic Provider Name and Address Organization Details Last Updated DateTime 5 160.02 cm 28.9 kg/m2 51162.5 6 g 70 /min 97 % 97 % 20 /min 150/84 mm[Hg] Loni Abdi [place] - [facility] 5 08:49:50 Date Recorded Body height Body mass index (BMI) Body weight Body temperature Heart rate Oxygen saturation Oxygen saturation in Arterial blood by Pulse oximetry Respiratory rate Systolic And Diastolic Provider Name and Address Organization Details Last Updated DateTime 5 160.02 cm 29.1 kg/m2 44823.8 5 g 97.6 [degF] 76 /min 99 % 99 % 20 /min 138/72 mm[Hg] Loni Abdi [place] - [facility] 5 13:16:31 Date Recorded Body height Body mass index (BMI) Body weight Body temperature Heart rate Oxygen saturation Oxygen saturation in Arterial blood by Pulse oximetry Respiratory rate Systolic And Diastolic Provider Name and Address Organization Details Last Updated DateTime 4 160.02 cm 28.4 kg/m2 52384.4 8 g 98 [degF] 70 /min 96 % 96 % 18 /min 138/82 mm[Hg] Loni Abdi [place] - [facility] 4 09:32:19 Social History Question Answer Notes LastModified by Organizat ion Details LastModified Time Tobacco Smoking Status Never Smoker Loni lantigua [place] - [facility] 07/02/2022 11:14:52 Are You [...] Time Influenza, adjuvanted, trivalent, PF 08/18/2024 completed Lonielliott Abdi null, [place] - [facility] 11/07/2024 09:26:17 [...] mcg/0.25mL dose 09/26/2021 completed Loni Abdi null, [place] - [facility] 12/28/2022 08:37:00 COVID-19, mRNA, LNP-S, bivalent, PF, 50 mcg/0.5 mL or 25mcg/0.25 mL dose 11/25/2022 completed Loni Abdi [place], [place] - [facility] 12/28/2022 08:37:00 Influenza, high-dose, trivalent, PF 10/02/2016 completed Loni Abdi [place], [place] - [facility] 12/28/2022 08:37:00 Influenza, adjuvanted, quadrivalent, PF 08/17/2023 completed Loni Abdi null, [facility] 03/13/2024 10:48:19 Past Encounters Encounter ID Performer Location Encounter Start Date Encounter Closed Date Diagnosis/Indication Diagnosis SNOMED-CT Code Diagnosis ICD10 Code Diagnosis Note [id number] Melonie Maxwell [address] [address] 07/02/2022 10:43:33 07/02/2022 12:09:02 Atrial fibrillation 41091398 I48.91 labs, talked with claudia he recommends follow up with him today and hold xarelto [id number] Melonie Maxwell [address] [address] 07/30/2022 09:54:58 07/30/2022 10:45:20 Hypertensive disorder 15675460 I10 spoke with javier orr pa informed him of htn and palpitatio ns he recommends a extra metoprolol 50 mg at lunch every day and keep track of bp call for any concerns. Atrial fibrillation 4943 6004 I48.91 continue xarelto, add metoprolol and keep log- follow up with cardiology [id number] Melonie Maxwell [address] [address] 12/28/2022 08:23:03 12/28/2022 09:14:31 Hypertensive disorder 96066117 I10 Atrial fibrillation 4943 6004 I48.91 follow up with cardiology Hyperlipidemia 31305445 E78.5 Gastroesop hageal reflux disease 326558767 K21.9 [id number] Melonie Maxwell [address] [address] 03/23/2023 09:46:22 03/23/2023 11:31:37 Atrial fibrillation 11041905 I48.91 follow up with cardiology Pain of le ft hip joint 4408186710 52982 M25.552 looking for a spontaneou s fracture that was not detected on xray. hip is rotated Pain provo ked by walking 116259142 R52 Hip joint effusion 43468 9000 M25.037 [id number] Melonie Maxwell [address] [address] 05/24/2023 10:48:00 05/24/2023 14:21:45 Atrial fibrillation with rapid ventricular response 2072985126 94899 I48.91 spoke with beltran pt does not want to go straight to ed-he wants pt to take a extra cardizem and metoprolol and wait 2 hours if improved he will see pt weds at 11 am.if worsening or no improvemen t sent to [facility] ed for admit.pt waited and returned after 2 hours and had repeat ekg- rate 129 afib/flutt er pt still c/o of tightness and stabbing, I recommende d ed and she agreed, she is going over daughter is driving pov, report called to ivett. [id number] Melonie Maxwell [address] [address] 07/27/2023 12:50:48 07/27/2023 13:50:32 Gastroesophageal reflux disease 830673922 K21.9 Hematoma of lower leg 44 3073401 S80.10XA spoke with claudia- he recommends venous dopplersen t for doppler at 145 [id number] Melonie Maxwell CHILD'S NURSE [address] [address] 03/13/2024 10:36:02 03/13/2024 11:48:46 Essential hypertension 89636718 I10 Hypertensive disorder 38 796546 I10 Gastroesop hageal reflux disease 813846586 K21.9 Pain of le ft shoulder joint 7998610615 7762705 M25.512 rotate heat and icetylenol as needed for pain [id number] Panreinaldo Maxwell [address] [address] 03/30/2024 10:54:34 03/30/2024 11:34:00 Cellulitis 998843657 L03.90 monitor for worsening of infectionr eturn if symptoms worsen or no improvemen t [id number] [facility] [address] [address] 11/07/2024 09:17:21 11/07/2024 10:02:24 Pain of right knee joint 4869340447 22815 M25.561 follow up with ortho- if worsen or no improvemen t return [id number] [facility] [address] [address] 05/22/2025 08:36:49 05/22/2025 09:37:35 Hypertensive disorder 88840968 I10 Hyperlipidemia 41868760 E78.5 Essential hypertension 74348294 I10 Atrial fibrillation 4943 6004 I48.91 follow up with cardiology Gastroesop hageal reflux disease 849551284 K21.9 Edema of l ower extremity 885486223 R60.0 Glucose le jin above reference range 50724641 R73.09 Pain of ri ght knee joint 9759034502 76224 M25.561 follow up with ortho- if worsen or no improvemen t return [id number] Melonie [address] [address] 06/04/2025 12:59:26 06/04/2025 14:06:02 Atrial fibrillation 80664687 I48.91 follow up with cardiology Health Concerns Section Related Observation LastModified by Organization Detai ls LastModified Time None Recorded Concern Status LastModified by Organization Details LastModified Time None Recorded Advance Directives Directive None Recorded Payers Insurance Date Sequence Insurance Name Policy Number Policy Taylor Covered Member ID Taylor Member ID Guarantor Name 06/01/2025 1 LUCIO (MEDICARE REPLACEMENT/A DVANTAGE - PPO) Cande Evangelista [id number] Cande Hinkley Notes Date Note Type Note Provider Name and Address Organization Details Recorded Time 03/13/2024 text/html 88 yr old female presents for bilateral arm pain x 2-3 weeks. left shoulder worse than rt. 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 Melonie Maxwell APRN [address], [place], [address], [place] [facility] 03/13/2024 11:49:59 03/30/2024 text/html 88 yr old female presents for left middle finger pain/redness/swelling x 1 week. pt states the redness and swelling has increased the past couple days. eMlonie Maxwell APRN [address], [place], [address], [place] [facility] 03/30/2024 13:41:16 11/07/2024 text/html 89 yr old female presents for right knee pain and swelling. has appointment 11/[address] dillon, pt states knee has always hurt but since sat her pain and swelling has increased Melonie Maxwell APRN [address], [place], [address], [place] [facility] 11/07/2024 10:04:08 05/22/2025 text/html 89 yr old female presents for a follow up on hypertension and med refills. She also has right knee pain and lower leg swelling since sat. Melonie Maxwell APRN [address], [place], [address], [place] [facility] 05/22/2025 09:40:08 06/04/2025 text/html 89 yr old female presents to follow up after having a blood clot removal procedure to left leg on 05/22. wants to discuss Dr Conway recommendations Melonie Maxwell APRN [address], [place], [address], [place] [facility] 06/04/2025 16:14:52 OBGyn Episode No OBEpisode recorded.
[2025-06-08 14:24] LABS: PHA INR Fingerstick 3.8 (0.9-1.1)
== END 2025-06-08 14:38 ==
LOC: ACC 10:22
PROVIDERS: PCP Nurse Practitioner Family; Visit Provider Nurse Practitioner Family
DX: I48.91 Unspecified atrial fibrillation (principal)
CPT/HCPCS: 85610; G0463

== ENCOUNTER 2025-06-13 08:35 | Outpatient (CLI) | payer MEDICARE, SELFPAY ==
--- OUTSIDE RECORDS SUMMARY | 2025-06-13 08:38 | XMS_ITS | Continuity of Care Document ---
Author Organization [place] - [facility] Address [address] [place] [address] Care Team Providers Care [employer] Name Role Phone MELONIE BARKLEY Referring Provider [...] sent- spoke with Stepan Velasquez 2024 025 [facility], [address], [place], [address], 10:31:00 Procedures None recorded. Surgeries None recorded. [...] L 0.450- 4.500 normal Not Available [facility] ([facility]) [address] [place], [address], 05/23/2025 10:07:45 05/22/20 25 05/23/2025 TSH+F REE T4 T4,free(dire ct) 1.08 NG/dL 0.82-1 .77 normal Not Available [facility] ([facility]) [address] [place], [address], 05/23/2025 10:07:45 05/22/20 25 05/23/2025 CBC WITH DIFFE RENTI AL/PL ATELE T WBC 4.7 x10e3 /uL 3.4-10 .8 normal Not Available [facility] ([facility]) [address] [facility], [place], [address], 05/23/2025 10:07:45 05/22/20 25 05/23/2025 CBC WITH DIFFE RENTI AL/PL ATELE T RBC 4.34 x10e6 /uL 3.77-5 .28 normal Not Available [facility] ([facility]) [address] [place], [address], 05/23/2025 10:07:45 05/22/20 25 05/23/2025 CBC WITH DIFFE RENTI AL/PL ATELE T hemoglobin 12.9 g/dL 11.1-1 5.9 normal Not Available [facility] ([facility]) [address] [place], [address], 05/23/2025 10:07:45 05/22/20 25 05/23/2025 CBC WITH DIFFE RENTI AL/PL ATELE T hematocrit 40.6 % 34.0-4 6.6 normal Not Available [facility] ([facility]) [address] [place], [address], 05/23/2025 10:07:45 05/22/20 25 05/23/2025 CBC WITH DIFFE RENTI AL/PL ATELE T MCV 94 fL 79-97 normal Not Available [facility] ([facility]) [address] [place], [address], 05/23/2025 10:07:45 05/22/20 25 05/23/2025 CBC WITH DIFFE RENTI AL/PL ATELE T MCH 29.7 pg 26.6-3 3.0 normal Not Available [facility] ([facility]) [address] [place], [address], 05/23/2025 10:07:45 05/22/20 25 05/23/2025 CBC WITH DIFFE RENTI AL/PL ATELE T MCHC 31.8 g/dL 31.5-3 5.7 normal Not Available [facility] ([facility]) [address] [place], [address], 05/23/2025 10:07:45 05/22/20 25 05/23/2025 CBC WITH DIFFE RENTI AL/PL ATELE T RDW 12.3 % 11.7-1 5.4 Not Available [facility] ([facility]) [address] [place], [address], 05/23/2025 10:07:45 05/22/20 25 05/23/2025 CBC WITH DIFFE RENTI AL/PL ATELE T platelets 190 x10e3 /uL 150-45 0 normal Not Available [facility] ([facility]) [address] [place], [address], 05/23/2025 10:07:45 05/22/20 25 05/23/2025 CBC WITH DIFFE RENTI AL/PL ATELE T neutrophils 56 % not estab. normal Not Available [facility] ([facility]) [address] [place], [address], 05/23/2025 10:07:45 05/22/20 25 05/23/2025 CBC WITH DIFFE RENTI AL/PL ATELE T lymphs 30 % not estab. normal Not Available [facility] ([facility]) [address] [facility], [place], [address], 05/23/2025 10:07:45 05/22/20 25 05/23/2025 CBC WITH DIFFE RENTI AL/PL ATELE T monocytes 10 % not estab. normal Not Available [facility] ([facility]) [address] [facility], [place], [address], 05/23/2025 10:07:45 05/22/20 25 05/23/2025 CBC WITH DIFFE RENTI AL/PL ATELE T eos 3 % not estab. normal Not Available [facility] ([facility]) [address] [facility], [place], [address], 05/23/2025 10:07:45 05/22/20 25 05/23/2025 CBC WITH DIFFE RENTI AL/PL ATELE T basos 1 % not estab. normal Not Available [facility] ([facility]) [address] [place], [address], 05/23/2025 10:07:45 05/22/20 25 05/23/2025 CBC WITH DIFFE RENTI AL/PL ATELE T immature cells TICK ERADICATOR Not Available [facility] ([facility]) [address] [place], [address], 05/23/2025 10:07:45 05/22/20 25 05/23/2025 CBC WITH DIFFE RENTI AL/PL ATELE T neutrophils (absolute) 2.7 x10e3 /uL 1.4-7. 0 normal Not Available [facility] ([facility]) [address] [place], [address], 05/23/2025 10:07:45 05/22/20 25 05/23/2025 CBC WITH DIFFE RENTI AL/PL ATELE T lymphs (absolute) 1.4 x10e3 /uL 0.7-3. 1 normal Not Available [facility] ([facility]) [address] [facility], [place], [address], 05/23/2025 10:07:45 05/22/20 25 05/23/2025 CBC WITH DIFFE RENTI AL/PL ATELE T monocytes(ab solute) 0.5 x10e3 /uL 0.1-0. 9 normal Not Available [facility] ([facility]) [address] [facility], [place], [address], 05/23/2025 10:07:45 05/22/20 25 05/23/2025 CBC WITH DIFFE RENTI AL/PL ATELE T eos (absolute) 0.1 x10e3 /uL 0.0-0. 4 normal Not Available [facility] ([facility]) [address] [facility], [place], [address], 05/23/2025 10:07:45 05/22/20 25 05/23/2025 CBC WITH DIFFE RENTI AL/PL ATELE T baso (absolute) 0.0 x10e3 /uL 0.0-0. 2 normal Not Available [facility] ([facility]) [address] [facility], [place], [address], 05/23/2025 10:07:45 05/22/20 25 05/23/2025 CBC WITH DIFFE RENTI AL/PL ATELE T immature granulocytes 0 % not estab. Not Available [facility] ([facility]) [address] [facility], [place], [address], 05/23/2025 10:07:45 05/22/20 25 05/23/2025 CBC WITH DIFFE RENTI AL/PL ATELE T immature grans (abs) 0.0 x10e3 /uL 0.0-0. 1 Not Available [facility] ([facility]) [address] [facility], [place], [address], 05/23/2025 10:07:45 05/22/20 25 05/23/2025 CBC WITH DIFFE RENTI AL/PL ATELE T NRBC TICK ERADICATOR Not Available [facility] ([facility]) [address] [facility], [place], [address], 05/23/2025 10:07:45 05/22/20 25 05/23/2025 CBC WITH DIFFE RENTI AL/PL ATELE T hematology comments: TICK ERADICATOR Not Available [facility] ([facility]) [address] [facility], [place], [address], 05/23/2025 10:07:45 05/22/20 25 05/23/2025 COMP. METAB OLIC PANEL (14) glucose 97 mg/dL 70-99 normal Not Available [facility] ([facility]) [address] [facility] [place], [address], 05/23/2025 10:07:46 05/22/20 25 05/23/2025 COMP. METAB OLIC PANEL (14) BUN 25 mg/dL 8-27 normal Not Available [facility] ([facility]) [address] [facility], [place], [address], 05/23/2025 10:07:46 05/22/20 25 05/23/2025 COMP. METAB OLIC PANEL (14) creatinine 1.34 mg/dL 0.57-1 .00 above high normal Not Available [facility] ([facility]) [address] [facility] [place], [address], 05/23/2025 10:07:46 05/22/20 25 05/23/2025 COMP. METAB OLIC PANEL (14) eGFR 38 mL/mi n/1.7 3 >59 below low normal Not Available [facility] ([facility]) [address] [facility] [place], [address], 05/23/2025 10:07:46 05/22/20 25 05/23/2025 COMP. METAB OLIC PANEL (14) BUN/creatini ne ratio 19 12-28 normal Not Available [facility] ([facility]) [address] [facility] [place], [address], 05/23/2025 10:07:46 05/22/20 25 05/23/2025 COMP. METAB OLIC PANEL (14) sodium 143 mmol/ L 134-14 4 normal Not Available [facility] ([facility]) [address] [place], [address], 05/23/2025 10:07:46 05/22/20 25 05/23/2025 COMP. METAB OLIC PANEL (14) potassium 4.4 mmol/ L 3.5-5. 2 normal Not Available [facility] ([facility]) [address] [place], [address], 05/23/2025 10:07:46 05/22/20 25 05/23/2025 COMP. METAB OLIC PANEL (14) chloride 106 mmol/ L 96-106 normal Not Available [facility] ([facility]) [address] [facility] [place], [address], 05/23/2025 10:07:46 05/22/20 25 05/23/2025 COMP. METAB OLIC PANEL (14) carbon dioxide, total 22 mmol/ L 20-29 normal Not Available [facility] ([facility]) [address] [facility] [place], [address], 05/23/2025 10:07:46 05/22/20 25 05/23/2025 COMP. METAB OLIC PANEL (14) calcium 10.3 mg/dL 8.7-10 .3 normal Not Available [facility] ([facility]) [address] [facility] [place], [address], 05/23/2025 10:07:46 05/22/20 25 05/23/2025 COMP. METAB OLIC PANEL (14) protein, total 6.9 g/dL 6.0-8. 5 normal Not Available [facility] ([facility]) [address] [facility] [place], [address], 05/23/2025 10:07:46 05/22/20 25 05/23/2025 COMP. METAB OLIC PANEL (14) albumin 4.4 g/dL 3.7-4. 7 normal Not Available [facility] ([facility]) [address] [facility] [place], [address], 05/23/2025 10:07:46 05/22/20 25 05/23/2025 COMP. METAB OLIC PANEL (14) globulin, total 2.5 g/dL 1.5-4. 5 Not Available [facility] ([facility]) [address] [facility] [place], [address], 05/23/2025 10:07:46 05/22/20 25 05/23/2025 COMP. METAB OLIC PANEL (14) bilirubin, total 1.0 mg/dL 0.0-1. 2 normal Not Available [facility] ([facility]) [address] [facility] [place], [address], 05/23/2025 10:07:46 05/22/20 25 05/23/2025 COMP. METAB OLIC PANEL (14) alkaline phosphatase 77 IU/L 44-121 normal Not Available [facility] ([facility]) [address] [facility] [place], [address], 05/23/2025 10:07:46 05/22/20 25 05/23/2025 COMP. METAB OLIC PANEL (14) AST (SGOT) 17 IU/L 0-40 normal Not Available [facility] ([facility]) [address] [facility] [place], [address], 05/23/2025 10:07:46 05/22/20 25 05/23/2025 COMP. METAB OLIC PANEL (14) ALT (SGPT) 13 IU/L 0-32 normal Not Available [facility] ([facility]) [address] [facility] [place], [address], 05/23/2025 10:07:46 05/22/20 25 05/23/2025 LIPID PANEL cholesterol, total 112 mg/dL 100-19 9 normal Not Available [facility] ([facility]) [address] [place], [address], 05/23/2025 10:07:46 05/22/20 25 05/23/2025 LIPID PANEL triglyceride s 157 mg/dL 0-149 above high normal Not Available [facility] ([facility]) [address] [place], [address], 05/23/2025 10:07:46 05/22/20 25 05/23/2025 LIPID PANEL HDL cholesterol 43 mg/dL >39 normal Not Available [facility] ([facility]) [address] [place], [address], 05/23/2025 10:07:46 05/22/20 25 05/23/2025 LIPID PANEL VLDL cholesterol radha 26 mg/dL 5-40 Not Available [facility] ([facility]) [address] [place], [address], 05/23/2025 10:07:46 05/22/20 25 05/23/2025 LIPID PANEL LDL [facility] 43 mg/dL 0-99 Not Available [facility] ([facility]) [address] [place], [address], 05/23/2025 10:07:46 05/22/20 25 05/23/2025 LIPID PANEL LDL calc comment: TICK ERADICATOR Not Available [facility] ([facility]) [address] [place], [address], 05/23/2025 10:07:46 05/22/20 25 05/23/2025 HEMOG LOBIN A1C hemoglobin A1C 6.1 % 4.8-5. 6 above high normal Predi abete s: 5.7 - 6.4 Diabe [place]: >6.4 Glyce erin contr ol for adult s with diabe [place]: <7.0 Not Available [facility] ([facility]) [address], [place], [address], 05/23/2025 10:07:47 05/22/20 25 05/22/2025 US, duple x, venou s, lower extre mity, unila teral No observ ation record ed[facility] [address], [place], [address], 05/22/2025 13:09:41 05/24/20 25 05/22/2025 CT, venog pedrito, lower extre mity, w/ contr ast No observ ation record ed. [facility] [address], [place], [place], [address], 05/28/2025 08:27:42 Result Notes None recorded. Problems Name Problem SNOMED Code Status Onset Date Resolution Date Notes Provider Name and Address Organization Details Recorded Time Hypertensi ve disorder 74288770 Active Loni Abdi null, [place] - [facility] 11:10:47 Atrial fibrillati on 79360009 Active pace maker recently placed Loni Abdi [place] [facility] 11:11:08 Hyperlipid emia 60019847 Active [place] [facility] 11:12:02 Gastroesop hageal reflux disease 529630466 Active Loni Ab[place] [facility] 11:12:35 Problem Notes None recorded. Procedures Surgical History Date Name Laterality Status Provider Name and Address Organization Details Recorded Time 06/04/20 Medication Reconcilliation completed Loni Abdi [place] [facility] 06/04/2025 13:08:45 05/24/20 Medication Reconcilliation completed Loni Abdi [place] [...] 13291124 Zithromax medicatio n rash moderate high 07/02/2022 77840 4 RxNorm Loni [place]antig[place], [place] - [facility] 2 10:04:38 647887 Substance with sulfonami de structure and antibacte rial mechanism of action (substanc e) medicatio n rash moderate high 07/02/2022 57851 8003 SNOMED Loni [place]ig[place], [place] - [facility] [...] ORAL ROUTE. 05/24 completed failed xalrelto - claudia d dvt, started eliquis Not Available Not [...] Arterial blood by Pulse oximetry Respiratory rate Pain severity - 0-10 verbal numeric rating [Score] - Reported Systolic And Diastolic Provider Name and Address Organization Details Last Updated DateTime 160.02 cm 29.1 kg/m2 71249.8 5 g 97.6 [degF] 76 /min 99 % 99 % 20 /min 0 138/72 mm[Hg] Loni Abdi [place] - [facility] 13:16:31 Social History Question Answer Notes LastModified by [employer] ion Details LastModified Time Tobacco Smoking Status [...] 01/31/2021 completed L[place] Abdi null, [place] - [facility] 12/28/2022 08:37:00 COVID-19, mRNA, LNP-S, PF, 100 mcg/0.5mL dose or 50 mcg/0.25mL dose 09/26/2021 completed Loni Abdi null, [facility] 12/28/2022 08:37:00 COVID-19, mRNA, LNP-S, bivalent, PF, 50 mcg/0.5 mL or 25mcg/0.25 mL dose 11/25/2022 completed Loni Abdi null, [facility] 12/28/2022 08:37:00 Influenza, high-dose, trivalent, PF 10/02/2016 completed Loni Abdi grzegorz, [facility] 12/28/2022 08:37:00 Influenza, adjuvanted, quadrivalent, PF 08/17/2023 completed Loni Abdi grzegorz, [facility] 03/13/2024 10:48:19 Past Encounters Encounter ID Performer Location Encounter Start Date Encounter Closed Date Diagnosis/Indication Diagnosis SNOMED-CT Code Diagnosis ICD10 Code Diagnosis Note [id number] Melonie Barkley APRN [address] [address] 05/22/2025 08:36:49 05/22/2025 09:37:35 Hypertensive disorder 80350078 I10 Hyperlipidemia 79239944 E78.5 Essential hypertension 39191680 I10 Atrial fibrillation 4943 6004 I48.91 follow up with cardiology Gastroesop hageal reflux disease 657245075 K21.9 Edema of l ower extremity 197211469 R60.0 Glucose le jin above reference range 73223635 R73.09 Pain of ri ght knee joint 7515810445 35451 M25.561 follow up with ortho- if worsen or no improvemen t return [id number] Melonie Barkley APRN [address] [address] 06/04/2025 12:59:26 06/04/2025 14:06:02 Atrial fibrillation 81710581 I48.91 follow up with cardiology Health Concerns Section Related Observation LastModified by Organization Detai ls LastModified Time None Recorded Concern Status LastModified by Organization Details LastModified Time None Recorded Payers Encounter Date Sequence Insurance Name Policy Number Policy Taylor Covered Member ID Taylor Member ID Guarantor Name 06/04/2025 1 [employer] (MEDICARE REPLACEMENT/A DVANTAGE - PPO) Cande Evangelista [id number] Cande Evangelista Notes Date Note Type Note Provider Name and Address Organization Details Recorded Time 06/04/2025 text/html Emergency Depart ment Follow-Up RecordReported by Patient 89 yr old female presents to follow up after having a blood clot removal procedure to left leg on 05/22. wants to discuss Dr Conway recommendations Melonie Barkley, VP [employer] [address], [place], [address], [place] [facility] 06/04/2025 16:14:52 OBGyn Episode No OBEpisode recorded.
--- OUTSIDE RECORDS SUMMARY | 2025-06-13 08:38 | XMS_ITS | Continuity of Care Document ---
Author Organization [place] Margaux Murray [facility] Address [address] [place] [address] Care Team Providers Care Eeg Technician Name Role Phone MELONIE BARKLEY Referring Provider Unavailable ISHA TSAI Referring Provider Assessment No assessment recorded. Plan of Treatment Reminders Order Date Submit Date Provider Last Modified By Organization Details Last Modified Time Details Appointments None recorded. Lab HbA1c (hemoglobin A1c), blood 2024 025 MELANIE [facility], [address], [place] [address], [place], [address], 5 10:07:47 lipid panel, serum 2024 025 MELANIE [facility], [address], [address], [place], [address], 5 10:07:46 TSH + free T4, serum 2024 025 MELANIE [facility], [address], [place] [address], [place], [address], 5 10:07:45 CBC w/ auto diff 2024 025 MELANIE [facility], [address], [address], [place], [address], 5 10:07:45 CMP, serum or plasma 2024 025 MELANIE [facility], [address], [address], [place], [address], 10:07:46 Referral orthopedic surgeon referral - in ortho and spine in ace dr jacob barry 2024 025 [facility], [address], [address], [place], [address], 16:38:47 Procedures None recorded. Surgeries None recorded. Imaging US, duplex, venous, lower extremity, unilateral - right leg and foot 2024 025 [facility]), [address], [place], [address], 12:43:24 Medication Orders metoprolol succinate ER 50 mg tablet,exte nded release 24 hr 2024 025 [facility], [address], [address], [place], [address], 09:07:47 pantoprazol e 40 mg tablet,prabhu yed release 2024 025 [facility], [address], [address], [place], [address], 09:07:45 atorvastati n 40 mg tablet 2024 025 [facility], [address], [address], [place], [address], 5 09:07:42 Xarelto 20 mg tablet 2024 025 [facility], [address], [place], [address], 10:48:26 hydrochloro thiazide 25 mg tablet 2024 025 [facility], [address], [address], [place], [address], 5 09:07:44 lisinopril 20 mg tablet 2024 025 [facility], [address], [address], [place], [address], 09:07:41 Patient TargetsNo targets recorded. Patient InstructionsNo instructions recorded. Reason for Referral Orthopedic Surgeon Referral for Pain of right knee joint [place] [facility] in [facility] dr jacob barry Referring Physician: Melonie Barkley, Family Medicine, Encounter Date: 05/22/2025 Results Created Date Observation Date Name Description Value Unit Range Abnormal Flag Note LastModifiedBy Organization Detail LastModifiedTime 05/22/2005/23/2025 TSH+F REE T4 TSH 2.170 uIU/m L 0.450- 4.500 normal Not Available [facility] ([facility]) [address] [place], [address], 05/23/2025 10:07:45 05/22/20 25 05/23/2025 TSH+F REE T4 T4,free(dire ct) 1.08 NG/dL 0.82-1 .77 normal Not Available [facility] ([facility]) [address] [place], [address], 05/23/2025 10:07:45 05/22/20 25 05/23/2025 CBC WITH DIFFE RENTI AL/PL ATELE T WBC 4.7 x10e3 /uL 3.4-10 .8 normal Not Available [facility] ([facility]) [address] [place], [address], 05/23/2025 10:07:45 05/22/20 25 05/23/2025 CBC WITH DIFFE RENTI AL/PL ATELE T RBC 4.34 x10e6 /uL 3.77-5 .28 normal Not Available [facility] ([facility]) [address] [place], [address], 05/23/2025 10:07:45 05/22/20 25 05/23/2025 CBC WITH DIFFE RENTI AL/PL ATELE T hemoglobin 12.9 g/dL 11.1-1 5.9 normal Not Available [facility] ([facility]) [address], [place], [address], 05/23/2025 10:07:45 05/22/20 25 05/23/2025 CBC WITH DIFFE RENTI AL/PL ATELE T hematocrit 40.6 % 34.0-4 6.6 normal Not Available [facility] ([facility]) [address] [facility], [place], [address], 05/23/2025 10:07:45 05/22/2005/23/2025 CBC WITH DIFFE RENTI AL/PL ATELE T MCV 94 fL 79-97 normal Not Available [facility] ([facility]) [address] [place], [address], 05/23/2025 10:07:45 05/22/20 25 05/23/2025 CBC WITH DIFFE RENTI AL/PL ATELE T MCH 29.7 pg 26.6-3 3.0 normal Not Available [facility] ([facility]) [address] [place], [address], 05/23/2025 10:07:45 05/22/20 25 05/23/2025 CBC WITH DIFFE RENTI AL/PL ATELE T MCHC 31.8 g/dL 31.5-3 5.7 normal Not Available [facility] ([facility]) [address] [place], [address], 05/23/2025 10:07:45 05/22/20 25 05/23/2025 CBC WITH DIFFE RENTI AL/PL ATELE T RDW 12.3 % 11.7-1 5.4 Not Available [facility] ([facility]) [address] [place], [address], 05/23/2025 10:07:45 05/22/20 25 05/23/2025 CBC WITH DIFFE RENTI AL/PL ATELE T platelets 190 x10e3 /uL 150-45 0 normal Not Available [facility] ([facility]) [address] [facility], [place], [address], 05/23/2025 10:07:45 05/22/20 25 05/23/2025 CBC WITH DIFFE RENTI AL/PL ATELE T neutrophils 56 % not estab. normal Not Available [facility] ([facility]) [address], [place], [address], 05/23/2025 10:07:45 05/22/20 25 05/23/2025 CBC WITH DIFFE RENTI AL/PL ATELE T lymphs 30 % not estab. normal Not Available [facility] ([facility]) [address] [facility], [place], [address], 05/23/2025 10:07:45 05/22/20 25 05/23/2025 CBC WITH DIFFE RENTI AL/PL ATELE T monocytes 10 % not estab. normal Not Available [facility] ([facility]) [address] [facility], [place], [address], 05/23/2025 10:07:45 05/22/20 25 05/23/2025 CBC WITH DIFFE RENTI AL/PL ATELE T eos 3 % not estab. normal Not Available [facility] ([facility]) [address] [facility], [place], [address], 05/23/2025 10:07:45 05/22/20 25 05/23/2025 CBC WITH DIFFE RENTI AL/PL ATELE T basos 1 % not estab. normal Not Available [facility] ([facility]) [address] [facility], [place], [address], 05/23/2025 10:07:45 05/22/20 25 05/23/2025 CBC WITH DIFFE RENTI AL/PL ATELE T immature cells ORE CRUSHING DUST COLLECTOR Not Available [facility] ([facility]) [address], [place], [address], 05/23/2025 10:07:45 05/22/20 25 05/23/2025 CBC WITH DIFFE RENTI AL/PL ATELE T neutrophils (absolute) 2.7 x10e3 /uL 1.4-7. 0 normal Not Available [facility] ([facility]) [address] [place], [address], 05/23/2025 10:07:45 05/22/20 25 05/23/2025 CBC WITH DIFFE RENTI AL/PL ATELE T lymphs (absolute) 1.4 x10e3 /uL 0.7-3. 1 normal Not Available [facility] ([facility]) [address] [facility], [place], [address], 05/23/2025 10:07:45 05/22/20 25 05/23/2025 CBC WITH DIFFE RENTI AL/PL ATELE T monocytes(ab solute) 0.5 x10e3 /uL 0.1-0. 9 normal Not Available [facility] ([facility]) [address] [place], [address], 05/23/2025 10:07:45 05/22/20 25 05/23/2025 CBC WITH DIFFE RENTI AL/PL ATELE T eos (absolute) 0.1 x10e3 /uL 0.0-0. 4 normal Not Available [facility] ([facility]) [address] [place], [address], 05/23/2025 10:07:45 05/22/20 25 05/23/2025 CBC WITH DIFFE RENTI AL/PL ATELE T baso (absolute) 0.0 x10e3 /uL 0.0-0. 2 normal Not Available [facility] ([facility]) [address] [place], [address], 05/23/2025 10:07:45 05/22/20 25 05/23/2025 CBC WITH DIFFE RENTI AL/PL ATELE T immature granulocytes 0 % not estab. Not Available [facility] ([facility]) [address] [facility], [place], [address], 05/23/2025 10:07:45 05/22/20 25 05/23/2025 CBC WITH DIFFE RENTI AL/PL ATELE T immature grans (abs) 0.0 x10e3 /uL 0.0-0. 1 Not Available [facility] ([facility]) [address] [facility], [place], [address], 05/23/2025 10:07:45 05/22/20 25 05/23/2025 CBC WITH DIFFE RENTI AL/PL ATELE T NRBC ORE CRUSHING DUST COLLECTOR Not Available [facility] ([facility]) [address] [facility], [place], [address], 05/23/2025 10:07:45 05/22/20 25 05/23/2025 CBC WITH DIFFE RENTI AL/PL ATELE T hematology comments: ORE CRUSHING DUST COLLECTOR Not Available [facility] ([facility]) [address] [facility], [place], [address], 05/23/2025 10:07:45 05/22/20 25 05/23/2025 COMP. METAB OLIC PANEL (14) glucose 97 mg/dL 70-99 normal Not Available [facility] ([facility]) [address] [facility], [place], [address], 05/23/2025 10:07:46 05/22/20 25 05/23/2025 COMP. METAB OLIC PANEL (14) BUN 25 mg/dL 8-27 normal Not Available [facility] ([facility]) [address] [facility], [place], [address], 05/23/2025 10:07:46 05/22/20 25 05/23/2025 COMP. METAB OLIC PANEL (14) creatinine 1.34 mg/dL 0.57-1 .00 above high normal Not Available [facility] ([facility]) [address] [place], [address], 05/23/2025 10:07:46 05/22/20 25 05/23/2025 COMP. METAB OLIC PANEL (14) eGFR 38 mL/mi n/1.7 3 >59 below low normal Not Available [facility] ([facility]) [address] [place], [address], 05/23/2025 10:07:46 05/22/20 25 05/23/2025 COMP. METAB OLIC PANEL (14) BUN/creatini ne ratio 19 12-28 normal Not Available [facility] ([facility]) [address] [place], [address], 05/23/2025 10:07:46 05/22/20 25 05/23/2025 COMP. METAB OLIC PANEL (14) sodium 143 mmol/ L 134-14 4 normal Not Available [facility] ([facility]) [address] [place], [address], 05/23/2025 10:07:46 05/22/20 25 05/23/2025 COMP. METAB OLIC PANEL (14) potassium 4.4 mmol/ L 3.5-5. 2 normal Not Available [facility] ([facility]) [address] [place], [address], 05/23/2025 10:07:46 05/22/20 25 05/23/2025 COMP. METAB OLIC PANEL (14) chloride 106 mmol/ L 96-106 normal Not Available [facility] ([facility]) [address] [facility] [place], [address], 05/23/2025 10:07:46 05/22/20 25 05/23/2025 COMP. METAB OLIC PANEL (14) carbon dioxide, total 22 mmol/ L 20-29 normal Not Available [facility] ([facility]) [address] [place], [address], 05/23/2025 10:07:46 05/22/20 25 05/23/2025 COMP. METAB OLIC PANEL (14) calcium 10.3 mg/dL 8.7-10 .3 normal Not Available [facility] ([facility]) [address] [place], [address], 05/23/2025 10:07:46 05/22/20 25 05/23/2025 COMP. METAB OLIC PANEL (14) protein, total 6.9 g/dL 6.0-8. 5 normal Not Available [facility] ([facility]) [address] [place], [address], 05/23/2025 10:07:46 05/22/20 25 05/23/2025 COMP. METAB OLIC PANEL (14) albumin 4.4 g/dL 3.7-4. 7 normal Not Available [facility] ([facility]) [address] [place], [address], 05/23/2025 10:07:46 05/22/20 25 05/23/2025 COMP. METAB OLIC PANEL (14) globulin, total 2.5 g/dL 1.5-4. 5 Not Available [facility] ([facility]) [address] [place], [address], 05/23/2025 10:07:46 05/22/20 25 05/23/2025 COMP. METAB OLIC PANEL (14) bilirubin, total 1.0 mg/dL 0.0-1. 2 normal Not Available [facility] ([facility]) [address] [place], [address], 05/23/2025 10:07:46 05/22/20 25 05/23/2025 COMP. METAB OLIC PANEL (14) alkaline phosphatase 77 IU/L 44-121 normal Not Available [facility] ([facility]) [address] [place], [address], 05/23/2025 10:07:46 05/22/20 25 05/23/2025 COMP. METAB OLIC PANEL (14) AST (SGOT) 17 IU/L 0-40 normal Not Available [facility] ([facility]) [address] [place], [address], 05/23/2025 10:07:46 05/22/20 25 05/23/2025 COMP. METAB OLIC PANEL (14) ALT (SGPT) 13 IU/L 0-32 normal Not Available [facility] ([facility]) [address] [place], [address], 05/23/2025 10:07:46 05/22/20 25 05/23/2025 LIPID PANEL cholesterol, total 112 mg/dL 100-19 9 normal Not Available [facility] ([facility]) [address] [place], [address], 05/23/2025 10:07:46 05/22/20 25 05/23/2025 LIPID PANEL triglyceride s 157 mg/dL 0-149 above high normal Not Available [facility] ([facility]) [address] [place], [address], 05/23/2025 10:07:46 05/22/20 25 05/23/2025 LIPID PANEL HDL cholesterol 43 mg/dL >39 normal Not Available [facility] ([facility]) [address] [place], [address], 05/23/2025 10:07:46 05/22/20 25 05/23/2025 LIPID PANEL VLDL cholesterol radha 26 mg/dL 5-40 Not Available [facility] ([facility]) [address] [place], [address], 05/23/2025 10:07:46 05/22/20 25 05/23/2025 LIPID PANEL LDL chol calc ([facility]) 43 mg/dL 0-99 Not Available [facility] ([facility]) [address] [facility] [place], [address], 05/23/2025 10:07:46 05/22/20 25 05/23/2025 LIPID PANEL LDL calc comment: ORE CRUSHING DUST COLLECTOR Not Available [facility] ([facility]) [address] [facility], [place], [address], 05/23/2025 10:07:46 05/22/20 25 05/23/2025 HEMOG LOBIN A1C hemoglobin A1C 6.1 % 4.8-5. 6 above high normal Predi abete s: 5.7 - 6.4 Diabe fransisco: >6.4 Glyce erin contr ol for adult s with diabe fransisco: <7.0 Not Available [facility] ([facility]) [address] [facility], [place], [address], 05/23/2025 10:07:47 05/22/20 25 05/22/2025 US, duple x, venou s, lower extre mity, unila teral No observ ation record ed. [facility] [address], [place], [place], [address], 05/22/2025 13:09:41 05/24/20 25 05/22/2025 CT, venog pedrito, lower extre mity, w/ contr ast No observ ation record ed. [facility] [address], [place], [place], [address], 05/28/2025 08:27:42 Result Notes None recorded. Problems Name Problem SNOMED Code Status Onset Date Resolution Date Notes Provider Name and Address Organization Details Recorded Time Hypertensi ve disorder 30176896 Active [place] [facility] 11:10:47 Atrial fibrillati on 81775690 Active pace maker recently placed Loni lantigua [place] - [facility] 11:11:08 Hyperlipid emia 99294714 Active Loni lantigua [place] - [facility] 11:12:02 Gastroesop hageal reflux disease 959388450 Active [place] [facility] 2 11:12:35 Problem Notes None recorded. Procedures Surgical History Date Name Laterality Status Provider Name and Address Organization Details Recorded Time 06/04/20 25 Medication Reconcilliation [facility] 06/04/2025 13:08:45 05/24/20 23 Medication Reconcilliation completed [facility] 05/24/2023 11:18:58 Pacemaker Placement completed [facility] 07/02/2022 11:11:27 procedure on heart completed Ck [facility] 07/02/2022 11:15:56 procedure on kidney completed [facility] 07/02/2022 11:16:13 Imaging Results None recorded. Procedure Notes None recorded. Medical Equipment None Reported. Allergies Allergen ID Allergen Name Allergen Category Reaction Reaction Severity Criticality Documentation Date Start Date Code Code System Note Provider Name and Address Organization Details Recorded Time 818732 Zithromax medicatio n rash moderate high 07/02/2022 24168 4 RxNorm [place] [facility] 10:04:38 013538 Substance with sulfonami de structure and antibacte rial mechanism of action (substanc e) medicatio n rash moderate high 07/02/2022 55337 8003 SNOMED [place] [facility] 10:04:55 Medications Name Sig Start Date Stop [...] Updated DateTime 5 160.02 cm 28.9 kg/m2 17364.5 6 g 70 /min 97 % 97 % 20 /min 6 150/84 mm[Hg] Loni Trinidad [place] - [facility] 5 08:49:50 Social History Question Answer Notes LastModified by Organizat ion Details LastModified Time Tobacco Smoking Status Never Smoker Loni Trinidad [place], [place] - [facility] 07/02/2022 11:14:52 Are You [...] available 2021 11:14:28 Medical History Condition Response Kidney Disease Hyperlipidemia Y Gynecological History Statement/Question Response Menses Monthly N [...] quadrivalent, PF 08/08/2021 completed Loni Abdi null, [place] - [facility] 12/28/2022 08:37:00 Influenza, adjuvanted, quadrivalent, PF 09/14/2022 completed L[place] [facility] 12/28/2022 08:37:00 COVID-19, mRNA, LNP-S, PF, 100 mcg/0.5mL dose or 50 mcg/0.25mL dose 01/03/2021 completed L[place] [facility] 12/28/2022 08:37:00 COVID-19, mRNA, LNP-S, PF, 100 mcg/0.5mL dose or 50 mcg/0.25mL dose 01/31/2021 completed Loni Abdi null, [facility] 12/28/2022 08:37:00 COVID-19, mRNA, LNP-S, PF, 100 mcg/0.5mL dose or 50 mcg/0.25mL dose 09/26/2021 completed Loni Abdi null, [facility] 12/28/2022 08:37:00 COVID-19, mRNA, LNP-S, bivalent, PF, 50 mcg/0.5 mL or 25mcg/0.25 mL dose 11/25/2022 completed Loni Abdi null, [facility] 12/28/2022 08:37:00 Influenza, high-dose, trivalent, PF 10/02/2016 completed Loni Abdi null, [place] - [facility] 12/28/2022 08:37:00 Influenza, adjuvanted, quadrivalent, PF 08/17/2023 completed Loni Abdi null, [facility] 03/13/2024 10:48:19 Past Encounters Encounter ID Performer Location Encounter Start Date Encounter Closed Date Diagnosis/Indication Diagnosis SNOMED-CT Code Diagnosis ICD10 Code Diagnosis Note [id number] Melonie Barkley APRN [address] [address] 05/22/2025 08:36:49 05/22/2025 09:37:35 Hypertensive disorder 00637738 I10 Hyperlipidemia 61949009 E78.5 Essential hypertension 67751808 I10 Atrial fibrillation 4943 6004 I48.91 follow up with cardiology Gastroesop hageal reflux disease 854737118 K21.9 Edema of l ower extremity 016593346 R60.0 Glucose le jin above reference range 83173337 R73.09 Pain of ri ght knee joint 0259920690 36270 M25.561 follow up with ortho- if worsen [...] (MEDICARE REPLACEMENT/A DVANTAGE - PPO) [employer]ista [id number] C[employer]ista Notes Date Note Type Note Provider Name and Address Organization Details Recorded Time 05/22/2025 text/html 89 yr old female presents for a follow up on hypertension and med refills. She also has right knee pain and lower leg swelling since sat. Melonie Barkley, ACCOUNT MANAGER SALES REPRESENTATIVE [address], [place], [address], [facility] 05/22/2025 09:40:08 OBGyn Episode No OBEpisode recorded.
--- OUTSIDE RECORDS SUMMARY | 2025-06-13 08:38 | XMS_ITS | Clinical Summary ---
Author Organization [facility] Address [address] [place] [address] Phone Care Team Providers Care Etcher [employer] Name Role Phone Unavailable Primary Care Provider [...] Hypertensive disorder 07/13/2023 Pacemaker 07/13/2023 Overview (07/28/2023): [employer] D PPM implanted 06/23/[address] Gautam Permanent atrial fibrillatio n with rapid ventricular response 07/13/2023 Medical History Medical History Date Comments Atrial fibrillation with rap id ventricular response (HCC) Pacemaker [employer] D PPM Atrial fibrillation, permanent [...]
--- OUTSIDE RECORDS SUMMARY | 2025-06-13 08:39 | XMS_ITS | Data Portability ---
Author Organization [facility] Address [address] [place] [address] Care Team Providers Care Fundraiser Name Role Phone MELONIE MAXWELL Referring Provider [...] MELANIE [facility], [address], [address], [place], [address], 10:07:47 lipid panel, serum 2024 025 MELANIE [facility], [address], [place] [address], [place], [address], 5 10:07:46 TSH + free T4, serum 2024 025 MELANIE [facility], [address], [address], [place], [address], 5 10:07:45 CBC w/ auto diff 2024 025 MELANIE [facility], [address], [address], [place], [address], 10:07:45 CMP, serum or plasma 2024 025 [place] [facility], [address], [address], [place], [address], 5 10:07:46 Referral coumadin clinic referral - paperwork sent- spoke with Stepan Velasquez 2024 025 [facility], [address], [place], [address], 10:31:00 orthopedic surgeon referral - [place] [facility] [place] jacob barry 2024 025 [facility], [address], [address], [place], [address], 16:38:47 Procedures None recorded. Surgeries None recorded. Imaging US, duplex, venous, lower extremity, unilateral - right leg and foot 2024 025 [facility] (Scheduling), [address], [place], [address], 12:43:24 Medication Orders metoprolol succinate ER 50 mg tablet,exte nded release 24 hr 2024 025 [facility], [address], [address], [place], [address], 5 09:07:47 pantoprazol e 40 mg tablet,prabhu yed release 2024 025 [facility], [address], [address], [place], [address], 5 09:07:45 atorvastati n 40 mg tablet 2024 025 [facility], [address] [place] [address], [address], [place], [address], 5 09:07:42 Xarelto 20 mg tablet 2024 025 [facility], [address] [place] [address], [place], [address], 5 10:48:26 hydrochloro thiazide 25 mg tablet 2024 025 [facility], [address] [place] [address], [address], [place], [address], 5 09:07:44 lisinopril 20 mg tablet 2024 025 [facility], [address] [place] [address], [facility] [address], [place], [address], 5 09:07:41 prednisone 10 mg tablet 2023 025 [facility], [address] [place] [address], [address], [place], [address], 5 08:57:33 Salonpas (lidocaine) 4 % topical patch 2023 024 [facility], [address] [place] [address], [address], [place], [address], 5 08:42:16 cephalexin 500 mg capsule 2023 024 [facility], [address] [place] [address], [facility] [address], [place], [address], 4 09:52:12 prednisone 10 mg tablet 2023 024 [facility], [address] [place] [address], [address], [place], [address], 5 08:42:05 metoprolol succinate ER 50 mg tablet,exte nded release 24 hr 2023 024 [facility], [address] [place] [address], [address], [place], [address], 4 11:49:13 pantoprazol e 40 mg tablet,prabhu yed release 2023 024 [facility], [address] [place] [address], [address], [place], [address], 4 11:49:10 lisinopril 20 mg tablet 2023 024 [facility], [address] [place] [address], [address], [place], [address], 4 11:49:07 Patient TargetsNo targets recorded. Patient InstructionsNo instructions recorded. Reason for Referral Orthopedic Surgeon Referral for Pain of right knee joint [facility] [place] [facility] jacob barry Referring Physician: Melonie Maxwell, Family Medicine, Encounter Date: 05/22/2025 paperwork sent- spoke with Everett Velasquez Referring Physician: Melonie Maxwell, Family Medicine, Encounter Date: 06/04/2025 Results Created Date Observation Date Name Description Value Unit Range Abnormal Flag Note LastModifiedBy Organization Detail LastModifiedTime 05/22/2005/23/2025 TSH+F REE T4 TSH 2.170 uIU/m L 0.450- 4.500 normal Not Available [facility] ([facility]) [address] [place], [address], 05/23/2025 10:07:45 05/22/20 25 05/23/2025 TSH+F REE T4 T4,free(dire ct) 1.08 NG/dL 0.82-1 .77 normal Not Available [facility] ([facility]) [address] [place], [address], 05/23/2025 10:07:45 05/22/20 25 05/23/2025 CBC WITH DIFFE RENTI AL/PL ATELE T WBC 4.7 x10e3 /uL 3.4-10 .8 normal Not Available [facility] ([facility]) [address] [place], [address], 05/23/2025 10:07:45 05/22/20 25 05/23/2025 CBC WITH DIFFE RENTI AL/PL ATELE T RBC 4.34 x10e6 /uL 3.77-5 .28 normal Not Available [facility] ([facility]) [address] [place], [address], 05/23/2025 10:07:45 05/22/20 25 05/23/2025 CBC WITH DIFFE RENTI AL/PL ATELE T hemoglobin 12.9 g/dL 11.1-1 5.9 normal Not Available [facility] ([facility]) [address] [place], [address], 05/23/2025 10:07:45 05/22/20 25 05/23/2025 CBC WITH DIFFE RENTI AL/PL ATELE T hematocrit 40.6 % 34.0-4 6.6 normal Not Available [facility] ([facility]) [address] [place], [address], 05/23/2025 10:07:45 05/22/20 25 05/23/2025 CBC WITH DIFFE RENTI AL/PL ATELE T MCV 94 fL 79-97 normal Not Available [facility] ([facility]) [address] [place], [address], 05/23/2025 10:07:45 05/22/20 25 05/23/2025 CBC WITH DIFFE RENTI AL/PL ATELE T MCH 29.7 pg 26.6-3 3.0 normal Not Available [facility] ([facility]) [address] [place], [address], 05/23/2025 10:07:45 05/22/20 25 05/23/2025 CBC WITH DIFFE RENTI AL/PL ATELE T MCHC 31.8 g/dL 31.5-3 5.7 normal Not Available [facility] ([facility]) [address] [facility], [place], [address], 05/23/2025 10:07:45 05/22/20 25 05/23/2025 CBC WITH DIFFE RENTI AL/PL ATELE T RDW 12.3 % 11.7-1 5.4 Not Available [facility] ([facility]) [address] [facility], [place], [address], 05/23/2025 10:07:45 05/22/20 25 05/23/2025 CBC WITH DIFFE RENTI AL/PL ATELE T platelets 190 x10e3 /uL 150-45 0 normal Not Available [facility] ([facility]) [address] [facility], [place], [address], 05/23/2025 10:07:45 05/22/20 25 05/23/2025 CBC WITH DIFFE RENTI AL/PL ATELE T neutrophils 56 % not estab. normal Not Available [facility] ([facility]) [address] [facility], [place], [address], 05/23/2025 10:07:45 05/22/20 25 05/23/2025 CBC WITH DIFFE RENTI AL/PL ATELE T lymphs 30 % not estab. normal Not Available [facility] ([facility]) [address] [facility], [place], [address], 05/23/2025 10:07:45 05/22/20 25 05/23/2025 CBC WITH DIFFE RENTI AL/PL ATELE T monocytes 10 % not estab. normal Not Available [facility] ([facility]) [address] [facility], [place], [address], 05/23/2025 10:07:45 05/22/20 25 05/23/2025 CBC WITH DIFFE RENTI AL/PL ATELE T eos 3 % not estab. normal Not Available [facility] ([facility]) [address] [facility], [place], [address], 05/23/2025 10:07:45 05/22/20 25 05/23/2025 CBC WITH DIFFE RENTI AL/PL ATELE T basos 1 % not estab. normal Not Available [facility] ([facility]) [address] [facility], [place], [address], 05/23/2025 10:07:45 05/22/20 25 05/23/2025 CBC WITH DIFFE RENTI AL/PL ATELE T immature cells SOLAR FIELD SERVICE TECHNICIAN Not Available [facility] ([facility]) [address] [facility], [place], [address], 05/23/2025 10:07:45 05/22/20 25 05/23/2025 CBC WITH DIFFE RENTI AL/PL ATELE T neutrophils (absolute) 2.7 x10e3 /uL 1.4-7. 0 normal Not Available [facility] ([facility]) [address] [place], [address], 05/23/2025 10:07:45 05/22/20 25 05/23/2025 CBC WITH DIFFE RENTI AL/PL ATELE T lymphs (absolute) 1.4 x10e3 /uL 0.7-3. 1 normal Not Available [facility] ([facility]) [address] [place], [address], 05/23/2025 10:07:45 05/22/20 25 05/23/2025 CBC WITH DIFFE RENTI AL/PL ATELE T monocytes(ab solute) 0.5 x10e3 /uL 0.1-0. 9 normal Not Available [facility] ([facility]) [address] [place], [address], 05/23/2025 10:07:45 05/22/20 25 05/23/2025 CBC WITH DIFFE RENTI AL/PL ATELE T eos (absolute) 0.1 x10e3 /uL 0.0-0. 4 normal Not Available [facility] ([facility]) [address] [facility], [place], [address], 05/23/2025 10:07:45 05/22/20 25 05/23/2025 CBC WITH DIFFE RENTI AL/PL ATELE T baso (absolute) 0.0 x10e3 /uL 0.0-0. 2 normal Not Available [facility] ([facility]) [address] [facility], [place], [address], 05/23/2025 10:07:45 05/22/20 25 05/23/2025 CBC WITH DIFFE RENTI AL/PL ATELE T immature granulocytes 0 % not estab. Not Available [facility] ([facility]) [address] [facility], [place], [address], 05/23/2025 10:07:45 05/22/20 25 05/23/2025 CBC WITH DIFFE RENTI AL/PL ATELE T immature grans (abs) 0.0 x10e3 /uL 0.0-0. 1 Not Available [facility] ([facility]) [address] [facility], [place], [address], 05/23/2025 10:07:45 05/22/20 25 05/23/2025 CBC WITH DIFFE RENTI AL/PL ATELE T NRBC SOLAR FIELD SERVICE TECHNICIAN Not Available [facility] ([facility]) [address] [facility], [place], [address], 05/23/2025 10:07:45 05/22/20 25 05/23/2025 CBC WITH DIFFE RENTI AL/PL ATELE T hematology comments: SOLAR FIELD SERVICE TECHNICIAN Not Available [facility] ([facility]) [address] [facility], [place], [address], 05/23/2025 10:07:45 05/22/20 25 05/23/2025 COMP. METAB OLIC PANEL (14) glucose 97 mg/dL 70-99 normal Not Available [facility] ([facility]) [address] [facility] [place], [address], 05/23/2025 10:07:46 05/22/20 25 05/23/2025 COMP. METAB OLIC PANEL (14) BUN 25 mg/dL 8-27 normal Not Available [facility] ([facility]) [address] [facility] [place], [address], 05/23/2025 10:07:46 05/22/20 25 05/23/2025 COMP. METAB OLIC PANEL (14) creatinine 1.34 mg/dL 0.57-1 .00 above high normal Not Available [facility] ([facility]) [address] [facility] [place], [address], 05/23/2025 10:07:46 05/22/20 25 05/23/2025 COMP. METAB OLIC PANEL (14) eGFR 38 mL/mi n/1.7 3 >59 below low normal Not Available [facility] ([facility]) [address] [facility], [place], [address], 05/23/2025 10:07:46 05/22/20 25 05/23/2025 COMP. METAB OLIC PANEL (14) BUN/creatini ne ratio 19 12-28 normal Not Available [facility] ([facility]) [address] [facility] [place], [address], 05/23/2025 10:07:46 05/22/20 25 05/23/2025 COMP. METAB OLIC PANEL (14) sodium 143 mmol/ L 134-14 4 normal Not Available [facility] ([facility]) [address] [facility] [place], [address], 05/23/2025 10:07:46 05/22/20 25 05/23/2025 COMP. METAB OLIC PANEL (14) potassium 4.4 mmol/ L 3.5-5. 2 normal Not Available [facility] ([facility]) [address] [facility] [place], [address], 05/23/2025 10:07:46 05/22/20 25 05/23/2025 COMP. METAB OLIC PANEL (14) chloride 106 mmol/ L 96-106 normal Not Available [facility] ([facility]) [address] [place], [address], 05/23/2025 10:07:46 05/22/20 25 05/23/2025 COMP. METAB OLIC PANEL (14) carbon dioxide, total 22 mmol/ L 20-29 normal Not Available [facility] ([facility]) [address] [place], [address], 05/23/2025 10:07:46 05/22/20 25 05/23/2025 COMP. METAB OLIC PANEL (14) calcium 10.3 mg/dL 8.7-10 .3 normal Not Available [facility] ([facility]) [address] [facility] [place], [address], 05/23/2025 10:07:46 05/22/20 25 05/23/2025 COMP. METAB OLIC PANEL (14) protein, total 6.9 g/dL 6.0-8. 5 normal Not Available [facility] ([facility]) [address] [facility] [place], [address], 05/23/2025 10:07:46 05/22/20 25 05/23/2025 COMP. METAB OLIC PANEL (14) albumin 4.4 g/dL 3.7-4. 7 normal Not Available [facility] ([facility]) [address] [facility] [place], [address], 05/23/2025 10:07:46 05/22/20 25 05/23/2025 COMP. METAB OLIC PANEL (14) globulin, total 2.5 g/dL 1.5-4. 5 Not Available [facility] ([facility]) [address] [facility] [place], [address], 05/23/2025 10:07:46 05/22/20 25 05/23/2025 COMP. METAB OLIC PANEL (14) bilirubin, total 1.0 mg/dL 0.0-1. 2 normal Not Available [facility] ([facility]) [address] [place], [address], 05/23/2025 10:07:46 05/22/20 25 05/23/2025 COMP. METAB OLIC PANEL (14) alkaline phosphatase 77 IU/L 44-121 normal Not Available [facility] ([facility]) [address] [facility] [place], [address], 05/23/2025 10:07:46 05/22/20 25 05/23/2025 COMP. METAB OLIC PANEL (14) AST (SGOT) 17 IU/L 0-40 normal Not Available [facility] ([facility]) [address] [place], [address], 05/23/2025 10:07:46 05/22/20 25 05/23/2025 COMP. METAB OLIC PANEL (14) ALT (SGPT) 13 IU/L 0-32 normal Not Available [facility] ([facility]) [address] [place], [address], 05/23/2025 10:07:46 05/22/20 25 05/23/2025 LIPID PANEL cholesterol, total 112 mg/dL 100-19 9 normal Not Available [facility] ([facility]) [address] [place], [address], 05/23/2025 10:07:46 05/22/20 25 05/23/2025 LIPID PANEL triglyceride s 157 mg/dL 0-149 above high normal Not Available [facility] ([facility]) [address] [place], [address], 05/23/2025 10:07:46 05/22/20 25 05/23/2025 LIPID PANEL HDL cholesterol 43 mg/dL >39 normal Not Available [facility]) [address] [facility], [place], [address], 05/23/2025 10:07:46 05/22/20 25 05/23/2025 LIPID PANEL VLDL cholesterol radha 26 mg/dL 5-40 Not Available [facility] ([facility]) [address] [facility], [place], [address], 05/23/2025 10:07:46 05/22/20 25 05/23/2025 LIPID PANEL LDL chol calc ([facility]) 43 mg/dL 0-99 Not Available [facility]) [address] [facility], [place], [address], 05/23/2025 10:07:46 05/22/20 25 05/23/2025 LIPID PANEL LDL calc comment: SOLAR FIELD SERVICE TECHNICIAN Not Available [facility] ([facility]) [address] [facility], [place], [address], 05/23/2025 10:07:46 05/22/20 25 05/23/2025 HEMOG LOBIN A1C hemoglobin A1C 6.1 % 4.8-5. 6 above high normal Predi abete s: 5.7 - 6.4 Diabe [place]: >6.4 Glyce erin contr ol for adult s with diabe fr[place]isco: <7.0 Not Available [facility] ([facility]) [address] [facility], [place], [address], 05/23/2025 10:07:47 06/10/20 24 06/10/2024 XR, knee, 1 or 2 view No observ [facility]ion [facility] [address], [place], [address], 06/12/2024 13:09:26 06/18/20 24 06/16/2024 US, doppl er echoc ardio gram No observ ation record ed. [facility] [address], [place], [address], 06/21/2024 22:16:20 11/21/20 24 11/21/2024 XR, knee, 3 view No observ ation record ed. [facility] [address], [place], [place], [address], 11/23/2024 08:42:07 05/22/20 25 05/22/2025 US, duple x, venou s, lower extre mity, unila teral No observ ation record ed. [facility] [address], [place], [address], 05/22/2025 13:09:41 05/24/20 25 05/22/2025 CT, venog pedrito, lower extre mity, w/ contr ast No observ ation record ed. [facility] [address], [place], [place], [address], 05/28/2025 08:27:42 Result Notes None recorded. Problems Name Problem SNOMED Code Status Onset Date Resolution Date Notes Provider Name and Address Organization Details Recorded Time Hypertensi ve disorder 66347660 Active Loni Abdi null, [place] - [facility] 2 11:10:47 Atrial fibrillati on 06982003 Active pace maker recently placed Loni [place], [place] - [facility] 2 11:11:08 Hyperlipid emia 18645987 Active Loni Abdi null, [place] - [facility] 2 11:12:02 Gastroesop hageal reflux disease 140992893 Active Loni Abdi null, [place] - [facility] [...] Name and Address Organization Details Recorded Time 526123 Zithromax medicatio n rash moderate high 07/02/202219637 4 [facility]Norm [place] [facility] - [facility] 2 10:04:38 001720 Substance with sulfonami de structure and antibacte rial mechanism of action (substanc e) medicatio n rash moderate high 07/02/2022 14925 8003 SNOMED [place] [facility] - [facility] [...] Last Updated DateTime 160.02 cm 28.4 kg/m2 39727.4 8 g 98.7 [degF] 67 /min 98 % 98 % 18 /min 4 130/78 mm[Hg] Loni Abdi [place] - [facility] 4 10:48:01 Date Recorded Body height Body mass index (BMI) Body weight Body temperature Heart rate Oxygen saturation Oxygen saturation in Arterial blood by Pulse oximetry Respiratory rate Pain severity - 0-10 verbal numeric rating [Score] - Reported Systolic And Diastolic Provider Name and Address Organization Details Last Updated DateTime 4 160.02 cm 28.2 kg/m2 44088.2 9 g 98 [degF] 70 /min 97 % 97 % 18 /min 0 130/80 mm[Hg] Loni Abdi [place] - [facility] 4 11:14:58 Date Recorded Body height Body mass index (BMI) Body weight Heart rate Oxygen saturation Oxygen saturation in Arterial blood by Pulse oximetry Respiratory rate Pain severity - 0-10 verbal numeric rating [Score] - Reported Systolic And Diastolic Provider Name and Address Organization Details Last Updated DateTime 5 160.02 cm 28.9 kg/m2 82566.5 6 g 70 /min 97 % 97 % 20 /min 6 150/84 mm[Hg] Loni Abdi [place] - [facility] 5 08:49:50 Date Recorded Body height Body mass index (BMI) Body weight Body temperature Heart rate Oxygen saturation Oxygen saturation in Arterial blood by Pulse oximetry Respiratory rate Pain severity - 0-10 verbal numeric rating [Score] - Reported Systolic And Diastolic Provider Name and Address Organization Details Last Updated DateTime 5 160.02 cm 29.1 kg/m2 91466.8 5 g 97.6 [degF] 76 /min 99 % 99 % 20 /min 0 138/72 mm[Hg] Loni Abdi [place] - [facility] 5 13:16:31 Date Recorded Body height Body mass index (BMI) Body weight Body temperature Heart rate Oxygen saturation Oxygen saturation in Arterial blood by Pulse oximetry Respiratory rate Pain severity - 0-10 verbal numeric rating [Score] - Reported Systolic And Diastolic Provider Name and Address Organization Details Last Updated DateTime 4 160.02 cm 28.4 kg/m2 39090.4 8 g 98 [degF] 70 /min 96 % 96 % 18 /min 7 138/82 mm[Hg] Loni Abdi [place] - [facility] [...] 08/18/2024 completed Loni Abdi null, [place] - [facility] 11/07/2024 09:26:17 Influenza, adjuvanted, quadrivalent, [...] quadrivalent, PF 08/17/2023 completed Loni Abdi null, [facility] 03/13/2024 10:48:19 Past Encounters Encounter ID Performer Location Encounter Start Date Encounter Closed Date Diagnosis/Indication Diagnosis SNOMED-CT Code Diagnosis ICD10 Code Diagnosis Note [id number] Melonie Maxwell [address] [address] 07/02/2022 10:43:33 07/02/2022 12:09:02 Atrial fibrillation 42045698 I48.91 labs, talked with claudia he recommends follow up with him today and hold xarelto [id number] Melonie Maxwell APRN [address] [address] 07/30/2022 09:54:58 07/30/2022 10:45:20 Hypertensive disorder 99979195 I10 spoke with javier billy informed him of htn and palpitatio ns he recommends a extra metoprolol 50 mg at lunch every day and keep track of bp call for any concerns. Atrial fibrillation 4943 6004 I48.91 continue xarelto, add metoprolol and keep log- follow up with cardiology [id number] Melonie Maxwell [employer] [address] [place] [address] 12/28/2022 08:23:03 12/28/2022 09:14:31 Hypertensive disorder 53698243 I10 Atrial fibrillation 4943 6004 I48.91 follow up with cardiology Hyperlipidemia 97268254 E78.5 Gastroesop hageal reflux disease 047319611 K21.9 [id number] Melonie Maxwell APRN [address] [address] 03/23/2023 09:46:22 03/23/2023 11:31:37 Atrial fibrillation 29256052 I48.91 follow up with cardiology Pain of le ft hip joint 3814404919 70131 M25.552 looking for a spontaneou s fracture that was not detected on xray. hip is rotated Pain provo ked by walking 985393809 R52 Hip joint effusion 26342 9000 M25.551 [id number] Melonie Maxwell APRN [address] [address] 05/24/2023 10:48:00 05/24/2023 14:21:45 Atrial fibrillation with rapid ventricular response 6270127966 87291 I48.91 spoke with beltran pt does not want to go straight to ed-he wants pt to take a extra cardizem and metoprolol and wait 2 hours if improved he will see pt weds at 11 am.if worsening or no improvemen t sent to [facility] ed for admit.pt waited and returned after 2 hours and had repeat ekg- rate 129 afib/flutt er pt still c/o of tightness and stabbing, I recommende d ed and she agreed, she is going over daughter is driving pov, report called to ivett. [id number] Melonie Maxwell APRN [address] [address] 07/27/2023 12:50:48 07/27/2023 13:50:32 Gastroesophageal reflux disease 062077523 K21.9 Hematoma of lower leg 44 5197950 S80.10XA spoke with claudia- he recommends venous dopplersen t for doppler at 625 [id number] Melonie deana [address] [address] 03/13/2024 10:36:02 03/13/2024 11:48:46 Essential hypertension 81162101 I10 Hypertensive disorder 38 791143 I10 Gastroesop hageal reflux disease 549528818 K21.9 Pain of le ft shoulder joint 1108749338 2097010 M25.512 rotate heat and icetylenol as needed for pain [id number] [facility] [address] [address] 03/30/2024 10:54:34 03/30/2024 11:34:00 Cellulitis 648898208 L03.90 monitor for worsening of infectionr eturn if symptoms worsen or no improvemen t [id number] [facility] [address] 11/07/2024 09:17:21 11/07/2024 10:02:24 Pain of right knee joint 0976301462 37199 M25.561 follow up with ortho- if worsen or no improvemen t return [id number] Melonie Merazdeana[address] [address] 05/22/2025 08:36:49 05/22/2025 09:37:35 Hypertensive disorder 98835665 I10 Hyperlipidemia 75704710 E78.5 Essential hypertension 30290378 I10 Atrial fibrillation 4943 6004 I48.91 follow up with cardiology Gastroesop hageal reflux disease 784335669 K21.9 Edema of l ower extremity 914204267 R60.0 Glucose le ijn above reference range 22748274 R73.09 Pain of ri ght knee joint 4941142987 44378 M25.561 follow up with ortho- if worsen or no improvemen t return [id number] Panreinaldo deana[address] [address] 06/04/2025 12:59:26 06/04/2025 14:06:02 Atrial fibrillation 84569342 I48.91 follow up with cardiology Health Concerns Section Related Observation LastModified by Organization Detai ls LastModified Time None Recorded Concern Status LastModified by Organization Details LastModified Time None Recorded Advance Directives Directive None Recorded Payers Insurance Date Sequence Insurance Name Policy Number Policy Taylor Covered Member ID Taylor Member ID Guarantor Name 06/01/2025 1 [employer] (MEDICARE REPLACEMENT/A DVANTAGE - PPO) Cande Evangelista [id number] Cande Evangelista Notes Date Note Type Note Provider Name and Address Organization Details Recorded Time 03/13/2024 text/html ROS as noted in the HPI 88 yr old female presents for bilateral arm pain x 2-3 weeks. left shoulder worse than rt. 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 Melonie Maxwell APRN [address], [place], [address], [place] - [facility] 03/13/2024 11:49:59 03/30/2024 text/html ROS as noted in the HPI 88 yr old female presents for left middle finger pain/redness/swelling x 1 week. pt states the redness and swelling has increased the past couple days. Melonie Maxwell APRN [address], [place], [address], [place] - [facility] 03/30/2024 13:41:16 11/07/2024 text/html ROS as noted in the HPI 89 yr old female presents for right knee pain and swelling. has appointment 11/[address] dillon, pt states knee has always hurt but since sat her pain and swelling has increased Melonie Maxwell APRN [address], [place], [address], [place] - [facility] 11/07/2024 10:04:08 05/22/2025 text/html 89 yr old female presents for a follow up on hypertension and med refills. She also has right knee pain and lower leg swelling since sat. Melonie Maxwell APRN [address], [place], [address], [place] - [facility] 05/22/2025 09:40:08 06/04/2025 text/html Emergency Depart ment Follow-Up RecordReported by Patient 89 yr old female presents to follow up after having a blood clot removal procedure to left leg on 05/22. wants to discuss Dr Conway recommendations Melonie Maxwell, AWNING MAKER AND INSTALLER [address], [place], [address], [place] [facility] 06/04/2025 16:14:52 OBGyn Episode No OBEpisode recorded.
--- OUTSIDE RECORDS SUMMARY | 2025-06-13 08:39 | XMS_ITS | Clinical Summary ---
Author Organization [facility] Address [address] [place] [address] Care Team Providers Care Chemical Engineer Name Role Phone Unavailable Primary Care Provider [...] or (1 - 1-dose 75+ series) 2011 [id number] Vaccine ( - 2024-25 season) 2024 11/25/2022, [...]
--- NOTE | 2025-06-13 09:30 | CT_ITS ---
FINAL REPORT TECHNIQUE: Axial images through the abdomen and pelvis were performed without contrast.This study was performed with techniques to keep radiation doses as low as reasonably achievable, (ALARA). Individualized dose reduction techniques using automated exposure control or adjustment of mA and/or kV according to the patient's size were employed. CLINICAL HISTORY: chronic anticoagulation FINDINGS: ABDOMEN: The heart size is normal. Limited images of the liver are unremarkable. The spleen is normal. No adrenal mass is identified. The aorta is normal in caliber. There is no significant free fluid or adenopathy. There is no nephrolithiasis. There is no hydronephrosis. There is a left renal mass measuring 25 mm, likely a cyst but incompletely characterized without contrast. There is a small hiatal hernia. Abdominal aorta demonstrates moderate calcified plaque disease. Bilateral renal artery stents are in place. PELVIS: The appendix is not identified. There are no findings of appendicitis. There is moderate sigmoid diverticulosis. Uterus is unremarkable. There is a tiny right inguinal hernia containing fat. The urinary bladder is unremarkable. There is no significant free fluid or adenopathy. IMPRESSION: No adenopathy or obvious metastatic process. Reviewed, Interpreted and Dictated by Magdaleno Ruff MD Transcribed by Carrie Chavarria Authenticated and . [facility]
--- NOTE | 2025-06-13 09:30 | CT_ITS ---
FINAL REPORT CLINICAL HISTORY: chronic anticoagulation FINDINGS: CT CHEST without contrast COMPARISON: None . TECHNIQUE: Axial CT without contrast This study was performed with techniques to keep radiation doses as low as reasonably achievable, (ALARA). Individualized dose reduction techniques using automated exposure control or adjustment of mA and/or kV according to the patient''s size were employed. FINDINGS: No acute lung disease is present . A left-sided pacemaker is in place. No pleural or pericardial effusion is seen . No adenopathy or mass lesion is present . No obvious destructive lesion is seen of the ribs or thoracic spine. IMPRESSION: Unremarkable exam. Reviewed, Interpreted and Dictated by Magdaleno Ruff MD Transcribed by Carrie Chavarria Authenticated and [facility]
[2025-06-13 11:42] LABS: PHA INR Fingerstick 3.0 (0.9-1.1)
== END 2025-06-13 12:26 ==
LOC: RAD 08:36
PROVIDERS: PCP Nurse Practitioner Family; Visit Provider Internal Medicine Medical Oncology
DX: I82.409 Acute embolism and thrombosis of unspecified deep veins of unspecified lower extremity (principal); Z79.01 Long term (current) use of anticoagulants
CPT/HCPCS: 71250; 74176; 85610; 99211; G0463

== ENCOUNTER 2025-06-22 11:14 | Outpatient (CLI) | payer MEDICARE, SELFPAY ==
--- OUTSIDE RECORDS SUMMARY | 2025-06-22 11:16 | XMS_ITS | Clinical Summary ---
Author Organization [facility] [place] Address [address] [place] [address] Phone Care Team Providers Care Reach Lift Truck Driver Name Role Phone Unavailable Primary Care Provider [...] Hypertensive disorder 07/13/2023 Pacemaker 07/13/2023 Overview (07/28/2023): [employer] D PPM implanted 06/23/[address] Gautam Permanent atrial fibrillatio n with rapid ventricular response 07/13/2023 Medical History Medical History Date Comments Atrial fibrillation with rap id ventricular response (HCC) Pacemaker [employer] D PPM Atrial fibrillation, permanent [...]
--- OUTSIDE RECORDS SUMMARY | 2025-06-22 11:16 | XMS_ITS | Clinical Summary ---
Author Organization [facility] Address [address] [place] [address] Care Team Providers Care Feed Mill Operator Name Role Phone Unavailable Primary Care Provider [...] or (1 - 1-dose 75+ series) 2011 [id number] Vaccine ( - 2024-25 season) 2024 11/25/2022, [...]
[2025-06-22 11:38] LABS: PHA INR Fingerstick 3.6 (0.9-1.1)
== END 2025-06-22 11:42 ==
LOC: ACC 11:14
PROVIDERS: PCP Nurse Practitioner Family; Visit Provider Nurse Practitioner Family
DX: I48.91 Unspecified atrial fibrillation (principal)
CPT/HCPCS: 85610; 99211; G0463

== ENCOUNTER 2025-06-29 11:24 | Outpatient (CLI) | payer MEDICARE, SELFPAY ==
--- OUTSIDE RECORDS SUMMARY | 2025-06-29 11:28 | XMS_ITS | Clinical Summary ---
Author Organization [facility] Address [address] [place] [address] Care Team Providers Care Forest Technician Name Role Phone Unavailable Primary Care Provider [...] or (1 - 1-dose 75+ series) 2011 [id number]-80 Vaccine ( - 2024-25 season) 2024 11/25/2022, [...]
--- OUTSIDE RECORDS SUMMARY | 2025-06-29 11:28 | XMS_ITS | Clinical Summary ---
Author Organization [facility] [place] Address [address] [place] [address] Phone Care Team Providers Care Senior Industrial Engineer Name Role Phone Unavailable Primary Care [...] Hypertensive disorder 07/13/2023 Pacemaker 07/13/2023 Overview (07/28/2023): [employer] D PPM implanted 06/23/[address] Gautam Permanent atrial fibrillatio n with rapid ventricular response 07/13/2023 Medical History Medical History Date Comments Atrial fibrillation with rap id ventricular response (HCC) Pacemaker [employer] D PPM Atrial fibrillation, permanent [...]
[2025-06-29 11:43] LABS: PHA INR Fingerstick 1.9 (0.9-1.1)
== END 2025-06-29 11:45 ==
LOC: ACC 11:25
PROVIDERS: PCP Nurse Practitioner Family; Visit Provider Nurse Practitioner Family
DX: I48.91 Unspecified atrial fibrillation (principal)
CPT/HCPCS: 85610; 99211; G0463

== ENCOUNTER 2025-07-13 11:20 | Outpatient (CLI) | payer MEDICARE, SELFPAY ==
--- OUTSIDE RECORDS SUMMARY | 2025-07-13 11:22 | XMS_ITS | Clinical Summary ---
Author Organization [facility] Address [address] [place] [address] Care Team Providers Care Odd Job Worker Name Role Phone Unavailable Primary Care Provider [...] or (1 - 1-dose 75+ series) 2011 [id number]-21 Vaccine ( - 2024-25 season) 2024 11/25/2022, [...]
--- OUTSIDE RECORDS SUMMARY | 2025-07-13 11:22 | XMS_ITS | Clinical Summary ---
Author Organization [facility] [place] Address [address] [place] [address] Phone Care Team Providers Care Precipitator Operator Name Role Phone Unavailable Primary Care [...] 20 mg by mouth daily. Active hydroCHLOROthiaz eflicitas (HYDRODIURIL) 25 mg Oral Tablet Take 25 mg by mouth every morning. 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 Ligia HERNÁNDEZ (sick sinus syndrome) 07/28/2023 Permanent atrial fibrillation 07/13/2023 Gastroesophageal reflux disease 07/13/2023 Hyperlipidemia 07/13/2023 Hypertensive disorder 07/13/2023 Pacemaker 07/13/2023 Overview (07/28/2023): [employer] D PPM implanted 06/23/[address] Gautam Permanent atrial fibrillatio n with rapid ventricular response 07/13/2023 Medical History Medical History Date Comments Atrial fibrillation with rap id ventricular response (HCC) Pacemaker [employer] D PPM Atrial fibrillation, permanent [...]
[2025-07-13 11:38] LABS: PHA INR Fingerstick 1.8 (0.9-1.1)
== END 2025-07-13 11:40 ==
LOC: ACC 11:21
PROVIDERS: PCP Nurse Practitioner Family; Visit Provider Nurse Practitioner Family
DX: I48.91 Unspecified atrial fibrillation (principal)
CPT/HCPCS: 85610; 99211; G0463

== ENCOUNTER 2025-08-10 11:29 | Outpatient (CLI) | payer MEDICARE, SELFPAY ==
--- OUTSIDE RECORDS SUMMARY | 2025-08-10 11:32 | XMS_ITS | Clinical Summary ---
Author Organization [facility] [place] Address [address] [place] [address] Phone Care Team Providers Care Sheet Metal Assembler And Riveter Name Role Phone Unavailable Primary Care Provider [...] Hypertensive disorder 07/13/2023 Pacemaker 07/13/2023 Overview (07/28/2023): [place] [employer] D PPM implanted 06/23/[address] Gatuam Permanent atrial fibrillatio n with rapid ventricular response 07/13/2023 Medical History Medical History Date Comments Atrial fibrillation with rap id ventricular response (HCC) Pacemaker [place] [employer] D PPM Atrial fibrillation, permanent [...] 1-dose 75+ series) 2011 COVID-19 Vaccine ( - season) 2025 11/25/2022, 09/26/2021, 01/31/2021, Additional history exists Influenza Vaccine (#1) 2025 , 09/14/2022, 08/08/2021, Additional history exists Hepatitis B Vaccine Aged Out No longe r eligible based on patient's age to complete this topic Meningococcal B Vaccine Aged Out No l onger eligible based on patient's age to complete this topic Insurance
--- OUTSIDE RECORDS SUMMARY | 2025-08-10 11:32 | XMS_ITS | Clinical Summary ---
Author Organization [facility] Address [address] [place] [address] Care Team Providers Care Sales Process Manager Name Role Phone Unavailable Primary Care Provider [...] or (1 - 1-dose 75+ series) 2011 [id number]-07 Vaccine ( - 2025-26 season) 2025 11/25/2022, 09/26/2021, 01/31/2021, Additional history exists UKY-Influenza [...]
[2025-08-10 13:10] LABS: PHA INR Fingerstick 2.9 (0.9-1.1)
== END 2025-08-10 13:20 ==
LOC: ACC 11:31
PROVIDERS: PCP Nurse Practitioner Family; Visit Provider Nurse Practitioner Family
DX: Z79.01 Long term (current) use of anticoagulants (principal)
CPT/HCPCS: 85610; 99211; G0463

== ENCOUNTER 2025-09-07 10:00 | Outpatient (CLI) | payer MEDICARE, SELFPAY ==
--- OUTSIDE RECORDS SUMMARY | 2025-09-07 10:12 | XMS_ITS | Clinical Summary ---
Author Organization [facility] Address [address] [place] [address] Care Team Providers Care Traffic Warehouse Supervisor Name Role Phone Unavailable Primary Care Provider [...] or (1 - 1-dose 75+ series) 2011 [id number]-07 Vaccine ( - 2025-26 season) 2025 11/25/2022, [...]
--- OUTSIDE RECORDS SUMMARY | 2025-09-07 10:12 | XMS_ITS | Clinical Summary ---
Author Organization [facility] [place] Address [address] [place] [address] Phone Care Team Providers Care Well Driller Helper Name Role Phone Unavailable Primary Care [...] Hypertensive disorder 07/13/2023 Pacemaker 07/13/2023 Overview (07/28/2023): [employer] D PPM implanted 06/23/[address] Gautam Permanent atrial fibrillatio n with rapid ventricular response 07/13/2023 Medical History Medical History Date Comments Atrial fibrillation with rap id ventricular response (HCC) Pacemaker [employer] D PPM Atrial fibrillation, permanent [...] 75+ series) 2011 COVID-19 Vaccine ( season) 2025 11/25/2022, 09/26/2021, 01/31/2021, Additional history exists Influenza Vaccine (#1) 2025 , 09/14/2022, 08/08/2021, Additional history exists Hepatitis B Vaccine Aged Out No longe r eligible based on patient's age to complete this topic Meningococcal B Vaccine Aged Out No l onger eligible based on patient's age to complete this topic Insurance [employer] MEDICARE PPO MR Member Subscriber Plan / Payer (Ef fective 2018-Present) Name:Cande Evangelista Relation to Subscriber:Self Name:Cande Evangelista Payer ID:[id number] (NAIC) Group ID:Not on file Type:Not on file Address: [id number]
--- NOTE | 2025-09-07 10:15 | CA_ITS ---
APPROVED REPORT EXAM: Comprehensive 2D, Doppler, and color-flow Echocardiogram Clothing Sales Assistant: Violeta Soto RDCS Ht: 5 ft 2 in Wt: 162lbs BSA: 1.75 BP: 141/74 mmHg Indications: MR, TR M-Mode Dimensions RVDd 3.00 cm (0.9-2.6) LA Diam 4.48 cm (1.9-4.0) LVDd 4.48 cm (3.5-5.7) LVDs 3.00 cm (3.5-5.7) IVSd 0.96 cm (0.6-1.1) PWd 0.80 cm (0.6-1.1) EF (Teich) 61.70% FS 33.00% EDV (Teich) 91.50 mL ESV (Teich) 35.00 mL LV Diastology E Decel Time 140 (160-240 msec) E/A Ratio 3.1 Mitral Valve MV E Max Gian. 105.0 (40-130 cm/s) MV A Velocity 34.0 (40-130 cm/s) E/A Ratio 3.06 MV PHT 41.0 ms Tricuspid Valve TR P. Velocity 250.00 cm/s RAP Estimate 10.00 mmHg RVSP 34.90 mmHg Left Ventricle The left ventricle is normal size. Left ventricular systolic function is normal. The left ventricular ejection fraction is within the normal range. There is increased left ventricular wall thickness. Proximal septal thickening is present. There is normal LV segmental wall motion. The left ventricular diastolic function is indeterminate. LVEF is 55% Right Ventricle The right ventricle is normal size. The right ventricular systolic function is normal. Atria The left atrium is severely dilated. The right atrium is severely dilated. There is no color Doppler evidence of interatrial shunt. Aortic Valve The aortic valve is mildly thickened. There is no hemodynamically significant aortic valvular stenosis. Mild aortic regurgitation is present. Mitral Valve The mitral valve is normal in structure. No evidence of mitral valve stenosis. Mild mitral regurgitation is present. Tricuspid Valve The tricuspid valve leaflets are thin and pliable. Mild tricuspid regurgitation. RVSP is 25-30 mmHg. Pulmonic Valve The pulmonary valve is grossly normal in structure. Mild pulmonic valve regurgitation is present. Great Vessels The aortic root is normal in size. IVC is normal in size and collapses >50% with inspiration. Pericardium There is no pericardial effusion. Other Information Study Quality: Fair Conclusion Normal biventricular systolic function. Biatrial dilation. Mild AI, mild MR, mild TR, mild PI. Electronically signed by : Valentina Rebollar MD 09/13/2025 12:30:59
[2025-09-07 13:36] LABS: PHA INR Fingerstick 2.4 (0.9-1.1)
== END 2025-09-07 13:50 ==
LOC: RT 10:00
PROVIDERS: PCP Nurse Practitioner Family; Visit Provider Nurse Practitioner
DX: I08.8 Other rheumatic multiple valve diseases (principal); I48.0 Paroxysmal atrial fibrillation; I25.10 Atherosclerotic heart disease of native coronary artery without angina pectoris; Z79.01 Long term (current) use of anticoagulants; Z95.0 Presence of cardiac pacemaker
CPT/HCPCS: 85610; 93306; 99211; G0463

== ENCOUNTER 2025-10-09 22:10 | Observation (INO) | payer MEDICARE, SELFPAY ==
--- NOTE | 2025-10-09 22:15 | CT_ITS ---
PROCEDURE INFORMATION: Exam: CT Head Without Contrast Exam date and time: 10/09/2025 10:29 PM Age: 89 years old Clinical indication: Injury or trauma; Additional info: Fall on anticoagulation, head pain TECHNIQUE: Imaging protocol: Computed tomography of the head without contrast. Radiation optimization: All CT scans at this facility use at least one of these dose optimization techniques: automated exposure control; mA and/or kV adjustment per patient size (includes targeted exams where dose is matched to clinical indication); or iterative reconstruction. COMPARISON: CT ANGIO HEAD 11/14/2023 11:21 AM FINDINGS: Brain: Age appropriate atrophy and small vessel ischemic change. No evidence of intracranial hemorrhage, mass effect, midline shift or extra-axial fluid collections. Midline structures are normal. Bernal-white matter differentiation is normal. Cerebral ventricles: No ventriculomegaly. Paranasal sinuses: Mucosal thickening in the ethmoid, sphenoid and maxillary sinuses. Mastoid air cells: There is fluid in the right mastoid air cells. Orbital cavities: The patient has had bilateral lens replacement surgery. Bones: Unremarkable. No acute fracture. Soft tissues: Unremarkable. Vasculature: Carotid and vertebral artery atherosclerotic calcification. IMPRESSION: No acute intracranial injury.
--- NOTE | 2025-10-09 22:15 | CT_ITS ---
PROCEDURE INFORMATION: Exam: CTA Abdomen and Pelvis With Contrast Exam date and time: 10/09/2025 10:36 PM Age: 89 years old Clinical indication: Injury or trauma; Additional info: Fall on anticoagulation posterior left paraspinal TECHNIQUE: Imaging protocol: Computed tomographic angiography of the abdomen and pelvis with contrast. Exam focused on the arteries. 3D rendering (Not supervised by radiologist): MIP and/or 3D reconstructed images were created by the technologist. Radiation optimization: All CT scans at this facility use at least one of these dose optimization techniques: automated exposure control; mA and/or kV adjustment per patient size (includes targeted exams where dose is matched to clinical indication); or iterative reconstruction. Contrast material: ISOVUE; Contrast volume: 80 ml; Contrast route: INTRAVENOUS (IV); COMPARISON: CT BONY PELVIS 10/09/2025 10:33 PM FINDINGS: Aorta: See Renal arteries finding. Celiac and mesenteric arteries: No occlusion or significant stenosis. Renal arteries: Moderate calcification of the aorta, iliac and renal arteries. Right iliac arteries: No occlusion or significant stenosis. Left iliac arteries: No occlusion or significant stenosis. Liver: No mass. Gallbladder and biliary ducts: Unremarkable. No calcified stones. No ductal dilation. Pancreas: Unremarkable. No mass. No ductal dilation. Spleen: Unremarkable. No splenomegaly. Adrenal glands: Unremarkable. No mass. Kidneys and ureters: 2.9 cm left renal cysts. No hydronephrosis or hydroureter. Stomach and bowel: Sigmoid diverticulosis. Appendix: No evidence of appendicitis. Intraperitoneal space: Unremarkable. No free air. No significant fluid collection. Lymph nodes: Unremarkable. No enlarged lymph nodes. Urinary bladder: Unremarkable. No mass. Reproductive: Unremarkable as visualized. Bones/joints: Degenerative changes in the spine. Soft tissues: Unremarkable. IMPRESSION: 1. No acute findings. 2. Atherosclerotic vascular disease. 3. Sigmoid diverticulosis.
--- NOTE | 2025-10-09 22:15 | CT_ITS ---
PROCEDURE INFORMATION: Exam: CT Cervical Spine Without Contrast Exam date and time: 10/09/2025 10:31 PM Age: 89 years old Clinical indication: Injury or trauma; Additional info: Fall on anticoagulation TECHNIQUE: Imaging protocol: Computed tomography of the cervical spine without contrast. Radiation optimization: All CT scans at this facility use at least one of these dose optimization techniques: automated exposure control; mA and/or kV adjustment per patient size (includes targeted exams where dose is matched to clinical indication); or iterative reconstruction. COMPARISON: CT ANGIO NECK 11/14/2023 11:21 AM FINDINGS: Bones/joints: There are marked degenerative changes present. Normal alignment. No acute fractures. Lungs: Lung apices are normal. Soft tissues: Unremarkable. IMPRESSION: No acute injury.
--- NOTE | 2025-10-09 22:15 | CT_ITS ---
PROCEDURE INFORMATION: Exam: CTA Chest With Contrast Exam date and time: 10/09/2025 10:36 PM Age: 89 years old Clinical indication: Injury or trauma; Additional info: Fall on anticoagulation posterior TECHNIQUE: Imaging protocol: Computed tomographic angiography of the chest with contrast. Exam focused on the arteries. 3D rendering (Not supervised by radiologist): MIP and/or 3D reconstructed images were created by the technologist. Radiation optimization: All CT scans at this facility use at least one of these dose optimization techniques: automated exposure control; mA and/or kV adjustment per patient size (includes targeted exams where dose is matched to clinical indication); or iterative reconstruction. Contrast material: ISOVUE; Contrast volume: 80 ml; Contrast route: INTRAVENOUS (IV); COMPARISON: CT CHEST WO CON 06/13/2025 9:11 AM FINDINGS: Tubes, catheters and devices: Cardiac pacemaker on the left chest. Pulmonary arteries: Normal. No pulmonary emboli. Aorta: Moderate calcification of the aorta. Lungs: Unremarkable. No consolidation. No masses. Pleural spaces: Unremarkable. No pneumothorax. No pleural effusion. Heart: Unremarkable. No cardiomegaly. No pericardial effusion. Coronary arteries: Extensive calcification of the coronary arteries. Lymph nodes: Mildly enlarged hilar lymph nodes. Bones/joints: Degenerative changes in the spine and shoulders. Soft tissues: Unremarkable. IMPRESSION: 1. No acute findings. 2. Atherosclerotic calcification of the coronary arteries and aorta. 3. Mildly enlarged hilar lymph nodes. Presumed reactive.
--- NOTE | 2025-10-09 22:16 | CT_ITS ---
PROCEDURE INFORMATION: Exam: CT Pelvis Without Contrast, Skeleton Exam date and time: 10/09/2025 10:33 PM Age: 89 years old Clinical indication: Injury or trauma; Additional info: Fall left hip left si pain TECHNIQUE: Imaging protocol: Computed tomography of the pelvis without contrast. Exam focused on the skeleton. Radiation optimization: All CT scans at this facility use at least one of these dose optimization techniques: automated exposure control; mA and/or kV adjustment per patient size (includes targeted exams where dose is matched to clinical indication); or iterative reconstruction. COMPARISON: CT ABDOMEN PELVIS WO CON 06/13/2025 9:11 AM FINDINGS: Bones/joints: Mild joint space narrowing bilaterally. No acute fracture. No dislocation. Soft tissues: Unremarkable. IMPRESSION: 1. No acute osseous abnormality. 2. Mild bilateral DJD of hip.
--- NOTE | 2025-10-09 22:20 | ECG_ITS ---
APPROVED REPORT Exam: Resting ECG HR:70 bpm ECG Measurements Heart Rate 70 AXES QRSd 158 QRS -69 QT 454 T 112 QTc 474 Conclusion ELECTRONIC VENTRICULAR PACEMAKER ABNORMAL RHYTHM ECG Electronically signed by : BECKY JEFFERSON, 10/14/2025 07:38:42
--- NOTE | 2025-10-09 22:24 | HMH.EDGENADL ---
Discharge Plan Disposition Patient Disposition: Admitted Condition: Fair Prescriptions Prescriptions: No Action pantoprazole 40 mg tablet,delayed release (DR/EC) 40 mg PO HS warfarin 2.5 mg Tablet 2.5 mg PO SUTUTHSA warfarin 2.5 mg Tablet 1.25 mg PO MOWEFR lisinopril 20 mg tablet 20 mg PO DAILY metoprolol succinate 50 mg tablet extended release 24 hr 50 mg PO BID atorvastatin 40 mg tablet 40 mg PO HS hydrochlorothiazide 25 mg tablet 25 mg PO DAILY Referrals Follow up/Referrals: Matilde Barkley APRN [Primary Care Provider, Medical] - See instructions Clinical Impressions Clinical Impression: COVID-19, Fall, Hematuria Print Language Print Language: Tristanian Discharge ED Provider: Benjamin Plummer General Adult HPI <Benjamin Plummer MD - Last Filed: 10/09/25 22:54> General Stated complaint: fell couldn't get up, hit head on stand Time Seen by Provider: 10/09/25 22:15 History of Present Illness HPI narrative: Patient is a 89-year-old female past medical history of atrial fibrillation on anticoagulation, coronary artery disease, chronic renal insufficiency presents emergency department for evaluation of traumatic injury sustained in a fall. Over the last week patient has had nonbloody diarrhea, cough, upper nasal congestion and presented to PCP today who gave her antibiotics. After taking her first dose of antibiotics she has been dizzy. She was sitting in her kitchen table when she got up to take another dose of antibiotics tonight when she fell striking her head on a microwave and subsequently falling to the floor. She has chronic left hip pain which she attributes to her osteoarthritis but it is worse than normal. Currently complaining of left paraspinal pain in her lumbar and sacroiliac region. No midline thoracolumbar pain or cervical pain. No anterior chest pain. There is vague abdominal discomfort but no discrete pain. No other acute complaints at this time. Please note that above description of symptoms, in this electronic medical record under categorization of recalled from ER triage doctor by RN are reflective of an initial nursing assessment, however, is not reflective of my full history and physical exam that was personally taken and clarified. Consequentially, this preceding description of symptoms, which may include the patient's categorized chief complaint in the EMR, do not reflect my personal clinical impression, and the ultimate description of history of present illness and patient stated complaints should be deferred to this section of the note. Unless stated otherwise or congruent with this section of the note, additional signs, symptoms, or incongruence should be interpreted as inaccurate with my clinical impression. Related Data Home Medications ?Medication ?Instructions ?Recorded ?Confirmed lisinopril 20 mg tablet 20 mg PO DAILY 02/12/23 08/30/25 metoprolol succinate 50 mg 50 mg PO BID 05/19/23 08/30/25 tablet,extended release 24 hr pantoprazole 40 mg tablet,delayed 40 mg PO HS 11/25/23 08/30/25 release atorvastatin 40 mg tablet 40 mg PO HS 05/22/25 08/30/25 hydrochlorothiazide 25 mg tablet 25 mg PO DAILY 05/22/25 08/30/25 warfarin 2.5 mg tablet 1.25 mg PO MOWEFR 06/13/25 08/30/25 warfarin 2.5 mg tablet 2.5 mg PO SUTUTHSA 06/13/25 08/30/25 Allergies Allergy/AdvReac Type Severity Reaction Status Date / Time azithromycin Allergy Intermediate Hives Verified 08/30/25 12:55 Sulfa (Sulfonamide Allergy Unknown Shakiness Verified 08/30/25 12:55 Antibiotics) [facility] <Benjamin Plummer MD - Last Filed: 10/09/25 22:54> [facility] Disclaimer: The information contained in this section may have been updated after the patient was seen, as this information can be updated by other users. Medical History Atrial fibrillation History of pacemaker Hematoma of pacemaker pocket Tachy-junie syndrome Renal artery stenosis, [place], bilateral Restless sleeper Daytime somnolence Surgical History History of appendectomy History of hysterectomy S/P placement of cardiac pacemaker S/P coronary artery stent placement Family History Other No significant family history Social History Smoking Status: Never smoker alcohol intake: never substance use type: denies use current occupational status: retired Travel in the last 8 weeks?: Inside the [place] household members: none housing: house caffeine: No Have you lived/traveled outside [place] in past 30 days?: No Contact w/someone who lives/traveled outside [place] past 30 days?: No Exposure to someone with infectious disease in past 14 days?: No Do you have a fever (greater than 100.4 F or 38 C)?: No Have you tested positive for COVID-19?: No Exposed to someone with COVID-19 in past 14 days?: No Do you have a sore throat?: No Do you have a cough?: No Do you have any weakness?: No Do you have any diarrhea?: No Are you experiencing any unusual bleeding?: No Do you have any muscle aches/pain?: No Do you have any abdominal pain?: No Are you experiencing loss of taste or smell?: No Other Medical History Have you received the Flu Vaccine for this season: No Have you received the Pneumonia Vaccine: Yes <Benjamin Plummer MD - Last Filed: 10/09/25 22:54> ROS Obtained: Yes Systems reviewed as appropriate & no additional complaints except as documented Physical Exam <Benjamin Plummer MD - Last Filed: 10/09/25 22:54> General General appearance: alert and in no apparent distress Head Head exam: atraumatic and normocephalic Eye Eye exam: Present PERRL and EOMI ENT ENT exam: Present mucous membranes moist Neck Neck exam: Present normal inspection Chest Chest inspection: Present normal inspection and symmetric chest wall rise Respiratory Respiratory exam: Present normal lung sounds bilaterally; Absent respiratory distress Cardiovascular Cardiovascular exam: Present regular rate and normal rhythm Abdominal Exam Abdominal exam: Present soft and tenderness (Mild, diffuse); Absent guarding Extremities Exam Extremities exam: Present normal inspection; Absent tenderness Back Exam Back exam: Present tenderness (Left lumbar paraspinal left sacroiliac, no midline spinal tenderness) Neurological Exam Neurological exam: Present alert and oriented X3 Psychiatric Psychiatric exam: Present normal affect Skin Skin exam: Present warm and dry Medical Decision Making <Benjamin Plummer MD - Last Filed: 10/09/25 22:54> Medical Records Screening: Per USPSTF and CDC recommendations, given the prevalence of disease in our region, it is our hospital?s policy to screen for HIV and viral Hepatitis for all patients aged 18 and over and those with ongoing risk factors. [place] Inquiry Pt receiving controlled substance: No Vital Signs: 10/09/25 22:27 10/09/25 22:54 Temperature 98.6 F Temperature Source Tympanic Pulse Rate [Right] 70 Respiratory Rate 18 Blood Pressure [Right Arm] 122/70 Blood Pressure Mean [Right Arm] 87 Blood Pressure Source [Right Arm] Manual Cuff/ Auscultation Blood Pressure Position [Right Arm] Sitting 02 Sat by Pulse Oximetry 92 L 92 L Oxygen Delivery Method Room Air Nasal Cannula Oxygen Flow Rate (LPM) 2 Lab Data Lab Results 10/09/25 22:00: WBC 5.3, RBC 4.29, Hgb 12.6, Hct 38.5, MCV 89.7, MCH 29.4, MCHC 32.7, RDW 13.3, Plt Count 179, MPV 9.0, Neut % (Auto) 75.1, Lymph % (Auto) 11.4, [place] % (Auto) 12.9 H, Eos % (Auto) 0.0 L, Baso % (Auto) 0.4, Neut # (Auto) 4.0, Lymph # (Auto) 0.6 L, [place] # (Auto) 0.7, Eos # (Auto) 0.0, Baso # (Auto) 0.0, PT 20.9 H, INR 1.98 H, APTT 39.6 H, Sodium 138, Potassium 5.2 H, Chloride 97 L, Carbon Dioxide 27, Anion Gap 19.2 H, BUN 33 H, Creatinine 1.50 H, Estimated Creat Clear 30, Estimated GFR 33 L, Est GFR ( Amer) 40 L, Glucose 116 H, Calcium 9.3, Magnesium 1.7, Total Bilirubin 0.8, AST 49 H, ALT 26, Alkaline Phosphatase 55, Total Protein 7.9, Albumin 4.6, Globulin 3.3 H, Albumin/Globulin Ratio 1.4 10/09/25 22:44: SARS-CoV-2 (PCR) Detected A, Influenza A Untype (PCR) Not detected, Influenza Type B (PCR) Not detected 10/09/25 23:02: Urine Color Yellow, Urine Appearance Clear, Urine pH 6.0, Ur Specific [place] 1.015, Urine Protein Trace, Urine Glucose (UA) Negative, Urine Ketones Negative, Urine Blood 3+ A, Urine Nitrate Negative, Urine Bilirubin Negative, Urine Urobilinogen 0.2, Ur Leukocyte Esterase Negative, Urine RBC Tntc, Urine WBC 10-20, Ur Squamous Epith Cells 10-20, Urine Bacteria 1+, Urine Mucus 2+ 10/09/25 22:00 10/09/25 22:00 Orders (Tests/Meds): ED MEDICATIONS Generic Name Dose Route Start Last Admin Trade Name Caitlyn PRN Reason Stop Dose Admin Sodium Chloride 10 ml 10/09/25 22:17 Sodium Chloride 0.9% 10ml Flush Syringe IV 11/08/25 22:16 NEEDED PRN Maintain IV Site Discontinued Medications Generic Name Dose Route Start Last Admin Trade Name Caitlyn PRN Reason Stop Dose Admin Iopamidol 80 ml 10/09/25 22:29 10/09/25 22:30 Iopamidol-370 (76%);100ml Bottle IV 10/09/25 22:30 80 ml ONCE ONE Administration Sodium Chloride 50 ml 10/09/25 22:29 10/09/25 22:30 0.9 % Sodium Chloride 50 Ml Vial IV 10/09/25 22:30 50 ml ONCE ONE Administration Sodium Chloride 10 ml 10/09/25 22:29 10/09/25 22:30 Sodium Chloride 0.9% 10ml Syr (Rad Only) IV 10/09/25 22:30 10 ml ONCE ONE Administration ORDERS Category Date Time Status CT angio abd/pel - TRAUMA Stat Cat Scan 10/09/25 22:[address] angio chest - dissection Stat Cat Scan 10/09/25 22:[address] bony pelvis Stat Cat Scan 10/09/25 22:[address] cervical spine wo con Stat Cat Scan 10/09/25 22:[address] head/brain wo con Stat Cat Scan 10/09/25 22:15 Completed Activated Partial Thrombo Time Stat Lab 10/09/25 22:00 Completed Complete Blood Count Auto Diff Stat Lab 10/09/25 22:00 Completed Comprehensive Metabolic Panel Stat Lab 10/09/25 22:00 Completed MG [Magnesium] Stat Lab 10/09/25 22:00 Completed Prothrombin Time INR Stat Lab 10/09/25 22:00 Completed Rapid PCR Covid and Flu A/B Stat Lab 10/09/25 22:44 Completed Urinalysis and Microscopic Stat Lab 10/09/25 23:02 Completed Urine Culture Stat Micro 10/09/25 23:02 Received ECG Data Tracing #1: Independently interpreted by me rate is 70, rhythm is regular, axis is leftward deviated, ventricular paced, Sgarbossa negative, QTc 474. Medical Decision Narrative: In summary patient is a 89-year-old female with past medical history of scrota above who presents emergency department for evaluation of traumatic injury sustained in the fall on anticoagulation. Patient is hemodynamically stable and nontoxic-appearing upon arrival, afebrile. C-spine precautions initiated upon arrival. Fall on anticoagulation necessitates significant traumatic workup. Workup will be conducted with hematologic labs, noncontrasted CT scan of the head and cervical spine, CTA of the chest, abdomen, pelvis. With regards to her dizziness it may be that she is having medication adverse reaction, metabolic derangement, vasovagal presyncope, cardiac dysrhythmia, among others. EKG at bedside is V-paced making cardiac arrhythmia less likely. Initial hematologic labs reviewed by me no significant leukocytosis no transfusable anemia, INR 1.98 in the setting anticoagulation remainder of hematologic labs pending, noncontrasted CT scan head informally visualized by me no acute large intra-axial hemorrhage with midline shift. Formal reads and repeat evaluation pending at time of transfer of care to the oncoming physician, Dr. Abernathy. <Chioma Abernathy MD - Last Filed: 10/09/25 23:45> Vital Signs: 10/09/25 22:27 10/09/25 22:54 Temperature 98.6 F Temperature Source Tympanic Pulse Rate [Right] 70 Respiratory Rate 18 Blood Pressure [Right Arm] 122/70 Blood Pressure Mean [Right Arm] 87 Blood Pressure Source [Right Arm] Manual Cuff/ Auscultation Blood Pressure Position [Right Arm] Sitting 02 Sat by Pulse Oximetry 92 L 92 L Oxygen Delivery Method Room Air Nasal Cannula Oxygen Flow Rate (LPM) 2 Lab Data Lab Results 10/09/25 22:00: WBC 5.3, RBC 4.29, Hgb 12.6, Hct 38.5, MCV 89.7, MCH 29.4, MCHC 32.7, RDW 13.3, Plt Count 179, MPV 9.0, Neut % (Auto) 75.1, Lymph % (Auto) 11.4, [place] % (Auto) 12.9 H, Eos % (Auto) 0.0 L, Baso % (Auto) 0.4, Neut # (Auto) 4.0, Lymph # (Auto) 0.6 L, [place] # (Auto) 0.7, Eos # (Auto) 0.0, Baso # (Auto) 0.0, PT 20.9 H, INR 1.98 H, APTT 39.6 H, Sodium 138, Potassium 5.2 H, Chloride 97 L, Carbon Dioxide 27, Anion Gap 19.2 H, BUN 33 H, Creatinine 1.50 H, Estimated Creat Clear 30, Estimated GFR 33 L, Est GFR ( Amer) 40 L, Glucose 116 H, Calcium 9.3, Magnesium 1.7, Total Bilirubin 0.8, AST 49 H, ALT 26, Alkaline Phosphatase 55, Total Protein 7.9, Albumin 4.6, Globulin 3.3 H, Albumin/Globulin Ratio 1.4 10/09/25 22:44: SARS-CoV-2 (PCR) Detected A, Influenza A Untype (PCR) Not detected, Influenza Type B (PCR) Not detected 10/09/25 23:02: Urine Color Yellow, Urine Appearance Clear, Urine pH 6.0, Ur Specific [place] 1.015, Urine Protein Trace, Urine Glucose (UA) Negative, Urine Ketones Negative, Urine Blood 3+ A, Urine Nitrate Negative, Urine Bilirubin Negative, Urine Urobilinogen 0.2, Ur Leukocyte Esterase Negative, Urine RBC Tntc, Urine WBC 10-20, Ur Squamous Epith Cells 10-20, Urine Bacteria 1+, Urine Mucus 2+ Orders (Tests/Meds): ED MEDICATIONS Generic Name Dose Route Start Last Admin Trade Name Frenitza PRN Reason Stop Dose Admin Sodium Chloride 10 ml 10/09/25 22:17 Sodium Chloride 0.9% 10ml Flush Syringe IV 11/08/25 22:16 NEEDED PRN Maintain IV Site Discontinued Medications Generic Name Dose Route Start Last Admin Trade Name Freq PRN Reason Stop Dose Admin Iopamidol 80 ml 10/09/25 22:29 10/09/25 22:30 Iopamidol-370 (76%);100ml Bottle IV 10/09/25 22:30 80 ml ONCE ONE Administration Sodium Chloride 50 ml 10/09/25 22:29 10/09/25 22:30 0.9 % Sodium Chloride 50 Ml Vial IV 10/09/25 22:30 50 ml ONCE ONE Administration Sodium Chloride 10 ml 10/09/25 22:29 10/09/25 22:30 Sodium Chloride 0.9% 10ml Syr (Rad Only) IV 10/09/25 22:30 10 ml ONCE ONE Administration ORDERS Category Date Time Status CT angio abd/pel - TRAUMA Stat Cat Scan 10/09/25 22:[address] angio chest - dissection Stat Cat Scan 10/09/25 22:[address] bony pelvis Stat Cat Scan 10/09/25 22:[address] cervical spine wo con Stat Cat Scan 10/09/25 22:[address] head/brain wo con Stat Cat Scan 10/09/25 22:15 Completed Activated Partial Thrombo Time Stat Lab 10/09/25 22:00 Completed Complete Blood Count Auto Diff Stat Lab 10/09/25 22:00 Completed Comprehensive Metabolic Panel Stat Lab 10/09/25 22:00 Completed MG [Magnesium] Stat Lab 10/09/25 22:00 Completed Prothrombin Time INR Stat Lab 10/09/25 22:00 Completed Rapid PCR Covid and Flu A/B Stat Lab 10/09/25 22:44 Completed Urinalysis and Microscopic Stat Lab 10/09/25 23:02 Completed Urine Culture Stat Micro 10/09/25 23:02 Received Medical Decision Narrative: In summary patient is a 89-year-old female with past medical history of scrota above who presents emergency department for evaluation of traumatic injury sustained in the fall on anticoagulation. Patient is hemodynamically stable and nontoxic-appearing upon arrival, afebrile. C-spine precautions initiated upon arrival. Fall on anticoagulation necessitates significant traumatic workup. Workup will be conducted with hematologic labs, noncontrasted CT scan of the head and cervical spine, CTA of the chest, abdomen, pelvis. With regards to her dizziness it may be that she is having medication adverse reaction, metabolic derangement, vasovagal presyncope, cardiac dysrhythmia, among others. EKG at bedside is V-paced making cardiac arrhythmia less likely. Initial hematologic labs reviewed by me no significant leukocytosis no transfusable anemia, INR 1.98 in the setting anticoagulation remainder of hematologic labs pending, noncontrasted CT scan head informally visualized by me no acute large intra-axial hemorrhage with midline shift. Formal reads and repeat evaluation pending at time of transfer of care to the oncoming physician, Dr. Abernathy. Josemanuel: I assumed care of this patient at 2300 hrs. She is stable and resting comfortably. I agree with the assessment and plan from Dr. Plummer. I reviewed labs which are not acutely actionable at this time. I reviewed CTs which demonstrate no acute traumatic injury, renal cysts are present, osseous degenerative changes are present. See radiology reads for full interpretations. C-collar was cleared. UA resulted contaminated with squamous cells, too numerous to count RBCs but only 10-20 WBCs. Without dysuria or hematuria, I do not believe acute treatment for UTI is indicated due to contamination, however her COVID test resulted positive and when I attempted to wean the patient off oxygen she was not able to tolerate this, was desaturating to 88% on room air at rest. Because her COVID test is positive and she has a new oxygen requirement I believe she requires admission to the hospital especially with her advanced age. Patient and family are agreeable to this. I discussed this case with the hospitalist including concern that patient's lightheadedness could have been associated with starting with cefdinir and recommended changing cefdinir to a different antibiotic to cover sinusitis but that it may be worth collecting a fresh urinalysis as well as since patient has RBCs and WBCs but contaminated with squamous cells before determining whether or not she requires antibiotic therapy to cover urinary pathogens. We reviewed all labs, imaging studies, patient's presentation, concerns for potential medication side effect versus her presentation simply being related to COVID, hypoxia. Hospitalist graciously accepted the patient for admission. She was admitted in stable condition. Critical Care <Benjamin Plummer MD - Last Filed: 10/09/25 22:54> Critical Care Time Critical Care Time: No
[2025-10-09 22:27] VITALS: BP 122/70; PULSE 70; RESP 18; TEMP 37; O2SAT 92
[2025-10-09] MEDS: SODIUM CHLORIDE 0.9% 10ML SYR (RAD ONLY) 10 ML IV (22:30)
[2025-10-09] MEDS: IOPAMIDOL-370 (76%);100ML BOTTLE 80 ML IV (22:30)
[2025-10-09] MEDS: 0.9 % SODIUM CHLORIDE 50 ML VIAL IV (22:30)
[2025-10-09 22:32] LABS: Hematocrit 38.5 % (37.0-47.0); Hemoglobin 12.6 g/dL (12.2-16.2); Immature Granulocytes % 0.2 %; Mean Corpuscular HGB Conc 32.7 g/dL (31.8-35.4); Mean Corpuscular Hemoglobin 29.4 pg (27.0-31.2); Mean Corpuscular Volume 89.7 fl (81-99); Nucleated Red Blood Cells % 0 %; Platelet Count 179 K/mm3 (142-424); Red Blood Count 4.29 M/mm3 (4.20-5.40); Red Cell Distribution Width-SD 43.7 fL; White Blood Count 5.3 K/mm3 (4.8-10.8)
[2025-10-09 22:35] VITALS: BMI 28.3
[2025-10-09 22:39] LABS: Albumin Level 4.6 g/dl (3.5-5.0); Chloride 97 mmol/L (98-107); Potassium 5.2 mmoL/L (3.5-5.1); Sodium 138 mmol/L (136-145)
[2025-10-09 22:42] LABS: Alanine Aminotransferase 26 U/L (12-78); Albumin/Globulin Ratio 1.4 (1.1-1.8); Alkaline Phosphatase 55 U/L (38-126); Anion Gap 19.2 mEq/L (5-15); Aspartate Amino Transferase 49 U/L (14-36); Bilirubin,Total 0.8 mg/dl (0.2-1.3); Blood Urea Nitrogen 33 mg/dl (7-17); Carbon Dioxide 27 mmol/L (22.0-30.0); Creatinine Clearance Estimated 30 mL/min (50-200); Creatinine,Serum 1.50 mg/dl (0.52-1.04); Estimated Glomerular Filt Rate 33 ml/min (>60); GFR (African American) 40 ML/MIN (>60); Globulin 3.3 g/dL (1.3-3.2); Magnesium 1.7 mg/dl (1.6-2.3); Total Protein,Serum 7.9 g/dl (6.3-8.2)
[2025-10-09 22:43] LABS: Activated Partial Thrombo Time 39.6 seconds (22.8-30.6); Calcium 9.3 mg/dl (8.4-10.2); Glucose 116 mg/dl (74-100); INR 1.98 (0.9-1.1); Prothrombin Time 20.9 seconds (10.1-12.5)
[2025-10-09 22:51] LABS: Influenza A, PCR Not Detected (NotDetected); Influenza B, PCR Not Detected (NotDetected)
[2025-10-09 22:54] VITALS: O2SAT 92
[2025-10-09 23:07] LABS: Bilirubin,Urine Negative (Negative); Color,Urine YELLOW (Yellow); Glucose,Urine (UA) Negative (Negative); Ketones,Urine Negative (Negative); Leukocyte Esterase,Urine Negative (Negative); Microscopic, Urine URINE MICROSCOPIC (MICROSCOPIC); PH,Urine 6.0 (5.0-8.5); Protein,Urine TRACE (Negative); Specific Gravity, Urine 1.015 (1.005-1.030); Urobilinogen,Urine 0.2 EU/dl (0.2)
--- NOTE | 2025-10-09 23:07 | PC.NURSE ---
C-Collar removed at this time per MD Plummer.
[2025-10-09 23:30] LABS: Coronavirus 19, PCR Detected (NotDetected)
[2025-10-09 23:34] LABS: Bacteria,Urine 1+ /lpf; Mucus,Urine 2+ /lpf; RBC,Urine TNTC #/hpf (0-3)
--- NOTE | 2025-10-09 23:40 | PC.NURSE ---
called for bed assignment.
--- NOTE | 2025-10-10 00:05 | P.HP_ITS ---
<Statement entered by Anurag Buck MD - 10/15/25 11:09> Agree with plan of care as outlined by the CAR REPAIRER HELPER. History of Present Illness *Admission Date: 10/10/25 *Reason for visit:: Fall *History of present illness: This is an 89-year-old female who has a past medical history significant for atrial fibrillation, DVT, osteoarthritis, hypertension, hyperlipidemia, coronary artery disease, ischemic cardiomyopathy, tachybradycardia syndrome, HFpEF, and chronic kidney disease who presents with a chief complaint of fall. Due to patient's symptoms, she presented to the emergency room for evaluation. Patient was trauma scan and there was no acute fracture noted; however, CT scan of the abdomen pelvis did reveal sigmoid diverticulosis without diverticulitis. Patient was acutely hypoxic requiring supplemental oxygen. Room air saturation is were noted to be in the upper 80s. Additionally, patient was positive for COVID-19. As a result, hospital medicine was consulted for further management. During my evaluation of the patient, patient states she has been experiencing nonproductive cough at least 2 episodes of loose stool daily, nasal congestion, and dizziness. She recently was evaluated by her primary care physician who prescribed cefdinir for an upper respiratory infection. Patient took 1 dose of the cefdinir and experienced some dizziness. She fell and hit her head. She reports no loss of consciousness. Patient currently has an implantable pacemaker that is ventricularly paced and she is currently prescribed warfarin for management of atrial fibrillation/DVT. She is currently denying any chest pain, lightheadedness, dyspnea, PND, frequency of urination, burning with urination, difficulty urinating orthopnea, nausea, vomiting, abdominal pain, or headache. She does state that her symptoms started last . Additional pertinent labs obtained include a PT of 20.9, INR 1.98, PTT of 39.6, potassium of 5.2, chloride of 97, BUN of 33, creatinine 1.50, GFR of 33, blood glucose 116, AST of 49, patient was positive for COVID, and urinalysis revealed 3+ blood/red blood cells too numerous to count/10-20 white blood cells/10-20 epithelial cells/1+1 bacteria. [facility] Disclaimer: The information contained in this section may have been updated after the patient was seen, as this information can be updated by other users. Medical History Atrial fibrillation History of pacemaker Hematoma of pacemaker pocket Tachy-junie syndrome Renal artery stenosis, north fork, bilateral Restless sleeper Daytime somnolence Surgical History History of appendectomy History of hysterectomy S/P placement of cardiac pacemaker S/P coronary artery stent placement Family History Other No significant family history Social History Smoking Status: Never smoker alcohol intake: never substance use type: denies use current occupational status: retired Travel in the last 8 weeks?: Inside the [place] household members: none housing: house caffeine: No Have you lived/traveled outside US in past 30 days?: No Contact w/someone who lives/traveled outside US past 30 days?: No Exposure to someone with infectious disease in past 14 days?: No Do you have a fever (greater than 100.4 F or 38 C)?: No Have you tested positive for COVID-19?: No Exposed to someone with COVID-19 in past 14 days?: No Do you have a sore throat?: No Do you have a cough?: No Do you have any weakness?: No Do you have any diarrhea?: No Are you experiencing any unusual bleeding?: No Do you have any muscle aches/pain?: No Do you have any abdominal pain?: No Are you experiencing loss of taste or smell?: No Other Medical History Have you received the Flu Vaccine for this season: No Have you received the Pneumonia Vaccine: Yes Review of Systems Review of Systems Review of systems:: pertinent systems reviewed and negative unless documented below Constitutional Constitutional: Reports system reviewed and no additional complaints, except as documented Eyes Eyes: Reports system reviewed and no additional complaints, except as documented ENT Ears, Nose, Mouth, and Throat: Reports system reviewed and no additional complaints, except as documented and Reports dizziness *Cardiovascular Cardiovascular: Reports system reviewed and no additional complaints, except as documented and Reports dyspnea *Respiratory Respiratory: Reports chest congestion, Reports cough and Reports dyspnea *Gastrointestinal Gastrointestinal: Reports diarrhea *Genitourinary Genitourinary: Reports system reviewed and no additional complaints, except as documented *Musculoskeletal Musculoskeletal: Reports system reviewed and no additional complaints, except as documented Integumentary/Breasts Skin/Breast: Reports system reviewed and no additional complaints, except as documented *Neurologic Neurologic: Reports dizziness Psychiatric Psychiatric: Reports system reviewed and no additional complaints, except as do cumented Endocrine Endocrine: Reports system reviewed and no additional complaints, except as documented Hematologic/Lymphatic Hematologic/Lymphatic: Reports system reviewed and no additional complaints, except as documented Allergic/Immunologic Allergic/Immunologic: Reports system reviewed and no additional complaints, except as documented Meds Home Medications and Allergies Home Medications ?Medication ?Instructions ?Recorded ?Confirmed ?Type lisinopril 20 mg tablet 20 mg PO DAILY 02/12/2308/16 History metoprolol succinate 50 mg 50 mg PO BID 05/19/2308/30 History tablet,extended release 24 hr pantoprazole 40 mg tablet,delayed 40 mg PO HS 11/25/23 08/30/25 History release atorvastatin 40 mg tablet 40 mg PO HS 05/22/25 5 History hydrochlorothiazide 25 mg tablet 25 mg PO DAILY 08/30/25 History warfarin 2.5 mg tablet 1.25 mg PO MOWEFR 06/13/25 1 History warfarin 2.5 mg tablet 2.5 mg PO SUTUTHSA 06/13/25 08/30/25 History New Prescriptions to Start Prescriptions: Allergies Allergy/AdvReac Type Severity Reaction Status Date / Time azithromycin Allergy Intermediate Hives Verified 08/30/25 12:55 Sulfa (Sulfonamide Allergy Unknown Shakiness Verified 08/30/25 12:55 Antibiotics) Exam Data for Last 24 hours Vital signs and Labs for Last 24 Hours: Temp Pulse Resp BP Pulse Ox O2 Del Method O2 Flow Rate 98.6 F 70 18 122/70 92 L Nasal Cannula 2 10/09/25 22:27 10/09/25 22:27 10/09/25 22:27 10/09/25 22:27 10/09/25 22:54 10/09/25 22:54 10/09/25 22:54 Laboratory Results - last 24 hr 10/09/25 22:00: WBC 5.3, RBC 4.29, Hgb 12.6, Hct 38.5, MCV 89.7, MCH 29.4, MCHC 32.7, RDW 13.3, Plt Count 179, MPV 9.0, Neut % (Auto) 75.1, Lymph % (Auto) 11.4, Craig % (Auto) 12.9 H, Eos % (Auto) 0.0 L, Baso % (Auto) 0.4, Neut # (Auto) 4.0, Lymph # (Auto) 0.6 L, Craig # (Auto) 0.7, Eos # (Auto) 0.0, Baso # (Auto) 0.0, PT 20.9 H, INR 1.98 H, APTT 39.6 H, Sodium 138, Potassium 5.2 H, Chloride 97 L, Carbon Dioxide 27, Anion Gap 19.2 H, BUN 33 H, Creatinine 1.50 H, Estimated Creat Clear 30, Estimated GFR 33 L, Est GFR ( Amer) 40 L, Glucose 116 H, Calcium 9.3, Magnesium 1.7, Total Bilirubin 0.8, AST 49 H, ALT 26, Alkaline Phosphatase 55, Total Protein 7.9, Albumin 4.6, Globulin 3.3 H, Albumin/Globulin Ratio 1.4 10/09/25 22:44: SARS-CoV-2 (PCR) Detected A, Influenza A Untype (PCR) Not detected, Influenza Type B (PCR) Not detected 10/09/25 23:02: Urine Color Yellow, Urine Appearance Clear, Urine pH 6.0, Ur Specific [place] 1.015, Urine Protein Trace, Urine Glucose (UA) Negative, Urine Ketones Negative, Urine Blood 3+ A, Urine Nitrate Negative, Urine Bilirubin Negative, Urine Urobilinogen 0.2, Ur Leukocyte Esterase Negative, Urine RBC Tntc, Urine WBC 10-20, Ur Squamous Epith Cells 10-20, Urine Bacteria 1+, Urine Mucus 2+ I & O for Last 24 hours: Intake & Output 10/07/25 10/08/25 10/09/25 10/10/25 23:59 23:59 23:59 23:59 Weight 72.575 kg Constitutional Constitutional: no acute distress and cooperative *Routine HEENT Exam Head: Present normocephalic and atraumatic Eye: Present EOMI and PERRL ENT: Present mucous membranes moist *Routine Neck Exam Neck: Present supple, full ROM and trachea midline Routine Chest/Breast/Axilla Exam Chest wall: Present pacemaker *Routine Respiratory Exam Respiratory: Present CTA bilaterally, normal respiratory effort, able to speak in complete sentences and symmetric chest movement *Routine Cardiovascular Exam Cardiovascular: Present Normal S1, Normal S2 and other Comments: Ventricular paced *Routine Abdominal Exam Abdominal: Present soft and normoactive bowel sounds *Routine Rectal Exam Rectal:: deferred *Routine Genitalia Exam Genitalia:: deferred *Routine Extremities Exam Extremities: Present full ROM, pulses intact and normal capillary refill Routine Back/Spine/Pelvis Exam Back/Spine: Present full ROM *Routine Skin Exam Skin: Present intact, dry and normal turgor *Routine Neurological Exam Neurological: Present alert, oriented X3, CN II-XII intact and moving all extremities Routine Psychiatric Exam Psychiatric: Present normal affect, normal thought process, cooperative, good insight and good judgment H&P: Result Impressions 89-year-old female who has past medical history significant for atrial fibrillation currently with a pacemaker who presents with upper respiratory tract infection symptoms since last had some acute dizziness with a ground-level fall that was nontraumatic. Patient was diagnosed with COVID and was acutely hypoxic. Assessment and Plan *Assessment and plan (1) COVID-19: Status: Acute Category: Medical Code(s): U07.1 - COVID-19 (2) Acute hypoxic respiratory failure: Status: Acute Category: Medical Code(s): J96.01 - Acute respiratory failure with hypoxia (3) Coagulopathy: Status: Acute Category: Medical Code(s): D68.9 - Coagulation defect, unspecified (4) Hyperkalemia: Status: Acute Category: Medical Code(s): E87.5 - Hyperkalemia (5) Dizziness: Status: Acute Category: Medical Code(s): R42 - Dizziness and giddiness (6) Chronic kidney disease: Status: Acute Qualifiers: Chronic kidney disease stage: unspecified stage Qualified Code(s): N18.9 - Chronic kidney disease, unspecified Category: Medical Code(s): N18.9 - Chronic kidney disease, unspecified (7) Ground-level fall: Status: Acute Category: Medical Code(s): W18.30XA - Fall on same level, unspecified, initial encounter Plan Assessment: COVID pneumonitis Acute hypoxic respiratory failure - Will give patient 6 mg of dexamethasone IV daily - Patient CTA of the chest was nonrevealing - Patient is currently prescribed warfarin for management of DVT/atrial fibrillation - Patient is less likely to have any thrombosis - Will continue to warfarin to maintain INR between 2 and 3 - Will monitor CRP daily - Had a discussion with family concerning remdesivir. Her symptomology started on not sure patient would get the full benefit; however, I have ordered and will allow attending to determine if patient it will be beneficial for patient - Will consider olumiant. Patient does have chronic kidney disease however all warnings or more indicated for peds patients with low GFR-we will still use with caution Coagulopathy - Most likely in the setting of vitamin K intake - Once med rec is updated, will restart patient's Coumadin and maintain INR between 2 and 3 Hyperkalemia - Will obtain repeat potassium in the a.m. and if still elevated will give patient Artur cocktail Dizziness - Patient may have been experiencing some acute hypoxemia while at the house leading to the dizziness - Her symptoms have improved - Will consider 2D echo - Last 2D echo obtained in May 2024 revealed an EF of 55% Chronic kidney disease - Patient is at baseline creatinine - Will continue to monitor Ground-level fall - Place on fall precautions Plan: Admit patient to the MedSurg unit Activity as tolerated Fall precaution Saline lock Supplemental oxygen maintain oxygen saturation greater than 94% CBC/CRP/CMP/INR daily 5 mg Cleves p.o. every 4 hours for moderate pain 2 mg morphine IV push every 4 hours as needed severe pain 4 mg Zofran IV push. Hours pain as above Since patient has been having loose stool will culture stool Full code Patient was prescribed cefdinir for upper respiratory tract infection. Will discontinue antibiotics for now Urinalysis did show 1+ bacteria however there was some epithelial cells concerning for contamination We will hold off for treatment of urinary tract infection-have low suspicion of active infection I will discussed this case with attending
[2025-10-10 00:08] VITALS: BP 150/76; PULSE 70; RESP 18; TEMP 36.9; O2SAT 98
--- NOTE | 2025-10-10 00:08 | PC.NURSE ---
Report called to YOLIE Love on [facility]
--- NOTE | 2025-10-10 01:22 | PC.NURSE ---
Patient arrived to floor via wheelchair from ED at 01:13.
[2025-10-10] MEDS: DEXAMETHASONE 4MG/ML 1ML VIAL 6 MG IV ×2 (01:25→09:21)
[2025-10-10 04:00] VITALS: BP 166/78; PULSE 71; RESP 18; TEMP 36.4; O2SAT 95; BMI 28.0
[2025-10-10 06:15] LABS: Hematocrit 39.8 % (37.0-47.0); Hemoglobin 12.6 g/dL (12.2-16.2); Immature Granulocytes % 0.3 %; Mean Corpuscular HGB Conc 31.7 g/dL (31.8-35.4); Mean Corpuscular Hemoglobin 28.3 pg (27.0-31.2); Mean Corpuscular Volume 89.4 fl (81-99); Nucleated Red Blood Cells % 0 %; Platelet Count 165 K/mm3 (142-424); Red Blood Count 4.45 M/mm3 (4.20-5.40); Red Cell Distribution Width-SD 43.6 fL; White Blood Count 3.6 K/mm3 (4.8-10.8)
[2025-10-10 06:25] LABS: INR 1.86 (0.9-1.1); Prothrombin Time 19.7 seconds (10.1-12.5)
[2025-10-10 06:26] LABS: Alanine Aminotransferase 23 U/L (12-78); Albumin Level 4.3 g/dl (3.5-5.0); Albumin/Globulin Ratio 1.5 (1.1-1.8); Alkaline Phosphatase 82 U/L (38-126); Anion Gap 12.1 mEq/L (5-15); Aspartate Amino Transferase 42 U/L (14-36); Bilirubin,Total 0.7 mg/dl (0.2-1.3); Blood Urea Nitrogen 30 mg/dl (7-17); Calcium 9.4 mg/dl (8.4-10.2); Carbon Dioxide 27 mmol/L (22.0-30.0); Chloride 100 mmol/L (98-107); Creatinine Clearance Estimated 37 mL/min (50-200); Creatinine,Serum 1.20 mg/dl (0.52-1.04); Estimated Glomerular Filt Rate 42 ml/min (>60); GFR (African American) 51 ML/MIN (>60); Globulin 2.8 g/dL (1.3-3.2); Glucose 114 mg/dl (74-100); Potassium 4.1 mmoL/L (3.5-5.1); Sodium 135 mmol/L (136-145); Total Protein,Serum 7.1 g/dl (6.3-8.2)
[2025-10-10 06:31] LABS: C-Reactive Protein 25.7 mg/L (0-4)
[2025-10-10 08:00] VITALS: BP 102/48; PULSE 70; RESP 16; TEMP 36.7; O2SAT 96
--- NOTE | 2025-10-10 08:08 | HMH.PHAAMS2 ---
- Antimicrobial Stewardship Review culture & sensitivity review Stewardship interventions: culture & sensitivity review (URINE CULTURE PENDING, ON ROCEPHIN. )
--- NOTE | 2025-10-10 09:14 | HMH.OTEV ---
OT Evaluation Rehab OT IP Evaluation Start: 10/10/25 08:29 Freq: ONCE Status: Active Protocol: Document 10/10/25 09:11 LYNN (Rec: 10/10/25 09:14 [id number]) Rehab OT IP Assessment Subjective History Pt oriented x 3 on arrival. Pt agreeable to engage in therapy evaluation; daughter present and supportive. Pt admitted on 10/10/25 due to a fall and COVID. History and physical: This is an 89-year-old female who has a past medical history significant for atrial fibrillation, DVT, osteoarthritis, hypertension, hyperlipidemia, coronary artery disease, ischemic cardiomyopathy, tachybradycardia syndrome, HFpEF, and chronic kidney disease who presents with a chief complaint of fall. Due to patient's symptoms, she presented to the emergency room for evaluation. Patient was trauma scan and there was no acute fracture noted; however, CT scan of the abdomen pelvis did reveal sigmoid diverticulosis without diverticulitis. Patient was acutely hypoxic requiring supplemental oxygen. Room air saturation is were noted to be in the upper 80s. Additionally, patient was positive for COVID-19. As a result, hospital medicine was consulted for further management. During my evaluation of the patient, patient states she has been experiencing nonproductive cough at least 2 episodes of loose stool daily, nasal congestion, and dizziness. She recently was evaluated by her primary care physician who prescribed cefdinir for an upper respiratory infection. Patient took 1 dose of the cefdinir and experienced some dizziness. She fell and hit her head. She reports no loss of consciousness. Patient currently has an implantable pacemaker that is ventricularly paced and she is currently prescribed warfarin for management of atrial fibrillation/DVT. She is currently denying any chest pain, lightheadedness, dyspnea, PND, frequency of urination, burning with urination, difficulty urinating orthopnea, nausea, vomiting, abdominal pain, or headache. She does state that her symptoms started last . Additional pertinent labs obtained include a PT of 20.9 , INR 1.98, PTT of 39.6, potassium of 5.2, chloride of 97, BUN of 33, creatinine 1.50, GFR of 33, blood glucose 116, AST of 49, patient was positive for COVID, and urinalysis revealed 3+ blood/red blood cells too numerous to count/10-20 white blood cells/10-20 epithelial cells/1+1 bacteria. Subjective Prior to being in the hospital, pt lived at home alone. Pt's grandson lives next door and daughter checks on her often. Pt is normally independent with all ADLs and IADLs. Pt does use a cane during functional transfers. She does have 8 steps in the front of her home with railing and two steps in the back to enter. Pt's daughter reports she is able to stay with her for as long as needed once she returns home. Objective Patient Orientation Person,Place,Birthday Right Upper WFL Extremity Gross ROM Left Upper Extremity WFL Gross ROM Bed Mobility bed mobility-scooting,bed mobility - supine/sit Assist Level Supervision/Stand by Transfer Training Sit/Stand Transfer Assist Level Supervision/Stand by Chair Transfer Supervision/Stand by Ability Chair Transfer Sit to/from Ambulatory Technique Chair Transfer Straight Cane Assistive Devices Lower Body Dressing Independent Ability Rehab OT IP prob,goals,plan Problems Date of Evaluation: 10/10/25 Rehab Potential Rehab Potential Innapropriate for Skilled Therapy Discharge Plan OT Discharge Plan Pt appears to be at her baseline with functional transfers and ADL independence. Pt can return home with family assistance as needed once she is medically stable per physician. Eval Complexity Eval Charge Codes 02180 - Moderate Complexity PHYSICIAN CERTIFICATION: I certify the specified therapy services for Cande Evangelista are required, authorized, and reviewed every 30 days.
[2025-10-10] MEDS: REMDESIVIR 200 MG in 0.9 % SODIUM CHLORIDE 250 ML 250 MG IV (09:20)
[2025-10-10] MEDS: LISINOPRIL 20MG TABLET 20 MG PO (09:20)
[2025-10-10] MEDS: FLUTICASONE PROP 50MCG NASAL SPRAY 16GM 1 SPRAY NS (09:21)
[2025-10-10] MEDS: METOPROLOL SUCCINATE XL 50MG TABLET 50 MG PO (09:21)
--- NOTE | 2025-10-10 09:28 | HMH.PHAINT1 ---
Pharmacy Intervention Comments: MEDICATION RECONCILIATION COMPLETED ON PATIENT USING EXTERNAL FILL HISTORY FROM PHARMACY AND WARFARIN DOSING FROM [facility]. -WILBERT DOBBSD
--- NOTE | 2025-10-10 09:55 | HMH.PTEV ---
Physical Therapy Evaluation Rehab PT IP Evaluation Start: 10/10/25 08:29 Freq: ONCE Status: Active Protocol: Document 10/10/25 09:51 LOLY (Rec: 10/10/25 09:55 LOLY [id number]) Subjective/History History History Per H&P: This is an 89-year-old female who has a past medical history significant for atrial fibrillation, DVT, osteoarthritis, hypertension, hyperlipidemia, coronary artery disease, ischemic cardiomyopathy, tachybradycardia syndrome, HFpEF, and chronic kidney disease who presents with a chief complaint of fall. Due to patient's symptoms, she presented to the emergency room for evaluation. Patient was trauma scan and there was no acute fracture noted; however, CT scan of the abdomen pelvis did reveal sigmoid diverticulosis without diverticulitis. Patient was acutely hypoxic requiring supplemental oxygen. Room air saturation is were noted to be in the upper 80s. Additionally, patient was positive for COVID-19. As a result, hospital medicine was consulted for further management. During my evaluation of the patient, patient states she has been experiencing nonproductive cough at least 2 episodes of loose stool daily, nasal congestion, and dizziness. She recently was evaluated by her primary care physician who prescribed cefdinir for an upper respiratory infection. Patient took 1 dose of the cefdinir and experienced some dizziness. She fell and hit her head. She reports no loss of consciousness. Patient currently has an implantable pacemaker that is ventricularly paced and she is currently prescribed warfarin for management of atrial fibrillation/DVT. She is currently denying any chest pain, lightheadedness, dyspnea, PND, frequency of urination, burning with urination, difficulty urinating orthopnea, nausea, vomiting, abdominal pain, or headache. She does state that her symptoms started last . Additional pertinent labs obtained include a PT of 20.9 , INR 1.98, PTT of 39.6, potassium of 5.2, chloride of 97, BUN of 33, creatinine 1.50, GFR of 33, blood glucose 116, AST of 49, patient was positive for COVID, and urinalysis revealed 3+ blood/red blood cells too numerous to count/10-20 white blood cells/10-20 epithelial cells/1+1 bacteria. Subjective Subjective Prior to being in the hospital, pt lived at home alone. Pt's grandson lives next door and daughter checks on her often. Pt is normally independent with all mobility using a hurrycane. Pt reports she has 8 FAUSTINO home from the front and 2 FAUSTINO from the back door. Pt's daughter reports she is able to stay with her for as long as needed once she returns home. New diagnosis of No cancer in past 12 months? [facility] How much help from another person do you currently need... Turning from your None back to your side while in a flat bed without using bedrails? Moving from lying on None back to sitting on the side of a flat bed without using bedrails? Moving to and from a None bed to a chair ( including a wheelchair)? Standing up from a None chair using your arms? (e.g., wheelchair, bedside chair) Walking in hospital None room? Climbing 3-5 steps A little with a railing? Mobility Score 23 Mobility Level [facility] Mobility 7 Walk 25 feet or more Mobility Calculator Rehab PT IP Eval Objective Appearance Patient Behavior Appropriate,Cooperative Patient Orientation Person,Place,Situation Difficulty following none instructions Speech Pattern Clear Ambulation Patient Able to Yes Ambulate Ambulation Observation IP General Gait Decrease Stride Lngth (R),Decrease Stride Lngth (L) Pattern Observation Ambulation Distance 20 (feet) Ambulation Assistive Straight Cane Device Ambulation Ability Supervision/Stand by Balance Ability to Arise Able, uses arms to help Sitting Balance Steady, safe Standing Balance Steady, wide stance Dynamic Sitting Good Balance Ability Dynamic Standing Good Balance Ability Transfers Bed Transfer Ability Independent Sit to Stand Bed Independent Transfer Ability Rehab PT IP prob,goals,plan Problems Date of Evaluation: 10/10/25 Rehab Potential Rehab Potential Innapropriate for Skilled Therapy Discharge Plan PT Discharge Plan Pt presents at her baseline in functional mobility and ambulation (IND). At this time, when medically appropriate, pt most appropriate for d/c home with family assistance as needed. Eval Complexity Eval Charge Codes 93408 - Moderate Complexity PHYSICIAN CERTIFICATION: I certify the specified therapy services for Cande Evangelista are required, authorized, and reviewed every 30 days.
[2025-10-10 10:29] VITALS: O2SAT 91
--- NOTE | 2025-10-10 10:41 | SW/DCPLANNER ---
Addendum entered by Merly Celestin 10/10/25 11:40: patient was accepted by [facility] Latoya Chief Marketing Officer Original Note: Spoke with patient regarding home health services once she is medically stable and ready for discharge. Patient stated that she is interested in home health services and that i could send her information to [facility]. Naida Shields
[2025-10-10] MEDS: CEFTRIAXONE 1 GM 1 GM in 0.9 % SODIUM CHLORIDE 50 ML IV (11:41)
[2025-10-10] MEDS: WARFARIN 2MG TABLET 2 MG PO (11:41)
--- NOTE | 2025-10-10 11:51 | P.DS_ITS ---
<Statement entered by Anurag Buck MD - 10/10/25 16:08> Agree with plan of care as outlined by the [employer]. General Admission date:: 10/09/25 Discharge date: 10/10/25 HPI HPI HPI: This is an 89-year-old female who has a past medical history significant for atrial fibrillation, DVT, osteoarthritis, hypertension, hyperlipidemia, coronary artery disease, ischemic cardiomyopathy, tachybradycardia syndrome, HFpEF, and chronic kidney disease who presents with a chief complaint of fall. Due to patient's symptoms, she presented to the emergency room for evaluation. Patient was trauma scan and there was no acute fracture noted; however, CT scan of the abdomen pelvis did reveal sigmoid diverticulosis without diverticulitis. Patient was acutely hypoxic requiring supplemental oxygen. Room air saturation is were noted to be in the upper 80s. Additionally, patient was positive for COVID-19. As a result, hospital medicine was consulted for further management. During my evaluation of the patient, patient states she has been experiencing nonproductive cough at least 2 episodes of loose stool daily, nasal congestion, and dizziness. She recently was evaluated by her primary care physician who prescribed cefdinir for an upper respiratory infection. Patient took 1 dose of the cefdinir and experienced some dizziness. She fell and hit her head. She reports no loss of consciousness. Patient currently has an implantable pacemaker that is ventricularly paced and she is currently prescribed warfarin for management of atrial fibrillation/DVT. She is currently denying any chest pain, lightheadedness, dyspnea, PND, frequency of urination, burning with urination, difficulty urinating orthopnea, nausea, vomiting, abdominal pain, or headache. She does state that her symptoms started last . Additional pertinent labs obtained include a PT of 20.9, INR 1.98, PTT of 39.6, potassium of 5.2, chloride of 97, BUN of 33, creatinine 1.50, GFR of 33, blood glucose 116, AST of 49, patient was positive for COVID, and urinalysis revealed 3+ blood/red blood cells too numerous to count/10-20 white blood cells/10-20 epithelial cells/1+1 bacteria. Hospital Course Hospital Course Hospital Course: Ms. montelongo is an 89-year-old female who presented to the emergency department yesterday after an episode of dizziness and a fall. She was recently seen by her PCP and started on cefdinir for a suspected urinary tract infection. Workup in the emergency department was negative for any acute bony abnormalities or fractures. Incidentally was found to have COVID and a new O2 requirement of 2 L nasal cannula. Hospital medicine was consulted for admission due to acute h ypoxic respiratory failure and COVID-19. Hospital course was as follows: #Acute hypoxic respiratory failure, resolved #COVID 19 positive ? Patient states that she has had respiratory symptoms since , denies fever but has had intermittent sinus congestion and cough. Patient states she is feeling well today of discharge. ? Patient was initiated on remdesivir and dexamethasone 6 mg daily. Patient has done well since admission, denies shortness of breath, fever, abdominal pain, nausea/vomiting/diarrhea. Does endorse intermittent dry cough. Patient was weaned to room air without issue, room air saturation at rest 96%, room air saturation with ambulation 91%. Patient does live alone and was evaluated by PT/OT who states she did very well and was able to ambulate independently but would benefit from home health services. Daughter at bedside states that she will come stay with patient to ensure she does well. Social work/care management consulted and have set up home health services at discharge. #Atrial fibrillation #History of DVT ? Patient currently on warfarin therapy for history of A-fib and DVT. Patient INR subtherapeutic, patient follows with Coumadin clinic here at [facility]. Coumadin adjusted prior to discharge. #Hyperkalemia, resolved ? Patient potassium on admission slightly elevated, repeat day of discharge 4.1. #Dizziness ? Patient states she had episode of dizziness prior to falling. Did not lose consciousness. Likely related to COVID and possible hypoxemia. Patient denies current dizziness and is able to ambulate without issue. ? Patient had echo August 2025 which showed EF of 55%, normal biventricular function. Patient follows with cardiology at [facility], last visit August 2025. #CKD ? Patient's creatinine 1.2, this is baseline for her. #Urinary tract infection ? UA appears abnormal but also contaminated. Patient does complain of intermittent low back pain and some dysuria. Patient initially started on cefdinir prior to admission, received ceftriaxone during admission. Patient should continue cefdinir course. Urine culture currently pending, will follow. Total time spent on discharge 34 minutes in counseling, documentation, chart review, and direct care with patient. Exam Data for Last 24 hours Vital signs and Labs for Last 24 Hours: Temp Pulse Resp BP Pulse Ox O2 Del Method O2 Flow Rate 98.1 F 70 16 102/48 L 91 L Room Air 2 10/10/25 08:00 10/10/25 08:00 10/10/25 08:00 10/10/25 08:00 10/10/25 10:29 10/10/25 10:29 10/10/25 08:00 Laboratory Results - last 24 hr 10/09/25 22:00: WBC 5.3, RBC 4.29, Hgb 12.6, Hct 38.5, MCV 89.7, MCH 29.4, MCHC 32.7, RDW 13.3, Plt Count 179, MPV 9.0, Neut % (Auto) 75.1, Lymph % (Auto) 11.4, [place] % (Auto) 12.9 H, Eos % (Auto) 0.0 L, Baso % (Auto) 0.4, Neut # (Auto) 4.0, Lymph # (Auto) 0.6 L, [place] # (Auto) 0.7, Eos # (Auto) 0.0, Baso # (Auto) 0.0, PT 20.9 H, INR 1.98 H, APTT 39.6 H, Sodium 138, Potassium 5.2 H, Chloride 97 L, Carbon Dioxide 27, Anion Gap 19.2 H, BUN 33 H, Creatinine 1.50 H, Estimated Creat Clear 30, Estimated GFR 33 L, Est GFR ( Amer) 40 L, Glucose 116 H, Calcium 9.3, Magnesium 1.7, Total Bilirubin 0.8, AST 49 H, ALT 26, Alkaline Phosphatase 55, Total Protein 7.9, Albumin 4.6, Globulin 3.3 H, Albumin/Globulin Ratio 1.4 10/09/25 22:44: SARS-CoV-2 (PCR) Detected A, Influenza A Untype (PCR) Not detected, Influenza Type B (PCR) Not detected 10/09/25 23:02: Urine Color Yellow, Urine Appearance Clear, Urine pH 6.0, Ur Specific Baker 1.015, Urine Protein Trace, Urine Glucose (UA) Negative, Urine Ketones Negative, Urine Blood 3+ A, Urine Nitrate Negative, Urine Bilirubin Negative, Urine Urobilinogen 0.2, Ur Leukocyte Esterase Negative, Urine RBC Tntc, Urine WBC 10-20, Ur Squamous Epith Cells 10-20, Urine Bacteria 1+, Urine Mucus 2+ 10/10/25 05:38: WBC 3.6 L D, RBC 4.45, Hgb 12.6, Hct 39.8, MCV 89.4, MCH 28.3, MCHC 31.7 L, RDW 13.3, Plt Count 165, MPV 9.0, Neut % (Auto) 76.0, Lymph % (Auto) 16.9, [place] % (Auto) 6.5, Eos % (Auto) 0.0 L, Baso % (Auto) 0.3, Neut # (Auto) 2.7, Lymph # (Auto) 0.6 L, Oxford # (Auto) 0.2, Eos # (Auto) 0.0, Baso # (Auto) 0.0, PT 19.7 H, INR 1.86 H, Sodium 135 L, Potassium 4.1 D, Chloride 100, Carbon Dioxide 27, Anion Gap 12.1, BUN 30 H, Creatinine 1.20 H, Estimated Creat Clear 37, Estimated GFR 42 L, Est GFR ( Amer) 51 L D, Glucose 114 H, Calcium 9.4, Total Bilirubin 0.7, AST 42 H, ALT 23, Alkaline Phosphatase 82, C- Reactive Protein 25.7 H, Total Protein 7.1, Albumin 4.3, Globulin 2.8, Albumin/Globulin Ratio 1.5 I & O for Last 24 hours: Intake & Output 10/07/25 10/08/25 10/09/25 10/10/25 23:59 23:59 23:59 23:59 Intake Total 520 / 520 Output Total 0 / 0 Balance 520 / 520 Weight 72.575 kg 71.804 kg Constitutional Constitutional: no acute distress, average body habitus and cooperative *Routine HEENT Exam Head: Present normocephalic Eye: Present EOMI and PERRL ENT: Present mucous membranes moist *Routine Neck Exam Neck: Present supple; Absent lymphadenopathy *Routine Respiratory Exam Respiratory: Present CTA bilaterally, rhonchi, wheezes and crackles *Routine Cardiovascular Exam Cardiovascular: Present irregularly irregular *Routine Abdominal Exam Abdominal: Present soft and normoactive bowel sounds; Absent tenderness *Routine Rectal Exam Patient deferred: visual exam *Routine Exam Patient deferred: external exam *Routine Extremities Exam Extremities: Present edema (Trace bilateral lower extremity); Absent cyanosis or clubbing Comments: Prominent arthritic knees with mild deformity *Routine Skin Exam Skin: Present intact and warm; Absent rash *Routine Neurological Exam Neurological: Present alert, oriented X3 and moving all extremities; Absent altered mental status Results Data Completed and Pending Labs on day of discharge: Labs from last 24 hours 10/10/25 10/09/25 10/09/25 05:38 23:02 22:44 WBC 3.6 L D RBC 4.45 Hgb 12.6 Hct 39.8 MCV 89.4 MCH 28.3 MCHC 31.7 L RDW 13.3 Plt Count 165 MPV 9.0 Neut % (Auto) 76.0 Lymph % (Auto) 16.9 Oxford % (Auto) 6.5 Eos % (Auto) 0.0 L Baso % (Auto) 0.3 Neut # (Auto) 2.7 Lymph # (Auto) 0.6 L Oxford # (Auto) 0.2 Eos # (Auto) 0.0 Baso # (Auto) 0.0 PT 19.7 H INR 1.86 H APTT Sodium 135 L Potassium 4.1 D Chloride 100 Carbon Dioxide 27 Anion Gap 12.1 BUN 30 H Creatinine 1.20 H Estimated Creat Clear 37 Estimated GFR 42 L Est GFR ( Amer) 51 L D Glucose 114 H Calcium 9.4 Magnesium Total Bilirubin 0.7 AST 42 H ALT 23 Alkaline Phosphatase 82 C-Reactive Protein 25.7 H Total Protein 7.1 Albumin 4.3 Globulin 2.8 Albumin/Globulin Ratio 1.5 Urine Color Yellow Urine Appearance Clear Urine pH 6.0 Ur Specific Baker 1.015 Urine Protein Trace Urine Glucose (UA) Negative Urine Ketones Negative Urine Blood 3+ A Urine Nitrate Negative Urine Bilirubin Negative Urine Urobilinogen 0.2 Ur Leukocyte Esterase Negative Urine RBC Tntc Urine WBC 10-20 Ur Squamous Epith Cells 10-20 Urine Bacteria 1+ Urine Mucus 2+ SARS-CoV-2 (PCR) Detected A Influenza A Untype (PCR) Not detected Influenza Type B (PCR) Not detected 10/09/25 22:00 WBC 5.3 RBC 4.29 Hgb 12.6 Hct 38.5 MCV 89.7 MCH 29.4 MCHC 32.7 RDW 13.3 Plt Count 179 MPV 9.0 Neut % (Auto) 75.1 Lymph % (Auto) 11.4 Oxford % (Auto) 12.9 H Eos % (Auto) 0.0 L Baso % (Auto) 0.4 Neut # (Auto) 4.0 Lymph # (Auto) 0.6 L Oxford # (Auto) 0.7 Eos # (Auto) 0.0 Baso # (Auto) 0.0 PT 20.9 H INR 1.98 H APTT 39.6 H Sodium 138 Potassium 5.2 H Chloride 97 L Carbon Dioxide 27 Anion Gap 19.2 H BUN 33 H Creatinine 1.50 H Estimated Creat Clear 30 Estimated GFR 33 L Est GFR ( Amer) 40 L Glucose 116 H Calcium 9.3 Magnesium 1.7 Total Bilirubin 0.8 AST 49 H ALT 26 Alkaline Phosphatase 55 C-Reactive Protein Total Protein 7.9 Albumin 4.6 Globulin 3.3 H Albumin/Globulin Ratio 1.4 Urine Color Urine Appearance Urine pH Ur Specific Baker Urine Protein Urine Glucose (UA) Urine Ketones Urine Blood Urine Nitrate Urine Bilirubin Urine Urobilinogen Ur Leukocyte Esterase Urine RBC Urine WBC Ur Squamous Epith Cells Urine Bacteria Urine Mucus SARS-CoV-2 (PCR) Influenza A Untype (PCR) Influenza Type B (PCR) DS: Diagnosis Discharge Diagnosis (1) COVID-19: Status: Acute Code(s): U07.1 - COVID-19 (2) Acute hypoxic respiratory failure: Status: Acute Code(s): J96.01 - Acute respiratory failure with hypoxia (3) Coagulopathy: Status: Acute Code(s): D68.9 - Coagulation defect, unspecified (4) Hyperkalemia: Status: Acute Code(s): E87.5 - Hyperkalemia (5) Dizziness: Status: Acute Code(s): R42 - Dizziness and giddiness (6) Chronic kidney disease: Status: Acute Code(s): N18.9 - Chronic kidney disease, unspecified Qualifiers: Chronic kidney disease stage: unspecified stage Qualified Code(s): N18.9 - Chronic kidney disease, unspecified (7) Ground-level fall: Status: Acute Code(s): W18.30XA - Fall on same level, unspecified, initial encounter Meds Home Medications and Allergies Home Medications ?Medication ?Instructions ?Recorded ?Confirmed ?Type lisinopril 20 mg tablet 20 mg PO DAILY 03/24/23 11/1 9/25 History metoprolol succinate 50 mg 50 mg PO BID 05/19/2310/10 History tablet,extended release 24 hr pantoprazole 40 mg tablet,delayed 40 mg PO HS 11/25/23 10/10/25 History release atorvastatin 40 mg tablet 40 mg PO HS 05/22/25 5 History hydrochlorothiazide 25 mg tablet 25 mg PO DAILY 10/10/25 History cefdinir 300 mg capsule 300 mg PO BID 10/10/2510/10 History fluticasone propionate 50 1 spray intranasal DAILY 10/10/25 History mcg/actuation nasal spray,suspension warfarin 1 mg tablet (Jantoven) 1 mg PO MoFr@1100 #0 t abs 10/10/25 Rx warfarin 2 mg tablet 2 mg PO SuTuWeThSa@1100 #0 t abs 10/10/25 Rx New Prescriptions to Start Prescriptions: Allergies Allergy/AdvReac Type Severity Reaction Status Date / Time azithromycin Allergy Intermediate Hives Verified 08/30/25 12:55 Sulfa (Sulfonamide Allergy Unknown Shakiness Verified 08/30/25 12:55 Antibiotics) Discharge Plan Disposition Patient Disposition: Home Health Service Condition: Fair Follow up Plan Follow up with: Matilde Barkley APRN [Primary Care Provider, Medical] - Enter time for follow up Prescriptions/Medication Reconciliation: New warfarin 2 mg Tablet 2 mg PO SuTuWeThSa@1100 Qty: 0 0RF warfarin [Jantoven] 1 mg Tablet 1 mg PO MoFr@1100 Qty: 0 0RF Continued pantoprazole 40 mg tablet,delayed release (DR/EC) 40 mg PO HS lisinopril 20 mg tablet 20 mg PO DAILY metoprolol succinate 50 mg tablet extended release 24 hr 50 mg PO BID atorvastatin 40 mg tablet 40 mg PO HS hydrochlorothiazide 25 mg tablet 25 mg PO DAILY fluticasone propionate 50 mcg/actuation spray,suspension 1 spray intranasal DAILY cefdinir 300 mg capsule 300 mg PO BID Discontinued warfarin 2.5 mg Tablet 2.5 mg PO MOFR warfarin 2.5 mg Tablet 1.25 mg PO SUTUWETHSA Problem Reconciliation Problems Reviewed?: Yes Patient Discharge Instructions ACTIVITY: Ambulate as tolerated and Up with assistance DIET: continue same diet Patient Instructions: DI for Pneumonia in Adults, How to Prevent Falls, DI for COVID-19 (Suspected or Confirmed ), Stop Light Pneumonia Print Language: [place] Providers Primary Care Provider: Matilde Barkley Admit Provider: Anurag Buck Attending Provider: Anurag Buck
[2025-10-10 12:00] VITALS: BP 155/80; PULSE 68; RESP 16; TEMP 36.7; O2SAT 96
--- NOTE | 2025-10-12 10:46 | SW/DCPLANNER ---
Spoke with patient on the phone. Patient stated that she is doing good. Patient stated that she is aware of her upcoming appointment. Patient stated that she was able to get her new medicine picked up. Patient stated that she has no concerns or questions at this time. Naida Shields
== END 2025-10-10 14:53 | disposition home health service (06) ==
LOC: ER 23:40 → 2ND 23:50
PROVIDERS: Nurse Practitioner Family; Admitting Provider Student in an Organized Health Care Education/Training Program; Emergency Provider Emergency Medicine; PCP Nurse Practitioner Family; Visit Provider Student in an Organized Health Care Education/Training Program
DX: U07.1 COVID-19 (principal); J96.01 Acute respiratory failure with hypoxia; D68.9 Coagulation defect, unspecified; E87.5 Hyperkalemia; N18.9 Chronic kidney disease, unspecified; W18.30XA Fall on same level, unspecified, initial encounter; I48.91 Unspecified atrial fibrillation; Z95.0 Presence of cardiac pacemaker; Z90.710 Acquired absence of both cervix and uterus; Z88.1 Allergy status to other antibiotic agents; Z88.2 Allergy status to sulfonamides; Z79.899 Other long term (current) drug therapy; Z79.01 Long term (current) use of anticoagulants; Z86.718 Personal history of other venous thrombosis and embolism; E78.5 Hyperlipidemia, unspecified; I25.10 Atherosclerotic heart disease of native coronary artery without angina pectoris; I25.5 Ischemic cardiomyopathy; I13.0 Hypertensive heart and chronic kidney disease with heart failure and stage 1 through stage 4 chronic kidney disease, or unspecified chronic kidney disease; I50.30 Unspecified diastolic (congestive) heart failure; M17.0 Bilateral primary osteoarthritis of knee; R94.31 Abnormal electrocardiogram [ECG] [EKG]; M16.0 Bilateral primary osteoarthritis of hip; K57.30 Diverticulosis of large intestine without perforation or abscess without bleeding
CPT/HCPCS: 36415; 70450; 71275; 72125; 72192; 74174; 80053; 81001; 83735; 85025; 85610; 85730; 86140; 87086; 87636; 93005; 97162; 97166; 99285; G0378; J0248; J0696; J1100; J7050; Q9967

== ENCOUNTER 2025-10-26 11:15 | Outpatient (CLI) | payer MEDICARE, SELFPAY ==
[2025-10-26 14:07] LABS: PHA INR Fingerstick 3.2 (0.9-1.1)
== END 2025-10-26 14:11 ==
LOC: ACC 11:16
PROVIDERS: PCP Nurse Practitioner Family; Visit Provider Nurse Practitioner Family
DX: I48.91 Unspecified atrial fibrillation (principal); Z79.01 Long term (current) use of anticoagulants
CPT/HCPCS: 85610; 99211; G0463